=== PATIENT | male | born 1945 | race Caucasian/White ===

== ENCOUNTER 2023-07-04 08:14 | Outpatient (RCR) | payer OTHER, SELFPAY ==
[2023-07-04 08:50] LABS: % Basophils 0.1 % (0-2); % Eosinophils 3.7 % (0-6); % Immature Granulocytes 0.7 % (0-0.5); % Monocytes 10.6 % (1.7-9.3); % Neutrophils 62.9 % (42.2-75.2); Absolute Eosinophils 0.3 10^3/uL (0-0.7); Absolute Immature Granulocytes 0.1 10^3/uL (0-0.05); Absolute Lymphocytes 1.5 10^3/uL (1.2-3.4); Absolute Monocytes 0.7 10^3/uL (0.1-0.6); Absolute Neutrophils 4.2 10^3/uL (1.4-6.5); Hematocrit 45.6 % (39.0-52.0); Hemoglobin 14.5 g/dL (13.0-18.0); Mean Corp Hgb Conc. 31.8 g/dL (33.0-37.0); Mean Corpuscular Hgb 24.7 pg (27.0-31.0); Mean Corpuscular Volume 77.6 fL (80.0-94.0); Mean Platelet Volume 10.8 fL (7.4-10.4); Platelet Count 205 10^3/uL (130-400); Red Blood Cell Count 5.88 10^6/uL (4.70-6.10); Red Cell Dist. Width 15.3 % (11.5-14.5); White Blood Cell Count 6.7 10^3/uL (4.8-10.8)
[2023-07-04 09:20] VITALS: BP 179/91
[2023-07-04 09:40] VITALS: BP 160/92
[2023-07-04 10:20] VITALS: BP 182/84
== END 2023-08-02 23:59 | disposition home or self-care (01) ==
LOC: OID 08:14
PROVIDERS: ATTENDING PHYSICIAN Internal Medicine Hematology & Oncology; FAMILY PHYSICIAN Family Medicine
DX: D45 Polycythemia vera (principal); E10.65 Type 1 diabetes mellitus with hyperglycemia; E55.9 Vitamin D deficiency, unspecified
CPT/HCPCS: 36415; 85025; 99195

== ENCOUNTER → 2023-09-11 10:48 | Outpatient (REF) | payer MEDICARE, OTHER, SELFPAY ==
[2023-09-11 11:31] LABS: Hematocrit 49.2 % (39.0-52.0); Hemoglobin 15.6 g/dL (13.0-18.0)
[2023-09-11 11:54] LABS: ALT (SGPT) 23 U/L (0-50); AST (SGOT) 25 U/L (17-59); Albumin 4.5 g/dl (3.5-5.0); Alkaline Phosphatase 78 U/L (38-126); Blood Urea Nitrogen 21 mg/dl (9-20); Calcium 9.6 mg/dl (8.4-10.2); Carbon Dioxide 27 mmol/L (22-30); Chloride 105 mmol/L (98-107); Glucose 86 mg/dl (70-99); Potassium 4.1 mmol/L (3.5-5.1); Sodium 139 mmol/L (135-145); Total Bilirubin 0.6 mg/dl (0.2-1.3); Total Protein 7.6 g/dl (6.3-8.2); eGFR > 60.00
[2023-09-11 12:26] LABS: Microalbumin, Random Urine 3.1 mg/dl (0.6-1.7)
== END ==
LOC: REG 10:48
PROVIDERS: ATTENDING PHYSICIAN Internal Medicine Endocrinology, Diabetes & Metabolism; FAMILY PHYSICIAN Family Medicine
DX: E11.65 Type 2 diabetes mellitus with hyperglycemia (principal); Z74.9 Problem related to care provider dependency, unspecified
CPT/HCPCS: 36415; 80053; 82043; 83036; 85014; 85018

== ENCOUNTER 2023-10-03 08:27 | Outpatient (RCR) | payer MEDICARE, OTHER, SELFPAY ==
[2023-10-03 09:01] LABS: % Basophils 0.2 % (0-2); % Eosinophils 3.8 % (0-6); % Immature Granulocytes 0.7 % (0-0.5); % Lymphocytes 21.6 % (20.5-51.1); % Monocytes 8.7 % (1.7-9.3); Absolute Eosinophils 0.2 10^3/uL (0-0.7); Absolute Lymphocytes 1.3 10^3/uL (1.2-3.4); Absolute Monocytes 0.5 10^3/uL (0.1-0.6); Hematocrit 47.6 % (39.0-52.0); Mean Corp Hgb Conc. 31.5 g/dL (33.0-37.0); Mean Corpuscular Hgb 23.7 pg (27.0-31.0); Mean Corpuscular Volume 75.1 fL (80.0-94.0); Mean Platelet Volume 10.7 fL (7.4-10.4); Platelet Count 195 10^3/uL (130-400); Red Blood Cell Count 6.34 10^6/uL (4.70-6.10); Red Cell Dist. Width 18.5 % (11.5-14.5); White Blood Cell Count 6.1 10^3/uL (4.8-10.8)
[2023-10-03 09:31] VITALS: BP 166/66
[2023-10-03 10:15] VITALS: BP 177/72
[2023-10-03 10:22] VITALS: BP 162/73
== END 2023-10-31 23:59 | disposition home or self-care (01) ==
LOC: OID 08:27
PROVIDERS: ATTENDING PHYSICIAN Internal Medicine Hematology & Oncology; FAMILY PHYSICIAN Family Medicine
DX: D45 Polycythemia vera (principal); E10.65 Type 1 diabetes mellitus with hyperglycemia; E55.9 Vitamin D deficiency, unspecified
CPT/HCPCS: 36415; 85025; 99195

== ENCOUNTER 2023-11-03 06:44 | Day surgery (SDC) | payer MEDICARE, OTHER, SELFPAY ==
[2023-10-24 12:28] VITALS: BMI 38.1
[2023-11-03] VITALS (11 sets, daily range): BP systolic 100–188; BP diastolic 42–118; BMI 38.1
[2023-11-03 08:51] LABS: Glucose - Point of Care 261 mg/dl (70-99)
[2023-11-03] MEDS: NORMOSOL-R 1000 IV (08:57)
[2023-11-03] MEDS: NOVOLOG vial 4 UNITS SC (09:13)
[2023-11-03 10:02] LABS: Glucose - Point of Care 231 mg/dl (70-99)
[2023-11-03] MEDS: TYLENOL 650 MG PO (12:00)
== END 2023-11-03 12:30 | disposition home or self-care (01) ==
LOC: SDS 06:44
PROVIDERS: ATTENDING PHYSICIAN Specialist
DX: N40.2 Nodular prostate without lower urinary tract symptoms (principal); R31.9 Hematuria, unspecified; N35.919 Unspecified urethral stricture, male, unspecified site
CPT/HCPCS: 55700; 52281; 88305; 76998; 82962; J1580

== ENCOUNTER → 2023-12-20 06:44 | Outpatient (REF) | payer MEDICARE, OTHER, SELFPAY ==
[2023-12-20 08:33] LABS: ALT (SGPT) 21 U/L (0-50); AST (SGOT) 26 U/L (17-59); Albumin 4.6 g/dl (3.5-5.0); Alkaline Phosphatase 82 U/L (38-126); Blood Urea Nitrogen 23 mg/dl (9-20); Calcium 9.6 mg/dl (8.4-10.2); Carbon Dioxide 27 mmol/L (22-30); Chloride 104 mmol/L (98-107); Glucose 161 mg/dl (70-99); Potassium 4.4 mmol/L (3.5-5.1); Sodium 142 mmol/L (135-145); Total Bilirubin 0.8 mg/dl (0.2-1.3); Total Protein 7.6 g/dl (6.3-8.2); eGFR > 60.00
[2023-12-20 14:24] LABS: Glycohemoglobin (HgbA1c) 9.3 % (4.0-5.6)
== END ==
LOC: REG 06:44
PROVIDERS: ATTENDING PHYSICIAN Internal Medicine Endocrinology, Diabetes & Metabolism; FAMILY PHYSICIAN Family Medicine
DX: E11.65 Type 2 diabetes mellitus with hyperglycemia (principal)
CPT/HCPCS: 36415; 80053; 83036

== ENCOUNTER 2024-01-02 08:23 | Outpatient (RCR) | payer MEDICARE, OTHER, SELFPAY ==
[2024-01-02 08:41] LABS: % Basophils 0.3 % (0-2); % Eosinophils 3.4 % (0-6); % Immature Granulocytes 0.8 % (0-0.5); % Lymphocytes 20.2 % (20.5-51.1); % Monocytes 8.9 % (1.7-9.3); % Neutrophils 66.4 % (42.2-75.2); Absolute Eosinophils 0.2 10^3/uL (0-0.7); Absolute Immature Granulocytes 0.1 10^3/uL (0-0.05); Absolute Lymphocytes 1.3 10^3/uL (1.2-3.4); Absolute Monocytes 0.6 10^3/uL (0.1-0.6); Absolute Neutrophils 4.3 10^3/uL (1.4-6.5); Hematocrit 47.3 % (39.0-52.0); Hemoglobin 15.4 g/dL (13.0-18.0); Mean Corp Hgb Conc. 32.6 g/dL (33.0-37.0); Mean Corpuscular Hgb 24.4 pg (27.0-31.0); Mean Corpuscular Volume 74.8 fL (80.0-94.0); Mean Platelet Volume 10.8 fL (7.4-10.4); Platelet Count 209 10^3/uL (130-400); Red Blood Cell Count 6.32 10^6/uL (4.70-6.10); Red Cell Dist. Width 18.8 % (11.5-14.5); White Blood Cell Count 6.5 10^3/uL (4.8-10.8)
[2024-01-02 08:56] VITALS: BP 117/86
[2024-01-02 09:36] VITALS: BP 158/78
[2024-01-02 09:50] VITALS: BP 155/70
== END 2024-01-03 13:04 | disposition home or self-care (01) ==
LOC: OID 08:23
PROVIDERS: ATTENDING PHYSICIAN Internal Medicine Hematology & Oncology; FAMILY PHYSICIAN Family Medicine
DX: D45 Polycythemia vera (principal); E10.65 Type 1 diabetes mellitus with hyperglycemia; E55.9 Vitamin D deficiency, unspecified
CPT/HCPCS: 36415; 85025; 99195

== ENCOUNTER → 2024-04-09 13:27 | Outpatient (REF) | payer MEDICARE, OTHER, SELFPAY ==
[2024-04-09 14:15] LABS: Hematocrit 50.6 % (39.0-52.0); Hemoglobin 16.3 g/dL (13.0-18.0)
[2024-04-09 14:29] LABS: ALT (SGPT) 23 U/L (0-50); AST (SGOT) 25 U/L (17-59); Albumin 4.6 g/dl (3.5-5.0); Alkaline Phosphatase 71 U/L (38-126); Blood Urea Nitrogen 21 mg/dl (9-20); Calcium 9.5 mg/dl (8.4-10.2); Carbon Dioxide 24 mmol/L (22-30); Chloride 102 mmol/L (98-107); Glucose 209 mg/dl (70-99); Potassium 4.3 mmol/L (3.5-5.1); Sodium 141 mmol/L (135-145); Total Bilirubin 0.7 mg/dl (0.2-1.3); Total Protein 7.2 g/dl (6.3-8.2); eGFR > 60.00
== END ==
LOC: REG 13:27
PROVIDERS: ATTENDING PHYSICIAN Internal Medicine Endocrinology, Diabetes & Metabolism; FAMILY PHYSICIAN Family Medicine
DX: E11.65 Type 2 diabetes mellitus with hyperglycemia (principal); R53.83 Other fatigue; R71.8 Other abnormality of red blood cells
CPT/HCPCS: 36415; 80053; 83036; 85014; 85018

== ENCOUNTER 2024-04-16 08:24 | Outpatient (RCR) | payer MEDICARE, OTHER, SELFPAY ==
[2024-04-16 09:22] LABS: % Basophils 0.1 % (0-2); % Eosinophils 2.3 % (0-6); % Immature Granulocytes 0.7 % (0-0.5); % Lymphocytes 20.3 % (20.5-51.1); % Monocytes 7.7 % (1.7-9.3); % Neutrophils 68.9 % (42.2-75.2); Absolute Eosinophils 0.2 10^3/uL (0-0.7); Absolute Immature Granulocytes 0.1 10^3/uL (0-0.05); Absolute Lymphocytes 1.5 10^3/uL (1.2-3.4); Absolute Monocytes 0.6 10^3/uL (0.1-0.6); Absolute Neutrophils 5.1 10^3/uL (1.4-6.5); Hematocrit 50.8 % (39.0-52.0); Hemoglobin 16.6 g/dL (13.0-18.0); Mean Corp Hgb Conc. 32.7 g/dL (33.0-37.0); Mean Corpuscular Volume 79.5 fL (80.0-94.0); Mean Platelet Volume 11.3 fL (7.4-10.4); Platelet Count 164 10^3/uL (130-400); Red Blood Cell Count 6.39 10^6/uL (4.70-6.10); Red Cell Dist. Width 17.8 % (11.5-14.5); White Blood Cell Count 7.4 10^3/uL (4.8-10.8)
[2024-04-16 09:40] VITALS: BP 178/79
[2024-04-16 10:09] VITALS: BP 169/79
[2024-04-16 10:30] VITALS: BP 175/88
== END 2024-04-17 08:16 | disposition home or self-care (01) ==
LOC: OID 08:24
PROVIDERS: ATTENDING PHYSICIAN Internal Medicine Hematology & Oncology; FAMILY PHYSICIAN Family Medicine
DX: D45 Polycythemia vera (principal); E10.65 Type 1 diabetes mellitus with hyperglycemia; E55.9 Vitamin D deficiency, unspecified
CPT/HCPCS: 36415; 85025; 99195

== ENCOUNTER → 2024-04-23 06:23 | Outpatient (REF) | payer MEDICARE, OTHER, SELFPAY ==
[2024-04-23 08:19] LABS: HDL Cholesterol 48 mg/dl; LDL Cholesterol, Calculated 135 mg/dl; Total Cholesterol 218 mg/dl (50-199); Triglyceride 175 mg/dl (10-149); Very Low Density Lipoprotein 35 mg/dl (0-30)
[2024-04-23 08:37] LABS: TSH 0.73 uIU/ml (0.47-4.68)
== END ==
LOC: REG 06:23
PROVIDERS: ATTENDING PHYSICIAN Internal Medicine; FAMILY PHYSICIAN Family Medicine
DX: I25.810 Atherosclerosis of coronary artery bypass graft(s) without angina pectoris (principal); I48.0 Paroxysmal atrial fibrillation; E78.00 Pure hypercholesterolemia, unspecified
CPT/HCPCS: 36415; 80061; 84443

== ENCOUNTER → 2024-05-10 07:19 | Outpatient (REF) | payer MEDICARE, OTHER, SELFPAY | LOC: RAD 07:19 | PROVIDERS: ATTENDING PHYSICIAN Family Medicine | DX: E04.1 Nontoxic single thyroid nodule (principal) | CPT/HCPCS: 76536 ==

== ENCOUNTER 2024-07-16 08:34 | Outpatient (RCR) | payer MEDICARE, OTHER, SELFPAY ==
[2024-07-16 08:57] LABS: % Basophils 0.2 % (0-2); % Eosinophils 2.9 % (0-6); % Immature Granulocytes 0.8 % (0-0.5); % Lymphocytes 22.2 % (20.5-51.1); % Monocytes 8.1 % (1.7-9.3); % Neutrophils 65.8 % (42.2-75.2); Absolute Eosinophils 0.2 10^3/uL (0-0.7); Absolute Immature Granulocytes 0.1 10^3/uL (0-0.05); Absolute Lymphocytes 1.5 10^3/uL (1.2-3.4); Absolute Monocytes 0.5 10^3/uL (0.1-0.6); Absolute Neutrophils 4.4 10^3/uL (1.4-6.5); Hematocrit 50.8 % (39.0-52.0); Hemoglobin 16.4 g/dL (13.0-18.0); Mean Corp Hgb Conc. 32.3 g/dL (33.0-37.0); Mean Corpuscular Hgb 25.7 pg (27.0-31.0); Mean Corpuscular Volume 79.6 fL (80.0-94.0); Mean Platelet Volume 11.3 fL (7.4-10.4); Platelet Count 191 10^3/uL (130-400); Red Blood Cell Count 6.38 10^6/uL (4.70-6.10); Red Cell Dist. Width 15.6 % (11.5-14.5); White Blood Cell Count 6.6 10^3/uL (4.8-10.8)
[2024-07-16 09:04] VITALS: BP 113/69
[2024-07-16 09:37] VITALS: BP 143/63
[2024-07-16 09:52] VITALS: BP 179/90
== END 2024-08-02 23:59 | disposition home or self-care (01) ==
LOC: OID 08:34
PROVIDERS: ATTENDING PHYSICIAN Internal Medicine Hematology & Oncology; FAMILY PHYSICIAN Family Medicine
DX: D45 Polycythemia vera (principal); E10.65 Type 1 diabetes mellitus with hyperglycemia; E55.9 Vitamin D deficiency, unspecified
CPT/HCPCS: 36415; 85025; 99195

== ENCOUNTER 2024-09-17 08:06 | Outpatient (RCR) | payer MEDICARE, OTHER, SELFPAY ==
[2024-09-17 08:16] LABS: % Basophils 0.2 % (0-2); % Eosinophils 2.3 % (0-6); % Immature Granulocytes 0.7 % (0-0.5); % Lymphocytes 22.3 % (20.5-51.1); % Monocytes 8.8 % (1.7-9.3); % Neutrophils 65.7 % (42.2-75.2); Absolute Eosinophils 0.2 10^3/uL (0-0.7); Absolute Immature Granulocytes 0.1 10^3/uL (0-0.05); Absolute Lymphocytes 1.9 10^3/uL (1.2-3.4); Absolute Monocytes 0.8 10^3/uL (0.1-0.6); Absolute Neutrophils 5.6 10^3/uL (1.4-6.5); Hematocrit 52.5 % (39.0-52.0); Hemoglobin 16.8 g/dL (13.0-18.0); Mean Corpuscular Hgb 25.3 pg (27.0-31.0); Mean Corpuscular Volume 79.2 fL (80.0-94.0); Mean Platelet Volume 11.3 fL (7.4-10.4); Platelet Count 199 10^3/uL (130-400); Red Blood Cell Count 6.63 10^6/uL (4.70-6.10); Red Cell Dist. Width 16.8 % (11.5-14.5); White Blood Cell Count 8.5 10^3/uL (4.8-10.8)
[2024-09-17 09:05] VITALS: BP 138/66
[2024-09-17 09:32] VITALS: BP 130/64
== END 2024-09-30 23:59 | disposition home or self-care (01) ==
LOC: OID 08:06
PROVIDERS: ATTENDING PHYSICIAN Internal Medicine Hematology & Oncology; FAMILY PHYSICIAN Family Medicine
DX: D45 Polycythemia vera (principal); E10.65 Type 1 diabetes mellitus with hyperglycemia; E55.9 Vitamin D deficiency, unspecified
CPT/HCPCS: 36415; 85025; 99195

== ENCOUNTER 2024-11-15 08:10 | Outpatient (RCR) | payer MEDICARE, OTHER, SELFPAY ==
[2024-11-15 08:54] LABS: % Basophils 0.3 % (0-2); % Eosinophils 3.2 % (0-6); % Immature Granulocytes 0.6 % (0-0.5); % Lymphocytes 19.7 % (20.5-51.1); % Monocytes 8.8 % (1.7-9.3); % Neutrophils 67.4 % (42.2-75.2); Absolute Eosinophils 0.2 10^3/uL (0-0.7); Absolute Lymphocytes 1.3 10^3/uL (1.2-3.4); Absolute Monocytes 0.6 10^3/uL (0.1-0.6); Absolute Neutrophils 4.6 10^3/uL (1.4-6.5); Hematocrit 48.5 % (39.0-52.0); Mean Corpuscular Hgb 25.9 pg (27.0-31.0); Mean Corpuscular Volume 78.5 fL (80.0-94.0); Mean Platelet Volume 11.5 fL (7.4-10.4); Platelet Count 185 10^3/uL (130-400); Red Blood Cell Count 6.18 10^6/uL (4.70-6.10); Red Cell Dist. Width 15.8 % (11.5-14.5); White Blood Cell Count 6.8 10^3/uL (4.8-10.8)
[2024-11-15 09:11] VITALS: BP 187/70
[2024-11-15 09:40] VITALS: BP 153/85
[2024-11-15 09:52] VITALS: BP 176/81
== END 2024-11-18 09:43 | disposition home or self-care (01) ==
LOC: OID 08:10
PROVIDERS: ATTENDING PHYSICIAN Internal Medicine Hematology & Oncology; FAMILY PHYSICIAN Family Medicine
DX: D45 Polycythemia vera (principal)
CPT/HCPCS: 36415; 85025; 99195

== ENCOUNTER 2024-11-29 21:53 | Emergency (ER) | payer MEDICARE, OTHER, SELFPAY ==
[2024-11-29 21:54] VITALS: BP 204/109
[2024-11-29 21:59] VITALS: BP 204/81
[2024-11-30 00:31] VITALS: BP 180/62; BMI 36.5
--- NOTE | 2024-11-30 00:40 | EDRN ---
Pt was cutting tree limbs yesterday and had a brush pile he loaded into a truck. Pt was wearing long gloves while doing this. Around 1530 when pt removed gloves, he noted a bite on his L volar arm - 2 tiny red puncture dumont. Area began to swell
so pt went inside and applied ice. Pt says the area was very swollen until 1800 but the ice helped. Area looks like a bruise. Pt marked the area with a pen to track progression. No red streaks. NO numbness/tingling, fever/chills. Pt has a
headache. BP elevated. Pt says his carvedilol dose was cut in half about 3 weeks ago (6.25mg BID to 3.125mg BID)
--- NOTE | 2024-11-30 01:53 | ED.SKININJ ---
HPI-Injury
General
Chief Complaint: Bite
Source: patient
Exam Limitations: none
Time Seen by Provider: 11/30/24 01:44
Nursing documentation reviewed up to this point in time: agreed with
History of Present Illness-Injury
Initial Injury comments:
79-year-old gentleman with history of diabetes, hypertension, CAD, polycythemia, GERD states he was working in his garden earlier today while wearing gloves. He denies insightful injury but when he took his gloves off he noticed a dark, swollen
area to his left anterior lower forearm as well as noticed 2 tiny puncture wounds that he suspects are an insect bite. He denies feeling a sting or a bite but was concerned with this swollen dark area for which he has been applying ice with marked
improvement in swelling but darkened area of skin and mild local tenderness persist.
He was worried that the area was going to spread. He did encircle the area with pen this evening and does note that there has been no spread of this darkened skin, no spread of the swelling.
He has not had a fever nor chills. No weakness nor numbness.
Past History
Past History
ED Past Medical History: CAD, HTN, Hypercholesterolemia, IDDM, Other (Epistaxis, polycythemia), Other (Obstructive sleep apnea, kidney stones) and Other ([place] palsy)
ED Past Surgical History: Cardiac, Orthopedic and Other
Patient has exhibited threatening behavior?: No
Social History
Tobacco: Former smoker
Alcohol: Occasional
Drug: None
Personal:
Living: with family
Employment: Retired
Family History
Family History: Hypertension
Phy Exam
Physical Exam
Physical Exam:
GENERAL: 79-year-old gentleman appears his stated age, awake and alert, pleasant, appears in no acute distress.
EYE: pupils equal
ENT: oral mucosa is moist. No rhinorrhea.
LUNGS: no acute respiratory distress
NEUROLOGICAL: Alert and oriented x3, no focal neuro deficits. Gait is bell and steady.
SKIN: Warm and dry, normal color, good turgor.
MUSCULOSKELETAL: No C/C/E. peripheral pulses are full and equal b/l. Left anterior distal forearm has a well-circumscribed oval area of dark purple ecchymosis, 5 cm x 3 cm. Mild local tenderness to palpation. Along the lateral edge of this
ecchymotic patch there is 2-minute puncture wounds. There is no drainage, no erythema, no lymphangitis, no palpable heat. Full wrist and elbow range of motion without difficulty nor pain.
PSYCH: Normal and appropriate interaction.
Course
Orders/Labs/Results
Orders:
Orders
11/29/24 22:00
EKG [Electrocardiogram (*1)] Stat
Reason for Study: Hypertension, Benign
EKG- Treatment ONCE
Vital Signs
Initial and Last Documented VS:
Initial Vital Signs
Temp Pulse Resp BP Pulse Ox
97.7 F 75 20 204/109 98
11/29/24 21:54 11/29/24 21:54 11/29/24 21:54 11/29/24 21:54 11/29/24 21:54
Last Documented Vital Signs
Temp Pulse Resp BP Pulse Ox
97.8 F 62 14 155/68 94
11/30/24 00:31 11/30/24 02:08 11/30/24 02:08 11/30/24 02:08 11/30/24 02:08
MDM/Problems Addressed
Differential Diagnosis Includes:
Patient presents with concern for potential bug bite to left anterior wrist and exam is notable for an ecchymotic patch, well-circumscribed. There is no erythema, no lymphangitis.
Acute ecchymosis may have been triggered by an insect bite versus focal trauma while gardening.
Overall improved with local ice and recommend he continue with conservative measures, continue with local ice, rest. May take Tylenol as needed for pain.
No indication for antibiotic nor imaging.
Follow-up with PCP for recheck.
Return precautions discussed.
MDM/Problems Addressed:
Patient noted to be moderately hypertensive, improved upon recheck. He has known history of hypertension.
EKG performed at triage. Sinus bradycardia at 59, no acute ST-T wave abnormalities and similar to previous October 2023.
Chronic conditions affecting care: DM and HTN
*Pulse Oximetry
Patient hypoxic: no
*EKG
Interpreted by ED Provider?: Yes
Interpretation: normal
Comparison EKG: no changes
Rate: bradycardiac
Rhythm: sinus
[place]: normal axis
Interval: normal interval
QRS Pattern: normal QRS
Ischemia: no ischemia
*Critical Care Note
Total Time (30-74mins, 75-104mins- exclusive of procedures): Not Applicable
ED Attending Note
-
Portions of this chart may have been created with voice recognition software.� Occasional wrong word or��sound alike� substitutions may have occurred due to the inherent limitations of voice recognition software.
Discharge Plan
Departure
Patient Disposition: Home (Routine Discharge)
Date of Disposition: 11/30/24
Time of Disposition: 01:54
Patient with high blood pressure during this ER visit?: No
Condition: Good
Discharge Problem:
Traumatic ecchymosis of left forearm, Insect bite
Instructions: Taking care of bruises
Prescriptions:
No Action
lutein 20 MG capsule
20 mg PO BID
cyanocobalamin (vitamin B-12) 1,000 MCG tablet
1,000 mcg PO DAILY
finasteride 5 MG tablet
5 mg PO QPM
red yeast rice 600 MG tablet
1,200 mg PO BID
cholecalciferol (vitamin D3) 1,000 UNITS tablet
1,000 units PO DAILY
potassium chloride [Klor-Con M20] 20 MEQ tablet,ER particles/crystals
20 meq PO DAILY
insulin asp prt-insulin aspart [Novolog Mix 70-30FlexPen U-100] 100 unit/mL (70-30) Insulin Pen
25 unit SC DAILY
Patient Comments:
usual dose but adjusts based on glucose level
[place] 100/33 100 unit-33 mcg/mL Insulin Pen
30 - 32 unit SC DAILY
Patient Comments:
adjusts dose according to glucose level
folic acid 1 mg Tablet
1 mg PO QPM
Fish Oil 600 MG
1,800 mg PO BID
Humulin N Pen 100 unit/mL (3 mL) Insulin Pen
34 unit SC HS
furosemide [Lasix] 40 MG tablet
60 mg PO BID
valsartan 160 mg Tablet
160 mg PO DAILY
magnesium
400 mg PO DAILY
carvedilol 3.125 mg Tablet
3.125 mg PO BID
insulin asp prt-insulin aspart [Novolog Mix 70-30FlexPen U-100] 100 unit/mL (70-30) Insulin Pen
60 unit SC QPM
aspirin 81 mg Capsule
81 mg PO DAILY
Referrals:
Marquis Reed MD [Family Provider, Family Practice] - Call in 1-3 days for appt
Interventions
Interventions:
*Risk Screen - Suicide Last Done: 11/29/24 21:54
*General Assessment Last Done: 11/30/24 00:31
*Neglect/Abuse Screening Last Done: 11/29/24 21:54
*ED- Fall Risk Assessment Last Done: 11/30/24 00:31
*Nursing Disposition Last Done: 11/30/24 02:10
ED-Skin Assessment Last Done: 11/30/24 00:31
Discharge Date and Time
Discharge Date/Time: 11/30/24 02:10
Print Language: ALBANIAN
[2024-11-30 02:08] VITALS: BP 155/68
== END 2024-11-30 02:10 | disposition home or self-care (01) ==
LOC: EMR 21:53
PROVIDERS: EMERGENCY PHYSICIAN Emergency Medicine; FAMILY PHYSICIAN Family Medicine
DX: S50.12XA Contusion of left forearm, initial encounter (principal); S50.862A Insect bite (nonvenomous) of left forearm, initial encounter; W57.XXXA Bitten or stung by nonvenomous insect and other nonvenomous arthropods, initial encounter; I25.10 Atherosclerotic heart disease of native coronary artery without angina pectoris; E78.00 Pure hypercholesterolemia, unspecified; E11.9 Type 2 diabetes mellitus without complications; G47.33 Obstructive sleep apnea (adult) (pediatric); I10 Essential (primary) hypertension; Z79.4 Long term (current) use of insulin; Z87.891 Personal history of nicotine dependence
CPT/HCPCS: 99283; 93005

== ENCOUNTER → 2024-12-26 06:36 | Outpatient (REF) | payer MEDICARE, OTHER, SELFPAY ==
[2024-12-26 07:43] LABS: Blood Urea Nitrogen 23 mg/dl (9-20); Calcium 9.3 mg/dl (8.4-10.2); Carbon Dioxide 27 mmol/L (22-30); Chloride 107 mmol/L (98-107); Glucose 234 mg/dl (70-99); Potassium 4.5 mmol/L (3.5-5.1); Sodium 139 mmol/L (135-145); eGFR > 60.00
== END ==
LOC: REG 06:36
PROVIDERS: ATTENDING PHYSICIAN Physician Assistant; FAMILY PHYSICIAN Family Medicine
DX: R79.89 Other specified abnormal findings of blood chemistry (principal)
CPT/HCPCS: 36415; 80048

== ENCOUNTER 2025-01-14 08:16 | Outpatient (RCR) | payer MEDICARE, OTHER, SELFPAY ==
[2025-01-14 08:28] LABS: Hematocrit 49.7 % (39.0-52.0); Hemoglobin 16.1 g/dL (13.0-18.0); Mean Corp Hgb Conc. 32.4 g/dL (33.0-37.0); Mean Corpuscular Volume 78.9 fL (80.0-94.0); Platelet Count 194 10^3/uL (130-400); Red Cell Dist. Width 17.1 % (11.5-14.5)
[2025-01-14 09:15] VITALS: BP 147/65
[2025-01-14 09:42] VITALS: BP 141/73
[2025-01-14 09:55] VITALS: BP 165/78
== END 2025-01-15 11:14 | disposition home or self-care (01) ==
LOC: OID 08:16
PROVIDERS: ATTENDING PHYSICIAN Internal Medicine Hematology & Oncology; FAMILY PHYSICIAN Family Medicine
DX: D45 Polycythemia vera (principal); E10.65 Type 1 diabetes mellitus with hyperglycemia; E55.9 Vitamin D deficiency, unspecified
CPT/HCPCS: 36415; 85025; 99195

== ENCOUNTER 2025-02-02 17:32 | Inpatient (IN) | payer MEDICARE, OTHER, SELFPAY ==
[2025-02-02] VITALS (56 sets, daily range): BP systolic 126–211; BP diastolic 58–132; BMI 35.8; BMI 34.7
[2025-02-02 16:15] LABS: Glucose - Point of Care 81 mg/dl (70-99)
--- NOTE | 2025-02-02 16:16 | ED.CVA ---
History of Present Illness
General
Chief Complaint: CVA/TIA Symptoms
Source: patient and spouse
Time Seen by Provider: 02/02/25 16:08
Onset of Stroke Symptoms
Onset of symptoms known: Yes
Date of onset of symptoms: 02/02/25
Time of onset of symptoms: 13:00
History of Present Illness
History of Present Illness:
79-year-old male presents to the emergency room for evaluation of left-sided paresthesias, mild weakness. Patient notes from 1:00 that the left side of his face felt numb. He also noticed this in his hand and arm as well as his left leg. He felt
like his left leg was 'dragging' at times. Patient has a mild headache. He has been having headache intermittently for the past week or so. No fever, chills, nausea or vomiting. Patient does not take any oral anticoagulation. He was on Eliquis
at a time but now is only taking baby aspirin.
Past History
Past History
ED Past Medical History: CAD, HTN, Hypercholesterolemia, IDDM, Other (Epistaxis, polycythemia), Other (Obstructive sleep apnea, kidney stones) and Other ([place] palsy)
ED Past Surgical History: Cardiac, Orthopedic and Other
Patient has exhibited threatening behavior?: No
Social History
Tobacco: Former smoker
Alcohol: Occasional
Drug: None
Personal:
Living: with family
Employment: Retired
Family History
Family History: Hypertension
Phy Exam
Physical Exam
Physical Exam:
General: Awake, Alert, Oriented X3. No acute distress.
Vitals: unremarkable
Head: Atraumatic
Eyes: Pupils equal, EOMI
Throat: Airway intact, no exudates
Neck: Trachea midline
Lungs: Clear and equal b/l
Heart: Regular rate, no murmurs
Abd: Soft, Nontender, No pulsatile mass
Neuro: Perhaps very subtle left facial droop, decree sensation left face, arm and leg, mild left leg drift
Skin: Warm, dry, no rash
Extremities: pulses equal b/l, no edema
Scores
NIH Stroke Score
Level of Consciousness: 0 - Alert
LOC Questions: 0-Answers both correctly
LOC Commands: 0-Performs both correctly
Best Horizontal Gaze: 0-Normal
Visual [place]: 0=Normal, no visual loss
Facial Palsy: 1=Minor paralysis
Motor - Right Arm: 0=No drift 10 seconds
Motor - Left Arm: 0=No drift 10 seconds
Motor - Right Le-No drift 5 seconds
Motor - Left Le-Drift < 5 seconds
Limb Ataxia: 0-Absent
Sensation: 1-Mild loss
Best Language: 0-No aphasia
Dysarthria: 1-Mild slurring
Extinction and Inattention: 0-No abnormality
NIH Total Score:: 4
Thrombolytic Contraindication
IAT Contraindications: NIHSS < 6
Course
Orders/Labs/Results
Orders:
Orders
02/02/25 16:14
Complete Blood Count/With Diff Urgent
Comprehensive Metabolic Panel Urgent
PT/INR [Prothrombin Time] Urgent
PTT Urgent
02/02/25 16:15
CT BRAIN PERF STROKE ALERT Urgent
Comment:
Reason For Exam: left sided weakness/paresthesia
CT HEAD STROKE ALERT W/o Cont Urgent
Comment:
Reason For Exam: left sided weakness/paresthesia
CT HEAD/NECK ANG STROKE ALERT Urgent
Comment:
Reason For Exam: left sided weakness/paresthesia
02/02/25 16:56
Tenecteplase [Tnkase] 25 mg Syringe [Syringe Non-Pump] 0 ml IV NOW
Provider explained risk/benefits to patient &/or caregiver?: Yes
Blood pressure: 179/122
02/02/25 16:58
Nicardipine 40 mg/200 ml [Cardene] 40 mg in 200 ml IV NOW
Initial dose in mg/hr, then titrate:: 5
Titrate to keep:: BP < 180/105 mmHg
Titrate by mg/hr:: 2.5 mg/hr
Frequency of titrations (minutes):: 5-15 minutes
Maximum dose in mg/hr:: 15
Begin to taper infusion when:: Remained at goal for 2hrs
Taper by mg/hr:: 2.5 mg/hr
Frequency of taper (minutes) if patient maintains goal:: every 15-30 minutes
Taper to off?: Yes
If infusion off & no longer maintaining goal:: Contact Provider
02/02/25 17:24
Admit/Transfer Patient As Directed
Co-Sign Provider:
Level of Care: Inpatient admission
Assign to:: ICU
Physician / Group: Hospitalist
Diagnosis: Stroke
Reason for Hospitalization: Stroke
Expected length of stay greater than two midnights?: Yes
ELOS- Estimated Length of Stay in days: 3
I certify the patient meets the requirements for IP care: Yes
PRN Pain Medication Management As Directed
May give lesser potent ordered pain med per pt: Yes
preference::
Protocol:: Medication orders for pain may be administered in a
manner that supports deferring to patient preference
when the pt is:
- Requesting an ordered lesser potent pain medication.
Least to most potent pain medications are defined
as: acetaminophen < NSAID < tramadol < opioids
(morphine, oxycodone, hydromorphone).
- Requesting a lesser dose of the same medication IF
ORDERED.
- Requesting a less intrusive route of administration
if both routes are prescribed by the provider (PO <
IV).
02/02/25 17:25
Code Status As Directed
Resuscitation Status: Full Code
02/02/25 18:08
Acetaminophen [Tylenol] 650 mg PO Q4HPRN PRN
Labetalol HCl [Trandate] 5 mg IV Q6HPRN PRN
02/02/25 18:08
Electrocardiogram (*1) Routine
Reason for Study: TIA/Stroke
Case Management Consult Once
Case Management Consult: Discharge Planning
DIETARY IP CONSULT Routine
Reason for Consult: stroke/TIA
Knobber Consult Routine
Consulting Provider: Heidi Donahue
Was physician already notified: Yes
Reason for consult: stroke
NEUROLOGY CONSULT Urgent
Consulting Provider: Jeremiah Medina
Was physician already notified: Yes
Reason for consult: stroke
Senior Network Security Engineer Urgent
MR Brain Without Contrast Routine
Comment: complete 24 hrs post tenecteplase administration
Reason For Exam: possible stroke, status post tenecteplase
OK for patient to be off Cardiac Monitoring for MRI: Yes
Recent pill cam endoscopy?: No
Hemetest Stools As Directed
Comment: hemoccult all stools if patient received tenecteplase
NIH Stroke Scale As Directed
Directions: Other
Comment: NIH stroke Scale to be completed prior to thrombolytic administration, then every 1 hour for 2
hours, then every shift and with change in condition and/or mental status.
Neurological Checks As Directed
Frequency: Per unit guidelines
Additional Instructions:: after start of thrombolytic therapy:
q15min x 2 hrs, q30min x 6 hrs, q1h x 16 hrs, q4h x 24 hrs, then every shift and
with any changes.
Notify MD As Directed
Notify physician if: - Any deterioration, change in neurological status, development of severe headache,
nausea and vomiting, or with any signs of bleeding. (see guidelines for suspected
intracerebral hemorrhage).
- If intracranial hemorrhage is suspected or confirmed by imaging, anticipate need for
osmotic diuretic to maintain euvolemia.
Notify MD As Directed
Notify physician if: Glucose less than 70 or greater than 180.
Anticipate corrective insulin orders.
Notify MD As Directed
Notify physician if: SBP not at goal within 30 minutes of prn LABETALOL administration.
notify provider to initiate continuous infusion of nicardipine or clevidipine.
Notify MD As Directed
Notify physician if: unable to obtain MRI of head within 22-32 hours of tenecteplase administration
- contact Neurology for order for CT of head without contrast
Patient Education As Directed
Type: Stroke education packet
Comment: provide to patient and family
Pneumatic Compression Sleeves As Directed
Type: Knee high
Precautions As Directed
Type of Precautions: Bleeding
Comment: post Bleeding Precaution sign at bedside (if patient received tenecteplase)
Swallow Screening CVA/TIA ONLY As Directed
Comment: NPO until swallow screening completed
If patient FAILS swallow screening:: NPO and Speech consult and aspiration precautions
If patient PASSES swallow screening, diet:: 2200 valentin/ 18 CHO Diabetic
Thrombolytic Precautions As Directed
Thrombolytic Precautions:: [place] bleeding precautions. Minimize invasive procedures and venipunctures,
avoid IM injections and over-handling patient, and check all puncture sites for
bleeding. Assess the patient and notify provider for signs and symptoms of
internal or serious bleeding, such as changes in vital signs or evidence of blood
in the urine or stool.
Additional instructions: Hemocult all stools.
Apply direct pressure or pressure dressing to any compressible puncture sites.
No ABG sampling or Dan insertion after Tenecteplase administration for 24 hours,
unless directed by the Neurologist/Attending.
Vital Signs As Directed
Frequency: q15m
Call for:: BP greater than 180/105 mmHg or less than 100/60 mmHg
Additional Instructions:: after start of thrombolytic therapy:
q15min x 2 hrs, q30min x 6 hrs, q1h x 16 hrs, q4h x 24 hrs, then every shift and
with any changes.
CR Chest - 2 Views Urgent
Comment:
Reason For Exam: stroke/TIA
Ot Eval And Treat Routine
Physiatry Consult Routine
Consulting Provider: Ivan Santizo
Was physician already notified: Yes
Reason for consult: stroke/TIA
Pt Eval And Treat Routine
Treatment: eval gait
Activity Level: With Assistance
Speech Therapy Eval & Treat Routine
DX Deep Vein Thrombosis Video Routine
02/03/25 06:00
Basic Metabolic Panel IN AM
Cardiovascular Evaluation IN AM
Complete Blood Count/No Diff IN AM
PTT IN AM
Prothrombin Time IN AM
Abnormal Lab Results
02/02/25
16:14
RBC 6.23 H 10^6/uL
(4.70-6.10)
MCV 78.3 L fL
(80.0-94.0)
MCH 25.7 L pg
(27.0-31.0)
MCHC 32.8 L g/dL
(33.0-37.0)
RDW 17.4 H %
(11.5-14.5)
MPV 11.7 H fL
(7.4-10.4)
Abs Immat Gran (auto) 0.1 H 10^3/uL
(0-0.05)
Absolute Monos (auto) 0.8 H 10^3/uL
(0.1-0.6)
Immature Gran % 0.7 H %
(0-0.5)
02/02/25 16:14
02/02/25 16:14
Vital Signs
Initial and Last Documented VS:
Initial Vital Signs
Temp Pulse Resp BP Pulse Ox
98.5 F 60 20 189/82 92
02/02/25 16:01 02/02/25 16:01 02/02/25 16:01 02/02/25 16:01 02/02/25 16:01
Last Documented Vital Signs
Temp Pulse Resp BP Pulse Ox
98.5 F 89 20 159/63 92
02/02/25 16:01 02/02/25 17:53 02/02/25 17:53 02/02/25 17:53 02/02/25 16:45
MDM/Problems Addressed
Differential Diagnosis Includes:
Ischemic stroke, hemorrhagic stroke, mass lesion, seizure, electrolyte abnormality
MDM/Problems Addressed:
Patient presents with left-sided paresthesias and subtle left facial droop, slurred speech, left leg weakness. I calculated his NIH score to be 4. Discussed with Dr. Medina. Time of onset of symptoms is a little bit vague. Patient knows it happened
before the golf tournament started which was at 1:00. It may have been as early as 12. This puts him short on the borderline for typical time window to start TN K. However noted that the patient's perfusion scan shows a area of ischemia
without core infarct. In the circumstances he believes the literature supports using TNK up to 24 hours. Therefore he recommended we order TNK. Discussed with the patient the risk of bleeding at about 3 to 5%. Patient was accepting of TNK.
Moments after the patient received TNK nurse stated that he seemed to have a worsening headache. She thought his pupils were unequal. Repeat evaluation does show he has mild Kalyn Luca which I believe is physiologic. Repeat head CT was
performed and is unremarkable. Dr. Gray and communicated to Dr. Gallagher and myself the results of the CT perfusion scan and CT angiogram. Dr. Gallagher did not feel that the patient was a candidate for intra-arterial therapy.
*Pulse Oximetry
SaO2: 92
Oxygen Mode of Delivery: Room air
Patient hypoxic: yes
*EKG
Interpreted by ED Provider?: Yes
Interpretation: abnormal
Heart Rate: 59
Rate: bradycardiac
Rhythm: sinus
[place]: normal axis
Interval: normal interval
QRS Pattern: normal QRS
Ischemia: no ischemia
*Plug Machine Operator Interpretation
Rate: bradycardiac
Interpretation: abnormal
Rhythm: sinus
*Critical Care Note
Total Time (30-74mins, 75-104mins- exclusive of procedures): 50 min
comment:
Critical care statement: A total of 50 minutes of critical care time was provided for this patient. This includes management of unstable vital signs, evaluation of the patient at bedside, reviewing the patient's pertinent medical records, discussion
with consultants, review of old EKGs and review of pertinent medical records. This time with separate from time utilized to perform the aforementioned documented procedures
ED Attending Note
-
Portions of this chart may have been created with voice recognition software.� Occasional wrong word or��sound alike� substitutions may have occurred due to the inherent limitations of voice recognition software.
Discharge Plan
Departure
Patient Disposition: Admit
Date of Disposition: 02/02/25
Time of Disposition: 17:02
Admit to: ICU
Presentation/result/management discussed w/ accepting MD/DO: Hospitalist
Condition: Serious
Discharge Problem:
Acute CVA (cerebrovascular accident)
Interventions
Interventions:
*Risk Screen - Suicide Last Done: 02/02/25 16:45
*General Assessment Last Done: 02/02/25 16:45
*Neglect/Abuse Screening Last Done: 02/02/25 16:45
*ED- Fall Risk Assessment Last Done: 02/02/25 16:45
*ED COVID-19 Vaccine History Last Done: 02/02/25 16:19
ED- Pulmonary Assessment Last Done: 02/02/25 16:46
ED- Neurological Assessment Last Done: 02/02/25 17:18
ED- Cardiac Assessment Last Done: 02/02/25 16:46
[2025-02-02 16:32] LABS: Hematocrit 48.8 % (39.0-52.0); Hemoglobin 16.0 g/dL (13.0-18.0); Mean Corp Hgb Conc. 32.8 g/dL (33.0-37.0); Mean Corpuscular Volume 78.3 fL (80.0-94.0); Nucleated Red Blood Cells % 0 % (-); Platelet Count 215 10^3/uL (130-400); Red Cell Dist. Width 17.4 % (11.5-14.5)
[2025-02-02 16:46] LABS: INR 0.97; PT 13.2 Sec (11.4-14.6)
[2025-02-02 16:47] LABS: APTT 25.7 Sec (23.4-35.0)
[2025-02-02 16:52] LABS: ALT (SGPT) 20 U/L (0-50); AST (SGOT) 19 U/L (17-59); Albumin 4.7 g/dl (3.5-5.0); Alkaline Phosphatase 67 U/L (38-126); Blood Urea Nitrogen 16 mg/dl (9-20); Calcium 9.5 mg/dl (8.4-10.2); Carbon Dioxide 24 mmol/L (22-30); Chloride 107 mmol/L (98-107); Estimated Creatinine Clearance 94 ml/min; Glucose 70 mg/dl (70-99); Potassium 3.9 mmol/L (3.5-5.1); Sodium 141 mmol/L (135-145); Total Protein 7.6 g/dl (6.3-8.2); eGFR > 60.00
[2025-02-02] MEDS: CARDENE 200 IV (17:04)
--- NOTE | 2025-02-02 17:05 | CON.NEURO ---
Neuro Assessment/Plan
Assessment
CTA head/neck imgs rev'd, spoke with radiologist over TT right P1/P2 junction LVO
CT perfusion: right occipital stroke, core 0, penumbra 12 cc
79 year old man with right occipital stroke. NIHSS 4.
patient treated with TNK, off label as it is out of the 4.5 hr window though good evidence for use of TNK 4.5-24 hrs with favorable perfusion scan. delay for revised LKN time, bp 211/88 needing labetalol.
Admit to MICU for 24 hours of frequent neurochecks.�
neurochecks q1, Frequent vital signs Q15min x 2hrs, then Q30min x 6hrs, then Q1H x 16hrs until stable from the start of TNK.�
�tele, accuchecks/ISS. Repeat Head CT in 24 hours
Blood pressure goals: <180/105 and MAP 80-100� in the acute period.� If BP elevated for 2 readings, preferred agents include IV labetalol or nicardipine.� Vasopressors as necessary to maintain MAP and CPP.�
Glucose goals: Maintain euglycemia using sliding scale insulin. If glucose >180 for two consecutive readings, please use MICU insulin protocol.�
Temperature goals: maintain normothermia
Consultation
Order
Date of Consultation: 02/02/25
Requesting Provider: Santiago Terrell
Reason for Consult: stroke
Subjective/Objective
Subjective Data
Date of Service: February 02, 2025
from ED notes:
79-year-old male presents to the emergency room for evaluation of left-sided paresthesias, mild weakness. Patient notes from 1:00 that the left side of his face felt numb. He also noticed this in his hand and arm as well as his left leg. He felt
like his left leg was 'dragging' at times. Patient has a mild headache. He has been having headache intermittently for the past week or so. No fever, chills, nausea or vomiting. Patient does not take any oral anticoagulation. He was on Eliquis
at a time but now is only taking baby aspirin.
last week had some scintillations in left visual field, saw eye doctor
Objective Data
Vital Signs
Temp Pulse Resp BP Pulse Ox
36.9 C 70 20 179/122 92
02/02/25 16:01 02/02/25 16:30 02/02/25 16:19 02/02/25 16:16 02/02/25 16:20
Lab Results
02/02/25 16:14
02/02/25 16:14
PT 13.2 Sec (11.4-14.6) 02/02/25 16:14
INR 0.97 02/02/25 16:14
APTT 25.7 Sec (23.4-35.0) 02/02/25 16:14
Sodium 141 mmol/L (135-145) 02/02/25 16:14
Potassium 3.9 mmol/L (3.5-5.1) 02/02/25 16:14
BUN 16 mg/dl (9-20) 02/02/25 16:14
Glucose 70 mg/dl (70-99) 02/02/25 16:14
Calcium 9.5 mg/dl (8.4-10.2) 02/02/25 16:14
Patient Allergies
atorvastatin calcium (From Lipitor) Allergy (Verified 02/02/25 15:59)
severe muscle soreness
levofloxacin (From Levaquin) Allergy (Verified 02/02/25 15:59)
Hives
pollen extracts Allergy (Verified 02/02/25 15:59)
Nasal stuffiness - seasonal
Sulfa (Sulfonamide Antibiotics) Allergy (Verified 02/02/25 15:59)
couldn't breathe
CVA Assessment
Onset of Stroke Symptoms
Onset of symptoms known: Yes
Date of onset of symptoms: 02/02/25
Time of onset of symptoms: 12:00
NIH Stroke Score
Level of Consciousness: 0 - Alert
LOC Questions: 0-Answers both correctly
LOC Commands: 0-Performs both correctly
Best Horizontal Gaze: 0-Normal
Visual Garay: 1=Partial hemianopia
Facial Palsy: 1=Minor paralysis
Motor - Right Arm: 0=No drift 10 seconds
Motor - Left Arm: 1=Drift < 10 seconds
Motor - Right Le-No drift 5 seconds
Motor - Left Le-Drift < 5 seconds
Limb Ataxia: 0-Absent
Sensation: 0-Normal
Best Language: 0-No aphasia
Dysarthria: 0-Normal
Extinction and Inattention: 0-No abnormality
NIH Total Score:: 4
Physical Exam
-
left superior homonymous quadrantanopsia
left nasolabial flattening
left pronator drift, LUE/LE 5-/5, right side full strength
Medications
-
Home Medications
�Medication �Instructions �Recorded
lutein 20 mg capsule 20 mg PO BID Supplement 07/10/09
cyanocobalamin (vitamin B-12) 1,000 mcg PO DAILY Supplement 06/02/17
1,000 mcg tablet
finasteride 5 mg tablet 5 mg PO QPM Urinary issue 06/02/17
red yeast rice 600 mg tablet 1,200 mg PO BID Supplement 06/16/17
Held on 04/20/23.
Instructions: Resume on
04/25/23.
cholecalciferol (vitamin D3) 25 1,000 units PO DAILY Supplement 08/15/19
mcg (1,000 unit) tablet
potassium chloride 20 mEq 20 meq PO DAILY Supplement 03/05/21
tablet,extended
release(part/cryst) (Klor-Con M)
Fish Oil 1,800 mg PO BID 01/18/23
Held on 04/20/23.
Instructions: Resume on
10/24/23.
folic acid 1 mg tablet 1 mg PO QPM 01/18/23
insulin aspar prot-insulin aspart 10 unit SC DAILY 01/18/23
100 unit/mL (70-30) subcutaneous
pen (Novolog Mix 70-30FlexPen
U-100)
insulin glargine 100 30 - 32 unit SC DAILY 01/18/23
unit-lixisenatide 33 mcg/mL
subcutaneous pen (Soliqua 100/33)
insulin NPH isoph U-100 human 100 30 unit SC HS 10/31/23
unit/mL (3 mL) subcutaneous pen
furosemide 40 mg tablet (Lasix) 60 mg PO BID Fluid 01/02/24
retention/Swelling
magnesium 400 mg PO DAILY 11/15/24
valsartan 160 mg tablet 160 mg PO DAILY 11/15/24
aspirin 81 mg capsule 81 mg PO DAILY 11/30/24
carvedilol 3.125 mg tablet 3.125 mg PO BID 11/30/24
insulin aspar prot-insulin aspart 30 - 60 unit SC QPM 11/30/24
100 unit/mL (70-30) subcutaneous
pen (Novolog Mix 70-30FlexPen
U-100)
[2025-02-02] MEDS: TNKASE 5 MG IV (17:22)
--- NOTE | 2025-02-02 17:31 | HPS.HSE ---
Family Physician
-
Family Physician: Marquis Reed
Chief Complaint
-
left sided numbness
History of Present Illness
79-year-old man presents for evaluation of left-sided paresthesias, with mild weakness. From 1:00 pm onward the left side of his face felt numb, as well as his hand and arm as well as his left leg. He felt like his left leg was 'dragging' at
times. Patient has a mild headache, and has been having headache intermittently for the past week or so. No fever, chills, nausea or vomiting. Patient does not take use anticoagulation. He was on Eliquis at a time but now is only taking baby
aspirin. At the time of my interview he was still complaining of left sided numbness. His initial BP was 210/100, but it reduced to 170 systolic and he was given thrombolytics in the ED. Several risk factors for a stroke.
Medical History
Past Medical History
Past Medical History: Reports Other
Additional Past Medical History:
CAD,
HTN,
Hypercholesterolemia,
IDDM
Epistaxis,
polycythemia
Obstructive sleep apnea,
kidney stones
[place] palsy
Gastro-esophageal reflux disease without esophagitis
ED (erectile dysfunction)
Metabolic syndrome
Morbid (severe) obesity due to excess calories
Status post aorto-coronary artery bypass graft
Statin intolerance
Hypercoagulable state
S/P CABG x 4
Paroxysmal atrial fibrillation
Stented coronary artery
Polycythemia vera
Atherosclerotic renal artery stenosis
Past Surgical History: Reports Other
Additional Past Surgical History:
See above
Social History
Tobacco: Non-smoker
Alcohol: Occasional
Drug: None
Family History
Family History: Not pertinent
Allergies / Home Medications
Allergies reflects when Allergies were last updated in [employer].
Home Medications with original date entered in [employer]
Allergy/Medication List:
Allergies
Allergy/AdvReac Type Severity Reaction Status Date / Time
atorvastatin calcium (From Allergy severe Verified 02/02/25 15:59
Lipitor) muscle
soreness
levofloxacin (From Levaquin) Allergy Hives Verified 02/02/25 15:59
pollen extracts Allergy Nasal Verified 02/02/25 15:59
stuffiness
- seasonal
Sulfa (Sulfonamide Allergy couldn't Verified 02/02/25 15:59
Antibiotics) breathe
Home Medications
lutein 20 mg capsule 20 mg PO BID Supplement 07/10/09
cyanocobalamin (vitamin B-12) 1,000 mcg tablet 1,000 mcg PO DAILY Supplement 06/02/17
finasteride 5 mg tablet 5 mg PO QPM Urinary issue 06/02/17
red yeast rice 600 mg tablet 1,200 mg PO BID Supplement 06/16/17
Held on 04/20/23. Instructions: Resume on 04/25/23.
cholecalciferol (vitamin D3) 25 mcg (1,000 unit) tablet 1,000 units PO DAILY Supplement 08/15/19
potassium chloride 20 mEq tablet,extended release(part/cryst) (Klor-Con M) 20 meq PO DAILY Supplement 03/05/21
Fish Oil 1,800 mg PO BID 01/18/23
Held on 04/20/23. Instructions: Resume on 04/25/23.
folic acid 1 mg tablet 1 mg PO QPM 01/18/23
insulin aspar prot-insulin aspart 100 unit/mL (70-30) subcutaneous pen (Novolog Mix 70-30FlexPen U-100) 10 unit SC DAILY 01/18/23
insulin glargine 100 unit-lixisenatide 33 mcg/mL subcutaneous pen (Soliqua 100/33) 30 - 32 unit SC DAILY 01/18/23
insulin NPH isoph U-100 human 100 unit/mL (3 mL) subcutaneous pen 30 unit SC HS 10/31/23
furosemide 40 mg tablet (Lasix) 60 mg PO BID Fluid retention/Swelling 01/02/24
magnesium 400 mg PO DAILY 11/15/24
valsartan 160 mg tablet 160 mg PO DAILY 11/15/24
aspirin 81 mg capsule 81 mg PO DAILY 11/30/24
carvedilol 3.125 mg tablet 3.125 mg PO BID 11/30/24
insulin aspar prot-insulin aspart 100 unit/mL (70-30) subcutaneous pen (Novolog Mix 70-30FlexPen U-100) 30 - 60 unit SC QPM 11/30/24
Review of Systems
-
History Source: Patient
Neurological: Reports See HPI, Headache, Weakness and Numbness
Physical Exam
Vital Signs
Vital Signs
Temp Pulse Resp BP Pulse Ox
98.5 F 76 16 211/88 92
02/02/25 16:01 02/02/25 17:00 02/02/25 17:00 02/02/25 16:45 02/02/25 16:45
Physical Exam
General: Well Developed, Well Nourished, No Apparent Distress, Comfortable and Obese
HEENT: Nose Appears Normal and Ears Appear Normal
Respiratory: Clear
Cardiac: S1/S2 and Regular Rhythm
GI: Soft, Non Tender and Non Distended
Musculoskeletal: No Clubbing, No Cyanosis, Edema, Left Lower Extremity and Edema, Right Lower Extremity
Skin: Warm and Dry
Neuro: Awake, Alert, Oriented and Other (numbness on left side of body. Coordination intact. Right pupil larger than left pupil.); No No Sensory Deficits
Psych: Calm
Laboratory Results
-
02/02/25 16:14
02/02/25 16:14
Laboratory Results
PT 13.2 Sec (11.4-14.6) 02/02/25 16:14
INR 0.97 02/02/25 16:14
APTT 25.7 Sec (23.4-35.0) 02/02/25 16:14
Total Bilirubin 0.6 mg/dl (0.2-1.3) 02/02/25 16:14
AST 19 U/L (17-59) 02/02/25 16:14
ALT 20 U/L (0-50) 02/02/25 16:14
Alkaline Phosphatase 67 U/L (38-126) 02/02/25 16:14
Data Reviewed
-
Lab Data: Labs Reviewed by me
Impression/Plan
-
IMPRESSION:
79 man with left sided numbness, headache, high BP, stroke alert called. Thrombolytics given.
PLAN:
1. Stroke alert, s/p thrombolytics
ICU admit per stroke protocol
Follow stroke protocol for diagnostics
Consults to neuro, supervisor plating and point assembly, and others per protocol
BP control to appropriate range
2. SBP of 220 - reduced to 170 in ED
Keep BP 160-180 if possible.
Coordinate with neurology for best range for patient, if different from above
3. IDDM - oral meds temporarily on hold
Use insulin sliding scale as needed
Await clearance of speech and swallow
4. CAD on ASA - took 650 of ASA today
Can wait until tomorrow to resume oral ASA
Full code
VCD for DVTp
[2025-02-02 18:25] LABS: Glucose - Point of Care 63 mg/dl (70-99)
[2025-02-02 18:54] LABS: Glucose - Point of Care 123 mg/dl (70-99)
--- NOTE | 2025-02-02 19:00 | PTCARENOTE ---
Pt arrived to floor from ED via stretcher and transferred over to unit bed by staff. NIHSS 5 for mild facial paralysis, decreased sensation on left side, left sided heminopia, and drift observed on left arm and left leg. Pt stating decreased vision
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 Right pupil 5mm and left pupil 3mm. Brisk reaction to light in both. Follow up Head CT
completed after symptoms observed in ED. Denies any history of left sided weakness or decreased sensation. Blood sugar 63 upon arrival. Dextrose 25 grams IV administered with follow up blood sugar resulting 123. Sinus rhythm on property assessment monitor.
Received on Cardene gtt 10 mg/hr. Peripheral pulses palpable. Feet with cap refill > 3 seconds. Abdomen round, obese. Passed swallow screen.
Hematuria observed when patient urinated. No clots observed. DIANNA Wong, notified.
[2025-02-02] MEDS: TRANDATE 10 MG IV (20:55)
[2025-02-02] MEDS: TYLENOL 650 MG PO (21:13)
[2025-02-02 21:19] LABS: Glucose - Point of Care 149 mg/dl (70-99)
--- NOTE | 2025-02-02 22:07 | W.PN.UPDATE ---
Update Note
Progress Note Update
02/02/25
2129- Patient having headache right hemicranial, severe pain stabbing/throbbing headache rates 02/09. No changes in neurological examination continues with, left pronator drift, LUE/LE 5-/5, ataxia and dysmetria on the left arm, left visual field
cut partial hemianopia. Tylenol given without much relief headaches constant and continues to be /10, SBP 140s. Discussed case with Dr. Medina, neurologist, advised to order Ctscan of the head w/o contrast STAT. Ctscan of the head negative.
--- NOTE | 2025-02-02 23:05 | PTCARENOTE ---
Pt received at 19:00, handoff NIH completed. NIH = 6. Decreased sensation to LLE and intermittent change in sensation to LUE, mild L facial droop, drift in LUE and LLE, L visual loss. L pupil 5, R pupil 3. SR, Labetolol PRN IVP to maintain SBP <
160. Cardene IVP ordered to maintain BP <180/105. Pulses palpable. Cardene gtt off, IVP labetolol given for SBP sustained above 160. 2L NC w/ pulse ox 93% and above. Breath sounds clear, diminished in the bases. +bowel sounds, no BM noted at this
time. Initial void red, no clots. No urine clear yellow. Skin intact. Safe environment maintained, call lima within reach.
Approx 21:00, pt c/o IRVIN intitially 07/12, then quickly stating 10. I-UX RESEARCH ASSOCIATE made aware, symptoms unchanged. Tylenol given, IRVIN remains 5/10. Denies dizziness/nausea. STAT CT ordered and completed--per CT report 'No acute intracranial abnormality
noted.'
[2025-02-02 23:25] LABS: Glucose - Point of Care 149 mg/dl (70-99)
[2025-02-03] VITALS (38 sets, daily range): BP systolic 104–194; BP diastolic 53–106; BMI 34.4
[2025-02-03 03:48] LABS: Hematocrit 44.7 % (39.0-52.0); Hemoglobin 14.6 g/dL (13.0-18.0); Mean Corp Hgb Conc. 32.7 g/dL (33.0-37.0); Mean Corpuscular Volume 78.3 fL (80.0-94.0); Platelet Count 183 10^3/uL (130-400); Red Cell Dist. Width 16.1 % (11.5-14.5)
[2025-02-03 04:01] LABS: APTT 26.2 Sec (23.4-35.0); INR 1.05; PT 14.1 Sec (11.4-14.6)
[2025-02-03 04:09] LABS: Blood Urea Nitrogen 13 mg/dl (9-20); Calcium 8.8 mg/dl (8.4-10.2); Carbon Dioxide 24 mmol/L (22-30); Chloride 109 mmol/L (98-107); Estimated Creatinine Clearance 106 ml/min; Glucose 173 mg/dl (70-99); HDL Cholesterol 44 mg/dl; LDL Cholesterol, Calculated 119 mg/dl; Magnesium 2.0 mg/dl (1.6-2.3); Potassium 3.8 mmol/L (3.5-5.1); Sodium 139 mmol/L (135-145); Very Low Density Lipoprotein 26 mg/dl (0-30); eGFR > 60.00
--- NOTE | 2025-02-03 05:57 | PTCARENOTE ---
Pt states that sensation to L side is improving and 'almost there', demonstrates better control of L arm. L eye with improved vision, remains blurry, can now see movement. Otherwise assessment unchanged.
[2025-02-03] MEDS: TYLENOL 650 MG PO ×4 (06:31→23:10)
[2025-02-03 07:31] LABS: Glucose - Point of Care 204 mg/dl (70-99)
--- NOTE | 2025-02-03 07:33 | W.PN.HOSP.TC ---
Today's Communication/Plan
-
Incentive Spirometer
Wean O2 supplementation as tolerated
ST/PT/OT
Brain MRI
resume home Lasix w/ holding parameters
Glycemic control
Possible downgrade later today, if clear as per ICU neuro
Assessment / Plan
Assessment / Plan
Physical Exam
General: No acute distress, appears comfortable, Obese
HEENT: Normocephalic Atraumatic moist mucous membranes
Respiratory: Clear to auscultation b/l
Cardiac: S1/S2 and Regular Rhythm
GI: Soft, Non Tender and Non Distended
Musculoskeletal: No Clubbing, No Cyanosis, No edema
Skin: Warm and Dry
Neuro: AOx3 conversant coherent no facial droop strength 5/5 all ext's
Psych: Calm
79M HTN HLD IDDM ALINA Morbid Obesity CAD stent CABG pAfib statin intolerance with left sided numbness, headache, high BP, stroke alert called. Thrombolytics given.
PLAN:
# Stroke alert, s/p thrombolytics
ICU admit per stroke protocol
Follow stroke protocol for diagnostics
neuro consult appreciated
Gas Maker Helper consult appreciated
BP control to appropriate range
CT Head, CTA Head/neck reviewed
Brain MRI pending
#HLD
Lipid panel reviewed, LDL above goal
hx statin intolerance
Ezetimibe as per Neuro
# HTN
goal BP <180/105 as per neuro
labetalol prn
briefly required nicardipine gtt overnight since weaned off
eventual restart home Coreg Valsartan
# IDDM - oral meds temporarily on hold
sliding scale
DM HOME SCHOOL LIAISON OFFICER consult appreciated
# CAD stent CABG
#pAfib
#Hx HFpEF
on baby aspirin 81 mg daily, not on Eliquis due to cost concerns
took 650 mg prior to admission
Cardio eval requested
Home Lasix resumed with holding parameters
Coreg Valsartan on hold as above
Full code
VCD for DVTp
Total Critical Care Time__50___ minutes. I was immediately available to the patient and staff. I personally examined, reviewed labs, diagnostic images/reports, interpretations, treatment plans, discussed patient care with other providers, patient
and his Mireya, entered orders as appropriate and documented the medical record.
Anticipated Discharge: 24 - 48 hours
Subjective/Interval History
-
Date of Service: February 03, 2025
Seen and examined at bedside in on no acute distress sitting up comfortably in bed. Patient reports overall feeling well, resolution of stroke symptoms left sided weakness and hemianopia
Objective Data
-
Labs:
Laboratory Results
02/03/25
03:33
WBC 9.1
Hgb 14.6
Hct 44.7
Plt Count 183
PT 14.1
INR 1.05
APTT 26.2
Sodium 139
Potassium 3.8
Chloride 109 H
Carbon Dioxide 24
BUN 13
Creatinine 0.7
Glucose 173 H
Calcium 8.8
Vital Signs:
Vital Signs
Temp Pulse Resp BP Pulse Ox
97.4 F 66 19 136/62 95
02/03/25 04:55 02/03/25 06:30 02/03/25 06:30 02/03/25 06:23 02/03/25 06:30
I&O
02/02/25 02/03/25 02/04/25
06:59 06:59 06:59
Intake Total 120 / 120
Output Total 1100 / 1100
Balance -980 / -980
--- NOTE | 2025-02-03 08:43 | W.PN.NEURO.1 ---
Addendum entered and electronically signed by Alexandru Fuller MD 02/03/25 13:28:
Studies reviewed.
I have personally examined the patient. I reviewed and agree with the JAIL GUARD's Note.
My addenda:
Awake, alert, interactive. No acute distress.
Speech intact.
Follows 2-step requests w/o difficulty. No tremor.
Extra-ocular movements grossly intact.
Facial movements full and symmetric. Hearing intact to normal conversational volume.
Normal UE movements bilaterally.
Neck: full ROM.
Chest: no dyspnea
Heart: no JVD
Ext: (-) Clubbing, (-) Cyanosis, (-) Edema
IMPRESSIONS/RECOMMENDATIONS:
Abrupt onset of left-sided weakness in a patient who had previously declined anticoagulation for atrial fibrillation
And suggestion of abnormality by CT perfusion leading to the patient receiving tenecteplase
Would initiate anticoagulation 24 hours after provision of tenecteplase
Start Ezetimibe at 10 mg at bedtime due to elevated LDL
Goal of normotension
Will follow MRI of brain results
D/W patient
Will continue to follow pending results.
Original Note:
Today's Communication / Plan
-
� goal normotension
� check MRI of the brain as planned
� start anticoagulation for history of afib 24 hours after TNK
� LDL 119 with goal <70, start Zetia 10 mg at bedtime, had side effects with atorvastatin
� goal blood glucose levels for patient would be less than 180 mg/dL
� medical educational materials will be provided
� neurochecks and NIHSS per unit guidelines
� will need cardiac monitoring for history of afib, consider cardiology consult
Neuro Assessment/Plan
Assessment
CTA head/neck imgs rev'd, spoke with radiologist over TT right P1/P2 junction LVO
CT perfusion: right occipital stroke, core 0, penumbra 12 cc
Labs: LDL 119
79 year old man with right occipital stroke. NIHSS 4.
patient treated with TNK, off label as it is out of the 4.5 hr window though good evidence for use of TNK 4.5-24 hrs with favorable perfusion scan. delay for revised LKN time, bp 211/88 needing labetalol.
Plan
Abrupt onset of acute ischemic stroke
Most likely due to history of afib not on anticoagulation, other risk factors include HLD, HTN, DM
Recommendations:
� goal normotension
� check MRI of the brain as planned
� start anticoagulation for history of afib 24 hours after TNK
� LDL 119 with goal <70, start Zetia 10 mg at bedtime, had side effects with atorvastatin
� goal blood glucose levels for patient would be less than 180 mg/dL
� medical educational materials will be provided
� neurochecks and NIHSS per unit guidelines
� will need cardiac monitoring for history of afib, consider cardiology consult
All questions encouraged and answered, plan of care discussed with Dr. Fuller and patient
Subjective/Objective
Subjective Data
Date of Service: February 03, 2025
No acute overnight events. Feels function in his LUE has improved. Feels better.
Objective Data
Vital Signs
Temp Pulse Resp BP Pulse Ox
98 F 65 20 139/85 92
02/03/25 07:48 02/03/25 08:23 02/03/25 08:23 02/03/25 08:23 02/03/25 08:31
Lab Results
02/03/25 03:33
02/03/25 03:33
PT 14.1 Sec (11.4-14.6) 02/03/25 03:33
INR 1.05 02/03/25 03:33
APTT 26.2 Sec (23.4-35.0) 02/03/25 03:33
Sodium 139 mmol/L (135-145) 02/03/25 03:33
Potassium 3.8 mmol/L (3.5-5.1) 02/03/25 03:33
BUN 13 mg/dl (9-20) 02/03/25 03:33
Glucose 173 mg/dl (70-99) H 02/03/25 03:33
Calcium 8.8 mg/dl (8.4-10.2) 02/03/25 03:33
Phosphorus 3.5 mg/dl (2.5-4.5) 02/03/25 03:33
LDL Cholesterol, Calc 119 mg/dl 02/03/25 03:33
Patient Allergies
atorvastatin calcium (From Lipitor) Allergy (Verified 02/02/25 15:59)
severe muscle soreness
levofloxacin (From Levaquin) Allergy (Verified 02/02/25 15:59)
Hives
pollen extracts Allergy (Verified 02/02/25 15:59)
Nasal stuffiness - seasonal
Sulfa (Sulfonamide Antibiotics) Allergy (Verified 02/02/25 15:59)
couldn't breathe
Physical Exam
-
General: No Apparent Distress and Comfortable
HEENT: Normocephalic, Atraumatic and Anicteric
Neck: Full Range of Motion
Respiratory: No Dyspnea
Cardiac: No JVD
GI: Non-distended
Skin: Unremarkable
Extremities: No Clubbing, No Cyanosis and No Edema
Psych: Unremarkable
Extended Neurological Exam
Mood & Affect: Mood Unremarkable
Attention Span & Concentration: Awake, Alert, Interactive and No Difficulty with 2 Step Request
Memory: Unremarkable
Tremor: Hand Tremor Absent and Head Tremor Absent
Speech: Quality Unremarkable, Quantity Unremarkable and Rate of Production Unremarkable
Cranial Nerve II: Left Eye: Visual Garay Intact
Cranial Nerve II: Right Eye: Visual Garay Intact
Cranial Nerves III, IV, : Extraocular Movement: Extraocular Movement Full in all Directions
Cranial Nerve VII: Facial Symmetry: Normal Facial Symmetry
Cranial Nerve VIII: Hearing: Unremarkable Hearing to Normal Conversational Volume
Cranial Nerves IX, X: Palate Movement: Palate Elevation Symmetric
Cranial Nerve XI: Shoulder Shrug: Unremarkable
Muscle Strength, Overall: Full Throughout
Pronator Drift: No Drift in Upper Extremities and No Drift in Lower Extremities
Coordination: Reaches for Objects without Difficulty and Other (LUE ataxia)
Data Reviewed
-
CT-Perfusion: Report Reviewed and Image Reviewed
CT Head: Report Reviewed and Image Reviewed
MRI Head: Ordered and Pending
Labs: Report Reviewed
Lipid Profile: Report Reviewed
Reviewed with: Physician and Patient
Old Records: Summarized
--- NOTE | 2025-02-03 09:36 | PN.DE.MGMTRT ---
Insulin Management
- -
02/03/2025 Diabetes Management Consult
Patient admitted 02/02 with L sided weakness, stroke alert. PMH CAD, HTN, HCL, diabetes. ALINA. Prior to admission was taking Soliqua 32 units daily, NPH 30 units @ HS, 70/30 25 to 30 units in AM and 30 to 60 units in PM. A1C is pending, cr .7, eGFR
> 60.
Patient is awake alert and oriented able to discuss diabetes care. States he saw Dr. Balderas for 12 years but because the sensor did not work for him they discharged him from the practice. Since then he has followed with his primary doctor Brianna.
He has a meter and test 3 to 4 times per day.
Will start 70/30 insulin 30 units BID, first dose now with moderate corrective. Will evaluate glucose and consider restarting Soliqua in AM. Will check 3AM glucose.
Discussed with ICU team
Will follow.
Diabetes History
- -
Type of Diabetes: 2 requiring insulin
Pre-Admission Diabetes Regimen
02/02/25 02/03/25
16:14 03:33
Creatinine 0.8 0.7
Insulin Pump Settings
IP Diabetes Regimen
02/02/25 02/02/25 02/02/25
16:13 16:14 18:14
Glucose 70
POC Glucose 81 63 L
02/02/25 02/02/25 02/02/25
18:42 21:08 23:14
Glucose
POC Glucose 123 H 149 H 149 H
02/03/25 02/03/25
03:33 07:20
Glucose 173 H
POC Glucose 204 H
Meal type: Breakfast
Amount consumed: 100%
Patient Education
[2025-02-03 10:06] LABS: Glycohemoglobin (HgbA1c) 9.4 % (4.0-5.6)
--- NOTE | 2025-02-03 10:07 | PTOTSP ---
Speech Therapy Evaluation:
Pt with acute on chronic risk factors of dysphagia (Cardiac hx, GERD, acute CVA). Despite this, he presents with grossly functional oropharyngeal swallow at bedside. Pt endorsed decreased sensation in L lip, resulting in lip biting during
mastication. Discussed strategic bolus placement to R. No overt s/sx of aspiration across session. CXR without pneumonia, pt afebrile, and WBC WNL. Pt passed 3oz swallow screen.
Recommend:
1. Continue regular solids and thin liquids
2. Medications as tolerated
3. General aspiration precautions
4. WOOD AND WOOD PRODUCTS LABOURER to follow to monitor tolerance of diet and determine if further language/cognitive assessment warranted pending MRI
--- NOTE | 2025-02-03 10:15 | CON.CAR ---
Addendum entered and electronically signed by Mynor Aburto MD 02/03/25 17:07:
I saw and examined the patient independently.
The EHS MANAGER's note was reviewed and I agree with the note with changes/additions noted below.
Comment:
79 yo male with PMH of paroxysmal A fib, CAD/CABG is admitted with acute CVA. s/p TNK, MRI pending. He had stopped taking eliquis. Exam with RRR, no murmurs, no edema. Tele: SR 60-70s.
#Acute CVA
-eliquis non-compliance: discussed with patient, he now understands importance
-resume eliquis when safe post CVA
-check echo
# Paroxysmal A fib
-currently in sinus: continue coreg
Original Note:
Consultation
Consultation Request
Date/Time Consultation Requested: 02/03/25 0932
Date/Time Consultation Performed: 02/03/25 1000
Requesting Provider: Dr. Garcia
Performing Provider: Deena BUSTAMANTE for Dr. Aburto
Reason for Consultation: Stroke, PAF (not on Eliquis due to cost)
Medical History
-
Chief Complaint: left-sided numbness and weakness
History of Present Illness:
79 y/o male with CAD with hx stenting and CABG x 4 (2019), PAF (not on Eliquis due to cost per OP chart), hypertension, HFpEF, dyslipidemia (statin intolerant, was not previously approved for PCSK9 per chart) TIA 2021, moderate renal artery
stenosis, diabetes, polycythemia vera, ALINA, obesity, and GERD presented after he noted left-sided numbness and weakness yesterday starting around [address] negative. He received TNK. Symptoms have improved. Headache overnight, but repeat head
CT negative. BP's elevated and was briefly on cardene drip, but is now off. Also received 1 dose of IV labetalol. He is in no distress at the time of my assessment. We are consulted since he has history of AFIB not on OAC.
Past Medical History
Past Medical History: Arrhythmias, CAD, CHF, HTN, Hypercholesterolemia and Other (as above)
Social History
Tobacco: Non-Smoker
Personal:
Living: With Family
Family History
Family History: Reviewed & Not Pertinent
Allergies / Home Medications
Allergy/AdvReac Type Severity Reaction Status Date / Time
atorvastatin calcium (From Allergy severe Verified 02/02/25 15:59
Lipitor) muscle
soreness
levofloxacin (From Levaquin) Allergy Hives Verified 02/02/25 15:59
pollen extracts Allergy Nasal Verified 02/02/25 15:59
stuffiness
- seasonal
Sulfa (Sulfonamide Allergy couldn't Verified 02/02/25 15:59
Antibiotics) breathe
�Medication �Instructions �Recorded �Confirmed �Type
lutein 20 mg capsule 20 mg PO BID Supplement 07/10/09 02/02/25 History
cyanocobalamin (vitamin B-12) 1,000 mcg PO DAILY Supplement 06/02/17 02/02/25 History
1,000 mcg tablet
finasteride 5 mg tablet 5 mg PO QPM Urinary issue 06/02/17 02/02/25 History
red yeast rice 600 mg tablet 1,200 mg PO BID Supplement 06/16/17 02/02/25 History
Held on 04/20/23.
Instructions: Resume on
04/25/23.
cholecalciferol (vitamin D3) 25 1,000 units PO DAILY Supplement 08/15/19 02/02/25 History
mcg (1,000 unit) tablet
potassium chloride 20 mEq 20 meq PO DAILY Supplement 03/05/21 02/02/25 History
tablet,extended
release(part/cryst) (Klor-Con M)
Fish Oil 1,800 mg PO BID 01/18/23 02/02/25 History
Held on 04/20/23.
Instructions: Resume on
04/25/23.
folic acid 1 mg tablet 1 mg PO QPM 01/18/23 02/02/25 History
insulin aspar prot-insulin aspart 10 unit SC DAILY 01/18/23 02/02/25 History
100 unit/mL (70-30) subcutaneous
pen (Novolog Mix 70-30FlexPen
U-100)
insulin glargine 100 30 - 32 unit SC DAILY 01/18/23 02/02/25 History
unit-lixisenatide 33 mcg/mL
subcutaneous pen (Soliqua 100/33)
insulin NPH isoph U-100 human 100 30 unit SC HS 10/31/23 02/02/25 History
unit/mL (3 mL) subcutaneous pen
furosemide 40 mg tablet (Lasix) 60 mg PO BID Fluid 01/02/24 02/02/25 History
retention/Swelling
magnesium 400 mg PO DAILY 11/15/24 02/02/25 History
valsartan 160 mg tablet 160 mg PO DAILY 11/15/24 02/02/25 History
aspirin 81 mg capsule 81 mg PO DAILY 11/30/24 02/02/25 History
carvedilol 3.125 mg tablet 3.125 mg PO BID 11/30/24 02/02/25 History
insulin aspar prot-insulin aspart 30 - 60 unit SC QPM 11/30/24 02/02/25 History
100 unit/mL (70-30) subcutaneous
pen (Novolog Mix 70-30FlexPen
U-100)
Review of Systems
-
History Source: Patient
All other systems: Negative unless noted
Neurological: Weakness (left-sided) and Numbness (left-sided)
Physical Exam
Vital Signs
Temp Pulse Resp BP Pulse Ox
98 F 65 20 139/85 92
02/03/25 07:48 02/03/25 08:23 02/03/25 08:23 02/03/25 08:23 02/03/25 08:31
Lab Results
02/03/25 03:33
02/03/25 03:33
Impression / Plan
-
Stroke:
-this diagnosis is threat to bodily function
-he is s/p TNK, symptoms improved
-MRI is pending
-statin intolerant per OP chart, Zetia started (see below)
PAF:
-stable in SR, on low dose coreg due to hx bradycardia- resume when able and follow telemetry
-[id number] score is 8 for age, HTN, CVA, CHF, CAD, DM. He was previously on Eliquis, but did not like the cost, so has only been on aspirin. I discussed this with him, and he tells me that he can afford Eliquis, he just wasn't happy with the
pricing. He declined warfarin as OP and agrees with that today. We did discuss other options such as dabigatran (using good RX coupon- $67/month) or looking into Xarelto cost. However, he is okay with paying for and resuming Eliquis. Therefore, once
okay with neuro, please resume Eliquis 5 mg PO BID.
HTN:
-elevated on arrival, and was briefly on Cardene and required labetalol, then improved
-monitor closely
-on ARB, BB, diuretic as OP
Dyslipidemia:
-LDL 119
-statin intolerant per OP chart. Zetia started. PCSK9 inhibitor not approved per OP chart- perhaps this can be revisited as OP.
HFpEF: chronic
-appears euvolemic
-continue his typical Lasix dosing
DM:
-diabetic EHS MANAGER on the case
CAD with hx stenting/CABG:
-resume Eliquis as above
-lipid issues as noted
-on BB
Data Reviewed
-
EKG: Tracing Personally Visualized and interpreted (NSR, IVCD [address] Scan: Report Reviewed by me (head CT: No acute intracranial abnormality noted.)
Medical Tests (Nuc Med, Echo etc): Report Reviewed by me (echo 02/10/22: Normal left ventricular size and systolic function. LV ejection fraction is 65%. Moderate concentric left ventricular hypertrophy. Mild mitral regurgitation. Mildly
dilated aortic root (SOV 4.0 cm).)
Labs: Labs Reviewed by me
[2025-02-03] MEDS: NOVOLOG MIX 70/30 FLEXPEN 30 UNITS SC (10:17)
[2025-02-03] MEDS: LASIX 60 MG PO (10:18)
[2025-02-03] MEDS: NOVOLOG FLEXPEN-MODERATE RESISTANCE 5 UNITS SC ×2 (10:20→17:47)
--- NOTE | 2025-02-03 10:22 | CON.INTV ---
Consultation
Consultation Request
Date/Time Consultation Requested: 02/03/2025
Date/Time Consultation Performed: 02/03/2025
Requesting Provider: Dr. Garcia
Performing Provider: Dr. Rishabh Sheridan
Reason for Consultation: Acute CVA s/p tenecteplase
Medical History
-
History of Present Illness:
79-year-old man with past medical history significant for hypertension, coronary artery disease, type 2 diabetes, polycythemia, obstructive sleep apnea, GERD presented with left-sided paresthesias and mild weakness. Patient also fell left lower
extremity weakness as well. Reported prior to presenting to the emergency room on and off headaches for about a week. Denies blurry vision. Denies nausea or vomiting. History of hypercoagulable state previously on anticoagulation. Currently
only on low-dose aspirin.
On admission patient was hypertensive with systolic blood pressure greater than 200.
Patient evaluated by neurology and he was deemed candidate for thrombolytics. Received tenecteplase in the emergency room and transferred to the critical care unit for further care.
Overnight required few hours off Cardene drip for blood pressure control.
This morning blood pressure is improved.
This morning strength has recovered.
Denies any speech difficulties or swallowing difficulties.
Past Medical History
Past Medical History: Other (See assessment)
Social History
Tobacco: Non-smoker
Alcohol: Occasional
Drug: None
Family History
Family History: Reviewed & Not Pertinent
Allergies / Home Medications
Allergies
Allergy/AdvReac Type Severity Reaction Status Date / Time
atorvastatin calcium (From Allergy severe Verified 02/02/25 15:59
Lipitor) muscle
soreness
levofloxacin (From Levaquin) Allergy Hives Verified 02/02/25 15:59
pollen extracts Allergy Nasal Verified 02/02/25 15:59
stuffiness
- seasonal
Sulfa (Sulfonamide Allergy couldn't Verified 02/02/25 15:59
Antibiotics) breathe
Home Medications
�Medication �Instructions �Recorded �Confirmed �Last Taken �Type
lutein 20 mg capsule 20 mg PO BID Supplement 07/10/09 02/02/25 01/14/25 History
cyanocobalamin (vitamin B-12) 1,000 mcg PO DAILY Supplement 06/02/17 02/02/25 01/14/25 History
1,000 mcg tablet
finasteride 5 mg tablet 5 mg PO QPM Urinary issue 06/02/17 02/02/25 01/13/25 History
red yeast rice 600 mg tablet 1,200 mg PO BID Supplement 06/16/17 02/02/25 01/14/25 History
Held on 04/20/23.
Instructions: Resume on
04/25/23.
cholecalciferol (vitamin D3) 25 1,000 units PO DAILY Supplement 08/15/19 02/02/25 01/14/25 History
mcg (1,000 unit) tablet
potassium chloride 20 mEq 20 meq PO DAILY Supplement 03/05/21 02/02/25 01/14/25 History
tablet,extended
release(part/cryst) (Klor-Con M)
Fish Oil 1,800 mg PO BID 01/18/23 02/02/25 01/14/25 History
Held on 04/20/23.
Instructions: Resume on
04/25/23.
folic acid 1 mg tablet 1 mg PO QPM 01/18/23 02/02/25 01/13/25 History
insulin aspar prot-insulin aspart 10 unit SC DAILY 01/18/23 02/02/25 01/14/25 History
100 unit/mL (70-30) subcutaneous
pen (Novolog Mix 70-30FlexPen
U-100)
insulin glargine 100 30 - 32 unit SC DAILY 01/18/23 02/02/25 01/14/25 History
unit-lixisenatide 33 mcg/mL 30 units
subcutaneous pen (Soliqua 100/33)
insulin NPH isoph U-100 human 100 30 unit SC HS 10/31/23 02/02/25 01/13/25 History
unit/mL (3 mL) subcutaneous pen
furosemide 40 mg tablet (Lasix) 60 mg PO BID Fluid 01/02/24 02/02/25 01/14/25 History
retention/Swelling
magnesium 400 mg PO DAILY 11/15/24 02/02/25 01/14/25 History
valsartan 160 mg tablet 160 mg PO DAILY 11/15/24 02/02/25 01/14/25 History
aspirin 81 mg capsule 81 mg PO DAILY 11/30/24 02/02/25 01/14/25 History
carvedilol 3.125 mg tablet 3.125 mg PO BID 11/30/24 02/02/25 01/14/25 History
insulin aspar prot-insulin aspart 30 - 60 unit SC QPM 11/30/24 02/02/25 01/13/25 History
100 unit/mL (70-30) subcutaneous 60 units
pen (Novolog Mix 70-30FlexPen
U-100)
Review of Systems
-
History Source: Patient
All other systems: Negative unless noted
Vitals / Labs / Diagnostic Testing
Vital Signs
Temp Pulse Resp BP Pulse Ox
98 F 65 20 139/85 92
02/03/25 07:48 02/03/25 08:23 02/03/25 08:23 02/03/25 08:23 02/03/25 08:31
Lab Data
02/03/25 03:33
02/03/25 03:33
Laboratory Results
02/02/25 02/03/25
16:14 03:33
PT 13.2 14.1
INR 0.97 1.05
APTT 25.7 26.2
Diagnostic Testing:
Physical Exam
-
HEENT: Normocephalic
Cardiovascular: S1/S2
Respiratory: Non-Labored Respirations
GI: Soft and Distended (Obese)
Neurology: Awake and No Motor Deficits
Skin: Warm
General: Comfortable
Assessment
-
79-year-old man with past medical history noted. Admitted with left-sided weakness/paresthesias. Evaluated in the emergency room and he was deemed candidate for thrombolytics. Received tenecteplase and transferred to the critical care unit for
further care.
Left-sided weakness-suspected CVA-status post tenecteplase 02/02/2025
Hypertension
Type 2 diabetes-poorly controlled
Conditions present prior admission
Hypertension
Polycythemia
Type 2 diabetes
Hypercholesterolemia
Coronary artery disease
Status postcoronary artery bypass
Statin intolerance
Hypercoagulable state-not on anticoagulation
Paroxysmal atrial fibrillation
Atherosclerotic renal artery stenosis
Erectile dysfunction
Assessment and plan:
-
This morning patient is neurologically intact.
Denies any complaints.
-Telemetry monitoring.
-Monitor for bleeding
-Treat persistently elevated MAP>180 with IV Labetalol.
Nicardipine has been discontinued
Restart-patient's outpatient diuretic
- Cleared by speech-advance diet.
-Maintain elevation of HOB 30-45 degrees.
- Utilize a pneumatic compression device for DVT prophylaxis.
-
-No antiplatelet agents nor anticoagulants, including heparin, low molecular weight heparin, heparinoids, warfarin, ASA and other antiplatelet agents, and NSAIDs first 24 hours post tenecteplase;
-Resume antiplatelets after MRI.
-Started on Zetia-patient intolerant to statins.
-Monitoring of vital signs and neurologic status should be performed every hour-per protocol.
-If there is worsening neurological condition stat CT will be ordered.
-
Glycemic control: Insulin sliding scale
Diabetes nurse practitioner has been consulted as the patient is on subcu heparin with an intense regimen.
Low carbohydrate diet.
-
Physical therapy/Occupational Therapy per protocol
-
History of atrial fibrillation/coronary artery disease status post CABG/heart failure with preserved ejection fraction: Patient not on anticoagulation.
Cardiology has been consulted
Eventually restart antihypertensive.
Diuretics started as well
-
Maintain ICU level of care until MRI is performed later today.
[2025-02-03 10:27] LABS: Glucose - Point of Care 287 mg/dl (70-99)
--- NOTE | 2025-02-03 10:39 | CM ---
Initial assessment completed with patient who lives with his in a 2 story home plus attic and basement, B/B on 2nd with 1/2 bath on 1st, 6 steps to enter. 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 Does have a SPC and RW. Uses
the SPC on occasion. No in-home services. No HC-POA. No service. PC is Dr. Marquis Reed and Pharmacy is [facility] in [place]. Discharge POC: TBD. Home with no needs vs Home with HH VN.
[2025-02-03 11:59] LABS: Glucose - Point of Care 223 mg/dl (70-99)
--- NOTE | 2025-02-03 12:00 | PTCARENOTE ---
NIH 0 this morning. Neuro checks unchanged. Good appetite for breakfast. Blood sugar elevated. Discussed with MD, Pharmacy and Diabetes management TACTICAL RESPONSE GROUP OFFICER. See MAR for insulin orders. All other assessments unchanged. at bedside. Stroke
packet given
[2025-02-03] MEDS: TRANDATE 10 MG IV (12:37)
[2025-02-03] MEDS: NOVOLOG FLEXPEN-MODERATE RESISTANCE 3 UNITS SC (12:37)
[2025-02-03] MEDS: TYLENOL PO (17:19)
[2025-02-03 17:31] LABS: Glucose - Point of Care 280 mg/dl (70-99)
--- NOTE | 2025-02-03 17:43 | PTCARENOTE ---
MRI complete. Neuro checks WNL. All assessments unchanged.
[2025-02-03] MEDS: NOVOLOG MIX 70/30 FLEXPEN 60 UNITS SC (18:10)
[2025-02-03] MEDS: COREG PO (20:35)
[2025-02-03] MEDS: LASIX PO (20:37)
[2025-02-03 22:10] LABS: Glucose - Point of Care 80 mg/dl (70-99)
--- NOTE | 2025-02-03 22:53 | PTCARENOTE ---
Pt received at 19:00, Ox3, NIH = 0. SR-Sinus julio, 50s-70s. Bradys to mid 30s while asleep, easily arousable--asymptomatic. Coreg held for bradycardia. RA, breath sounds clear, diminished at the bases. Pulse ox low 90s, desats to mid 80s while
asleep, declines suggestion for bipap and pulls off O2 while asleep. + bowel sounds, no BM noted. Voids in urinal. Safe environment maintained, call lima within reach, pt repositioning self.
[2025-02-03] MEDS: ZETIA 10 MG PO (23:10)
[2025-02-04] VITALS (18 sets, daily range): BP systolic 119–206; BP diastolic 59–122; PULSE 44
--- NOTE | 2025-02-04 01:28 | PTCARENOTE ---
Pt out of bed with all all monitoring equipment off. It has been reinforced that patient needs to have staff in room to get out of bed. Pt assisted to bathroom, adamant that he does not need oxygen or monitoring. Pt stated that he needed to get
dressed to get ready to go home today. Orientation questions answered appropriately. Ox3. Aware that he came in for a stroke, however states that he is 'fine now' and is being discharged this morning. I explained that there are no discharge orders
at this time and that 1am is not the time to get dressed and ready for discharge. Pt stated 'I will get ready when I want to get ready.' Pt offerred chair or bed rather than pacing around in room, ultimately agreed to go back to bed and allowed
staff to place his leads, BP cuff, and pulse ox back on. Pt also allowed 2L NC to be placed for sleep, while stating that 'this is all ridiculous'.
[2025-02-04 05:22] LABS: Hematocrit 46.6 % (39.0-52.0); Hemoglobin 15.3 g/dL (13.0-18.0); Mean Corp Hgb Conc. 32.8 g/dL (33.0-37.0); Mean Corpuscular Volume 78.7 fL (80.0-94.0); Platelet Count 213 10^3/uL (130-400); Red Cell Dist. Width 17.2 % (11.5-14.5)
[2025-02-04] MEDS: APRESOLINE 10 MG IV (05:33)
[2025-02-04] MEDS: TYLENOL PO (05:33)
[2025-02-04 05:43] LABS: Blood Urea Nitrogen 19 mg/dl (9-20); Calcium 9.7 mg/dl (8.4-10.2); Carbon Dioxide 26 mmol/L (22-30); Chloride 108 mmol/L (98-107); Estimated Creatinine Clearance 92 ml/min; Glucose 136 mg/dl (70-99); Magnesium 2.1 mg/dl (1.6-2.3); Potassium 4.5 mmol/L (3.5-5.1); Sodium 140 mmol/L (135-145); eGFR > 60.00
[2025-02-04] MEDS: COREG 3.125 MG PO (06:15)
--- NOTE | 2025-02-04 06:23 | PTCARENOTE ---
Pt given x1 hydralazine IVP, at the time SBP = 199. Repeat SBP 185. Pt took BP cuff off and won't allow staff to put it back on. He is aware that he is at [facility] in the ICU and that he came here for a stroke. Refuses to answer any other
questions. Asking 'well where are my relatives, why has nobody come to see me?' I assured him that his was here the last 2 days and that his son has been in as well. Pt adamant that I am lying to him or I have 'wiped away his memories.' Pt
refused coreg for me, however allowed another nurse to administer it. Pt continues to refuse BP or pulse ox, refused 3am blood sugar--am labs, glucose = 136.
[2025-02-04] MEDS: NOVOLOG FLEXPEN-MODERATE RESISTANCE SC (07:14)
[2025-02-04] MEDS: LASIX 60 MG PO ×2 (07:22→15:57)
[2025-02-04] MEDS: TYLENOL 650 MG PO ×4 (07:22→19:25)
[2025-02-04] MEDS: DIOVAN 160 MG PO (07:22)
[2025-02-04] MEDS: KCL 20 MEQ PO (07:22)
[2025-02-04] MEDS: NOVOLOG MIX 70/30 FLEXPEN 30 UNITS SC (07:27)
--- NOTE | 2025-02-04 07:45 | PTCARENOTE ---
pt aaox3. nihss0. pt states 1/10 pain in head tylenol given as ordered. pt remorseful for giving nurse last night a hard time. is forgetful about events. pt on room air 94% breath sounds diminished.
--- NOTE | 2025-02-04 07:52 | W.PN.NEURO.1 ---
Today's Communication / Plan
-
start anticoagulation for history of afib 48 hours after TNK to ensure no hemorrhagic conversion
LDL 119 with goal <70, start Zetia 10 mg at bedtime, had side effects with atorvastatin
Neuro Assessment/Plan
Assessment
CTA head/neck imgs rev'd, spoke with radiologist over TT right P1/P2 junction LVO
CT perfusion: right occipital stroke, core 0, penumbra 12 cc
Labs: LDL 119
79 year old man with right occipital stroke. NIHSS 4.
patient treated with TNK
Abrupt onset of acute ischemic stroke
Most likely due to history of afib not on anticoagulation, other risk factors include HLD, HTN, DM
Plan
start anticoagulation for history of afib 48 hours after TNK to ensure no hemorrhagic conversion
LDL 119 with goal <70, start Zetia 10 mg at bedtime, had side effects with atorvastatin
Will follow as needed.
Subjective/Objective
Subjective Data
Date of Service: February 04, 2025
Objective Data
Vital Signs
Temp Pulse Resp BP Pulse Ox
36.7 C 97 21 155/69 94
02/03/25 22:50 02/04/25 06:00 02/04/25 06:00 02/04/25 07:22 02/04/25 07:45
Lab Results
02/04/25 05:07
02/04/25 05:07
PT 14.1 Sec (11.4-14.6) 02/03/25 03:33
INR 1.05 02/03/25 03:33
APTT 26.2 Sec (23.4-35.0) 02/03/25 03:33
Sodium 140 mmol/L (135-145) 02/04/25 05:07
Potassium 4.5 mmol/L (3.5-5.1) 02/04/25 05:07
BUN 19 mg/dl (9-20) 02/04/25 05:07
Glucose 136 mg/dl (70-99) H 02/04/25 05:07
Calcium 9.7 mg/dl (8.4-10.2) 02/04/25 05:07
Phosphorus 4.4 mg/dl (2.5-4.5) 02/04/25 05:07
LDL Cholesterol, Calc 119 mg/dl 02/03/25 03:33
Patient Allergies
atorvastatin calcium (From Lipitor) Allergy (Verified 02/02/25 15:59)
severe muscle soreness
levofloxacin (From Levaquin) Allergy (Verified 02/02/25 15:59)
Hives
pollen extracts Allergy (Verified 02/02/25 15:59)
Nasal stuffiness - seasonal
Sulfa (Sulfonamide Antibiotics) Allergy (Verified 02/02/25 15:59)
couldn't breathe
[2025-02-04 07:58] LABS: Glucose - Point of Care 188 mg/dl (70-99)
--- NOTE | 2025-02-04 08:00 | W.PN.HOSP.TC ---
Today's Communication/Plan
-
stable for downgrade to Tele
PT/OT
Blood pressure control
Glycemic Control
Eliquis to resume tonight 48H following TNK as per Neuro
Assessment / Plan
Assessment / Plan
Physical Exam
General: No acute distress, appears comfortable, Obese
HEENT: Normocephalic Atraumatic moist mucous membranes
Respiratory: Clear to auscultation b/l
Cardiac: S1/S2 and Regular Rhythm
GI: Soft, Non Tender and Non Distended
Musculoskeletal: No Clubbing, No Cyanosis, No edema
Skin: Warm and Dry
Neuro: AOx3 conversant coherent no facial droop strength 5/5 all ext's
Psych: Calm
79M HTN HLD IDDM ALINA Morbid Obesity CAD stent CABG pAfib statin intolerance with left sided numbness, headache, high BP, stroke alert called. Thrombolytics given.
PLAN:
# Stroke alert, s/p thrombolytics
ICU admit stable for downgrade Tele 02/04
Follow stroke protocol for diagnostics
neuro consult appreciated
Supervisor Tank Cleaning consult appreciated
BP control to appropriate range
CT Head, CTA Head/neck reviewed
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
PT/OT PMR evals appreciated
speech eval appreciated appropriate for regular diet
#Atelectasis
Incentive Spirometer
#HLD
Lipid panel reviewed, LDL above goal >70
hx statin intolerance
Ezetimibe as per Neuro
# HTN
# Hypertensive Urgency/Emergency
goal BP <180/105 as per neuro
labetalol prn
briefly required nicardipine gtt overnight systolic 200s since weaned off
Coreg Valsartan Lasix resumed w/ holding parameters
# IDDM - oral meds temporarily on hold
sliding scale
DM VARIOUS EXCEPTIONALITIES TEACHER consult appreciated 70/30 40U AM 60U with Dinner
# CAD stent CABG
#pAfib
#Hx HFpEF
was on baby aspirin 81 mg daily MANAGER OF SOFTWARE, not on Eliquis due to cost concerns, patient however since reported that he can afford Eliquis and is willing to take.
ASA since switched to Eliquis, anticoagulation started 48h after TNK as per Neuro
Cardio eval appreciated
Home Lasix Coreg Valsartan with holding parameters
Full code
VCD for DVTp
Discussed with patient and patient's Mireya
I spent a total of 50 minutes with the patient or on the floor. More than 50% of this time involved counseling and coordination of care.
Anticipated Discharge: 24 - 48 hours
Subjective/Interval History
-
Date of Service: February 04, 2025
Objective Data
-
Labs:
Laboratory Results
02/04/25
05:07
WBC 11.2 H
Hgb 15.3
Hct 46.6
Plt Count 213
Sodium 140
Potassium 4.5
Chloride 108 H
Carbon Dioxide 26
BUN 19
Creatinine 0.8
Glucose 136 H
Calcium 9.7
Vital Signs:
Vital Signs
Temp Pulse Resp BP Pulse Ox
98.1 F 97 21 155/69 94
02/03/25 22:50 02/04/25 06:00 02/04/25 06:00 02/04/25 07:22 02/04/25 07:45
I&O
02/03/25 02/04/25 02/05/25
06:59 06:59 06:59
Intake Total 120 / 120 510 / 510
Output Total 1100 / 1100 1000 / 1000
Balance -980 / -980 -490 / -490
--- NOTE | 2025-02-04 08:02 | PN.DE.MGMTRT ---
Insulin Management
- -
02/04/2025 Diabetes Management Consult Follow up
Patient admitted 02/02 with L sided weakness, stroke alert. PMH CAD, HTN, HCL, diabetes. ALINA. Prior to admission was taking Soliqua 32 units daily, NPH 30 units @ HS, 70/30 25 to 30 units in AM and 30 to 60 units in PM. A1C 9.4, cr .7, eGFR > 60.
Patient is awake alert and oriented able to discuss diabetes care. States he saw Dr. Balderas for 12 years but because the sensor did not work for him they discharged him from the practice. Since then he has followed with his primary doctor Brianna.
He has a meter and test 3 to 4 times per day.
Overnight patient was confused, argumentative. He states he recalls that he gave the nurse a hard time. Today he is pleasant and cooperative.
70/30 insulin 30 units in AM given yesterday, with moderate corrective. Glucose pre lunch 223 + 3 units corrective and pre dinner 180 + 5 units corrective. Nurse called to let me know patient states he would take 60 units 70/30, order changed.
Patient received 60 units 70/30 with dinner. HS glucose 80. Patient refused 3AM glucose. Fasting glucose today 136. Will increase AM 70/30 to 40 units, continue 70/30 60 units with dinner. In an effort to simplify regimen, due to patient age
and mentation at times, will not restart Soliqua or NPH at this time. Will continue with 70/30 BID.
Discussed with nurse
Will follow.
Diabetes History
- -
Type of Diabetes: 2 requiring insulin
Pre-Admission Diabetes Regimen
02/04/25
05:07
Creatinine 0.8
Lab Results
Hemoglobin A1c 9.4 % (4.0-5.6) H 02/03/25 03:33
Insulin Pump Settings
IP Diabetes Regimen
02/03/25 02/03/25 02/03/25
10:16 11:48 17:20
Glucose
POC Glucose 287 H 223 H 280 H
02/03/25 02/04/25 02/04/25
21:59 05:07 07:47
Glucose 136 H
POC Glucose 80 188 H
Patient Education
[2025-02-04] MEDS: NOVOLOG MIX 70/30 FLEXPEN 10 UNITS SC (08:21)
--- NOTE | 2025-02-04 08:46 | W.PN.INTV ---
Today's Communication / Plan
Recommendations
Restart anticoagulation when able
Physical therapy/Occupational Therapy
Continue insulin regimen
Telemetry monitoring
Transfer out of the ICU
Critical care team will sign off
Assessment
-
79-year-old man with past medical history noted. Admitted with left-sided weakness/paresthesias. Evaluated in the emergency room and he was deemed candidate for thrombolytics. Received tenecteplase and transferred to the critical care unit for
further care.
Left-sided weakness-suspected CVA-status post tenecteplase 02/02/2025
Hypertension
Type 2 diabetes-poorly controlled
Conditions present prior admission
Hypertension
Polycythemia
Type 2 diabetes
Hypercholesterolemia
Coronary artery disease
Status postcoronary artery bypass
Statin intolerance
Hypercoagulable state-not on anticoagulation
Paroxysmal atrial fibrillation
Atherosclerotic renal artery stenosis
Erectile dysfunction
Assessment and plan:
-
No acute overnight events.
Neurologically intact
Complaining of headache without blurry vision. Was not able to sleep well overnight.
-
MRI of the brain noted:Acute infarcts of the right occipital lobe and right temporal lobe. Smaller acute infarct in the right thalamus. Minimal petechial hemorrhage associated with one of the infarcts in the right occipital lobe.
Likely embolic.
Patient not taking anticoagulation with underlying atrial fibrillation.
Cardiology correspondence reviewed
Now patient willing to take anticoagulation start when able.
-
-Continue Zetia-patient intolerant to statins.
-Monitoring of vital signs and neurologic status should be performed every hour-per protocol.
-If there is worsening neurological condition stat CT will be ordered.
-
Glycemic control: Insulin sliding scale
Subcu insulin restarted
Diabetic diet
-
Physical therapy/Occupational Therapy per protocol
-
History of atrial fibrillation/coronary artery disease status post CABG/heart failure with preserved ejection fraction: Patient not on anticoagulation.
To restart anticoagulation-patient now agreeable.
Cardiology has been consulted
Eventually restart antihypertensive.
Diuretics started as well
-
Transfer to telemetry.
Critical care team will sign off
Subjective Dataa
Subjective Data
Date of Service:
Date of Service: February 04, 2025
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
Subjective:
Patient denies any new complaints
This morning has a headache but denies blurry vision
Denies weakness
Speech normal
Review of Systems
Cardiopulmonary: Dyspnea (none at rest), Cough (n) and Sputum Production (n)
GI: Abdominal Pain (n)
Neuro: Headache, Dizziness (n), Numbness (n) and Weakness (n)
Objective Data
Data Reviewed
Vital Signs / I&O / Oxygen:
Vital Signs
Temp Pulse Resp BP Pulse Ox
97.4 F 97 21 155/69 94
02/04/25 08:16 02/04/25 06:00 02/04/25 06:00 02/04/25 07:22 02/04/25 07:45
Intake and Output
02/03/25 02/04/25 02/05/25
06:59 06:59 06:59
Intake Total 120 / 120 510 / 510
Output Total 1100 / 1100 1000 / 1000
Balance -980 / -980 -490 / -490
SaO2 94
Nasal Cannula flow liters per 2
minute
Physical Exam
General: Comfortable
HEENT: Normocephalic
Cardiovascular: S1-S2
Respiratory: Clear and Non-Labored Respirations
GI: Soft and Non Distended
Neurology: Awake, Alert, AO x 3 and No Motor Deficits
Skin: Warm
Labs/Micro/Reports
Lab Data
02/04/25 05:07
02/04/25 05:07
--- NOTE | 2025-02-04 10:38 | PN.CDI ---
CDI
- -
CDI:
Physician Documentation Request
Admit Date: 02/02/25 17:32
Dear Doctor Jose,
Please review the following and provide your response in the progress notes.
Clinical Indicators:
- Patient admit for acute CVA
- 8/4 PN 'HTN...goal BP <180/105 as per neuro'
- 'briefly required nicardipine gtt overnight'
- IV nicardipine, hydralazine, labetalol
Selected Entries
02/02/25
16:01 02/02/25
16:43 02/02/25
16:45
Blood pressure 189/82 208/96 211/88
02/02/25
17:05 02/02/25
17:10 02/02/25
17:15
Blood pressure 203/74 173/102 181/69
Clarify which, if any of the following, is a more accurate diagnosis reflecting the type and acuity of the documented hypertension:
Essential primary hypertension only
Hypertensive Emergency - B/P is severely elevated (systolic > or = to 180 or diastolic > or = to 110) but can occur at lower levels especially in patients who did not previously have high B/P. There is usually associated organ damage. Symptoms may
include: memory loss, LOC, CVA, UT, angina, renal failure, pulmonary edema. Generally requires more aggressive treatment and a hospitalization.
Other (please specify)
Use of terms such as suspected, likely, concern for, or probable (associated with a specific diagnosis that is being evaluated, monitored, or treated as if it exists) are acceptable and can be coded in the inpatient setting, when documented at the
time of discharge.
Thank you,
Ashok Gray RN
CDI Specialist
Please use your independent medical judgment in providing your response.
--- NOTE | 2025-02-04 10:44 | PN.CDI ---
CDI
- -
CDI:
Physician Documentation Request
Admit Date: 02/02/25 17:32
Dear Doctor Jose,
Please review the following and provide your response in the progress notes.
Clinical Indicators:
The diagnosis of atelectasis was included in the signed 02/02 CXR
- 02/02 CXR 'Subtle linear densities within the lower lungs, likely atelectasis'
- 02/03 PN 'Incentive Spirometer'
Please indicate in your progress notes if you are in agreement that the above diagnosis is valid for this patient:
____ - Atelectasis is a valid diagnosis (Please include it in your progress notes)
____ - Atelectasis is not a valid diagnosis for this patient
____ - Other (please specify)
Use of terms such as suspected, likely, concern for, or probable are acceptable for a diagnosis that is being evaluated, monitored or treated as if it exists and can be coded in the inpatient setting, when documented at the time of discharge.
Thank you,
Ashok Gray RN
CDI Specialist
Please use your independent medical judgment in providing your response.
--- NOTE | 2025-02-04 11:11 | W.PN.CD ---
Today's Communication / Plan
-
Cardiology will sign off.
I reviewed the importance of adherence to prescribed meds and working with PCP to optimize all vascular risk factors.
Impression / Plan
-
Stroke:
-this diagnosis is threat to bodily function
-he is s/p TNK, symptoms improved
-MRI + several acute lesions c/w strokes
-statin intolerant per OP chart, Zetia started (see below)
PAF:
-stable in SR, on low dose coreg due to hx bradycardia- resume when able and follow telemetry
-[id number] score is 8 for age, HTN, CVA, CHF, CAD, DM. He was previously on Eliquis, but did not like the cost, so has only been on aspirin. I discussed this with him, and he tells me that he can afford Eliquis, he just wasn't happy with the
pricing. He declined warfarin as OP and agrees with that today. We did discuss other options such as dabigatran (using good RX coupon- $67/month) or looking into Xarelto cost. However, he is okay with paying for and resuming Eliquis. Therefore, once
okay with neuro, please resume Eliquis 5 mg PO BID.
HTN:
-elevated on arrival, and was briefly on Cardene and required labetalol, then improved
-monitor closely
-on ARB, BB, diuretic as OP
Dyslipidemia:
-LDL 119
-statin intolerant per OP chart. Zetia started. PCSK9 inhibitor not approved per OP chart- perhaps this can be revisited as OP.
HFpEF: chronic
-appears euvolemic
-continue his typical Lasix dosing
DM:
-diabetic [employer] on the case
CAD with hx stenting/CABG:
-resume Eliquis as above
-lipid issues as noted
-on BB
Physical Exam
Vital Signs/Labs
Vital Signs
Temp Pulse Resp BP Pulse Ox
97.4 F 86 21 119/62 94
02/04/25 08:16 02/04/25 09:00 02/04/25 09:00 02/04/25 09:00 02/04/25 07:45
02/03/25 02/04/25 02/05/25
06:59 06:59 06:59
Actual Weight 111.674 kg
02/04/25 05:07
02/04/25 05:07
PT 14.1 Sec (11.4-14.6) 02/03/25 03:33
INR 1.05 02/03/25 03:33
APTT 26.2 Sec (23.4-35.0) 02/03/25 03:33
Magnesium 2.1 mg/dl (1.6-2.3) 02/04/25 05:07
Triglycerides 131 mg/dl (10-149) 02/03/25 03:33
LDL Cholesterol, Calc 119 mg/dl 02/03/25 03:33
VLDL Cholesterol, Calc 26 mg/dl (0-30) 02/03/25 03:33
HDL Cholesterol 44 mg/dl 02/03/25 03:33
Free T4 1.08 ng/dl (0.78-2.19) 02/04/25 05:07
Physical Exam
Constitutional: No acute distress
EENT: Anicteric
Cardiovascular: Rhythm & rate is regular and Pedal edema is absent
Respiratory: Respiratory effort normal and Lungs clear to auscul.
GI: Soft and Distention absent
Neuro/Psych: AO x 3
Data Reviewed
-
Date of Service: February 04, 2025
--- NOTE | 2025-02-04 12:06 | CON.MD ---
Documented by User: Meri Evans MD, Resident 02/04/25 18:03
Consultation - Medical
-
Referring Provider:��Debra Garcia
Chief Complaint:�Acute CVA
�
History of Present Illness:��79-year-old man presents with left-sided paresthesias, with mild weakness. At 1:00 pm, the left side of his face felt numb, as well as his hand and arm as well as his left leg. He felt like his left leg was 'dragging'
at times. Patient has a mild headache, and has been having headache intermittently for the past week or so. No fever, chills, nausea or vomiting. Patient does not take use anticoagulation. He was on Eliquis at a time but now is only taking baby
aspirin. His initial BP was 210/100, but it reduced to 170 systolic and he was given thrombolytics in the ED. Several risk factors for a stroke.
He endorsed black spots in left eye's vision for a few minutes a few days before he went to the ED for left weakness and numbness. He went to his eye doctor, who he said did not recommend further workup and cleared him.
�
Past Medical History:�Paroxysmal A-fib, polycythemia, CAD, hypertension, renal artery stenosis, hypercholesterolemia, insulin dependent diabetes, ALNIA, kidney stones, Doyle's palsy, GERD, erectile dysfunction, epistaxis, statin intolerance (but not
approved for PCSK9), TIA 2021
Procedure History:�CABG x 4, 2 coronary artery stent
Family History:�Diabetes in father
�
Social History:�
Functional Level Premorbidly: Independent with all activities�
Functional Level Currently:
Pending PT and OT evaluation 24 hours after tenecteplase
Speech Therapy Evaluation:
Pt with acute on chronic risk factors of dysphagia (Cardiac hx, GERD, acute CVA). Despite this, he presents with grossly functional oropharyngeal swallow at bedside. Pt endorsed decreased sensation in L lip, resulting in lip biting during
mastication. Discussed strategic bolus placement to R. No overt s/sx of aspiration across session. CXR without pneumonia, pt afebrile, and WBC WNL. Pt passed 3oz swallow screen.
Recommend:
1. Continue regular solids and thin liquids
2. Medications as tolerated
3. General aspiration precautions
4. SOFT WATER MECHANIC to follow to monitor tolerance of diet and determine if further language/cognitive assessment warranted pending MRI
Tobacco: Quit in 1988May 13
Alcohol: Occasional
Drug use: Denies�
�
Lives with: �
24-hour assistance available:�Yes
Number of floors:�4
# steps to enter:�4
# steps to second floor:�12
Potential First floor set up:�Yes
Driving:�Yes
Occupation:�Retired
��
�
Allergies:��
�
Allergy/AdvReac Type Severity Reaction Status Date / Time
atorvastatin calcium (From Allergy severe Verified 02/02/25 15:59
Lipitor) muscle
soreness
levofloxacin (From Levaquin) Allergy Hives Verified 02/02/25 15:59
pollen extracts Allergy Nasal Verified 02/02/25 15:59
stuffiness
- seasonal
Sulfa (Sulfonamide Allergy couldn't Verified 02/02/25 15:59
Antibiotics) breathe
Review of Systems:�
Constitutional: (x) Normal _�
Eye: (x) Normal _�
Ear/Nose/Throat: (x) Normal _�
Respiratory: (x) Normal _�
Cardiovascular: (x) Normal _�
Gastrointestinal: (x) Normal _�
Genitourinary: (x) Normal _�
Musculoskeletal: Lower extremity radiculopathy status post lumbar surgery
Integumentary: (x) Normal _�
Neurologic: (x) Normal _�
Psychiatric: (x) Normal _�
Endocrine: (x) Normal _�
Hematologic/Lymphatic: (x) Normal _�
Allergic/Immunologic: (x) Normal _�
�
Medications:�
�
Generic Name Dose Route Start Last Admin
Trade Name Freq PRN Reason Stop Dose Admin
Acetaminophen 650 mg 02/03/25 12:00 02/04/25 07:22
Acetaminophen 325 Mg Tablet PO 03/03/25 11:59 650 mg
Q4HWA MAYELA Administration
Apixaban 5 mg 02/04/25 20:00
Apixaban (Eliquis) 5 Mg Tablet PO 03/04/25 19:59
BID MAYELA
Carvedilol 3.125 mg 02/03/25 20:00 02/04/25 06:15
Carvedilol 3.125 Mg Tablet PO 03/03/25 19:59 3.125 mg
BID MAYELA Administration
Dextrose 12.5 grams 02/03/25 09:10
Dextrose 50% (0.5 Grams/Ml) 50 Ml Syringe IV 03/03/25 09:09
[id number] PRN
hypoglycemia
Protocol
Ezetimibe 10 mg 02/03/25 22:00 02/03/25 23:10
Ezetimibe (Zetia) 10 Mg Tablet PO 03/03/25 21:59 10 mg
HS MAYELA Administration
Finasteride 5 mg 02/04/25 18:00
Finasteride 5 Mg Tablet PO 03/04/25 17:59
QPM MAYELA
Furosemide 60 mg 02/04/25 16:00
Furosemide 40 Mg Tablet PO 03/04/25 15:59
BID@0800,1600 MAYELA
Insulin Aspart 0 units 02/03/25 10:00 02/04/25 07:14
Insulin Aspart Moderate Resistance 300 Units/3 Ml Pen.Injctr SC 03/03/25 09:59 Not Given
AC MAYELA
Protocol
Insulin Aspart Prota 70%/Aspart 30% 60 units 02/03/25 17:00 02/03/25 18:10
Novolog Mix 70/30 (100 Units/Ml) 3 Ml Flexpen SC 03/03/25 16:59 60 units
DAILY@1700 MAYELA Administration
Insulin Aspart Prota 70%/Aspart 30% 40 units 02/05/25 08:00
Novolog Mix 70/30 (100 Units/Ml) 3 Ml Flexpen SC 03/05/25 07:59
DAILY MAYELA
Potassium Chloride 20 meq 02/04/25 08:00 02/04/25 07:22
Potassium Chloride 20 Meq Extended Release Tablet PO 03/04/25 07:59 20 meq
DAILY MAYELA Administration
Sodium Chloride 0 flush 02/02/25 20:00
Sodium Chloride 0.9% (Flush) Syringe IV 03/02/25 19:59
PER PROTOCOL MAYELA
Valsartan 160 mg 02/04/25 08:00 02/04/25 07:22
Valsartan 160 Mg Tablet PO 03/04/25 07:59 160 mg
DAILY MAYELA Administration
Vitals:�
�
Temp Pulse Resp BP Pulse Ox
97.4 F 86 21 119/62 94
02/04/25 08:16 02/04/25 09:00 02/04/25 09:00 02/04/25 09:00 02/04/25 07:45
Height 5 ft 11 in
Actual Weight 111.674 kg
Body Mass Index (BMI) 34.4
Physical Exam:�
General Appearance/Observation: Well-developed, well-nourished individual in no apparent distress.�
Pain/Comfort Assessment: Denies��
Mood/Affect: Appropriate�
�
Integumentary/Operative Site:�
�� Pressure Ulcer Evaluation: absent over heels.�
�� Other Type of Wound: absent�
�
Eyes: Conjunctiva/Lids: normal Pupils: pupils equal round and reactive to light and Accommodation�
Ears/Nose/Throat: oral mucosa moist,� throat clear. Lips/Teeth/Gums: normal�
Neck: No muscle spasm or tenderness�
Cardiovascular: Heart: regular, no murmur�
Pulses: Radial 2+ bilaterally�
Respiratory: Respiratory Effort/Chest Expansion: normal. Auscultation: Clear to auscultation bilaterally�
Gastrointestinal: abdomen not tender, no distension, normal abdominal bowel sounds�
Genitourinary: No Dan�
Rectal Exam: Deferred�
Extremities: Edema: None Cyanosis: None Trophic changes: None�
�
�
Neurology Exam:�
Orientation: Alert, Oriented to self, Time, Place�
Memory: Intact immediately but not at 3 minutes�
Higher cortical function�
Repetition: Intact�
Comprehension: Intact�
Naming: Intact�
�
Cranial Nerves:�
�� CNII: Pupillary light reflex: Intact. Right pupil mydriasis.��� Visual Field: Intact�
�� CN III, IV, : Extraocular muscles: Intact��
�� CN V: Facial Sensation at Forehead: Intact, Maxilla: Intact, minimal residual numbness at left cheekbone region mandible: Intact �
�� CN VII: Facial movement: Symmetric�
�� CN VIII: Hearing: Normal�
�� CN IX/X: Speech & swallow: Normal, Position of Uvula: Midline�
�� CN XI: Shoulder shrug: Symmetric�
�� CN XII: Tongue protrusion: Midline�
�
Sensory:�
�� Light touch: Intact in bilateral upper and lower extremities�
�
Reflexes:�
�� Biceps: 2+ bilaterally�
�� Brachioradialis: 2+ bilaterally�
�� Triceps: 2+ bilaterally�
�� Patellar: 2+ bilaterally�
�� Achilles: 2+ bilaterally�
�� Babinski: Down going bilaterally�
�� Clonus: None�
�� Willy: Negative bilaterally�
Cerebellar: Dysmetria/Ataxia: None�
�
Musculoskeletal:�Able to abduct left arm to full range of motion, which is significant improvement from presentation
�
Motor: (Manual muscle scale 0-5)�
Muscle� SA� EF� WE� EE� FF� FA� HF� KE� DF� EHL� PF�
Right��� 5� 5� 5� 5� 5� 5� 5� 5� 5� 5� 5�
Left� 4� 5� 5� 5� 5� 5� 4� 5� 5� 5� 5�
�
Tone: Normal in all extremities.
Range of Motion: Passively within normal limits in all extremities�
�
Lab Results�
��
02/04/25 05:07
02/04/25 05:07
WBC 11.2 10^3/uL (4.8-10.8) H 02/04/25 05:07
Hgb 15.3 g/dL (13.0-18.0) 02/04/25 05:07
Hct 46.6 % (39.0-52.0) 02/04/25 05:07
MCV 78.7 fL (80.0-94.0) L 02/04/25 05:07
Plt Count 213 10^3/uL (130-400) 02/04/25 05:07
PT 14.1 Sec (11.4-14.6) 02/03/25 03:33
INR 1.05 02/03/25 03:33
Sodium 140 mmol/L (135-145) 02/04/25 05:07
Potassium 4.5 mmol/L (3.5-5.1) 02/04/25 05:07
Chloride 108 mmol/L (98-107) H 02/04/25 05:07
Carbon Dioxide 26 mmol/L (22-30) 02/04/25 05:07
BUN 19 mg/dl (9-20) 02/04/25 05:07
Creatinine 0.8 mg/dL (0.7-1.3) 02/04/25 05:07
eGFR > 60.00 02/04/25 05:07
Glucose 136 mg/dl (70-99) H 02/04/25 05:07
Hemoglobin A1c 9.4 % (4.0-5.6) H 02/03/25 03:33
Calcium 9.7 mg/dl (8.4-10.2) 02/04/25 05:07
Phosphorus 4.4 mg/dl (2.5-4.5) 02/04/25 05:07
Magnesium 2.1 mg/dl (1.6-2.3) 02/04/25 05:07
Total Bilirubin 0.6 mg/dl (0.2-1.3) 02/02/25 16:14
AST 19 U/L (17-59) 02/02/25 16:14
ALT 20 U/L (0-50) 02/02/25 16:14
Alkaline Phosphatase 67 U/L (38-126) 02/02/25 16:14
Total Protein 7.6 g/dl (6.3-8.2) 02/02/25 16:14
Albumin 4.7 g/dl (3.5-5.0) 02/02/25 16:14
Diagnostic Results: as per HPI�
Brain MRI 02/03/25
Acute infarcts of the right occipital lobe and right temporal lobe. Smaller acute infarct in the right thalamus. Minimal petechial hemorrhage associated with one of the infarcts in the right occipital lobe
Head CT 02/02/25
No acute intracranial abnormality noted.
CXR 02/02/25
Lungs appear slightly hypoinflated.
Subtle linear densities within the lower lungs, likely atelectasis.
Head/neck CTA 02/02/25
Calcific atherosclerotic disease involving the right carotid bulb and proximal right ICA, measured diameter reduction of 42%. As warranted, consider further evaluation with cerebrovascular ultrasound.
Less than 25% diameter reduction of the left carotid bulb and proximal left ICA.
There is focal narrowing involving the distal M1 portion of the left middle cerebral artery as well as the adjacent proximal M2 branches. On direct comparison to MR angiography of December 13, 2021, this appears fairly similar. With left-sided symptoms,
findings suggest that this may be chronic.
Atherosclerotic disease and narrowing involving the superior left vertebral artery and the proximal basilar artery. There appears to be an abrupt cut off at the junction of the P1 and P2 portions of the right posterior cerebral artery, which is new
compared to MR angiography December 13, 2021.
See above narrative for additional findings.
Percent stenosis is calculated using NASCET criteria.
Assessment�
79-year-old male presenting with left paresthesia and hemiplegia, as well as intermittent headache. Received tenecteplase.
Today, his weakness and numbness are significantly decreased.
PMH is notable for paroxysmal A-fib, polycythemia, CAD, hypertension, renal artery stenosis, hypercholesterolemia, insulin dependent diabetes, ALINA, and Doyle's palsy.
Plan��
PM&R PT/OT to increase independence with ADLs, improve balance, coordination, endurance, strength, mobility, community reintegration, decreased burden of care on others and family education.�
�
CVA: Secondary prophylaxis with aspirin, statin, and blood pressure control (SBP less than 180 and diastolic less than 100 to participate with therapy for ischemic stroke). Continue to monitor neurologic status.��
Left/right nondominant hemiparesis: High risk for falls and sliding out of chair/bed. Safety reinforced.�
- Avoid using affected arm to help lift or pull patient as this will cause trauma to the shoulder.�
�
HTN: continue furosemide 60 mg p.o. twice daily and valsartan 160 mg p.o. daily, monitor closely�
HLD: Statin�
Coronary artery disease: Aspirin, statin, carvedilol 3.125 mg p.o. twice daily
Atrial fibrillation:�Apixaban 5 mg p.o. twice daily������������������������������������������
�
DM II: Accu-Cheks, insulin sliding scale, metformin, aspart, lantus.��
������������
Bilateral lower extremity edema: Consider TEDS as able. Increased fluid will cause more force requirement to move lower extremities which requires more strength and increases fatigue.�
���
Skin: monitor for pressure sores/rashes/lesions.�
Pain: acetaminophen or oxycodone as needed.�
Bowel: Colace and Senna, PRN bisacodyl.�
Bladder: Time void, PVRs, PRN straight cath.�
GI Prophylaxis: Pantoprazole�
DVT Prophylaxis: Apixaban 5 mg p.o. twice daily
Pulmonary: Incentive spirometry�
Safety: Continue to reinforce assistance with all transfers.�
Code Status:� Full code
Dispo (date/plan/equipment needs): Home with family care.� Social history reviewed.�
�
Functional and Medical Goals: Modified Independent with ADL�s, ambulation, transfers�
�
SUMMARY�
�
Summary of recommendations:�
- Discharge Destination: Acute rehab. Recommended due to left hemiplegia and to maximize chances of recovery. Will follow up for full functional status on PT/OT eval.
Blood pressure must be less than 180 systolic and 100 diastolic for 24 hours before being stable for transfer to SNF/acute rehab.�
Please continue apixaban 5 mg p.o. twice daily
�
Will continue to follow patient.�
�
Thank you for allowing me to care for your patient. Please contact me with any questions or concerns.�
�
This note was dictated using a voice recognition system. Please excuse any typographical errors from urgent care. If you believe there are any discrepancies, please notify our office.�
�
Consultation
-
Date/Time Consultation Requested: 03/01/2025
Date/Time Consultation Performed: 02/04/2025
Requesting Provider: Debra Garcia
Performing Provider: Meri Sosa
Reason for Consultation: Stroke

Documented by User: Ivan Santizo MD 02/05/25 00:01
Consultation - Medical
-
Referring Provider:��Debra Garcia
Chief Complaint:�Acute CVA
�
History of Present Illness:��79-year-old right-handed man presents with left-sided paresthesias, with mild weakness. At 1:00 pm, the left side of his face felt numb, as well as his hand and arm as well as his left leg. He felt like his left leg
was 'dragging' at times. Patient has a mild headache, and has been having headache intermittently for the past week or so. No fever, chills, nausea or vomiting. Patient does not take use anticoagulation. He was on Eliquis at a time but now is
only taking baby aspirin. His initial BP was 210/100, but it reduced to 170 systolic and he was given thrombolytics in the ED. Several risk factors for a stroke.
He endorsed black spots in left eye's vision for a few minutes a few days before he went to the ED for left weakness and numbness. He went to his eye doctor, who he said did not recommend further workup and cleared him. CT/CTA head and neck noted
right carotid bulb and proximal right ICA 42% reduction, focal narrowing of the distal M1 portion of the left MCA as well as adjacent proximal M2 branches. Compared to MR angiography December 13, 2021 this appears fairly similar. Atherosclerotic
disease and narrowing involving the superior left vertebral artery and proximal basilar artery. This appears to be an abrupt cut off at the junction of the P1 and P2 portions of the right posterior cerebral artery which is new compared to MR
angiography December 13, 2021. Patient was seen by neurology and given TNK. At night he had significant headache with repeat CT of the head with no acute intracranial abnormality. On 02/03/2025 he had an MRI of the brain noting: Acute infarcts of the
right occipital lobe and right temporal lobe. Smaller acute infarct in the right thalamus. Minimal petechial hemorrhage associated with one of the infarcts in the right occipital lobe. Suggested for anticoagulation for history of A-fib 48 hours
after TNK to ensure no hemorrhagic conversion. Starting Zetia at bedtime since he had side effects of atorvastatin.
�
Past Medical History:�Paroxysmal A-fib, polycythemia, CAD, hypertension, renal artery stenosis, hypercholesterolemia, insulin dependent diabetes, ALINA, kidney stones, Doyle's palsy, GERD, erectile dysfunction, epistaxis, statin intolerance (but not
approved for PCSK9), TIA 2021
Procedure History:�CABG x 4, 2 coronary artery stent
Family History:�Diabetes in father
�
Social History:�
Functional Level Premorbidly: Independent with all activities�
Functional Level Currently: Modified independent with ADLs. Supervision with transfers and ambulating 70 feet x 2 with supervision without device and therapist managing monitor. Therapy suggesting home with outpatient therapy
Speech Therapy Evaluation:
Pt with acute on chronic risk factors of dysphagia (Cardiac hx, GERD, acute CVA). Despite this, he presents with grossly functional oropharyngeal swallow at bedside. Pt endorsed decreased sensation in L lip, resulting in lip biting during
mastication. Discussed strategic bolus placement to R. No overt s/sx of aspiration across session. CXR without pneumonia, pt afebrile, and WBC WNL. Pt passed 3oz swallow screen.
Recommend:
1. Continue regular solids and thin liquids
2. Medications as tolerated
3. General aspiration precautions
4. SOFT WATER MECHANIC to follow to monitor tolerance of diet and determine if further language/cognitive assessment warranted pending MRI
Tobacco: Quit in 1988May 13
Alcohol: Occasional
Drug use: Denies�
�
Lives with: �
24-hour assistance available:�Yes
Number of floors:�4
# steps to enter:�1+1+1
# steps to second floor:�12
Potential First floor set up:�Yes
Driving:�Yes
Occupation:�Retired
��
�
Allergies:��
�
Allergy/AdvReac Type Severity Reaction Status Date / Time
atorvastatin calcium (From Allergy severe Verified 02/02/25 15:59
Lipitor) muscle
soreness
levofloxacin (From Levaquin) Allergy Hives Verified 02/02/25 15:59
pollen extracts Allergy Nasal Verified 02/02/25 15:59
stuffiness
- seasonal
Sulfa (Sulfonamide Allergy couldn't Verified 02/02/25 15:59
Antibiotics) breathe
Review of Systems:�
Constitutional: (x) Normal _�
Eye: (x) Normal _�
Ear/Nose/Throat: (x) Normal _�
Respiratory: (x) Normal _�
Cardiovascular: (x) Normal _�
Gastrointestinal: (x) Normal _�
Genitourinary: (x) Normal _�
Musculoskeletal: Lower extremity radiculopathy status post lumbar surgery
Integumentary: (x) Normal _�
Neurologic: (x) Normal _�
Psychiatric: (x) Normal _�
Endocrine: (x) Normal _�
Hematologic/Lymphatic: (x) Normal _�
Allergic/Immunologic: (x) Normal _�
�
Medications:�
�
Generic Name Dose Route Start Last Admin
Trade Name Freq PRN Reason Stop Dose Admin
Acetaminophen 650 mg 02/03/25 12:00 02/04/25 07:22
Acetaminophen 325 Mg Tablet PO 03/03/25 11:59 650 mg
Q4HWA MAYELA Administration
Apixaban 5 mg 02/04/25 20:00
Apixaban (Eliquis) 5 Mg Tablet PO 03/04/25 19:59
BID MAYELA
Carvedilol 3.125 mg 02/03/25 20:00 02/04/25 06:15
Carvedilol 3.125 Mg Tablet PO 03/03/25 19:59 3.125 mg
BID MAYELA Administration
Dextrose 12.5 grams 02/03/25 09:10
Dextrose 50% (0.5 Grams/Ml) 50 Ml Syringe IV 03/03/25 09:09
[id number] PRN
hypoglycemia
Protocol
Ezetimibe 10 mg 02/03/25 22:00 02/03/25 23:10
Ezetimibe (Zetia) 10 Mg Tablet PO 03/03/25 21:59 10 mg
HS MAYELA Administration
Finasteride 5 mg 02/04/25 18:00
Finasteride 5 Mg Tablet PO 03/04/25 17:59
QPM MAYELA
Furosemide 60 mg 02/04/25 16:00
Furosemide 40 Mg Tablet PO 03/04/25 15:59
BID@0800,1600 MAYELA
Insulin Aspart 0 units 02/03/25 10:00 02/04/25 07:14
Insulin Aspart Moderate Resistance 300 Units/3 Ml Pen.Injctr SC 03/03/25 09:59 Not Given
AC MAYELA
Protocol
Insulin Aspart Prota 70%/Aspart 30% 60 units 02/03/25 17:00 02/03/25 18:10
Novolog Mix 70/30 (100 Units/Ml) 3 Ml Flexpen SC 03/03/25 16:59 60 units
DAILY@1700 MAYELA Administration
Insulin Aspart Prota 70%/Aspart 30% 40 units 02/05/25 08:00
Novolog Mix 70/30 (100 Units/Ml) 3 Ml Flexpen SC 03/05/25 07:59
DAILY MAYELA
Potassium Chloride 20 meq 02/04/25 08:00 02/04/25 07:22
Potassium Chloride 20 Meq Extended Release Tablet PO 03/04/25 07:59 20 meq
DAILY MAYELA Administration
Sodium Chloride 0 flush 02/02/25 20:00
Sodium Chloride 0.9% (Flush) Syringe IV 03/02/25 19:59
PER PROTOCOL MAYELA
Valsartan 160 mg 02/04/25 08:00 02/04/25 07:22
Valsartan 160 Mg Tablet PO 03/04/25 07:59 160 mg
DAILY MAYELA Administration
Vitals:�
�
Temp Pulse Resp BP Pulse Ox
97.4 F 86 21 119/62 94
02/04/25 08:16 02/04/25 09:00 02/04/25 09:00 02/04/25 09:00 02/04/25 07:45
Height 5 ft 11 in
Actual Weight 111.674 kg
Body Mass Index (BMI) 34.4
Physical Exam:�
General Appearance/Observation: Well-developed, well-nourished male in no apparent distress.�
Pain/Comfort Assessment: Denies��
Mood/Affect: Appropriate�
�
Integumentary/Operative Site:�No acute lesions noted during course of exam
�
Eyes: Conjunctiva/Lids: normal Pupils: pupils equal round and reactive to light and Accommodation�
Ears/Nose/Throat: oral mucosa moist,� throat clear. Lips/Teeth/Gums: normal�
Neck: No muscle spasm or tenderness�
Cardiovascular: Heart: regular, no murmur�
Pulses: Radial 2+ bilaterally�
Respiratory: Respiratory Effort/Chest Expansion: normal. Auscultation: Clear to auscultation bilaterally�
Gastrointestinal: abdomen not tender, no distension, normal abdominal bowel sounds�
Genitourinary: No Dan�
Rectal Exam: Deferred�
Extremities: Edema: None Cyanosis: None Trophic changes: None�
�
�
Neurology Exam:�
Orientation: Alert, Oriented to self, Time, Place�
Memory: Intact immediately but not at 3 minutes�
Repetition: Intact�
Comprehension: Intact�
Naming: Intact�
�
Cranial Nerves:�
�� CNII: Pupillary light reflex: Intact. Right pupil mydriasis.��� Visual Field: Intact, does note words being submerged together with reading
�� CN III, IV, : Extraocular muscles: Intact��
�� CN V: Facial Sensation at Forehead: Minimal decrease in the left, Maxilla: Minimal decrease on the left mandible: Minimal decreased on the left
�� CN VII: Facial movement: Symmetric�
�� CN VIII: Hearing: Normal�
�� CN IX/X: Speech & swallow: Normal, Position of Uvula: Midline�
�� CN XI: Shoulder shrug: Symmetric�
�� CN XII: Tongue protrusion: Midline�
�
Sensory:�
�� Light touch: Intact in right upper and lower extremities, mildly impaired left upper and lower extremities
�
Reflexes:�
�� Biceps: 2+ bilaterally�
�� Brachioradialis: 2+ bilaterally�
�� Triceps: 2+ bilaterally�
�� Patellar: 2+ bilaterally�
�� Achilles: 2+ bilaterally�
�� Babinski: Down going bilaterally�
�� Clonus: None�
�� Willy: Negative bilaterally�
Cerebellar: Dysmetria/Ataxia: None, takes increased time for [id number]
�
Musculoskeletal:�Motor: (Manual muscle scale 0-5)�
Muscle� SA� EF� WE� EE� FF� FA� HF� KE� DF� EHL� PF�
Right��� 5� 5� 5� 5� 5� 5� 5� 5� 5� 5� 5�
Left� 4� 5� 5� 5� 5� 5� 4� 5� 5� 5� 5�
�
Tone: Normal in all extremities.
Range of Motion: Passively within normal limits in all extremities�
�
Lab Results�
��
02/04/25 05:07
02/04/25 05:07
WBC 11.2 10^3/uL (4.8-10.8) H 02/04/25 05:07
Hgb 15.3 g/dL (13.0-18.0) 02/04/25 05:07
Hct 46.6 % (39.0-52.0) 02/04/25 05:07
MCV 78.7 fL (80.0-94.0) L 02/04/25 05:07
Plt Count 213 10^3/uL (130-400) 02/04/25 05:07
PT 14.1 Sec (11.4-14.6) 02/03/25 03:33
INR 1.05 02/03/25 03:33
Sodium 140 mmol/L (135-145) 02/04/25 05:07
Potassium 4.5 mmol/L (3.5-5.1) 02/04/25 05:07
Chloride 108 mmol/L (98-107) H 02/04/25 05:07
Carbon Dioxide 26 mmol/L (22-30) 02/04/25 05:07
BUN 19 mg/dl (9-20) 02/04/25 05:07
Creatinine 0.8 mg/dL (0.7-1.3) 02/04/25 05:07
eGFR > 60.00 02/04/25 05:07
Glucose 136 mg/dl (70-99) H 02/04/25 05:07
Hemoglobin A1c 9.4 % (4.0-5.6) H 02/03/25 03:33
Calcium 9.7 mg/dl (8.4-10.2) 02/04/25 05:07
Phosphorus 4.4 mg/dl (2.5-4.5) 02/04/25 05:07
Magnesium 2.1 mg/dl (1.6-2.3) 02/04/25 05:07
Total Bilirubin 0.6 mg/dl (0.2-1.3) 02/02/25 16:14
AST 19 U/L (17-59) 02/02/25 16:14
ALT 20 U/L (0-50) 02/02/25 16:14
Alkaline Phosphatase 67 U/L (38-126) 02/02/25 16:14
Total Protein 7.6 g/dl (6.3-8.2) 02/02/25 16:14
Albumin 4.7 g/dl (3.5-5.0) 02/02/25 16:14
Diagnostic Results: as per HPI�
Brain MRI 02/03/25
Acute infarcts of the right occipital lobe and right temporal lobe. Smaller acute infarct in the right thalamus. Minimal petechial hemorrhage associated with one of the infarcts in the right occipital lobe
Head CT 02/02/25
No acute intracranial abnormality noted.
CXR 02/02/25
Lungs appear slightly hypoinflated.
Subtle linear densities within the lower lungs, likely atelectasis.
Head/neck CTA 02/02/25
Calcific atherosclerotic disease involving the right carotid bulb and proximal right ICA, measured diameter reduction of 42%. As warranted, consider further evaluation with cerebrovascular ultrasound.
Less than 25% diameter reduction of the left carotid bulb and proximal left ICA.
There is focal narrowing involving the distal M1 portion of the left middle cerebral artery as well as the adjacent proximal M2 branches. On direct comparison to MR angiography of December 13, 2021, this appears fairly similar. With left-sided symptoms,
findings suggest that this may be chronic.
Atherosclerotic disease and narrowing involving the superior left vertebral artery and the proximal basilar artery. There appears to be an abrupt cut off at the junction of the P1 and P2 portions of the right posterior cerebral artery, which is new
compared to MR angiography December 13, 2021.
See above narrative for additional findings.
Percent stenosis is calculated using NASCET criteria.
Assessment�
79-year-old right-handed M PMH(paroxysmal A-fib, polycythemia, CAD, hypertension, renal artery stenosis, hypercholesterolemia, insulin dependent diabetes, ALINA, and Doyle's palsy) with left paresthesia and hemiplegia and headache s/p tenecteplase for
right occipital lobe and right temporal lobe. Smaller acute infarct in the right thalamus with mild right occipital petechial hemorrhage with improvement in left-sided weakness but still resulting in ADL and ambulatory dysfunction.
Plan��
PM&R PT/OT to increase independence with ADLs, improve balance, coordination, endurance, strength, mobility, community reintegration, decreased burden of care on others and family education.�
�
CVA: Secondary prophylaxis with Eliquis, intolerant of statin so on Zetia, and blood pressure control (SBP less than 180 and diastolic less than 100 to participate with therapy for ischemic stroke). Continue to monitor neurologic status.��
Left nondominant hemiparesis: PT/OT. Doing dramatically better from yesterday and not requiring physical assistance in therapy this evening
�
HTN: furosemide 60 mg p.o. twice daily and valsartan 160 mg p.o. daily, monitor closely�
HLD: Zetia
Coronary artery disease: Aspirin, statin, carvedilol 3.125 mg p.o. twice daily
Atrial fibrillation:�Apixaban 5 mg p.o. twice daily������������������������������������������
Chronic heart failure with preserved ejection fraction: Appears euvolemic, continue with his home Lasix dosing
DM II: Accu-Cheks, insulin sliding scale, insulin 70/30��
Pain: acetaminophen as needed.�
Bowel: Colace and Senna, PRN bisacodyl.�
Bladder: Time void, PVRs, PRN straight cath.�
DVT Prophylaxis: Apixaban 5 mg p.o. twice daily, mechanical
Pulmonary: Incentive spirometry�
Safety: Continue to reinforce assistance with all transfers.�
Code Status:� Full code
Dispo (date/plan/equipment needs): Home with family care.� Social history reviewed.�
Functional and Medical Goals: Modified Independent with ADL�s, ambulation, transfers�
Discharge Destination: Patient with significant improvement in left-sided symptoms although still has some sensory and motor concerns requires supervision for ADLs, transfers, and ambulation which could be manage at home with outpatient physical and
Occupational Therapy.
�
Attending Statement:
I saw and examined the patient today. Reviewed care plan with patient, and resident physician. I agree with the above subjective and review of systems as addended. Above physical exam, and plan represents my exam and plan.
Thank you for allowing me to care for your patient. Please contact me with any questions or concerns.��
[2025-02-04 12:08] LABS: Glucose - Point of Care 197 mg/dl (70-99)
[2025-02-04] MEDS: NOVOLOG FLEXPEN-MODERATE RESISTANCE 1 UNITS SC (12:29)
--- NOTE | 2025-02-04 12:49 | PTOTSP ---
Speech Therapy Evaluation:
Given MRI revealing acute infarcts in R occipital lobe, L temporal lobe, and smaller acute infarct in R thalamus, cognition was assessed via the [place] Cognitive Assessment (MoCA) Version 7.1. An average score on this assessment is 26 or higher.
Pt earned an overall score of 25/30, scoring just below normal range. Pt demonstrated reductions in STM, with all 5 points lost on delayed recall. When discussing results of assessment, pt denied any changes in cognition, rather he was feeling a
little more tired today. When discussing option for cognitive intervention, pt pleasantly declined, stating he does not want to work on cognitive skills at the age of 79.
Given above mentioned information with borderline score on assessment, MECHANICAL TEST ENGINEER to s/o at this time. If further concerns arise, discussed option for outpatient MECHANICAL TEST ENGINEER evaluation.
[2025-02-04] MEDS: REFRESH EYE DROPS (PF) 1 DROPS OPHTH (12:57)
--- NOTE | 2025-02-04 13:38 | CM ---
MRI brain on 02/03/25 showed several infarcts. Speech evaluation completed, no speech therapy indicated. Discharge POC: Awaiting therapy evaluation and recommendations.
[2025-02-04 18:24] LABS: Glucose - Point of Care 289 mg/dl (70-99)
[2025-02-04] MEDS: NOVOLOG FLEXPEN-MODERATE RESISTANCE 5 UNITS SC (18:29)
[2025-02-04] MEDS: NOVOLOG MIX 70/30 FLEXPEN 60 UNITS SC (18:31)
[2025-02-04] MEDS: PROSCAR 5 MG PO (18:42)
[2025-02-04] MEDS: ELIQUIS 5 MG PO (19:25)
[2025-02-04] MEDS: ZETIA 10 MG PO (19:25)
[2025-02-04] MEDS: COREG PO (19:26)
[2025-02-04 21:21] LABS: Glucose - Point of Care 246 mg/dl (70-99)
[2025-02-05] VITALS (9 sets, daily range): BP systolic 118–189; BP diastolic 56–84; PULSE 51–86; O2SAT 95–96; BMI 34.2
[2025-02-05] MEDS: TYLENOL PO ×2 (01:10→06:11)
--- NOTE | 2025-02-05 05:44 | W.PN.UPDATE ---
Update Note
Progress Note Update
Called to see patient for new onset blood in urine and patient states he feels very lightheaded, new onset. Patient also c/o headache, had headache all day, receiving Tylenol. According to RN, patient was OOB in chair, doing crossword puzzles in the
beginning of shift, very upbeat. Now is very anxious, c/o lightheadedness, feels like heart is racing, HR 78. Patient on court recording monitor, shows SR, HR 74. Patient is 48 hours s/p TNK. Eliquis started last evening. Ordered stat Head CT w/o IV
contrast, awaiting result. TT to on-call Neurologist, Dr. Fuller. Ordered orthostatic vital signs, patient to void in urinal to quantify hematuria.
--- NOTE | 2025-02-05 06:38 | PTCARENOTE ---
~05:15 pt states his urine was bloody, but had flushed it before RN or PCT could see it. Also complained of lightheadedness, headache and racing heart rate. HR was 50s-60s on monitor. Other VSS. CASE FINISHER made aware, up to see patient. STAT Head CT
ordered and obtained. Plan of care ongoing
--- NOTE | 2025-02-05 07:22 | PN.DE.MGMTRT ---
Insulin Management
- -
02/05/2025 Diabetes Management Consult Follow up
Patient admitted 02/02 with L sided weakness, stroke alert. PMH CAD, HTN, HCL, diabetes. ALINA. Prior to admission was taking Soliqua 32 units daily, NPH 30 units @ HS, 70/30 25 to 30 units in AM and 30 to 60 units in PM. A1C 9.4, cr .7, eGFR > 60.
Patient is awake alert and oriented able to discuss diabetes care. States he saw Dr. Balderas for 12 years but because the sensor did not work for him they discharged him from the practice. Since then he has followed with his primary doctor Brianna.
He has a meter and test 3 to 4 times per day.
Overnight patient c/o headache and lightheaded, c/o new blood in urine.
70/30 insulin 40 units in AM given yesterday, with moderate corrective. Glucose pre lunch 197 + 1 units corrective and pre dinner 289 + 5 units corrective. Fasting glucose today 93. Will increase AM 70/30 to 50 units, continue 70/30 60 units
with dinner. In an effort to simplify regimen, due to patient age and mentation at times, will not restart Soliqua or NPH at this time. Will continue with 70/30 BID and adjust doses to target glucose < 180.
Discussed with nurse
Will follow.
Diabetes History
- -
Type of Diabetes: 2 requiring insulin
Pre-Admission Diabetes Regimen
Lab Results
Hemoglobin A1c 9.4 % (4.0-5.6) H 02/03/25 03:33
Insulin Pump Settings
IP Diabetes Regimen
02/04/25 02/04/25 02/04/25
07:47 11:58 18:22
POC Glucose 188 H 197 H 289 H
02/04/25
21:19
POC Glucose 246 H
Meal type: Dinner
Amount consumed: 100%
Patient Education
--- NOTE | 2025-02-05 07:35 | W.PN.HOSP.TC ---
Today's Communication/Plan
-
see a/p
Assessment / Plan
Assessment / Plan
Physical Exam
General: No acute distress, appears comfortable, Obese
HEENT: Normocephalic Atraumatic moist mucous membranes
Respiratory: Clear to auscultation b/l
Cardiac: S1/S2 and Regular Rhythm
GI: Soft, Non Tender and Non Distended
Musculoskeletal: No Clubbing, No Cyanosis, No edema
Skin: Warm and Dry
Neuro: AOx3 conversant coherent no facial droop strength 5/5 all ext's
Psych: Calm
79M HTN HLD IDDM ALNIA Morbid Obesity CAD stent CABG pAfib statin intolerance with left sided numbness, headache, high BP, stroke alert called. Thrombolytics given.
PLAN:
# Stroke alert, s/p thrombolytics
ICU admit downgraded Tele 02/04
neuro consult appreciated
Professor Of Family Medicine consult appreciated
BP control to appropriate range
CT Head, CTA Head/neck reviewed
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
PT/OT PMR evals appreciated
speech eval appreciated appropriate for regular diet
repeat CT head 02/05/25 noted Evolving acute/subacute infarcts in the right occipital and temporal lobes. No overt CT evidence for hemorrhagic transformation.
# CAD stent CABG
#pAfib
#Hx HFpEF
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
ASA since switched to Eliquis, anticoagulation started 48h after TNK as per Neuro
Cardio eval appreciated
Home Lasix Coreg Valsartan with holding parameters
#New Onset Hematuria
#Hx BPH reduction approx 10 yrs ago, follows Urology Dr Denton yuan
Urology Consult Appreciated
Bladder Renal US appreciated nonobstructing Rt renal calculus, no hydronephrosis, stable Lt renal cyst
No significant anemia
Hematuria since resolved, Eliquis resumed
cont home finasteride
#Atelectasis
Incentive Spirometer
#HLD
Lipid panel reviewed, LDL above goal >70
hx statin intolerance
Ezetimibe as per Neuro
# HTN
# Hypertensive Urgency/Emergency
briefly required nicardipine gtt overnight following admission, systolic 200s, since weaned off
Coreg Valsartan Lasix resumed w/ holding parameters
goal normotensive at this time
# IDDM - oral meds temporarily on hold
sliding scale
DM SIGN DESIGNER consult appreciated 70/30 50U AM 60U with Dinner
PT/OT appreciated outpt therapy
Full code
VCD for DVTp
I spent a total of 50 minutes with the patient or on the floor. More than 50% of this time involved counseling and coordination of care.
Anticipated Discharge: 24 - 48 hours
Subjective/Interval History
-
Date of Service: February 05, 2025
New onset hematuria early in morning. Headache lightheadedness persist but improved per patient. Ambulatory without need for assist device.
Objective Data
-
Labs:
Laboratory Results
02/05/25
07:10
WBC Pending
Hgb Pending
Hct Pending
Plt Count Pending
Sodium Pending
Potassium Pending
Chloride Pending
Carbon Dioxide Pending
BUN Pending
Creatinine Pending
Glucose Pending
Calcium Pending
Vital Signs:
Vital Signs
Temp Pulse Resp BP Pulse Ox
97.6 F 78 22 131/84 92
02/05/25 03:33 02/05/25 05:33 02/05/25 05:33 02/05/25 05:33 02/05/25 05:33
I&O
02/04/25 02/05/25 02/06/25
06:59 06:59 06:59
Intake Total 510 / 510 400 / 400
Output Total 1000 / 1000 400 / 400
Balance -490 / -490 0 / 0
[2025-02-05 07:55] LABS: Hematocrit 45.3 % (39.0-52.0); Hemoglobin 14.8 g/dL (13.0-18.0); Mean Corp Hgb Conc. 32.7 g/dL (33.0-37.0); Mean Corpuscular Volume 78.4 fL (80.0-94.0); Platelet Count 194 10^3/uL (130-400); Red Cell Dist. Width 17.2 % (11.5-14.5)
[2025-02-05 08:13] LABS: Glucose - Point of Care 93 mg/dl (70-99)
[2025-02-05 08:20] LABS: Blood Urea Nitrogen 20 mg/dl (9-20); Calcium 9.2 mg/dl (8.4-10.2); Carbon Dioxide 24 mmol/L (22-30); Chloride 107 mmol/L (98-107); Estimated Creatinine Clearance 82 ml/min; Glucose 97 mg/dl (70-99); Magnesium 2.0 mg/dl (1.6-2.3); Potassium 3.7 mmol/L (3.5-5.1); Sodium 138 mmol/L (135-145); eGFR > 60.00
[2025-02-05] MEDS: NOVOLOG FLEXPEN-MODERATE RESISTANCE SC (08:31)
[2025-02-05] MEDS: COREG 3.125 MG PO (08:35)
[2025-02-05] MEDS: DIOVAN 160 MG PO (08:36)
[2025-02-05] MEDS: KCL 20 MEQ PO (08:37)
[2025-02-05] MEDS: TYLENOL 650 MG PO ×4 (08:37→19:24)
[2025-02-05] MEDS: LASIX 60 MG PO ×2 (08:38→15:10)
[2025-02-05] MEDS: NOVOLOG MIX 70/30 FLEXPEN 50 UNITS SC (08:41)
[2025-02-05 10:56] LABS: Urine Character Clear (Clear)
[2025-02-05 11:47] LABS: Urine Urothelial Cell 0-2 /LPF (FEW)
[2025-02-05 11:48] LABS: Urine Red Blood Cell 50-60 /HPF (0-2)
--- NOTE | 2025-02-05 12:24 | W.PN.URO.CBU ---
Today's Communication / Plan
-
await renal and ladder u/s
Assessment / Plan
-
hematuria on dapt will do renal and bladder u/s if neg may restart eliqs butif rebleeds then dilemma of how to proced needs discussion
Diagnosis
-
Date of Service: February 05, 2025
-
Patient Diagnosis:painless hematiria on eliqiuis h/o bph asx since turp.
Post Op Day:
Subjective
-
hematuria subsided was voiidn no clots
Objective
-
Vital Signs
Temp Pulse Resp BP Pulse Ox
98.0 F 59 16 135/62 93
02/05/25 11:15 02/05/25 11:15 02/05/25 11:15 02/05/25 11:15 02/05/25 11:15
Intake and Output
02/04/25 02/05/25 02/06/25
06:59 06:59 06:59
Intake Total 510 / 510 400 / 400
Output Total 1000 / 1000 400 / 400
Balance -490 / -490 0 / 0
Intake:
Oral fluids 510 / 510 400 / 400
Output:
Urine, Voided 1000 / 1000 400 / 400
Other:
Number of approximated MODERATE 1 1
amounts of urine
Laboratory Results
02/05/25 07:10
02/05/25 07:10
Review of Systems
-
: Bleeding
Physical Exam
-
General - well developed, well nourished, no acute distress
Chest - clear bilaterally
Abdomen - soft, non-tender, positive bowel sounds, no CVAT, no incisional pain or distention
Genitalia - normal
Rectal - normal
Skin - warm & dry with no rash
Neuro - AOx3, no motor deficits
Extremities - no clubbing, no cyanosis, no edema
Incision - clean, dry
Dressing - clean, dry, intact
Counseling
-
tige text dr guerra upon [facility]
Care Review
Data Reviewed
Discussed with: Hospitalist and Nursing
Ultrasound: Image Pers Reviewed
[2025-02-05 13:30] LABS: Glucose - Point of Care 216 mg/dl (70-99)
[2025-02-05] MEDS: NOVOLOG FLEXPEN-MODERATE RESISTANCE 3 UNITS SC (13:30)
--- NOTE | 2025-02-05 16:02 | W.PN.SURGUPD ---
Surgical Update
Surgical Update
renal and bladder u/s bph no cancer restart dapt but if rebleeds will need to hold and start finasteride outpatient eval of hematuria
[2025-02-05 16:18] LABS: Glucose - Point of Care 277 mg/dl (70-99)
[2025-02-05] MEDS: NOVOLOG FLEXPEN-MODERATE RESISTANCE 5 UNITS SC (16:48)
[2025-02-05] MEDS: NOVOLOG MIX 70/30 FLEXPEN 60 UNITS SC (16:56)
[2025-02-05] MEDS: PROSCAR 5 MG PO (16:56)
[2025-02-05] MEDS: ELIQUIS 5 MG PO (19:24)
[2025-02-05] MEDS: ZETIA 10 MG PO (19:24)
[2025-02-05] MEDS: COREG PO (20:31)
[2025-02-05 21:05] LABS: Glucose - Point of Care 202 mg/dl (70-99)
[2025-02-06] VITALS (7 sets, daily range): BP systolic 115–158; BP diastolic 60–85; PULSE 61–83; O2SAT 93; BMI 33.9
[2025-02-06] MEDS: TYLENOL PO ×3 (02:17→11:44)
[2025-02-06] MEDS: TYLENOL 650 MG PO (06:03)
--- NOTE | 2025-02-06 07:29 | W.PN.HOSP.TC ---
Today's Communication/Plan
-
discharge
Assessment / Plan
Assessment / Plan
Physical Exam
General: No acute distress, appears comfortable, Obese
HEENT: Normocephalic Atraumatic moist mucous membranes
Respiratory: Clear to auscultation b/l
Cardiac: S1/S2 and Regular Rhythm
GI: Soft, Non Tender and Non Distended
Musculoskeletal: No Clubbing, No Cyanosis, No edema
Skin: Warm and Dry
Neuro: AOx3 conversant coherent no facial droop strength 5/5 all ext's
Psych: Calm
79M HTN HLD IDDM ALINA Morbid Obesity CAD stent CABG pAfib statin intolerance with left sided numbness, headache, high BP, stroke alert called. Thrombolytics given.
PLAN:
# Stroke alert, s/p thrombolytics
ICU admit downgraded Tele 02/04
neuro consult appreciated
Search Engine Optimization Strategist consult appreciated
BP control to appropriate range
CT Head, CTA Head/neck reviewed
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
PT/OT PMR evals appreciated
speech eval appreciated appropriate for regular diet
repeat CT head 02/05/25 noted Evolving acute/subacute infarcts in the right occipital and temporal lobes. No overt CT evidence for hemorrhagic transformation.
# CAD stent CABG
#pAfib
#Hx HFpEF
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
ASA since switched to Eliquis, anticoagulation started 48h after TNK as per Neuro
Cardio eval appreciated
Home Lasix Coreg Valsartan with holding parameters
#New Onset Hematuria
#Hx BPH reduction approx 10 yrs ago, follows Urology Dr Denton yuan
Urology Consult Appreciated
Bladder Renal US appreciated nonobstructing Rt renal calculus, no hydronephrosis, stable Lt renal cyst
No significant anemia
Hematuria since resolved, Eliquis resumed
cont home finasteride
#Atelectasis
Incentive Spirometer
#HLD
Lipid panel reviewed, LDL above goal >70
hx statin intolerance
Ezetimibe as per Neuro
# HTN
# Hypertensive Urgency/Emergency
briefly required nicardipine gtt overnight following admission, systolic 200s, since weaned off
Coreg Valsartan Lasix resumed w/ holding parameters
goal normotensive at this time
# IDDM - oral meds temporarily on hold
sliding scale
DM REPLENISHMENT SPECIALIST consult appreciated 70/30 60U BID
PT appreciated patient improved, no skilled needs
OT appreciated outpt therapy
Full code
VCD for DVTp
Medically stable for discharge Home with outpatient follow up recommendations.
Total Time Preparing Discharge ___40____ minutes including examination of the patient, summary of the hospital stay, instructions for continuing care to all relevant caregivers; and preparation of discharge records, prescriptions, and referral
forms if necessary.
Anticipated Discharge: Today
Subjective/Interval History
-
Date of Service: February 06, 2025
No acute distress. Overall Reports feeling well. Headache near resolved. lightheadedness persists but improving. Ambulating without need for assist device.
Objective Data
-
Labs:
Laboratory Results
02/06/25
07:11
WBC Pending
Hgb Pending
Hct Pending
Plt Count Pending
Sodium Pending
Potassium Pending
Chloride Pending
Carbon Dioxide Pending
BUN Pending
Creatinine Pending
Glucose Pending
Calcium Pending
Vital Signs:
Vital Signs
Temp Pulse Resp BP Pulse Ox
97.6 F 72 18 146/85 94
02/06/25 03:18 02/06/25 03:18 02/06/25 03:18 02/06/25 03:18 02/06/25 03:18
I&O
02/05/25 02/06/25 02/07/25
06:59 06:59 06:59
Intake Total 400 / 400 1560 / 1560
Output Total 400 / 400 2725 / 2725
Balance 0 / 0 -1165 / -1165
--- NOTE | 2025-02-06 08:02 | PN.DE.MGMTRT ---
Insulin Management
- -
02/06/2025 Diabetes Management Consult Follow up
Patient admitted 02/02 with L sided weakness, stroke alert. PMH CAD, HTN, HCL, diabetes. ALINA. Prior to admission was taking Soliqua 32 units daily, NPH 30 units @ HS, 70/30 25 to 30 units in AM and 30 to 60 units in PM. A1C 9.4, cr .7, eGFR > 60.
Patient is awake alert and oriented able to discuss diabetes care. States he saw Dr. Balderas for 12 years but because the sensor did not work for him they discharged him from the practice. Since then he has followed with his primary doctor Brianna.
He has a meter and test 3 to 4 times per day.
No further blood in urine.
70/30 insulin 50 units in AM given yesterday, with moderate corrective. Glucose pre lunch 216 + 3 units corrective and pre dinner 277 + 5 units corrective. Fasting glucose today 185. Will increase AM 70/30 to 60 units, continue 70/30 60 units
with dinner. In an effort to simplify regimen, due to patient age and mentation at times, will not restart Soliqua or NPH at this time. Will continue with 70/30 BID and adjust doses to target glucose < 180.
Discussed with nurse
Will follow.
Diabetes History
- -
Type of Diabetes: 2 requiring insulin
Pre-Admission Diabetes Regimen
02/05/25
07:10
Creatinine 0.9
Lab Results
Hemoglobin A1c 9.4 % (4.0-5.6) H 02/03/25 03:33
Insulin Pump Settings
IP Diabetes Regimen
02/05/25 02/05/25 02/05/25
07:10 08:12 13:28
Glucose 97
POC Glucose 93 216 H
02/05/25 02/05/25
16:17 21:04
Glucose
POC Glucose 277 H 202 H
Meal type: Dinner
Meal type: Lunch
Meal type: Breakfast
Amount consumed: 100%
Amount consumed: 100%
Amount consumed: 100%
Patient Education
[2025-02-06 08:04] LABS: Hematocrit 46.9 % (39.0-52.0); Hemoglobin 15.1 g/dL (13.0-18.0); Mean Corp Hgb Conc. 32.2 g/dL (33.0-37.0); Mean Corpuscular Volume 79.2 fL (80.0-94.0); Platelet Count 197 10^3/uL (130-400); Red Cell Dist. Width 16.5 % (11.5-14.5)
[2025-02-06 08:08] LABS: Glucose - Point of Care 185 mg/dl (70-99)
[2025-02-06 08:36] LABS: Blood Urea Nitrogen 19 mg/dl (9-20); Calcium 9.0 mg/dl (8.4-10.2); Carbon Dioxide 24 mmol/L (22-30); Chloride 104 mmol/L (98-107); Estimated Creatinine Clearance 73 ml/min; Glucose 164 mg/dl (70-99); Magnesium 2.0 mg/dl (1.6-2.3); Potassium 4.0 mmol/L (3.5-5.1); Sodium 137 mmol/L (135-145); eGFR > 60.00
[2025-02-06] MEDS: ELIQUIS 5 MG PO (08:49)
[2025-02-06] MEDS: DIOVAN 160 MG PO (08:49)
[2025-02-06] MEDS: NOVOLOG FLEXPEN-MODERATE RESISTANCE 1 UNITS SC ×2 (08:49→11:47)
[2025-02-06] MEDS: LASIX 60 MG PO (08:49)
[2025-02-06] MEDS: KCL 20 MEQ PO (08:49)
[2025-02-06] MEDS: COREG 3.125 MG PO (08:49)
[2025-02-06] MEDS: NOVOLOG MIX 70/30 FLEXPEN 60 UNITS SC (08:50)
[2025-02-06] MEDS: NOVOLOG MIX 70/30 FLEXPEN SC (08:54)
[2025-02-06 11:39] LABS: Glucose - Point of Care 194 mg/dl (70-99)
--- NOTE | 2025-02-06 12:17 | W.PN.URO.CBU ---
Today's Communication / Plan
-
no giu intevention call if bleeding reoccurs
Assessment / Plan
-
hematuria on dapt stopped asx renal / bladder u/s wnl may discharge on finasteride when medically stable folow up dr orta for heamturia
Diagnosis
-
Date of Service: February 06, 2025
-
Patient Diagnosis:
Post Op Day:
Patient Diagnosis:painless hematiria on eliqiuis h/o bph asx since turp.
Post Op Day:
Subjective
-
no hematuria asx
Objective
-
Vital Signs
Temp Pulse Resp BP Pulse Ox
97.8 F 67 20 143/74 92
02/06/25 11:12 02/06/25 11:12 02/06/25 11:12 02/06/25 11:12 02/06/25 11:12
Intake and Output
02/05/25 02/06/25 02/07/25
06:59 06:59 06:59
Intake Total 400 / 400 1560 / 1560
Output Total 400 / 400 2725 / 2725
Balance 0 / 0 -1165 / -1165
Intake:
Oral fluids 400 / 400 1560 / 1560
Output:
Urine, Voided 400 / 400 2725 / 2725
Other:
Number of approximated MODERATE 1 1
amounts of urine
Laboratory Results
02/06/25 07:11
02/06/25 07:11
Review of Systems
-
: No Symptoms
Physical Exam
-
General - well developed, well nourished, no acute distress
Chest - clear bilaterally
Abdomen - soft, non-tender, positive bowel sounds, no CVAT, no incisional pain or distention
Genitalia - normal
Rectal - normal
Skin - warm & dry with no rash
Neuro - AOx3, no motor deficits
Extremities - no clubbing, no cyanosis, no edema
Incision - clean, dry
Dressing - clean, dry, intact
Counseling
-
no gu intervention
Care Review
Data Reviewed
Discussed with: Nursing and Family
Ultrasound: Image Pers Reviewed
--- NOTE | 2025-02-06 13:05 | PTOTSP ---
Pt is independent with ambulation without need for any assistive device and is able to climb steps with a railing without difficulty. No further acute PT needs at this time. Will sign off.
--- NOTE | 2025-02-06 15:32 | CM ---
Spoke with RN. Patient ready for d/c. Patient expressed no concerns about d/c. IMM in chart, signed indicating no concerns. Patient's is his transport.
Plan: Case management will continue to follow and assist with discharge planning. Home with spouse.
== END 2025-02-06 15:30 | disposition home or self-care (01) | DRG 62 ==
LOC: 4 EAST ACU 17:32
PROVIDERS: ADMITTING PHYSICIAN Internal Medicine; ATTENDING PHYSICIAN Internal Medicine; CONSULT PHYSICIAN Internal Medicine; CONSULT PHYSICIAN Physical Medicine & Rehabilitation; CONSULT PHYSICIAN Psychiatry & Neurology Clinical Neurophysiology; CONSULT PHYSICIAN Specialist; EMERGENCY PHYSICIAN Emergency Medicine; FAMILY PHYSICIAN Family Medicine; OTHER PHYSICIAN Internal Medicine Critical Care Medicine
PROC: 3E03317 Introduction of Other Thrombolytic into Peripheral Vein, Percutaneous Approach (ICD-10-PCS; 2025-02-02)
DX: I63.89 Other cerebral infarction (principal); D68.59 Other primary thrombophilia; I50.32 Chronic diastolic (congestive) heart failure; G81.94 Hemiplegia, unspecified affecting left nondominant side; J98.11 Atelectasis; I16.1 Hypertensive emergency; I25.10 Atherosclerotic heart disease of native coronary artery without angina pectoris; I11.0 Hypertensive heart disease with heart failure; E78.00 Pure hypercholesterolemia, unspecified; E11.9 Type 2 diabetes mellitus without complications; G47.33 Obstructive sleep apnea (adult) (pediatric); K21.9 Gastro-esophageal reflux disease without esophagitis; E88.810 Metabolic syndrome; E66.01 Morbid (severe) obesity due to excess calories; I48.0 Paroxysmal atrial fibrillation; D45 Polycythemia vera; I70.1 Atherosclerosis of renal artery; R31.0 Gross hematuria; N40.0 Benign prostatic hyperplasia without lower urinary tract symptoms; R29.704 NIHSS score 4; Z91.141 Patient's other noncompliance with medication regimen due to financial hardship; Z95.1 Presence of aortocoronary bypass graft; Z95.5 Presence of coronary angioplasty implant and graft; Z91.81 History of falling; Z87.891 Personal history of nicotine dependence; Z79.82 Long term (current) use of aspirin; Z79.4 Long term (current) use of insulin
CPT/HCPCS: 0042T; 70450; 70496; 70498; 70551; 71045; 76770; 80048; 80053; 80061; 81003; 81015; 82962; 83036; 83735; 84100; 84439; 84443; 85025; 85027; 85610; 85730; 92523; 92526; 92610; 93005; 93306; 96374; 96375; 97163; 97167; 97530; 97535; 99291; J3101; Q9967

== ENCOUNTER 2025-02-18 09:19 | Outpatient (RCR) | payer MEDICARE, OTHER, SELFPAY | END 2025-02-18 23:59 | disposition home or self-care (01) | LOC: ROT 09:19 | PROVIDERS: ATTENDING PHYSICIAN Internal Medicine; FAMILY PHYSICIAN Family Medicine | DX: I69.354 Hemiplegia and hemiparesis following cerebral infarction affecting left non-dominant side (principal); I69.312 Visuospatial deficit and spatial neglect following cerebral infarction; Z73.6 Limitation of activities due to disability | CPT/HCPCS: 97112; 97167; 97530 ==

== ENCOUNTER 2025-02-23 07:43 | Inpatient (IN) | payer MEDICARE, OTHER, SELFPAY ==
[2025-02-19] VITALS (9 sets, daily range): BP systolic 101–192; BP diastolic 64–87; BMI 32.6
[2025-02-19 10:53] LABS: Hematocrit 47.0 % (39.0-52.0); Hemoglobin 15.4 g/dL (13.0-18.0); Mean Corp Hgb Conc. 32.8 g/dL (33.0-37.0); Mean Corpuscular Volume 78.6 fL (80.0-94.0); Nucleated Red Blood Cells % 0 % (-); Platelet Count 177 10^3/uL (130-400); Red Cell Dist. Width 17.9 % (11.5-14.5)
[2025-02-19 11:04] LABS: INR 1.09; PT 14.6 Sec (11.4-14.6)
[2025-02-19 11:05] LABS: APTT 29.6 Sec (23.4-35.0)
[2025-02-19 11:12] LABS: ALT (SGPT) 25 U/L (0-50); AST (SGOT) 21 U/L (17-59); Albumin 4.2 g/dl (3.5-5.0); Alkaline Phosphatase 73 U/L (38-126); Blood Urea Nitrogen 18 mg/dl (9-20); Calcium 9.4 mg/dl (8.4-10.2); Carbon Dioxide 26 mmol/L (22-30); Chloride 105 mmol/L (98-107); Glucose 268 mg/dl (70-99); Potassium 4.3 mmol/L (3.5-5.1); Sodium 137 mmol/L (135-145); Total Protein 6.9 g/dl (6.3-8.2); eGFR > 60.00
--- NOTE | 2025-02-19 11:14 | ED.CVA ---
History of Present Illness
General
Chief Complaint: CVA/TIA Symptoms
Time Seen by Provider: 02/19/25 10:22
Onset of Stroke Symptoms
Onset of symptoms known: Yes
Date of onset of symptoms: 02/18/25
History of Present Illness
History of Present Illness:
79-year-old male with history of hypertension, hyperlipidemia, diabetes, obesity, CAD status post CABG, paroxysmal atrial fibrillation on Eliquis presenting to the emergency department for left-sided numbness. Patient's status post recent hospital
admission from 02/02 to 02/07 at which time he presented with left-sided weakness and numbness, did receive TNK. During workup, patient had an MRI that showed multiple acute infarcts, including the right occipital, right temporal, right thalamus with
minimal petechial hemorrhage to the right occipital infarct. He notes that when he left the hospital on the eighth, was still having residual numbness to the left side of his face, however symptoms worsened earlier this morning. He reports that he
went to bed around 11:00 PM, did have a headache after physical therapy earlier in the morning. He woke up around 3:30 AM, feeling increased numbness and tingling to the left side of his face and body with some weakness which has been persistent.
Denies any changes in his vision. Notes that he has had changes in his vision since the stroke. He is currently on Eliquis, not aspirin because did have some hematuria while in the hospital. Notes that this is overall improved. Denies fever.
Denies additional acute medical
Past History
Past History
ED Past Medical History: CAD, HTN, Hypercholesterolemia, IDDM, Other (Epistaxis, polycythemia), Other (Obstructive sleep apnea, kidney stones) and Other (Gardena palsy)
ED Past Surgical History: Cardiac, Orthopedic and Other
Patient has exhibited threatening behavior?: No
Social History
Tobacco: Former smoker
Alcohol: Occasional
Drug: None
Personal:
Living: with family
Employment: Retired
Family History
Family History: Hypertension
Phy Exam
Physical Exam
Physical Exam:
General: Well-appearing, no clinical signs of dehydration, nontoxic and in no acute distress
HEENT: protecting airway
Neck: appears supple
CV: Bradycardic, regular rhythm
Resp: No accessory muscle use, no increased work of breathing, lungs clear to auscultation bilaterally
Abd: Soft and non-distended, no tenderness to palpation
Extremities: No deformities, no swelling
Neuro: alert, difficulty with peripheral calero bilaterally, slight decrease sensation to his left face and left upper extremity
: deferred
Rectal: deferred
Psych: Normal affect
Skin: Intact
Scores
NIH Stroke Score
Level of Consciousness: 0 - Alert
LOC Questions: 0-Answers both correctly
LOC Commands: 0-Performs both correctly
Best Horizontal Gaze: 0-Normal
Visual Calero: 1=Partial hemianopia
Facial Palsy: 0=Normal, symmetrical
Motor - Right Arm: 0=No drift 10 seconds
Motor - Left Arm: 0=No drift 10 seconds
Motor - Right Le-No drift 5 seconds
Motor - Left Le-No drift 5 seconds
Limb Ataxia: 0-Absent
Sensation: 1-Mild loss
Best Language: 0-No aphasia
Dysarthria: 0-Normal
Extinction and Inattention: 0-No abnormality
NIH Total Score:: 2
Course
Orders/Labs/Results
Orders:
Orders
02/19/25 10:44
Electrocardiogram (*1) Stat
Reason for Study: Other
Other Reason for Exam: neuro symptoms
CT Head W/o Iv Contrast Urgent
Comment:
Reason For Exam: L-sided numbness, recent stroke
EKG- Treatment ONCE
02/19/25 10:45
Complete Blood Count/With Diff Urgent
Comprehensive Metabolic Panel Urgent
PTT Urgent
Prothrombin Time Urgent
02/19/25 12:38
Acetaminophen [Tylenol] 1,000 mg .ROUTE .STK-MED ONE
02/19/25 12:39
Acetaminophen [Tylenol] 1,000 mg PO NOW STA
02/19/25 12:49
Consult Neurology [NEUROLOGY CONSULT] Urgent
Consulting Provider: Alexandru Fuller
Was physician already notified: Yes
02/19/25 12:50
MR Brain Without Contrast Routine
Comment:
Reason For Exam: new stroke
Recent pill cam endoscopy?: No
02/19/25 12:57
Lorazepam [Ativan] 1 mg PO ONCE PRN PRN
02/19/25 13:02
Diabetes Education Consult Routine
Reason for Consult: Monitor Instruction
Newly Diagnosed?: No
02/19/25 14:20
Admit/Transfer Patient As Directed
Co-Sign Provider:
Level of Care: Observation services
Assign to:: Telemetry
Physician / Group: shanna andujar
Diagnosis: left sided numbness concern cva tia
Reason for Telemetry: CVA/TIA
Date to Stop Telemetry: 02/22/25
Time to Stop Telemetry: 11:00
Reason for Hospitalization: left sided numbness concern cva tia
Code Status As Directed
Resuscitation Status: Full Code
02/19/25 14:22
PRN Pain Medication Management As Directed
May give lesser potent ordered pain med per pt: Yes
preference::
Protocol:: Medication orders for pain may be administered in a
manner that supports deferring to patient preference
when the pt is:
- Requesting an ordered lesser potent pain medication.
Least to most potent pain medications are defined
as: acetaminophen < NSAID < tramadol < opioids
(morphine, oxycodone, hydromorphone).
- Requesting a lesser dose of the same medication IF
ORDERED.
- Requesting a less intrusive route of administration
if both routes are prescribed by the provider (PO <
IV).
02/19/25 Dinner
1800 calorie (15 carb) Diabetic
At Your Request: Limited Participation
02/19/25 19:00
Bipap [RESP] Routine
Patient to use own unit?: No
Inspiratory Pressure (cm H2O): 20
Expiratory Pressure (cm H2O): 16
Oxygen Liter Flow: 0
Inspiratory Pressure: 12
Expiratory Pressure: 8
Instructions: Please provide overnight pulse ox and record in chart for day one only; provide BiPAP routinely
[id number]
02/22/25 11:00
DC Protocol for Telemetry ONCE
Abnormal Lab Results
02/19/25
10:45
MCV 78.6 L fL
(80.0-94.0)
MCH 25.8 L pg
(27.0-31.0)
MCHC 32.8 L g/dL
(33.0-37.0)
RDW 17.9 H %
(11.5-14.5)
MPV 11.4 H fL
(7.4-10.4)
Immature Gran % 0.6 H %
(0-0.5)
Lymphocytes % 16.1 L %
(20.5-51.1)
Glucose 268 H mg/dl
(70-99)
02/19/25 10:45
02/19/25 10:45
Vital Signs
Initial and Last Documented VS:
Initial Vital Signs
Temp Pulse Resp BP Pulse Ox
98.3 F 78 16 192/87 94
02/19/25 10:04 02/19/25 10:04 02/19/25 10:04 02/19/25 10:04 02/19/25 10:04
Last Documented Vital Signs
Temp Pulse Resp BP Pulse Ox
98.3 F 54 16 145/65 94
02/19/25 10:04 02/19/25 15:30 02/19/25 15:30 02/19/25 15:00 02/19/25 14:20
MDM/Problems Addressed
MDM/Problems Addressed:
79-year-old male with history of recent CVA presenting for continued left-sided numbness. Vital signs on arrival are significant for high blood pressure.
On exam, patient is resting comfortably, no acute distress. On review of EMR, patient did have multiple acute infarcts on recent admission from 02/02 to 02/07. Patient reports presenting symptoms were all left-sided, which improved, however were still
present upon discharge. He presents today because he feels that his symptoms are again worse, mainly numbness to the left face and left upper extremity. On examination, NIH stroke scale is a 2 for some partial hemianopsia and diminished sensation
to the left side. Patient is not a TNK candidate given that he just received TNK a week ago, and symptom started yesterday, presumably with last time normal last evening. Will obtain laboratory analysis and repeat CT brain imaging to ensure no
hemorrhagic conversion versus worsening infarct and consult with neurology
12:40 - CT scan is negative. In discussion with neurology, although presently maximized on therapy, do recommend admission for repeat MRI.
*Pulse Oximetry
SaO2: 94
Oxygen Mode of Delivery: Room air
Patient hypoxic: no
*EKG
Interpreted by ED Provider?: Yes
EKG Intrepretation Date: 02/19/25
EKG Intrepretation Time: 11:23
Interpretation: abnormal
Comparison EKG: no changes (02/02/25)
Heart Rate: 55
Rate: bradycardiac
Rhythm: sinus
[place]: normal axis
Interval: normal interval
QRS Pattern: normal QRS
Ischemia: no ischemia
*Critical Care Note
Total Time (30-74mins, 75-104mins- exclusive of procedures): Not Applicable
ED Attending Note
-
Portions of this chart may have been created with voice recognition software.� Occasional wrong word or��sound alike� substitutions may have occurred due to the inherent limitations of voice recognition software.
Discharge Plan
Departure
Patient Disposition: Admit
Date of Disposition: 02/19/25
Time of Disposition: 13:55
Presentation/result/management discussed w/ accepting MD/DO: Hospitalist
Patient with high blood pressure during this ER visit?: Yes
Condition: Fair
Discharge Problem:
Stroke-like symptoms
Interventions
Interventions:
*Risk Screen - Suicide Last Done: 02/19/25 10:22
*General Assessment Last Done: 02/19/25 10:21
*Neglect/Abuse Screening Last Done: 02/19/25 10:22
*ED- Fall Risk Assessment Last Done: 02/19/25 10:21
*ED COVID-19 Vaccine History Last Done: 02/19/25 10:21
ED- Pulmonary Assessment Last Done: 02/19/25 10:22
ED- Neurological Assessment Last Done: 02/19/25 10:30
ED- Cardiac Assessment Last Done: 02/19/25 10:22
ED Swallowing Screen Last Done: 02/19/25 10:30
[2025-02-19] MEDS: TYLENOL 1000 MG PO (12:39)
--- NOTE | 2025-02-19 12:49 | CON.NEURO4 ---
Addendum entered and electronically signed by Alexandru Fuller MD 02/19/25 15:16:
Studies reviewed.
I have personally examined the patient. I reviewed and agree with the TRACTOR MECHANIC APPRENTICE's Note.
My addenda:
Awake, alert, interactive. No acute distress.
Speech intact.
Follows 2-step requests w/o difficulty. No tremor.
Extra-ocular movements grossly intact.
Facial movements full and symmetric. Hearing intact to normal conversational volume.
Normal UE movements bilaterally.
Neck: full ROM.
Chest: no dyspnea
Heart: no JVD
Ext: (-) Clubbing, (-) Cyanosis, (-) Edema
IMPRESSIONS/RECOMMENDATIONS:
Abrupt onset of recurrence of left sided numbness despite use of anticoagulation for atrial fibrillation.
Unclear if this represents an acute stroke despite anticoagulation or an alternative etiology.
Check MRI of brain without contrast
Continue patient's apixaban until additional information is available
Goal of mild hypertension until clarity regarding acute onset of stroke
Goal of near normoglycemia
Check blood work for potential metabolic causes although unlikely
Provide BiPAP in hopes of reducing patient's stroke risk
D/W patient / family
Will continue to follow patient.
Original Note:
Documented by User: Isabella Hu NP 02/19/25 13:58
Consultation - Neurology 4
-
CONSULTING PHYSICIAN: Alexandru Fuller MD
REFERRING PHYSICIAN: ER/Dr. Bey
DICTATED BY: DIANNA Eric
DATE/TIME OF REQUEST: 02/19/25
DATE/TIME OF CONSULTATION: 02/19/25
Reason for Consultation: Increased numbness
History of Present Illness:
This is an 79-year-old right-handed male who has presented to the hospital with report of worsened left-sided numbness. Patient initially presented to [facility] on 02/02/25 with report of left face, arm, and leg numbness and mild weakness. He has a
history of Afib but had previously refused anticoagulation due to cost. CTA head/neck was negative for any acute abnormalities. He received IV TNK. MRI brain demonstrated scattered acute right occipital and temporal ischemic infarcts in addition to
a small right thalamic infarct. He was started on apixaban for stroke prevention 48 hours later. He reports that upon hospital discharge on 02/06/25 he still had left face, arm, and leg paresthesias that were moderate, in addition to a mildly unsteady
gait due to his LLE numbness. He notes that he has been having a daily left frontal/facial low throbbing headache mostly in the morning and evenings. Yesterday (02/18/25), he reports he was at therapy doing vision exercises involving looking left and
right and at bright flashing lights. He reports that this induced a headache. He went to bed at 2300 at his post-stroke baseline. Around 0330 he got up to use the bathroom and noticed that his left hand was severely numb. He went back to bed and
when he woke up this morning he notes that he just didn't feel well. He went to turn the TV on and noticed that he couldn't see the numbers on the remote as he usually does. He put drops in his eyes and felt that this helped him see better. At that
point he decided to come to the ER for evaluation. CT head was obtained on arrival and is negative for any acute abnormalities. Currently he reports feeling at his post-stroke baseline again. He has not missed any doses of his apixaban. He is not a
candidate for TNK due to apixaban usage this morning, TNK two weeks ago, and low NIHSS.
Past Medical History: Afib (apixaban since 01/2025), HTN, HLD, CAD, NIDDM requiring insulin, polycythemia, epistaxis, ALINA (no longer using cpap), renal calculi, bells palsy
Surgical History: surgical removal of concrete from head, CABG x4, b/l ocular lens implant
Family History: Reviewed and noncontributory.
Social History: Former smoker. Occasional alcohol. Denies illicit drug use.
Allergies: Sulfa, atorvastatin, levofloxacin, pollen.
Home Medications: See below.
Review of Symptoms:
Patient denies any fever, chest pain, shortness of breath, GI or symptoms.
�Per the HPI.�All systems are reviewed negative except above.
Physical Exam:
The patient is afebrile, abdomen is nondistended, breathing is unlabored, skin is warm and dry, no edema.
NIH Stroke Scale:
I performed the NIH stroke scale on the patient on 02/19/25 at 1300. The patient scored 1 points on the NIH stroke scale assessment, which were assigned as follows: See below.
Neurologic Examination:
The patient is awake, alert and oriented x 3. He is able to follow commands and answer questions appropriately. There is no aphasia or dysarthria. On cranial nerve assessment, pupils are 3 mm bilateral, round and reactive to light and
accommodation. Visual garay are full. Extraocular movements are intact. There is no facial asymmetry. Hearing is intact bilaterally to normal conversation volume. Tongue palate and uvula are midline. Sternocleidomastoid strengths are full
bilaterally. Motor strengths are 5/5 bilateral upper and lower extremities on medical research Ione scale. There is no drift or involuntary movement noted. Deep tendon reflexes are 2+ bilateral upper and lower extremities and Babinski is absent
bilaterally. Sensation of touch is mildly diminished in the left face, arm, and leg. There was no extinction noted on double simultaneous stimulation. Coordination is intact by finger to nose bilaterally.
Lab Results: See below.
Neuro Imaging:
1. CT Head 02/19/25: No evidence of acute intracranial abnormality.
Differentials for the patient's presentation include:
1. Transient worsening of post-stroke symptoms of left-sided paresthesias and visual disturbance; uncertain etiology, possibilities include recrudesence of stroke symptoms in the setting of poorly controlled diabetes and hypertensive urgency,
versus new acute stroke.
2. Afib on Eliquis.
Patient has the following risk factors for their symptoms: HTN, HLD, IDDM, age
IV Tenecteplase/IAT candidacy: He is not a candidate for TNK due to apixaban usage this morning, TNK two weeks ago, and low NIHSS.
Recommendations:
-Continue apixaban. No indication for adding aspirin.
-MRI Brain noncontrast pending.
-Goal normotension.
-LDL goal <70. LDL is 119. Continue ezetimibe 10mg daily, statin intolerant. Consideration for PCSK9 inhibitor as an outpatient.
-Goal normoglycemia, hbA1c is 9.4.
-NIHSS and neurological checks per unit guidelines.
-Provide patient with a stroke education packet.
-PT/OT/ST if MRI demonstrates a new stroke.
-Will follow pending results.
Discussed patient care with: Dr. Fuller, the patient, patient's
Vital Signs and Labs
-
Vital Signs and Labs:
Vital Signs
Temp Pulse Resp BP Pulse Ox
98.3 F 72 16 142/77 93
02/19/25 10:04 02/19/25 12:11 02/19/25 12:11 02/19/25 12:05 02/19/25 12:11
Lab Results
02/19/25 10:45
02/19/25 10:45
PT 14.6 Sec (11.4-14.6) 02/19/25 10:45
INR 1.09 02/19/25 10:45
APTT 29.6 Sec (23.4-35.0) 02/19/25 10:45
Sodium 137 mmol/L (135-145) 02/19/25 10:45
Potassium 4.3 mmol/L (3.5-5.1) 02/19/25 10:45
BUN 18 mg/dl (9-20) 02/19/25 10:45
Glucose 268 mg/dl (70-99) H 02/19/25 10:45
Calcium 9.4 mg/dl (8.4-10.2) 02/19/25 10:45
Medications
-
Active Medications
Generic Name Dose Route Start Last Admin
Trade Name Freq PRN Reason Stop Dose Admin
Lorazepam 1 mg 02/19/25 12:57
Lorazepam 1 Mg Tablet PO 02/19/25 12:58
ONCE ONE
Home Medications
�Medication �Instructions �Recorded
lutein 20 mg capsule 20 mg PO BID Supplement 07/10/09
cyanocobalamin (vitamin B-12) 1,000 mcg PO DAILY Supplement 06/02/17
1,000 mcg tablet
finasteride 5 mg tablet 5 mg PO QPM Urinary issue 06/02/17
red yeast rice 600 mg tablet 1,200 mg PO BID Supplement 06/16/17
cholecalciferol (vitamin D3) 25 1,000 units PO DAILY Supplement 08/15/19
mcg (1,000 unit) tablet
potassium chloride 20 mEq 20 meq PO DAILY Electrolyte 03/05/21
tablet,extended Repletion
release(part/cryst) (Klor-Con M)
Fish Oil 1,800 mg PO BID Supplement 01/18/23
folic acid 1 mg tablet 1 mg PO QPM Supplement 01/18/23
furosemide 40 mg tablet (Lasix) 60 mg PO BID Fluid 01/02/24
retention/Swelling
magnesium 400 mg PO QPM Electrolyte Repletion 11/15/24
valsartan 160 mg tablet 160 mg PO DAILY Blood Pressure 11/15/24
carvedilol 3.125 mg tablet 3.125 mg PO BID Blood Pressure 11/30/24
apixaban 5 mg tablet (Eliquis) 5 mg PO BID #60 tabs 02/06/25
ezetimibe 10 mg tablet 10 mg PO HS #30 tabs 02/06/25
insulin aspar prot-insulin aspart 60 unit (0.6 mL) SC BID Diabetes 02/06/25
100 unit/mL (70-30) subcutaneous #15 mL
pen (Novolog Mix 70-30FlexPen
U-100)
NIH Stroke Score
Subsequent NIH Scale
Date of Subsequent NIH Scale: 02/19/25
Time of Subsequent NIH Scale: 13:00
NIH Stroke Score
Level of Consciousness: 0 - Alert
LOC Questions: 0-Answers both correctly
LOC Commands: 0-Performs both correctly
Best Horizontal Gaze: 0-Normal
Visual Garay: 0=Normal, no visual loss
Facial Palsy: 0=Normal, symmetrical
Motor - Right Arm: 0=No drift 10 seconds
Motor - Left Arm: 0=No drift 10 seconds
Motor - Right Le-No drift 5 seconds
Motor - Left Le-No drift 5 seconds
Limb Ataxia: 0-Absent
Sensation: 1-Mild loss
Best Language: 0-No aphasia
Dysarthria: 0-Normal
Extinction and Inattention: 0-No abnormality
NIH Total Score:: 1
Modified [place] (mRS) Score
Modified [place] Scale (mRS): No significant disability. Able to carry out usual activities.
Score: 1
Alteplase Contraindication
Inclusion and Exclusion criteria reviewed: Yes
Reasons for NON-Tx with Thrombolytics ABSOLUTE Exclusions: Patient taking oral anticoagulant and last dose within 48 hours

Documented by User: Alexandru Fuller MD 02/19/25 15:03
NIH Stroke Score
NIH Stroke Score
NIH Total Score:: 1
Modified [place] (mRS) Score
Score: 1
--- NOTE | 2025-02-19 13:57 | HPS.HSE ---
Family Physician
-
Family Physician: Marquis Reed
Chief Complaint
-
Headache, left-sided face left-sided numbness
History of Present Illness
79-year-old male who reports residual left-sided face numbness however symptoms worsened early this morning. He states yesterday morning at 9 AM after physical therapy he developed headache. He reports going to bed 11 PM with a headache and blood
pressure 170 he reports he took 2 Tylenol. He woke up around 330 this a.m. feeling increased numbness to left side of his face and body with some tingling that has been persistent. He complains of headache this a.m. with blood pressure 170
systolic for which he took 2 Tylenol in the ER.
The patient had a recent admission secondary to multiple acute infarcts he was unable to tolerate aspirin due to hematuria, but is on oral Eliquis. He denies fever, chills, dizziness, chest pain, palpitations, cough, shortness of breath,
abdominal pain, nausea, vomiting, diarrhea, urinary symptoms.
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
palsy, GERD, Erectile dysfunction, Metabolic syndrome, Atherosclerotic renal artery stenosis
Medical History
Past Medical History
Past Medical History: Reports Other
Additional Past Medical History:
CAD,
HTN,
Hypercholesterolemia,
IDDM
Epistaxis,
polycythemia
Obstructive sleep apnea,
kidney stones
[place] palsy
Gastro-esophageal reflux disease without esophagitis
ED (erectile dysfunction)
Metabolic syndrome
Morbid (severe) obesity due to excess calories
Status post aorto-coronary artery bypass graft
Statin intolerance
Hypercoagulable state
S/P CABG x 4
Paroxysmal atrial fibrillation
Stented coronary artery
Polycythemia vera
Atherosclerotic renal artery stenosis
Past Surgical History: Reports Other
Additional Past Surgical History:
See above
Social History
Tobacco: Non-smoker
Alcohol: Occasional
Drug: None
Personal:
Living: With Family
Family History
Family History: Not pertinent
Allergies / Home Medications
Allergies reflects when Allergies were last updated in [facility].
Home Medications with original date entered in [facility]
Allergy/Medication List:
Allergies
Allergy/AdvReac Type Severity Reaction Status Date / Time
atorvastatin calcium (From Allergy severe Verified 02/19/25 10:07
Lipitor) muscle
soreness
levofloxacin (From Levaquin) Allergy Hives Verified 02/19/25 10:07
pollen extracts Allergy Nasal Verified 02/19/25 10:07
stuffiness
- seasonal
Sulfa (Sulfonamide Allergy couldn't Verified 02/19/25 10:07
Antibiotics) breathe
Home Medications
lutein 20 mg capsule 20 mg PO BID Supplement 07/10/09
cyanocobalamin (vitamin B-12) 1,000 mcg tablet 1,000 mcg PO DAILY Supplement 06/02/17
finasteride 5 mg tablet 5 mg PO QPM Urinary issue 06/02/17
red yeast rice 600 mg tablet 1,200 mg PO BID Supplement 06/16/17
cholecalciferol (vitamin D3) 25 mcg (1,000 unit) tablet 1,000 units PO DAILY Supplement 08/15/19
potassium chloride 20 mEq tablet,extended release(part/cryst) (Klor-Con M) 20 meq PO DAILY Electrolyte Repletion 03/05/21
folic acid 1 mg tablet 1 mg PO QPM Supplement 01/18/23
omega 1-gcg-pdk-fish oil 1,000 mg (120 mg-180 mg) capsule (Fish Oil) 1 cap PO BID Supplement ##0 01/18/23
furosemide 40 mg tablet (Lasix) 60 mg PO BID Fluid retention/Swelling 01/02/24
magnesium oxide 400 mg PO BID Electrolyte Repletion ##0 11/15/24
valsartan 160 mg tablet 160 mg PO DAILY Blood Pressure 11/15/24
carvedilol 3.125 mg tablet 3.125 mg PO BID Blood Pressure 11/30/24
apixaban 5 mg tablet (Eliquis) 5 mg PO BID #60 tabs 02/06/25
ezetimibe 10 mg tablet 10 mg PO HS #30 tabs 02/06/25
insulin aspar prot-insulin aspart 100 unit/mL (70-30) subcutaneous pen (Novolog Mix 70-30FlexPen U-100) 60 unit (0.6 mL) SC BID Diabetes #15 mL 02/06/25
acetaminophen 325 mg capsule 650 mg PO Q6HPRN PRN mild pain 02/19/25
Review of Systems
-
History Source: Patient and Family ( at bedside)
A 12 point ROS was completed and negative except as noted: Yes
Constitutional: Denies Fever, Fatigue or Chills
EENT: Reports Other (Tip of tongue deviates to left); Denies Sore Throat or Runny Nose
Respiratory: Denies Cough or Trouble Breathing
Cardiac: Denies Chest Pain, Diaphoresis, Palpitations or Syncope
Abdomen/GI: Denies Abdominal Pain, Nausea, Vomiting, Diarrhea, Constipated or Bloody Stools
: Denies Dysuria, Frequency, Flank Pain, Incontinence, Difficulty Voiding, Urgency or Bleeding
Musculoskeletal: Denies Joint Pain or Edema
Skin: Denies Itching or Rash
Neurological: Reports Headache and Numbness (Left face, left arm left leg); Denies Dizzy or Weakness
Endocrine: Reports No Symptoms
Hematologic/Lymphatic: Reports No Symptoms
Psych: Reports Calm
Physical Exam
Vital Signs
Vital Signs
Temp Pulse Resp BP Pulse Ox
98.3 F 72 16 142/77 93
02/19/25 10:04 02/19/25 12:11 02/19/25 12:11 02/19/25 12:05 02/19/25 12:11
Physical Exam
General: Comfortable and Conversant; No Pain, Fever or Chills
HEENT: NormoCephalic, Anicteric, Moist mucous membranes, PERRLA, [place] Conjunctivae, No Ptosis and Other (Tip of tongue deviates to left)
Respiratory: Clear; No Wheezes, Rales or Rhonchi
Cardiac: S1/S2 and Regular Rhythm; No Murmur, Rub, Gallop or Peripheral Edema
GI: Soft, Non Tender, Non Distended, Normal Bowel Sounds and No Hepatosplenomegaly
Rectal: Deferred by Provider
Genito-urinary: Deferred by me
Musculoskeletal: No Clubbing, No Cyanosis and No Edema
Skin: Warm and Dry; No Rash or Jaundice
Neuro: AO x 3, No Motor Deficits, Nonfocal/grossly intact, No Sensory Deficits and Other (Tip of tongue deviates to left); No Slurred Speech, Facial Droop or Tremors
Psych: Calm
Laboratory Results
-
02/19/25 10:45
02/19/25 10:45
Laboratory Results
PT 14.6 Sec (11.4-14.6) 02/19/25 10:45
INR 1.09 02/19/25 10:45
APTT 29.6 Sec (23.4-35.0) 02/19/25 10:45
Total Bilirubin 1.1 mg/dl (0.2-1.3) 02/19/25 10:45
AST 21 U/L (17-59) 02/19/25 10:45
ALT 25 U/L (0-50) 02/19/25 10:45
Alkaline Phosphatase 73 U/L (38-126) 02/19/25 10:45
Data Reviewed
-
CT Scan: Report Reviewed by me
Lab Data: Labs Reviewed by me
Impression/Plan
-
Impression/plan:
Observation telemetry
#Left-sided numbness with visual disturbance concerning for CVA/TIA
02/03/2009/19/2024 recent acute infarcts Right Occipital Lobe Temporal Lobe Thalamus, likely embolic stroke from afib was treated with TNK
History of not tolerating aspirin due to hematuria
Patient has been on Eliquis for 48 hours after TNK in early December
Had recent lipid profile beginning a month continue ezetimibe
- Consult neurology
- MRI brain
-PT consult
CT head:
1. Patchy decreased density within the posterior right occipital lobe, corresponding to region of subacute infarction seen on recent MRI of the brain.
2 At the right medial occipital temporal junction, on previous CT, there was a focal region of decreased density, which is less conspicuous on today's examination,
perhaps representing some improvement in edema associated with acute to subacute infarction in this region.
3. There is some volume loss and decreased density involving the anterolateral head of the right caudate nucleus and the adjacent anterior aspect of the right lentiform nucleus, compatible with old infarction, stable.
4. Moderate diffuse atrophy in this 79-year-old. Moderate stable leukomalacia.
5. No CT evidence for a new area of acute infarction.
# HTN/hypertensive urgency/emergency December 2024 that required nicardipine drip
BP 170/85
-Coreg Valsartan Lasix resumed w/ holding parameters
goal normotensive at this time
# CAD/ CABG x 4 vessel/cardiac stent
Aspirin was stopped earlier this month due to gross hematuria during stroke
-Continue Coreg, valsartan with hold parameter
# Paroxysmal A-fib
-Patient on Eliquis, carvedilol
#Hx HFpEF
I/O, daily weights
-Continue Lasix 60 mg bid
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
# Hematuria this was new in December 2024
#Hx BPH reduction approx 10 yrs ago, follows Urology Dr Denton outpt
Urology evaluated aspirin was held okay for Eliquis to be resumed given multiple strokes recent admit
December 2024 bladder Renal US appreciated nonobstructing Rt renal calculus, no hydronephrosis, stable Lt renal cyst
-cont home finasteride
#HLD
Lipid panel reviewed in December, LDL above goal >70
#hx statin intolerance
-Continue ezetimibe
# DM 2- oral meds temporarily on hold
Recent HgbA1c 9.4 pn 02/02/2025
-Accu-Cheks with SSI
-Continue 70/30 60U BID
#ALINA
- Continue BiPAP
#Class II obesity
Other PMH:
Polycythemia
Renal calculi
Doyle's palsy
GERD
Erectile dysfunction
Metabolic syndrome
Atherosclerotic renal artery stenosis
DVT prophylaxis
SCDs
cont Eliquis
Full code
--- NOTE | 2025-02-19 14:01 | W.PN.UPDATE ---
Update Note
Progress Note Update
This is an addendum to H&P written by CLINICAL INFORMATION SYSTEMS DIRECTOR Antonieta Delgado
I saw and examined the patient.
The CLINICAL INFORMATION SYSTEMS DIRECTOR's note was reviewed and I agree with the note.
Comment:
Mr. Cullen White is a 79 yo man with hx atrial fibrillation on Eliquis, essential HTN, HLD, CAD, IDDM, admission earlier this month for acute CVA (left-sided numbness) started on Eliquis presents to the ER today with left-sided numbness overnight
followed by blurry vision this morning. Patient reports a headache yesterday after vision therapy exercises. His SBP was elevated to 170's. When he woke up at 3AM he noticed left-sided facial, left arm and left leg numbness more profound than
prior. He reports he has had slight numbness persistent since last admission.
Triage VS: T 98.3, P 78, RR 16, BP 192/87 --> 142/77 , SpO2 94%
LABS: WBC 7.2, Hg 15.4, PLT 177, Na 137, K+ 4.3, Cl 105, BUN 18, Cr 0.9, Glucose 268, liver enzymes WNL
CT Head
FINDINGS:
Patchy decreased density within the posterior right occipital lobe, corresponding to region of subacute infarction seen on recent MRI of the brain.
At the right medial occipital temporal junction, on previous CT, there was a focal region of decreased density, which is less conspicuous on today's examination, perhaps representing some improvement in edema associated with acute to subacute
infarction in this region.
There is some volume loss and decreased density involving the anterolateral head of the right caudate nucleus and the adjacent anterior aspect of the right lentiform nucleus, compatible with old infarction, stable.
Moderate diffuse atrophy in this 79-year-old. Moderate stable leukomalacia.
No CT evidence for a new area of acute infarction.
TIA versus recrudescence prior stroke symptoms in setting of hypertensive urgency
-not TNK candidate given he is on Eliquis, low NIHSS
-seen by Neurology in the ER
-admit to telemetry
-MRI ordered
-neuro checks
-continue RECREATION THERAPY DIRECTOR Eliquis and BP meds
IDDM
Essential HTN
*awaiting med rec
HFpEF - RECREATION THERAPY DIRECTOR Lasix
BPH - RECREATION THERAPY DIRECTOR Finasteride
Remainder of plan per CLINICAL INFORMATION SYSTEMS DIRECTOR note
DVT PPx Eliuis
FULL CODE
--- NOTE | 2025-02-19 15:18 | PTCARENOTE ---
02/19/2025 DIABETES EDUCATION CONSULT
I met with Mr. Rizvi and his today. Patient is in the ER with symptoms of stroke, MRI pending. He states he does check his BS 4 times a day; fasting AM and before every meal. Since previous discharge earlier January, he saw his PCP "Allan"Brianna and he increased his Novolog 70/30 to 60 units BID (previously prescribed 60 units AM and sliding scale PM. Patient states he was not happy with this, and prefers using a sliding scale and dosing depending upon glucose numbers. He has
adhered to the increased dose of 60 HS, and states his AM BS has increased to 200 in the AM.
He is not willing to use an insulin with 4x/day injections. Previously used a CGM prescribed by Dr. Balderas, complained of constant beeping and states 'it wasn't working'. I explained that the CGM sounds an alarm if glucose is too high or too low.
He is unwilling to try this again, prefers 4/day fingersticks.
I provided information on our outpatient diabetes education program, list of endocrinologists if he would like an alternative provider, and written material on diabetes self management, insulin administration instructions, medic alert bracelet, CGM
and glucometer use. Encouraged to outreach the diabetes and nutrition services department with any questions or concerns.
[2025-02-19 17:47] LABS: C-Reactive Protein < 5.00 mg/L (0.0-10.00)
[2025-02-19 18:10] LABS: Glucose - Point of Care 201 mg/dl (70-99)
[2025-02-19 18:22] LABS: Ferritin 16.1 ng/ml (17.9-464.0)
[2025-02-19] MEDS: NOVOLOG FLEXPEN-LOW RESISTANCE 2 UNITS SC (18:27)
[2025-02-19 18:53] LABS: Folate > 20.0 ng/ml (2.76-20); Vitamin B12 815 pg/ml (239-931)
[2025-02-19 19:50] LABS: Glucose - Point of Care 242 mg/dl (70-99)
[2025-02-19] MEDS: HUMULIN N KWIKPEN SC (19:58)
[2025-02-19] MEDS: LASIX 60 MG PO (20:03)
[2025-02-19] MEDS: COREG 3.125 MG PO (20:05)
[2025-02-19] MEDS: ELIQUIS 5 MG PO (20:05)
[2025-02-19] MEDS: FOLVITE 1 MG PO (20:05)
[2025-02-19] MEDS: TYLENOL 650 MG PO (20:06)
[2025-02-19 21:40] LABS: Glucose - Point of Care 216 mg/dl (70-99)
[2025-02-19] MEDS: ZETIA 10 MG PO (22:17)
[2025-02-19] MEDS: MAGNESIUM OXIDE 400 MG PO (22:18)
[2025-02-19] MEDS: NovoLIN R Flexpen 5 UNITS SC (22:20)
--- NOTE | 2025-02-19 23:07 | RESPNOTE ---
Called to bedside by RN, pt in agreement to attempt bipap. Arrived to find the pt on 2 LPM NC despite room air nocturnal study per MD Fuller. Pt placed on bipap for less then one minute and pt asked for bipap to be removed. Pt left on room air.
Explained to RN that the pt was on a nocturnal oxygen study. MANAGER CLINICAL INFORMATICS had ordered the pt on O2 due to low heart rate.
--- NOTE | 2025-02-19 23:26 | W.PN.UPDATE ---
Update Note
Progress Note Update
-Patient is bradycardia with hr 38-40s while he is sleeping not sustainable, bp 138/64, RR 16, SPO2 93% asymptomatic.
-Per the chart reviews patient`s hr is dropping at night, Patient also received carvedilol.
-Patient with PMH of sleep apnea, has order for BIPAP at hs but he refuse it. Multiple tries by the staff to educate the patient, but he still refusing it.
-2L of O2 ordered.
-Will continue tele.
[2025-02-20] VITALS (11 sets, daily range): BP systolic 129–188; BP diastolic 64–91; PULSE 64–84
--- NOTE | 2025-02-20 01:54 | PTCARENOTE ---
Pt on tele, HR dropping to the 30s/40s, not sustained. COMPUTER SECURITY COORDINATOR Yassine Vilchis notified. Bipap ordered but pt refused bipap. Placed pt on 2L NC. Continue plan of care.
--- NOTE | 2025-02-20 05:23 | RESPNOTE ---
Arrived at pt bedside to remove nocturnal study to find the pt back on 2 LPM O2. RN informed that the pt had been on O2 since about 0300 per BILLET HEATER
[2025-02-20] MEDS: TYLENOL 650 MG PO (06:27)
[2025-02-20] MEDS: ELIQUIS 5 MG PO (07:30)
[2025-02-20] MEDS: PROSCAR 5 MG PO (07:30)
[2025-02-20] MEDS: KCL 20 MEQ PO (07:30)
[2025-02-20] MEDS: COREG 3.125 MG PO (07:30)
[2025-02-20] MEDS: LASIX 60 MG PO ×2 (07:30→15:37)
[2025-02-20] MEDS: VITAMIN B-12 1000 MCG PO (07:30)
[2025-02-20] MEDS: DIOVAN 160 MG PO ×2 (07:33→15:47)
[2025-02-20] MEDS: VITAMIN D3 (cholecalciferol) 25 MCG PO (07:33)
[2025-02-20 07:43] LABS: Hematocrit 48.2 % (39.0-52.0); Hemoglobin 15.7 g/dL (13.0-18.0); Mean Corp Hgb Conc. 32.6 g/dL (33.0-37.0); Mean Corpuscular Volume 78.6 fL (80.0-94.0); Nucleated Red Blood Cells % 0 % (-); Platelet Count 188 10^3/uL (130-400); Red Cell Dist. Width 17.6 % (11.5-14.5)
[2025-02-20 07:47] LABS: Glucose - Point of Care 248 mg/dl (70-99)
[2025-02-20] MEDS: NovoLIN R Flexpen 5 UNITS SC (08:01)
[2025-02-20] MEDS: HUMULIN N KWIKPEN 30 UNITS SC (08:02)
[2025-02-20] MEDS: NOVOLOG FLEXPEN-LOW RESISTANCE 2 UNITS SC (08:02)
--- NOTE | 2025-02-20 08:10 | PN.DE.MGMTRT ---
Insulin Management
- -
02/20/2025 Diabetes Management Consult
Patient admitted 02/19 with L sided weakness/numbness similar to recent admission 02/02 to 02/07. PMH CAD s/p CABG, HTN, HCL, afib, diabetes, ALINA. Prior to admission was taking 70/30 insulin 60 units BID. A1C9.4 from 02/02 admission, cr .7, eGFR > 60.
Patient is awake alert and oriented able to discuss diabetes care. States he follows with his primary doctor Brianna for diabetes care.
He has a meter and test 3 to 4 times per day.
Patient has received 30 units NPH this AM with 5 units Regular insulin and 2 units novolog. Will resume 70/30 insulin 60 units BID, first dose with dinner with low corrective insulin which is dose from previous admission and home dose.
Discussed with nurse.
Will follow.
Diabetes History
- -
Type of Diabetes: 2 requiring insulin
Pre-Admission Diabetes Regimen
02/19/25
10:45
Creatinine 0.9
Insulin Pump Settings
IP Diabetes Regimen
02/19/25 02/19/25 02/19/25
10:45 18:08 19:49
Glucose 268 H
POC Glucose 201 H 242 H
02/19/25 02/20/25
21:38 07:46
Glucose
POC Glucose 216 H 248 H
Patient Education
[2025-02-20 08:21] LABS: ALT (SGPT) 24 U/L (0-50); AST (SGOT) 21 U/L (17-59); Albumin 4.4 g/dl (3.5-5.0); Alkaline Phosphatase 76 U/L (38-126); Blood Urea Nitrogen 18 mg/dl (9-20); Calcium 9.6 mg/dl (8.4-10.2); Carbon Dioxide 22 mmol/L (22-30); Chloride 104 mmol/L (98-107); Estimated Creatinine Clearance 92 ml/min; Glucose 281 mg/dl (70-99); Potassium 4.7 mmol/L (3.5-5.1); Sodium 136 mmol/L (135-145); Total Protein 7.2 g/dl (6.3-8.2); eGFR > 60.00
--- NOTE | 2025-02-20 09:14 | W.PN.HOSP.TC ---
Today's Communication/Plan
-
Blood Pressure and Glycemic Control
Start Amlodipine low dose, IV hydralazine prn
Cardio eval
Cont therapeutic Anticoagualation
Would benefit from tighter control risk factors (DM HTN) to reduce further recurrence of Stroke
Assessment / Plan
Assessment / Plan
Physical Exam
General: No acute distress, appears comfortable, Obese
HEENT: Normocephalic Atraumatic moist mucous membranes
Respiratory: Clear to auscultation b/l
Cardiac: S1/S2 and Regular Rhythm
GI: Soft, Non Tender and Non Distended
Musculoskeletal: No Clubbing, No Cyanosis, No edema
Skin: Warm and Dry
Neuro: AOx3 conversant coherent no facial droop strength 5/5 all ext's
Psych: Calm
79M afib eliquis HTN HLD DM CABG HFpEF ALINA morbid obesity recently here for CVA earlier this month (noncompliant with Eliquis) s/p TNK symptoms completely resolved, returns d/t recurrence of symptoms while compliant with Eliquis not a TNK candidate.
Symptoms since resolved. MRI notes new infarcts. Patient also reports blood pressure and sugars have been poorly controlled since discharge.
#Left-sided numbness with visual disturbance d/t new CVA
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
- CT head appreciated infarcts corresponding to prior stroke treated with TNK earlier this month, no new acute infarction noted.
- Brain MRI appreciated new infarcts, symptoms have since resolved
- Consult neurology appreciated cont Eliquis
- PT consult appreciated no skilled PT needs, recommended to resume outpt OT to address vision and left hand issues.
#HTN/hypertensive urgency
-would benefit from tighter control to reduce further recurrence of Stroke
-Coreg Valsartan Lasix resumed w/ holding parameters
-Amlodipine 2.5 mg daily added
-IV Hydralazine prn
-Cardio eval requested
# CAD/ CABG x 4 vessel/cardiac stent
-Cont Eliquis
-Continue Coreg, valsartan with hold parameter
# Paroxysmal A-fib
#Sinus bradycardia
cont Eliquis, carvedilol
#Hx HFpEF
I/O, daily weights
-Continue Lasix 60 mg bid
#HLD
Lipid panel reviewed in December, LDL above goal >70
hx statin intolerance
-Continue ezetimibe
# DM 2- oral meds temporarily on hold
Recent HgbA1c 9.4 pn 02/02/2025
-would benefit from tighter control to reduce further recurrence of Stroke
-Accu-Cheks with SSI
-Continue 70/30 60U BID
-DM BILLING ANALYST eval appreciated
#ALINA
- Continue BiPAP
#Class II obesity
weight loss counseled
Other PMH:
Polycythemia
Renal calculi
Doyle's palsy
GERD
Erectile dysfunction
Metabolic syndrome
Atherosclerotic renal artery stenosis
DVT prophylaxis
SCDs
cont Eliquis
Full code
Discussed with patient and patient's Mireya
'
I spent a total of 50 minutes with the patient or on the floor. More than 50% of this time involved counseling and coordination of care.
Anticipated Discharge: 24 - 48 hours
Subjective/Interval History
-
Date of Service: February 20, 2025
No acute distress, sitting up comfortably in chair. Overall reports feeling well. Symptoms resolved. Mireya present during evaluation.
Objective Data
-
Labs:
Laboratory Results
02/20/25
07:12
WBC 6.9
Hgb 15.7
Hct 48.2
Plt Count 188
Sodium 136
Potassium 4.7
Chloride 104
Carbon Dioxide 22
BUN 18
Creatinine 0.8
Glucose 281 H
Calcium 9.6
Total Bilirubin 1.3
AST 21
ALT 24
Alkaline Phosphatase 76
Vital Signs:
Vital Signs
Temp Pulse Resp BP Pulse Ox
97.5 F 60 18 163/81 97
02/20/25 07:00 02/20/25 07:00 02/20/25 07:00 02/20/25 07:00 02/20/25 07:00
I&O
02/19/25 02/20/25 02/21/25
06:59 06:59 06:59
Intake Total 480 / 480
Balance 480 / 480
--- NOTE | 2025-02-20 09:46 | W.PN.NEURO.1 ---
Today's Communication / Plan
-
continue usual Apixaban
Patient is refusing use of positive airway pressure to treat obstructive sleep apnea. Patient will need outpatient AutoPAP in hopes of finding a pressure he will tolerate
Goal of normoglycemia
Maintain vitamin B12 replacement
Rehabilitation evaluations and treatment
Neuro Assessment/Plan
Assessment
Patient with recurrent left-sided numbness and visual change despite use of anticoagulation for atrial fibrillation due to acute ischemic stroke, recurrent from multiple weeks ago
Plan
continue usual Apixaban
Patient is refusing use of positive airway pressure to treat obstructive sleep apnea. Patient will need outpatient AutoPAP in hopes of finding a pressure he will tolerate
Goal of normoglycemia
Maintain vitamin B12 replacement
Rehabilitation evaluations and treatment
Will follow as needed
Subjective/Objective
Subjective Data
Date of Service: February 20, 2025
Patient reports improvement in symptomatology
Objective Data
Vital Signs
Temp Pulse Resp BP Pulse Ox
36.4 C 60 18 163/81 97
02/20/25 07:00 02/20/25 07:00 02/20/25 07:00 02/20/25 07:00 02/20/25 07:00
Lab Results
02/20/25 07:12
02/20/25 07:12
PT 14.6 Sec (11.4-14.6) 02/19/25 10:45
INR 1.09 02/19/25 10:45
APTT 29.6 Sec (23.4-35.0) 02/19/25 10:45
Sodium 136 mmol/L (135-145) 02/20/25 07:12
Potassium 4.7 mmol/L (3.5-5.1) 02/20/25 07:12
BUN 18 mg/dl (9-20) 02/20/25 07:12
Glucose 281 mg/dl (70-99) H 02/20/25 07:12
Calcium 9.6 mg/dl (8.4-10.2) 02/20/25 07:12
Vitamin B12 815 pg/ml (239-931) 02/19/25 17:16
Patient Allergies
atorvastatin calcium (From Lipitor) Allergy (Verified 02/19/25 10:07)
severe muscle soreness
levofloxacin (From Levaquin) Allergy (Verified 02/19/25 10:07)
Hives
pollen extracts Allergy (Verified 02/19/25 10:07)
Nasal stuffiness - seasonal
Sulfa (Sulfonamide Antibiotics) Allergy (Verified 02/19/25 10:07)
couldn't breathe
Review of Systems
-
History Source: Patient and Family
All other systems: Reviewed and negative
Neuro: Headache and Numbness; Negative Dizzy
Physical Exam
-
General: No Apparent Distress and Appears Stated Age
Eyes: Round OU, [place] Conjunctivae and No Ptosis
HEENT: Anicteric and Moist Mucous Membranes
Neck: Full Range of Motion
Respiratory: No Dyspnea
Cardiac: No JVD
GI: Non-distended
Skin: Unremarkable
Extremities: No Clubbing, No Cyanosis and No Edema
Psych: Negative Intact Judgement/Insight
Extended Neurological Exam
Mood & Affect: Mood Unremarkable and Affect Unremarkable
Attention Span & Concentration: Awake, Alert and Interactive
Memory: Unremarkable
Tremor: Hand Tremor Absent and Head Tremor Absent
Speech: Quality Unremarkable and Quantity Unremarkable
Cranial Nerve II: Left Eye: Pupillary Size Unremarkable and Visual Garay Grossly Intact
Cranial Nerve II: Right Eye: Pupillary Size Unremarkable and Visual Garay Grossly Intact
Cranial Nerves III, IV, : Extraocular Movement: Grossly Intact
Cranial Nerve VII: Facial Symmetry: Normal Facial Symmetry
Cranial Nerve VIII: Hearing: Unremarkable Hearing to Normal Conversational Volume
Cranial Nerve XI: Shoulder Shrug: Unremarkable
Muscle Strength, Overall: Spontaneously Moves
Muscle Bulk & Tone: Bulk Unremarkable and Tone Unremarkable
Touch Sensation: Unremarkable
Coordination: Reaches for Objects without Difficulty
Data Reviewed
-
CT Head: Report Reviewed
MRI Head: Report Reviewed
Labs: Report Reviewed
Reviewed with: Physician, Patient and Family
Old Records: Summarized
Past History
Past History
ED Past Medical History: CAD, HTN, Hypercholesterolemia, IDDM, Other (Epistaxis, polycythemia), Other (Obstructive sleep apnea, kidney stones) and Other ([place] palsy)
ED Past Surgical History: Cardiac, Orthopedic and Other
Patient has exhibited threatening behavior?: No
Social History
Tobacco: Former smoker
Alcohol: Occasional
Drug: None
Personal:
Living: with family
Employment: Retired
Family History
Family History: Hypertension
Medications
-
Medications:
Generic Name Dose Route Start Last Admin
Trade Name Freq PRN Reason Stop Dose Admin
Acetaminophen 650 mg 02/19/25 17:57 02/20/25 06:27
Acetaminophen 325 Mg Tablet PO 03/19/25 17:56 650 mg
Q4HPRN PRN Administration
mild pain/IRVIN/temp> 100.4F
Apixaban 5 mg 02/19/25 20:00 02/20/25 07:30
Apixaban (Eliquis) 5 Mg Tablet PO 03/19/25 19:59 5 mg
BID MAYELA Administration
Carvedilol 3.125 mg 02/19/25 20:00 02/20/25 07:30
Carvedilol 3.125 Mg Tablet PO 03/19/25 19:59 3.125 mg
BID MAYELA Administration
Cholecalciferol 25 mcg 02/20/25 08:00 02/20/25 07:33
Cholecalciferol (Vitamin D3) 25 Mcg Tablet (1,000 Units) PO 03/20/25 07:59 25 mcg
DAILY MAYELA Administration
Cyanocobalamin 1,000 mcg 02/20/25 08:00 02/20/25 07:30
Cyanocobalamin (Vitamin B-12) 500 Mcg Tablet PO 03/20/25 07:59 1,000 mcg
DAILY MAYELA Administration
Dextrose 12.5 grams 02/19/25 17:57
Dextrose 50% (0.5 Grams/Ml) 50 Ml Syringe IV 03/19/25 17:56
[id number] PRN
hypoglycemia
Protocol
Ezetimibe 10 mg 02/19/25 22:00 02/19/25 22:17
Ezetimibe (Zetia) 10 Mg Tablet PO 03/19/25 21:59 10 mg
HS MAYELA Administration
Finasteride 5 mg 02/20/25 08:00 02/20/25 07:30
Finasteride 5 Mg Tablet PO 03/20/25 07:59 5 mg
DAILY MAYELA Administration
Folic Acid 1 mg 02/19/25 18:00 02/19/25 20:05
Folic Acid 1 Mg Tablet PO 03/19/25 17:59 1 mg
QPM MAYELA Administration
Furosemide 60 mg 02/19/25 18:00 02/20/25 07:30
Furosemide 40 Mg Tablet PO 03/19/25 17:59 60 mg
BID AT 0800,1600 MAYELA Administration
Glucagon 1 mg 02/19/25 17:57
Glucagon 1 Mg Vial IM 03/19/25 17:56
PRN PRN
hypoglycemia
Protocol
Ferric Sodium Gluconate 110 mls @ 110 mls/hr 02/20/25 14:00
Complex 125 mg/ Sodium IV 02/20/25 14:59
Chloride ONCE@1400 ONE
Insulin Aspart 0 units 02/19/25 17:57 02/20/25 08:02
Insulin Aspart Low Resistance 300 Units/3 Ml Pen.Injctr SC 03/19/25 17:56 2 units
AC MAYELA Administration
Protocol
Insulin Aspart Prota 70%/Aspart 30% 60 units 02/20/25 17:00
Novolog Mix 70/30 (100 Units/Ml) 3 Ml Flexpen SC 03/20/25 16:59
BID@0800,1700 MAYELA
Lorazepam 1 mg 02/19/25 12:57
Lorazepam 1 Mg Tablet PO 02/20/25 19:00
ONCE PRN PRN
1 hour prior for MRI
Magnesium Oxide 400 mg 02/19/25 22:00 02/19/25 22:18
Magnesium Oxide 400 Mg Tablet PO 03/19/25 21:59 400 mg
HS MAYELA Administration
Potassium Chloride 20 meq 02/20/25 08:00 02/20/25 07:30
Potassium Chloride 20 Meq Extended Release Tablet PO 03/20/25 07:59 20 meq
DAILY MAYELA Administration
Sodium Chloride 0 flush 02/19/25 19:00
Sodium Chloride 0.9% (Flush) Syringe IV 03/19/25 18:59
PER PROTOCOL MAYELA
Valsartan 160 mg 02/20/25 08:00 02/20/25 07:33
Valsartan 160 Mg Tablet PO 03/20/25 07:59 160 mg
DAILY MAYELA Administration
--- NOTE | 2025-02-20 09:59 | PTOTSP ---
The patient is independent with ambulation and elevations, no strength or coordination deficits noted. No PT needs upon discharge - recommend resuming Outpatient OT to address vision and left hand issues. PT will sign off.
[2025-02-20 12:00] LABS: Glucose - Point of Care 283 mg/dl (70-99)
[2025-02-20] MEDS: NOVOLOG FLEXPEN-LOW RESISTANCE 3 UNITS SC (12:33)
[2025-02-20] MEDS: FERRLECIT 110 MG IV (13:10)
[2025-02-20] MEDS: APRESOLINE 5 MG IV (13:11)
--- NOTE | 2025-02-20 13:29 | CON.CAR ---
Addendum entered and electronically signed by Mynor Aburto MD 02/20/25 18:08:
I saw and examined the patient independently.
The METAL ALLOY SCIENTIST's note was reviewed and I agree with the note with changes/additions below.
Comment:
79 yo male with PMH of paroxysmal A fib, CAD/CABG is admitted with acute CVA, recurrent. He was recently restarted on eliquis, after a period of non-compliance. Exam with RRR, no murmurs, no edema. Tele: SR 40-80s.
#Acute CVA, recurrent
-recently started back on eliquis after period of non-compliance: will change to pradaxa in case of eliquis failure
-BP control
-statin intolerance: will need to eval for PCSK9i as outpatient
# HTN: uncontrolled
-continue coreg 3.125mg bid, limited by HR
-increase valsartan to 320mg daily
-amlodipine 2.5mg was started today as well
# Paroxysmal A fib
-currently in sinus: continue coreg
-will now use pradaxa for OAC
Original Note:
Consultation
Consultation Request
Date/Time Consultation Requested: 02/20/25 1314
Date/Time Consultation Performed: 02/20/25 1329
Requesting Provider: Dr. Garcia
Performing Provider: Deena BUSTAMANTE for Dr. Aburto
Reason for Consultation: stroke in patient with AFIB, also HTN
Medical History
-
Chief Complaint: left-sided numbness
History of Present Illness:
79 y/o male with CAD with hx stenting and CABG x 4 (2019), PAF on Eliquis, hypertension, HFpEF, dyslipidemia (statin intolerant, was not previously approved for PCSK9 per chart), TIA 2021, moderate renal artery stenosis, diabetes, polycythemia vera,
ALINA, obesity, and GERD. He recently (admission 02/02/25-02/06/25) came in with left-sided numbness and weakness and received TNK. Also required IV BP medications. He was seen to acute infarcts of the right occipital lobe and right temporal lobe and
smaller acute infarct in the right thalamus. We were consulted since he was not taking his Eliquis. Eliquis was re-started and he agreed to take it. He is back now with left-sided numbness again. New strokes seen on imaging. Since recent admission,
he has been compliant with Eliquis. His BP's at home have been SBP 170's. As high as 190's here.
Past Medical History
Past Medical History: Arrhythmias, CAD, CHF, HTN, Hypercholesterolemia and Other (as above)
Social History
Tobacco: Non-Smoker
Personal:
Living: With Family
Family History
Family History: Reviewed & Not Pertinent
Allergies / Home Medications
Allergy/AdvReac Type Severity Reaction Status Date / Time
atorvastatin calcium (From Allergy severe Verified 02/19/25 10:07
Lipitor) muscle
soreness
levofloxacin (From Levaquin) Allergy Hives Verified 02/19/25 10:07
pollen extracts Allergy Nasal Verified 02/19/25 10:07
stuffiness
- seasonal
Sulfa (Sulfonamide Allergy couldn't Verified 02/19/25 10:07
Antibiotics) breathe
�Medication �Instructions �Recorded �Confirmed �Type
lutein 20 mg capsule 20 mg PO BID Supplement 07/10/09 02/19/25 History
cyanocobalamin (vitamin B-12) 1,000 mcg PO DAILY Supplement 06/02/17 02/19/25 History
1,000 mcg tablet
finasteride 5 mg tablet 5 mg PO DAILY Urinary issue 06/02/17 02/19/25 History
red yeast rice 600 mg tablet 1,600 mg PO BID Supplement 06/16/17 02/19/25 History
cholecalciferol (vitamin D3) 25 1,000 units PO DAILY Supplement 08/15/19 02/19/25 History
mcg (1,000 unit) tablet
potassium chloride 20 mEq 20 meq PO DAILY Electrolyte 03/05/21 02/19/25 History
tablet,extended Repletion
release(part/cryst) (Klor-Con M)
folic acid 1 mg tablet 1 mg PO QPM Supplement 01/18/23 02/19/25 History
omega 0-gww-ckg-fish oil 1,000 mg 1 cap PO BID Supplement ##0 01/18/23 02/19/25 History
(120 mg-180 mg) capsule (Fish Oil)
furosemide 40 mg tablet (Lasix) 60 mg PO BID Fluid 01/02/24 02/19/25 History
retention/Swelling
magnesium oxide 400 mg PO HS Electrolyte Repletion 11/15/24 02/19/25 History
##0
valsartan 160 mg tablet 160 mg PO DAILY Blood Pressure 11/15/24 02/19/25 History
carvedilol 3.125 mg tablet 3.125 mg PO BID Blood Pressure 11/30/24 02/19/25 History
apixaban 5 mg tablet (Eliquis) 5 mg PO BID #60 tabs 02/06/25 02/19/25 Rx
ezetimibe 10 mg tablet 10 mg PO HS #30 tabs 02/06/25 02/19/25 Rx
acetaminophen 325 mg capsule 650 mg PO Q6HPRN PRN mild pain 02/19/25 02/19/25 History
insulin aspar prot-insulin aspart 60 unit SC BID Diabetes 02/19/25 02/19/25 History
100 unit/mL (70-30) subcutaneous
pen (Novolog Mix 70-30FlexPen
U-100)
Review of Systems
-
History Source: Patient
All other systems: Negative unless noted
Neurological: Numbness (left-sided)
Physical Exam
Vital Signs
Temp Pulse Resp BP Pulse Ox
98.2 F 70 18 176/87 96
02/20/25 11:00 02/20/25 11:00 02/20/25 11:00 02/20/25 11:00 02/20/25 11:00
Lab Results
02/20/25 07:12
02/20/25 07:12
Physical Exam
General: Well Developed, Well Nourished and No Apparent Distress
HEENT: Normocephalic and Anicteric
Respiratory: Clear and Non Labored Respirations
Cardiac: Regular Rhythm
Musculoskeletal: No Edema
Skin: Warm and Dry
Neuro: AO x 3
Psych: Calm
Impression / Plan
-
Stroke:
-this diagnosis is threat to bodily function
-he has recent evidence for strokes when he was not taking his Eliquis several weeks ago, now with new areas of infarct on imaging as noted in detail
-on Eliquis and he has been compliant. Will switch to Pradaxa 150 mg PO BID. Also needs better BP control overall- see below.
-cholesterol issues as below
PAF:
-stable in SR
-on low dose Coreg- bradycardia limits any higher dosing
-[id number] score is 8 for age, HTN, CVA, CHF, CAD, DM. He recently started taking Eliquis about 2.5 weeks ago (after stroke). He reports remaining compliant with this BID at home. See above- switching to pradaxa.
HTN:
-BP has not been well-controlled
-increase valsartan to 320 mg daily and monitor. Can add CCB next if needed.
Dyslipidemia:
-statin intolerant per OP chart. Zetia started. PCSK9 inhibitor not approved per OP chart- this should be revisited as OP now with strokes.
HFpEF: chronic
-appears euvolemic
-continue his typical Lasix dosing
DM:
-diabetic METAL ALLOY SCIENTIST on the case
CAD with hx stenting/CABG:
-Eliquis, BB
-lipid issues as noted
DM2:
-on insulin
-diabetic METAL ALLOY SCIENTIST is on the case
Data Reviewed
-
EKG: Tracing Personally Visualized and interpreted (SB at 55 BPM, with SA)
CT Scan: Report Reviewed by me (Head CT: No evidence of acute intracranial abnormality. )
MRI: Report Reviewed by me (some improvement in previous acute infarcts in the medial right temporal and occipital lobe, there is a new focus of acute infarct measuring 7 mm involving the right splenium of the corpus callosum there are new small
infarcts involving the right posterior medial temporal and occipital regions.)
Medical Tests (Nuc Med, Echo etc): Report Reviewed by me (echo 02/03/25: Normal biventricular size and systolic function without regional wall motion abnormality. LVEF 55-60%. Moderate concentric LV hypertrophy. Mild aortic stenosis.)
Labs: Labs Reviewed by me
[2025-02-20] MEDS: NORVASC 2.5 MG PO (14:01)
--- NOTE | 2025-02-20 16:04 | CM ---
Alert awake oriented patient who lives with his Mireya in a 2 story home with 3 step to enter and 13 steps to bed and bathroom. 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
prior to admission he was starting out pt therapy.He has cane walker that he does not use at home . He has a Cpap at home.
[facility] hx / No SNF history
[facility]
PCP DR Marquis Reed
PLAN Home no needs
[2025-02-20 16:43] LABS: Glucose - Point of Care 365 mg/dl (70-99)
[2025-02-20] MEDS: FOLVITE 1 MG PO (17:06)
[2025-02-20] MEDS: NOVOLOG MIX 70/30 FLEXPEN 60 UNITS SC (17:07)
[2025-02-20] MEDS: NOVOLOG FLEXPEN-LOW RESISTANCE 5 UNITS SC (17:08)
[2025-02-20 19:26] LABS: Glucose - Point of Care 339 mg/dl (70-99)
[2025-02-20] MEDS: NOVOLOG FLEXPEN 4 UNITS SC (19:50)
[2025-02-20] MEDS: PRADAXA 150 MG PO (19:53)
[2025-02-20] MEDS: MAGNESIUM OXIDE 400 MG PO (21:31)
[2025-02-20] MEDS: ZETIA 10 MG PO (21:35)
[2025-02-20 21:48] LABS: Glucose - Point of Care 227 mg/dl (70-99)
[2025-02-21] VITALS (9 sets, daily range): BP systolic 126–180; BP diastolic 64–90; BMI 32.0
[2025-02-21] MEDS: COREG 3.125 MG PO ×3 (00:02→21:05)
[2025-02-21] MEDS: APRESOLINE 5 MG IV ×2 (04:45→06:40)
[2025-02-21] MEDS: TYLENOL 650 MG PO (06:46)
[2025-02-21 07:01] LABS: Hematocrit 48.3 % (39.0-52.0); Hemoglobin 15.9 g/dL (13.0-18.0); Mean Corp Hgb Conc. 32.9 g/dL (33.0-37.0); Mean Corpuscular Volume 78.9 fL (80.0-94.0); Platelet Count 197 10^3/uL (130-400); Red Cell Dist. Width 17.3 % (11.5-14.5)
[2025-02-21 07:34] LABS: Blood Urea Nitrogen 21 mg/dl (9-20); Calcium 9.7 mg/dl (8.4-10.2); Carbon Dioxide 28 mmol/L (22-30); Chloride 100 mmol/L (98-107); Estimated Creatinine Clearance 81 ml/min; Glucose 270 mg/dl (70-99); Magnesium 2.2 mg/dl (1.6-2.3); Potassium 4.2 mmol/L (3.5-5.1); Sodium 136 mmol/L (135-145); eGFR > 60.00
[2025-02-21] MEDS: KCL 20 MEQ PO (07:58)
[2025-02-21] MEDS: PROSCAR 5 MG PO (07:59)
[2025-02-21] MEDS: VITAMIN D3 (cholecalciferol) 25 MCG PO (07:59)
[2025-02-21] MEDS: LASIX 60 MG PO ×2 (07:59→15:29)
[2025-02-21] MEDS: NORVASC 2.5 MG PO ×2 (08:00→09:29)
[2025-02-21] MEDS: DIOVAN 320 MG PO (08:01)
[2025-02-21] MEDS: PRADAXA 150 MG PO ×2 (08:01→21:13)
--- NOTE | 2025-02-21 08:01 | PN.DE.MGMTRT ---
Insulin Management
- -
02/21/2025: Diabetes Management Follow up
Patient admitted 02/19 with L sided weakness/numbness similar to recent admission 02/02 to 02/07.
PMH: CAD s/p CABG, HTN, HCL, A-Fib, diabetes, ALINA. Prior to admission was taking 70/30 insulin 60 units BID. A1C 9.4% from 02/02 admission, Cr 0.7, eGFR > 60.
Patient states he follows with his primary doctor Brianna for diabetes care. He has a meter and test 3 to 4 times per day. His OP record indicates he was taking Jardiance and Metformin in the past, both were discontinued-unknown reason.
Patient is off the floor for CT head and stroke workup. Unable to interview at this time.
Received 30 units NPH in AM yesterday with 5 units Regular insulin and 2 units NovoLog and 70/30 insulin 60 units BID was resumed at dinner with low corrective insulin which is dose from previous admission and home dose. HS glucose was 227, FBG 220
V, 252 POC.
Will make no changes to current regimen, given that he has only received 1 dose of the 60 units.
Will closely monitor glucose trend and adjust 70/30 dose if necessary.
Discussed with nurse. Will cont to follow.
Diabetes History
- -
Type of Diabetes: 2 requiring insulin
Pre-Admission Diabetes Regimen
02/20/25 02/21/25
07:12 06:23
Creatinine 0.8 0.9
Insulin Pump Settings
IP Diabetes Regimen
02/20/25 02/20/25 02/20/25
07:12 11:59 16:42
Glucose 281 H
POC Glucose 283 H 365 H
02/20/25 02/20/25 02/21/25
19:25 21:46 06:23
Glucose 270 H
POC Glucose 339 H 227 H
Patient Education
[2025-02-21] MEDS: VITAMIN B-12 1000 MCG PO (08:02)
[2025-02-21 08:15] LABS: Glucose - Point of Care 252 mg/dl (70-99)
[2025-02-21] MEDS: NOVOLOG MIX 70/30 FLEXPEN 60 UNITS SC (08:49)
[2025-02-21] MEDS: NOVOLOG FLEXPEN-LOW RESISTANCE 3 UNITS SC (08:50)
--- NOTE | 2025-02-21 09:11 | W.PN.CD ---
Today's Communication / Plan
-
Pradaxa 150 mg PO BID.
increased valsartan to 320 mg daily. Amlodipine 5mg added. Hydralazine 25m tid added. Already on lasix 60mg bid
Zetia started
discharge planning, BMP in one week
we will arrange for follow up with us
Impression / Plan
-
Stroke:
-he has recent evidence for strokes when he was not taking his Eliquis several weeks ago, now with new areas of infarct on imaging as noted in detail
-on Eliquis and he has been compliant. Will switch to Pradaxa 150 mg PO BID. Also needs better BP control overall- see below.
-cholesterol issues as below
Parox AFib:
-stable in SR
-on low dose Coreg 3.125mg bid- bradycardia limits any higher dosing
-[id number] score is 8 for age, HTN, CVA, CHF, CAD, DM. He recently started taking Eliquis about 2.5 weeks ago (after stroke). He reports remaining compliant with this BID at home. See above- switching to pradaxa.
HTN:
-BP has not been well-controlled
-increased valsartan to 320 mg daily. Amlodipine 5mg added. Hydralazine 25m tid added. Already in lasix 60mg bid.
Dyslipidemia:
-statin intolerant per OP chart. Zetia started. PCSK9 inhibitor not approved per OP chart- this should be revisited as OP now with strokes.
HFpEF: chronic
-appears euvolemic
-continue his typical PO Lasix dosing
CAD with hx stenting/CABG:
-OAC, BB
-lipid issues as noted
DM2:
-on insulin
-diabetic CREPE MACHINE OPERATOR is on the case
Physical Exam
Vital Signs/Labs
Vital Signs
Temp Pulse Resp BP Pulse Ox
97.5 F 81 18 180/77 95
02/21/25 07:53 02/21/25 07:53 02/21/25 07:53 02/21/25 07:53 02/21/25 07:53
02/20/25 02/21/25 02/22/25
06:59 06:59 06:59
Actual Weight 108.862 kg 106.866 kg
02/21/25 06:23
02/21/25 06:23
PT 14.6 Sec (11.4-14.6) 02/19/25 10:45
INR 1.09 02/19/25 10:45
APTT 29.6 Sec (23.4-35.0) 02/19/25 10:45
Magnesium 2.2 mg/dl (1.6-2.3) 02/21/25 06:23
Free T4 1.34 ng/dl (0.78-2.19) 02/19/25 17:16
Physical Exam
Constitutional: No acute distress and Comfortable
EENT: Moist mucous membranes
Cardiovascular: Rhythm & rate is regular, Pedal edema is absent, JVD pressure is normal and Systolic murmur present
Respiratory: Respiratory effort normal and Lungs clear to auscul.
Neuro/Psych: AO x 3
Data Reviewed
-
Date of Service: February 21, 2025
EKG: Other (Tele: SR 60s-80s, PVC's, triplet)
Labs: Labs Reviewed by me
[2025-02-21] MEDS: APRESOLINE 25 MG PO ×3 (09:29→21:15)
--- NOTE | 2025-02-21 10:38 | PTCARENOTE ---
pt is stating numbness in left side of face is worse right now than it was this morning with initial NIH. new NIH completed, Neuro notified
--- NOTE | 2025-02-21 10:38 | CM ---
Pt currently on oxygen 2 liter NC Pox 95%.
PT eval = no skilled needs.
Pt had started out pt PT prior to this admission.
He plans to resume out pt PT at discharge.
Pt noted inpatient in system . Clarified with UR RN /residence director checked.Patient is Observation.
[facility] letter given explained on chart.
PLAN Home no needs
--- NOTE | 2025-02-21 10:53 | W.PN.NEURO.1 ---
Today's Communication / Plan
-
Check new CT head
Neuro Assessment/Plan
Assessment
Patient with recurrent left-sided numbness and visual change despite use of anticoagulation for atrial fibrillation due to acute ischemic stroke, recurrent from multiple weeks ago
Patient with recurrent symptoms February 21, 2025 while also experiencing single episode of loose bowels and low abdominal pain
Plan
Check repeated CT of head
Recheck blood glucose
Follow blood pressure
Patient may require abdominal CT with sudden onset of significant abdominal discomfort following bowel movement
continue usual Apixaban
To treat obstructive sleep apnea will need outpatient AutoPAP in hopes of finding a pressure he will tolerate
Goal of normoglycemia
Maintain vitamin B12 replacement
Rehabilitation evaluations and treatment
Will follow pending results
Subjective/Objective
Subjective Data
Date of Service: February 21, 2025
Stomach pain in low stomach.
'I feel like I am having another stroke'
Objective Data
Vital Signs
Temp Pulse Resp BP Pulse Ox
36.4 C 88 18 126/64 95
02/21/25 07:53 02/21/25 10:43 02/21/25 10:43 02/21/25 10:43 02/21/25 07:53
Lab Results
02/21/25 06:23
02/21/25 06:23
PT 14.6 Sec (11.4-14.6) 02/19/25 10:45
INR 1.09 02/19/25 10:45
APTT 29.6 Sec (23.4-35.0) 02/19/25 10:45
Sodium 136 mmol/L (135-145) 02/21/25 06:23
Potassium 4.2 mmol/L (3.5-5.1) 02/21/25 06:23
BUN 21 mg/dl (9-20) H 02/21/25 06:23
Glucose 270 mg/dl (70-99) H 02/21/25 06:23
Calcium 9.7 mg/dl (8.4-10.2) 02/21/25 06:23
Phosphorus 3.5 mg/dl (2.5-4.5) 02/21/25 06:23
Vitamin B12 815 pg/ml (239-931) 02/19/25 17:16
Patient Allergies
atorvastatin calcium (From Lipitor) Allergy (Verified 02/19/25 10:07)
severe muscle soreness
levofloxacin (From Levaquin) Allergy (Verified 02/19/25 10:07)
Hives
pollen extracts Allergy (Verified 02/19/25 10:07)
Nasal stuffiness - seasonal
Sulfa (Sulfonamide Antibiotics) Allergy (Verified 02/19/25 10:07)
couldn't breathe
Review of Systems
-
History Source: Patient
All other systems: Reviewed and negative
EENT: Negative Swallowing Difficulty
Respiratory: Negative Trouble Breathing
Cardiac: Negative Chest Pain
Neuro: Negative Dizzy or Headache
Physical Exam
-
General: Appears Stated Age; Negative No Apparent Distress (Appears uncomfortable)
Eyes: Round OU, [place] Conjunctivae and No Ptosis
HEENT: Anicteric and Moist Mucous Membranes
Neck: Full Range of Motion
Respiratory: No Dyspnea
Cardiac: No JVD
GI: Non-distended
Skin: Unremarkable
Extremities: No Clubbing, No Cyanosis and No Edema
Psych: Intact Judgement/Insight
Extended Neurological Exam
Mood & Affect: Mood Unremarkable and Affect Unremarkable
Attention Span & Concentration: Awake, Alert and Interactive
Memory: Unremarkable
Tremor: Hand Tremor Absent and Head Tremor Absent
Speech: Quality Unremarkable and Quantity Unremarkable
Cranial Nerve II: Left Eye: Pupillary Size Unremarkable and Visual Garay Grossly Intact
Cranial Nerve II: Right Eye: Pupillary Size Unremarkable and Visual Garay Grossly Intact
Cranial Nerves III, IV, : Extraocular Movement: Grossly Intact
Cranial Nerve VII: Facial Symmetry: Normal Facial Symmetry
Cranial Nerve VIII: Hearing: Unremarkable Hearing to Normal Conversational Volume
Cranial Nerve XI: Shoulder Shrug: Unremarkable
Muscle Strength, Overall: Spontaneously Moves
Muscle Bulk & Tone: Bulk Unremarkable and Tone Unremarkable
Pronator Drift: Drift in Left Upper Extremity and No Drift in Lower Extremities; Negative Drift in Right Upper Extremity
Touch Sensation: Unremarkable
Coordination: Reaches for Objects without Difficulty
[2025-02-21 10:59] LABS: Glucose - Point of Care 182 mg/dl (70-99)
--- NOTE | 2025-02-21 10:59 | PTCARENOTE ---
pt c/o left facial numbness, and feeling weak. BP and accucheck. DR. Fuller at bedside. CT.
[2025-02-21] MEDS: NOVOLOG FLEXPEN-LOW RESISTANCE SC (13:05)
--- NOTE | 2025-02-21 14:20 | W.PN.HOSP.TC ---
Addendum entered and electronically signed by Jazzmine Matthews MD 02/21/25 14:22:
Patient on oxygen-unclear if this is acute hypoxic respiratory insufficiency-wean oxygen as tolerated for sats above 92
Check x-ray of the chest
Patient also had abdominal discomfort he states ' upset stomach'-check x-ray of the abdomen
Original Note:
Today's Communication/Plan
-
Watch symptoms
Watch blood pressure overnight
If stable consider discharge tomorrow
Assessment / Plan
Assessment / Plan
79-year-old second admission this month secondary to stroke.. Stroke noncompliant with Eliquis for A-fib received TNK with complete resolution of symptoms. This episode patient was compliant. Not a candidate for TNK but still new acute infarcts
on MRI symptoms resolved. Cardiology feels this is Eliquis treatment failure and switched to Pradaxa.
CVS: S1-S2 normal
Chest: CTA B/L
Abdomen: Soft, NT / Bowel sounds present
Extremities: No edema, normal pulses
MANAGER BEVERAGE: No facial droop, sensory deficit left hemibody
CTA of the head and neck 02/02/2025-atherosclerotic disease involving the right carotid bulb and proximal right ICA 42%.
Less than 25% diameter reduction left carotid bulb and proximal left ICA. Focal narrowing of the distal M1 portion of the left MCA and M2 branches atherosclerotic disease and narrowing involving superior left vertebral artery and proximal basilar
artery. 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
#Left-sided numbness with visual disturbance d/t new CVA
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
CT head appreciated infarcts corresponding to prior stroke treated with TNK earlier this month, no new acute infarction noted.
Brain MRI appreciated new infarcts, symptoms have since resolved
PT consult appreciated no skilled PT needs, recommended to resume outpt OT to address vision and left hand issues.
Eliquis changed to Pradaxa
Patient had more symptoms on 02/21/2025 with worsening of the numbness for half an hour and it is better now. Possibly secondary to drop in blood pressure and also
Possibly secondary to cerebral edema from the CVA versus fluctuation in blood pressure
Will check with neurology to see if patient needs a carotid ultrasound or to start an antiplatelet
#HTN/hypertensive urgency
-would benefit from tighter control to reduce further recurrence of Stroke
-Coreg Valsartan Lasix resumed
-Amlodipine 5 mg daily added
- Hydralazine 25 mg 3 times daily added
# CAD/ CABG x 4 vessel/cardiac stent
-Cont Pradaxa
-Continue Coreg, valsartan
# Paroxysmal E-oon-twotaben Pradaxa and Coreg
#Hx HFpEF
I/O, daily weights
-Continue Lasix 60 mg bid, Coreg, valsartan
#HLD
Lipid panel reviewed in December, LDL above goal >70
hx statin intolerance
Continue ezetimibe
May need to consider PCSK9 inhibitor as outpatient
# DM 2- oral meds temporarily on hold
Recent HgbA1c 9.4 pn 02/02/2025
-would benefit from tighter control to reduce further recurrence of Stroke
-Accu-Cheks with SSI
-Continue 70/30 60U BID
- Increased 62 units twice daily
# Abnormal TSH with normal T4. Repeat as outpatient
#ALINA- Continue BiPAP
#Class II obesity/metabolic syndrome-weight loss counseled
# Prostate disease-continue finasteride
# Polycythemia
# History of nephrolithiasis
# Doyle's palsy
# GERD
# Erectile dysfunction
#Atherosclerotic renal artery stenosis
#DVT prophylaxis-Pradaxa
D/W Cards
D/W Neuro
D/W at bed side
Time spent more than 50 minutes
Part of this note was created using voice recognition system. Occasional wrong word or��sound alike� substitutions may have inadvertently occurred due to the inherent limitations of voice recognition software. If noted kindly bring it to my
attention for correction.
Anticipated Discharge: Within 24 hours
Subjective/Interval History
-
Date of Service: February 21, 2025
Objective Data
-
Labs:
Laboratory Results
02/21/25
06:23
WBC 8.7
Hgb 15.9
Hct 48.3
Plt Count 197
Sodium 136
Potassium 4.2
Chloride 100
Carbon Dioxide 28
BUN 21 H
Creatinine 0.9
Glucose 270 H
Calcium 9.7
Vital Signs:
Vital Signs
Temp Pulse Resp BP Pulse Ox
97.7 F 84 17 132/71 92
02/21/25 11:18 02/21/25 11:18 02/21/25 11:18 02/21/25 11:18 02/21/25 11:18
I&O
02/20/25 02/21/25 02/22/25
06:59 06:59 06:59
Intake Total 480 / 480 480 / 480
Balance 480 / 480 480 / 480
--- NOTE | 2025-02-21 14:42 | PTCARENOTE ---
pt weaned to RA, offers no complaints, reports improvement in numbness of left face and arm. CB in reach
[2025-02-21 16:36] LABS: Glucose - Point of Care 157 mg/dl (70-99)
[2025-02-21] MEDS: FOLVITE 1 MG PO (17:25)
[2025-02-21] MEDS: NOVOLOG MIX 70/30 FLEXPEN 62 UNITS SC (17:29)
[2025-02-21] MEDS: NOVOLOG FLEXPEN-LOW RESISTANCE 1 UNITS SC (17:29)
[2025-02-21] MEDS: ZETIA 10 MG PO (21:14)
[2025-02-21] MEDS: MAGNESIUM OXIDE 400 MG PO (21:15)
[2025-02-21 21:29] LABS: Glucose - Point of Care 49 mg/dl (70-99)
[2025-02-21 21:49] LABS: Glucose - Point of Care 87 mg/dl (70-99)
[2025-02-22] VITALS (7 sets, daily range): BP systolic 115–166; BP diastolic 60–94; BMI 31.9
[2025-02-22 00:17] LABS: Glucose - Point of Care 76 mg/dl (70-99)
[2025-02-22 02:28] LABS: Glucose - Point of Care 61 mg/dl (70-99)
[2025-02-22 02:51] LABS: Glucose - Point of Care 88 mg/dl (70-99)
[2025-02-22 04:37] LABS: Glucose - Point of Care 85 mg/dl (70-99)
[2025-02-22 06:52] LABS: Hematocrit 47.7 % (39.0-52.0); Hemoglobin 15.9 g/dL (13.0-18.0); Mean Corp Hgb Conc. 33.3 g/dL (33.0-37.0); Mean Corpuscular Volume 78.6 fL (80.0-94.0); Platelet Count 221 10^3/uL (130-400); Red Cell Dist. Width 17.7 % (11.5-14.5)
[2025-02-22 07:14] LABS: Blood Urea Nitrogen 29 mg/dl (9-20); Calcium 9.5 mg/dl (8.4-10.2); Carbon Dioxide 24 mmol/L (22-30); Chloride 105 mmol/L (98-107); Estimated Creatinine Clearance 61 ml/min; Glucose 99 mg/dl (70-99); Potassium 4.0 mmol/L (3.5-5.1); Sodium 138 mmol/L (135-145); eGFR > 60.00
[2025-02-22] MEDS: PRADAXA 150 MG PO ×2 (08:16→21:06)
[2025-02-22] MEDS: LASIX 60 MG PO ×2 (08:16→17:17)
[2025-02-22] MEDS: PROSCAR 5 MG PO (08:17)
[2025-02-22] MEDS: DIOVAN 320 MG PO (08:17)
[2025-02-22] MEDS: KCL 20 MEQ PO (08:17)
[2025-02-22] MEDS: COREG 3.125 MG PO ×2 (08:17→21:04)
[2025-02-22] MEDS: NORVASC 5 MG PO (08:17)
[2025-02-22] MEDS: APRESOLINE 25 MG PO ×3 (08:19→21:08)
[2025-02-22] MEDS: VITAMIN D3 (cholecalciferol) 25 MCG PO (08:19)
[2025-02-22] MEDS: VITAMIN B-12 1000 MCG PO (08:19)
[2025-02-22] MEDS: NOVOLOG MIX 70/30 FLEXPEN 62 UNITS SC (08:20)
[2025-02-22] MEDS: NOVOLOG FLEXPEN-LOW RESISTANCE 1 UNITS SC ×2 (08:20→12:52)
[2025-02-22 09:11] LABS: Glucose - Point of Care 143 mg/dl (70-99)
[2025-02-22 09:11] LABS: Glucose - Point of Care 159 mg/dl (70-99)
[2025-02-22 09:11] LABS: Glucose - Point of Care 105 mg/dl (70-99)
[2025-02-22] MEDS: TYLENOL 650 MG PO ×3 (09:33→21:13)
--- NOTE | 2025-02-22 10:25 | W.PN.HOSP.TC ---
Today's Communication/Plan
-
Continue to monitor symptoms neurochecks and monitor on telemetry
Fall precautions
Assessment / Plan
Assessment / Plan
79-year-old second admission this month secondary to stroke.. Stroke noncompliant with Eliquis for A-fib received TNK with complete resolution of symptoms. This episode patient was compliant. Not a candidate for TNK but still new acute infarcts
on MRI symptoms resolved. Cardiology feels this is Eliquis treatment failure and switched to Pradaxa.
Patient was seen earlier today. Late documentation
Patient has been having waxing and waning symptoms on the left side. Mostly with the left arm, he feels that the arm does not belong to him. He has good strength but he has to look at the arm to see that it is there. Patient asked his 'who
is arm is this', has a very mild headache 3 out of 10.
CVS: S1-S2 normal
Chest: CTA B/L
Abdomen: Soft, NT / Bowel sounds present
Extremities: No edema, normal pulses
TEXTILE TECHNICAL OFFICER:, Motor strength is 5 x 5 ,sensory deficit left hemibody, proprioception and spatial recognition impaired on the left side mostly the left arm
CTA of the head and neck 02/02/2025-atherosclerotic disease involving the right carotid bulb and proximal right ICA 42%.
Less than 25% diameter reduction left carotid bulb and proximal left ICA. Focal narrowing of the distal M1 portion of the left MCA and M2 branches atherosclerotic disease and narrowing involving superior left vertebral artery and proximal basilar
artery. There appears to be an abrupt cut off at the junction of P1 and P2 portions of the right RECORDINGS LIBRARIAN which is new compared to 2021.
#Left-sided numbness with visual disturbance d/t new CVA
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
CT head appreciated infarcts corresponding to prior stroke treated with TNK earlier this month, no new acute infarction noted.
Brain MRI appreciated new infarcts, symptoms have since resolved
PT consult appreciated no skilled PT needs, recommended to resume outpt OT to address vision and left hand issues.
Eliquis changed to Pradaxa
Patient had more symptoms on 02/21/2025, during the daytime, overnight and also on 02/22/2025
Mostly related to spatial recognition, proprioception and sensation loss. No motor difficulties. He does have numbness in the left leg also which waxes and wanes.
Possibly secondary to cerebral edema from the CVA
Will check with neurology to see if patient needs a carotid ultrasound or to start an antiplatelet
Continue to watch the patient in the hospital
#HTN/hypertensive urgency
-would benefit from tighter control to reduce further recurrence of Stroke
-Coreg ,Valsartan Lasix resumed
-Amlodipine 5 mg daily added
-Hydralazine 25 mg 3 times daily added
# CAD/ CABG x 4 vessel/cardiac stent
-Cont Pradaxa
-Continue Coreg, valsartan
# Paroxysmal L-gsy-rychafux Pradaxa and Coreg
#Hx HFpEF
I/O, daily weights
-Continue Lasix 60 mg bid, Coreg, valsartan
#HLD
Lipid panel reviewed in December, LDL above goal >70
hx statin intolerance
Continue ezetimibe
May need to consider PCSK9 inhibitor as outpatient
# DM 2- oral meds temporarily on hold
Recent HgbA1c 9.4 pn 02/02/2025
-would benefit from tighter control to reduce further recurrence of Stroke
-Accu-Cheks with SSI
-Continue 70/30 60U BID
- Increased 62 units twice daily
# Abnormal TSH with normal T4. Repeat as outpatient
#ALINA- Continue BiPAP
#Class II obesity/metabolic syndrome-weight loss counseled
# Prostate disease-continue finasteride
# Polycythemia
# History of nephrolithiasis
# Doyle's palsy
# GERD
# Erectile dysfunction
#Atherosclerotic renal artery stenosis
#DVT prophylaxis-Pradaxa
D/W Neuro
D/W at bed side
Discussed with nursing
Part of this note was created using voice recognition system. Occasional wrong word or��sound alike� substitutions may have inadvertently occurred due to the inherent limitations of voice recognition software. If noted kindly bring it to my
attention for correction.
Anticipated Discharge: Within 24 hours
Subjective/Interval History
-
Date of Service: February 22, 2025
Objective Data
-
Labs:
Laboratory Results
02/22/25
06:11
WBC 10.1
Hgb 15.9
Hct 47.7
Plt Count 221
Sodium 138
Potassium 4.0
Chloride 105
Carbon Dioxide 24
BUN 29 H
Creatinine 1.2
Glucose 99
Calcium 9.5
Vital Signs:
Vital Signs
Temp Pulse Resp BP Pulse Ox
97.8 F 90 20 166/79 95
02/22/25 07:54 02/22/25 07:54 02/22/25 07:54 02/22/25 07:54 02/22/25 07:54
I&O
02/21/25 02/22/25 02/23/25
06:59 06:59 06:59
Intake Total 660 / 660
Output Total 300 / 300
Balance 360 / 360
[2025-02-22 11:37] LABS: Glucose - Point of Care 188 mg/dl (70-99)
[2025-02-22 16:44] LABS: Glucose - Point of Care 67 mg/dl (70-99)
[2025-02-22 17:15] LABS: Glucose - Point of Care 151 mg/dl (70-99)
[2025-02-22] MEDS: FOLVITE 1 MG PO (17:17)
[2025-02-22] MEDS: NOVOLOG MIX 70/30 FLEXPEN SC (17:45)
[2025-02-22] MEDS: NOVOLOG FLEXPEN-LOW RESISTANCE SC (17:46)
--- NOTE | 2025-02-22 17:48 | PTCARENOTE ---
Patient stated this morning that his left arm had increased numbness and tingling. NIH performed with score of 3 for slight droop with smile, left limb ataxia, and decreased left limb sensation. MD and neurology notified and came in to assess
patient. MD and neurology Dr Medina spoke with patient and at bedside. No new orders at this time.
Patient with Accucheck of 67 before dinner, 4oz of Adams juice consumed with +effects. Repeat blood sugar 151. Communicated with cross over hospitalist Dr Oneal with new verbal orders. Hold Insulin this evening. Tomorrow start Novolog Mix 70/30 40
units BID.
Patient denies pain/discomfort, at bedside, Continues on bed and chair alarm.Call lima within reach.
[2025-02-22 20:04] LABS: Glucose - Point of Care 146 mg/dl (70-99)
--- NOTE | 2025-02-22 20:30 | RR ---
This RN performed NIH on patient with a score of 5 for partial hemianopia in left visual field, slight facial droop, left arm drift, left limb ataxia, and decreased sensation on left. Patient experiencing spastic arm movements, describing the
feeling as having 'no control' over his arm and feels like it is not there at times. Patient states that his symptoms feel much worse than they did before. Patient with a previous score of 3. Rapid response and stroke alert called due to increase in
score. Head CT ordered. Plan of care ongoing.
[2025-02-22] MEDS: ZETIA 10 MG PO (21:08)
[2025-02-22] MEDS: MAGNESIUM OXIDE 400 MG PO (21:08)
--- NOTE | 2025-02-22 21:29 | W.PN.NEURO.1 ---
Today's Communication / Plan
-
evolving stroke with cerebral edema
continue Eliquis
Neuro Assessment/Plan
Assessment
Patient with recurrent left-sided numbness and visual change despite use of anticoagulation for atrial fibrillation due to acute ischemic stroke, recurrent from multiple weeks ago
Patient with recurrent symptoms February 21, 2025 while also experiencing single episode of loose bowels and low abdominal pain
head CT from 02/21 gs rev'd, evolving stroke
head CT 02/22 evening imaging reviewed, evolving stroke.
compared to MRI, I can't tell if more cerebral edema in the area of the stroke, or if he is stroking more of this territory. in either case, he is not a candidate for TNK or thrombectomy.
he is at high risk for stroking more, as well as for hemorrhagic conversion of this stroke, and i believe that risks and benefits favor continuing Eliquis
Plan
Recheck blood glucose
Follow blood pressure
Patient may require abdominal CT with sudden onset of significant abdominal discomfort following bowel movement
continue usual Apixaban
To treat obstructive sleep apnea will need outpatient AutoPAP in hopes of finding a pressure he will tolerate
Goal of normoglycemia
Maintain vitamin B12 replacement
Rehabilitation evaluations and treatment
Will follow pending results
Subjective/Objective
Subjective Data
Date of Service: February 22, 2025
seen this AM and spoke with hospitalist and RN, left arm more numb and tingling. strength about the same.
this evening I spoke with RN - NIHSS 3-->, head CT showing evolving stroke.
Objective Data
Vital Signs
Temp Pulse Resp BP Pulse Ox
36.6 C 85 18 126/63 99
02/22/25 19:30 02/22/25 21:08 02/22/25 19:30 02/22/25 21:08 02/22/25 19:30
Lab Results
02/22/25 06:11
02/22/25 06:11
PT 14.6 Sec (11.4-14.6) 02/19/25 10:45
INR 1.09 02/19/25 10:45
APTT 29.6 Sec (23.4-35.0) 02/19/25 10:45
Sodium 138 mmol/L (135-145) 02/22/25 06:11
Potassium 4.0 mmol/L (3.5-5.1) 02/22/25 06:11
BUN 29 mg/dl (9-20) H 02/22/25 06:11
Glucose 99 mg/dl (70-99) 02/22/25 06:11
Calcium 9.5 mg/dl (8.4-10.2) 02/22/25 06:11
Phosphorus 3.5 mg/dl (2.5-4.5) 02/21/25 06:23
Vitamin B12 815 pg/ml (239-931) 02/19/25 17:16
Patient Allergies
atorvastatin calcium (From Lipitor) Allergy (Verified 02/19/25 10:07)
severe muscle soreness
levofloxacin (From Levaquin) Allergy (Verified 02/19/25 10:07)
Hives
pollen extracts Allergy (Verified 02/19/25 10:07)
Nasal stuffiness - seasonal
Sulfa (Sulfonamide Antibiotics) Allergy (Verified 02/19/25 10:07)
couldn't breathe
Physical Exam
-
AAOx3, speech clear, language intact
Left homo superior quadrantanopsia
LUE drift. RUE and b/l LE full strength.
[2025-02-22 21:55] LABS: Glucose - Point of Care 112 mg/dl (70-99)
--- NOTE | 2025-02-22 23:05 | W.PN.UPDATE ---
Update Note
Progress Note Update
1999 ENVIRONMENTAL ENGINEER SCIENTIST called by RN due to NIH increasing from 3 earlier in day to 5. Pt with increased in numbness to both LUE and LLE. Able to raise LUE and LLE without issue. Increased in ataxia and hemianopia left.
PT admitted 02/19 for CVA symptoms found to have new strokes. Has CVA in Jan receiving TNK at that time.
Eliquis changed to Pradaxa recently.
CT head ordered to r/o bleed vs cerebral edema vs evolving stroke
CT head: IMPRESSION:
Further progression/evolution of nonhemorrhagic infarcts involving the right temporal lobe, right occipital lobe and splenium of corpus callosum in comparison to recent prior CT.
No acute intracranial hemorrhage
DR Medina notified of results. No further orders. Will see in am
Pt updated.
[2025-02-23] VITALS (9 sets, daily range): BP systolic 93–159; BP diastolic 53–77; BMI 30.8
[2025-02-23 03:26] LABS: Glucose - Point of Care 144 mg/dl (70-99)
[2025-02-23 08:00] LABS: Glucose - Point of Care 187 mg/dl (70-99)
[2025-02-23] MEDS: COREG 3.125 MG PO ×2 (08:51→20:01)
[2025-02-23] MEDS: VITAMIN D3 (cholecalciferol) 25 MCG PO (08:51)
[2025-02-23] MEDS: APRESOLINE 25 MG PO ×3 (08:51→22:41)
[2025-02-23] MEDS: PROSCAR 5 MG PO (08:51)
[2025-02-23] MEDS: DIOVAN 320 MG PO (08:51)
[2025-02-23] MEDS: LASIX 60 MG PO ×2 (08:52→17:22)
[2025-02-23] MEDS: PRADAXA 150 MG PO ×2 (08:52→20:00)
[2025-02-23 08:53] LABS: Hematocrit 49.6 % (39.0-52.0); Hemoglobin 16.3 g/dL (13.0-18.0); Mean Corp Hgb Conc. 32.9 g/dL (33.0-37.0); Mean Corpuscular Volume 78.2 fL (80.0-94.0); Platelet Count 215 10^3/uL (130-400); Red Cell Dist. Width 18.3 % (11.5-14.5)
[2025-02-23] MEDS: NORVASC 5 MG PO (08:53)
[2025-02-23] MEDS: KCL 20 MEQ PO (08:53)
[2025-02-23] MEDS: NOVOLOG FLEXPEN-LOW RESISTANCE 1 UNITS SC (08:54)
[2025-02-23] MEDS: NOVOLOG MIX 70/30 FLEXPEN 40 UNITS SC (08:54)
[2025-02-23 09:17] LABS: Blood Urea Nitrogen 29 mg/dl (9-20); Calcium 9.8 mg/dl (8.4-10.2); Carbon Dioxide 23 mmol/L (22-30); Chloride 104 mmol/L (98-107); Estimated Creatinine Clearance 72 ml/min; Glucose 203 mg/dl (70-99); Potassium 4.2 mmol/L (3.5-5.1); Sodium 138 mmol/L (135-145); eGFR > 60.00
[2025-02-23] MEDS: TYLENOL 650 MG PO (10:27)
[2025-02-23] MEDS: VITAMIN B-12 1000 MCG PO (10:27)
--- NOTE | 2025-02-23 10:46 | W.PN.HOSP.TC ---
Today's Communication/Plan
-
monitor
PT OT
Fall precautions
Assessment / Plan
Assessment / Plan
79-year-old second admission this month secondary to stroke.. Stroke noncompliant with Eliquis for A-fib received TNK with complete resolution of symptoms. This episode patient was compliant. Not a candidate for TNK but still new acute infarcts
on MRI symptoms resolved. Cardiology feels this is Eliquis treatment failure and switched to Pradaxa.
Patient was seen earlier today. Late documentation
Patient has been having waxing and waning symptoms on the left side. Mostly with the left arm, he feels that the arm does not belong to him. He has good strength but he has to look at the arm to see that it is there. Patient asked his 'who
is arm is this', has a very mild headache 3 out of 10.
CVS: S1-S2 normal
Chest: CTA B/L
Abdomen: Soft, NT ,
Extremities: No edema, normal pulses
STAND GRINDER:, Motor strength is 5 x 5 ,sensory deficit left hemibody, proprioception and spatial recognition impaired on the left side mostly the left arm
CTA of the head and neck 02/02/2025-atherosclerotic disease involving the right carotid bulb and proximal right ICA 42%.
Less than 25% diameter reduction left carotid bulb and proximal left ICA. Focal narrowing of the distal M1 portion of the left MCA and M2 branches atherosclerotic disease and narrowing involving superior left vertebral artery and proximal basilar
artery. 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
#Left-sided numbness with visual disturbance d/t new CVA
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
CT head appreciated infarcts corresponding to prior stroke treated with TNK earlier this month, no new acute infarction noted.
Brain MRI appreciated new infarcts
Eliquis changed to Pradaxa
Patient had more symptoms on 02/21/2025, during the daytime, overnight and also on 02/22/2025
Mostly related to spatial recognition, proprioception and sensation loss. No motor difficulties. He does have numbness in the left leg also which waxes and wanes.
Possibly secondary to cerebral edema from the CVA
Continue to watch the patient in the hospital
Neurology following
Repeat CT from 02/22/2025-further progression/evolution of nonhemorrhagic infarct involving the right temporal lobe, occipital and splenium of callosum
#HTN/hypertensive urgency
-Blood pressure has been mostly stable
-Coreg ,Valsartan Lasix resumed
-Amlodipine 5 mg daily added
-Hydralazine 25 mg 3 times daily added
# CAD/ CABG x 4 vessel/cardiac stent
-Cont Pradaxa
-Continue Coreg, valsartan
# Paroxysmal M-tpf-vasamjcx Pradaxa and Coreg
#Hx HFpEF
I/O, daily weights
-Continue Lasix 60 mg bid, Coreg, valsartan
#HLD
Lipid panel reviewed in December, LDL above goal >70
hx statin intolerance
Continue ezetimibe
May need to consider PCSK9 inhibitor as outpatient
# DM 2- oral meds temporarily on hold
Recent HgbA1c 9.4 pn 02/02/2025
-Accu-Cheks with SSI
-Continue 70/30 40U BID
# Abnormal TSH with normal T4. Repeat as outpatient
#ALINA- Continue BiPAP
#Class II obesity/metabolic syndrome-weight loss counseled
# Prostate disease-continue finasteride
# Polycythemia
# History of nephrolithiasis
# History of Doyle's palsy
# GERD
# Erectile dysfunction
#Atherosclerotic renal artery stenosis
#DVT prophylaxis-Pradaxa
D/W son at bed side
Discussed with nursing
Unfortunately patient has fluctuating neurosymptoms likely secondary to cerebral edema/completion of the stroke. He is already on Pradaxa and not a candidate for TNK. Explained to patient/family. Neurology also following will follow
recommendations.
Continue physical therapy. Fall precautions
Part of this note was created using voice recognition system. Occasional wrong word or��sound alike� substitutions may have inadvertently occurred due to the inherent limitations of voice recognition software. If noted kindly bring it to my
attention for correction.
Anticipated Discharge: 24 - 48 hours
Subjective/Interval History
-
Date of Service: February 23, 2025
Objective Data
-
Labs:
Laboratory Results
02/23/25
08:24
WBC 9.3
Hgb 16.3
Hct 49.6
Plt Count 215
Sodium 138
Potassium 4.2
Chloride 104
Carbon Dioxide 23
BUN 29 H
Creatinine 1.0
Glucose 203 H
Calcium 9.8
Vital Signs:
Vital Signs
Temp Pulse Resp BP Pulse Ox
98.2 F 87 18 159/74 93
02/23/25 07:00 02/23/25 07:00 02/23/25 07:00 02/23/25 07:00 02/23/25 07:00
I&O
02/22/25 02/23/25 02/24/25
06:59 06:59 06:59
Intake Total 660 / 660 510 / 510
Output Total 300 / 300 550 / 550
Balance 360 / 360 510 / 510 -550 / -550
[2025-02-23 11:53] LABS: Glucose - Point of Care 100 mg/dl (70-99)
[2025-02-23] MEDS: NOVOLOG FLEXPEN-LOW RESISTANCE SC ×2 (13:11→17:06)
--- NOTE | 2025-02-23 14:07 | W.PN.NEURO.1 ---
Today's Communication / Plan
-
No driving, visual field reported to [facility] 02/23
PM&R consulted
Neuro Assessment/Plan
Assessment
Patient with recurrent left-sided numbness and visual change despite use of anticoagulation for atrial fibrillation due to acute ischemic stroke, recurrent from multiple weeks ago
Patient with recurrent symptoms February 21, 2025 while also experiencing single episode of loose bowels and low abdominal pain
head CT from 02/21 imgs rev'd, evolving stroke.
head CT 02/22 evening imaging reviewed, evolving stroke compared to 02/21
compared to MRI, I can't tell if more cerebral edema in the area of the stroke, or if he is stroking more of this territory. but I suspect he may have completed the right REVENUE ANALYST territory stroke. in either case, he is not a candidate for TNK or
thrombectomy.
he is at high risk for stroking more, as well as for hemorrhagic conversion of this stroke, and i believe that risks and benefits favor continuing anticoagulation, agree Eliquis-->Pradaxa.
Plan
Eliquis--> Pradaxa
needs outpatient sleep apnea treatment
diabetes control
No driving, visual field reported to [facility] 02/23
PM&R consulted
Subjective/Objective
Subjective Data
Date of Service: February 23, 2025
Last night patient with worsening LUE weakness/ataxia, head CT showing evolving stroke.
Objective Data
Vital Signs
Temp Pulse Resp BP Pulse Ox
36.5 C 66 18 93/53 93
02/23/25 11:00 02/23/25 11:00 02/23/25 11:00 02/23/25 11:00 02/23/25 11:00
Lab Results
02/23/25 08:24
02/23/25 08:24
PT 14.6 Sec (11.4-14.6) 02/19/25 10:45
INR 1.09 02/19/25 10:45
APTT 29.6 Sec (23.4-35.0) 02/19/25 10:45
Sodium 138 mmol/L (135-145) 02/23/25 08:24
Potassium 4.2 mmol/L (3.5-5.1) 02/23/25 08:24
BUN 29 mg/dl (9-20) H 02/23/25 08:24
Glucose 203 mg/dl (70-99) H 02/23/25 08:24
Calcium 9.8 mg/dl (8.4-10.2) 02/23/25 08:24
Phosphorus 3.5 mg/dl (2.5-4.5) 02/21/25 06:23
Vitamin B12 815 pg/ml (239-931) 02/19/25 17:16
Patient Allergies
atorvastatin calcium (From Lipitor) Allergy (Verified 02/19/25 10:07)
severe muscle soreness
levofloxacin (From Levaquin) Allergy (Verified 02/19/25 10:07)
Hives
pollen extracts Allergy (Verified 02/19/25 10:07)
Nasal stuffiness - seasonal
Sulfa (Sulfonamide Antibiotics) Allergy (Verified 02/19/25 10:07)
couldn't breathe
Physical Exam
-
NIHSS 5 (visual field 2, face 1, LUE 1, LLE 1)
AAOx3, speech clear, language intact
left homonymous hemianopsia
left nasolabial flattening
LUE/LE 4/5
LUE Ataxia - propbably proportional to the weakness
[2025-02-23 16:39] LABS: Glucose - Point of Care 109 mg/dl (70-99)
[2025-02-23] MEDS: FOLVITE 1 MG PO (17:20)
[2025-02-23] MEDS: NOVOLOG MIX 70/30 FLEXPEN SC (17:26)
[2025-02-23] MEDS: MAGNESIUM OXIDE 400 MG PO (21:40)
[2025-02-23] MEDS: ZETIA 10 MG PO (21:40)
[2025-02-23 21:59] LABS: Glucose - Point of Care 174 mg/dl (70-99)
[2025-02-24] VITALS (8 sets, daily range): BP systolic 98–160; BP diastolic 48–87; PULSE 69; O2SAT 92; BMI 31.2
[2025-02-24 05:39] LABS: Hematocrit 49.5 % (39.0-52.0); Hemoglobin 16.2 g/dL (13.0-18.0); Mean Corp Hgb Conc. 32.7 g/dL (33.0-37.0); Mean Corpuscular Volume 79.1 fL (80.0-94.0); Platelet Count 215 10^3/uL (130-400); Red Cell Dist. Width 18.4 % (11.5-14.5)
[2025-02-24 06:04] LABS: Blood Urea Nitrogen 32 mg/dl (9-20); Calcium 9.4 mg/dl (8.4-10.2); Carbon Dioxide 23 mmol/L (22-30); Chloride 106 mmol/L (98-107); Estimated Creatinine Clearance 65 ml/min; Glucose 200 mg/dl (70-99); Potassium 4.5 mmol/L (3.5-5.1); Sodium 138 mmol/L (135-145); eGFR > 60.00
--- NOTE | 2025-02-24 07:26 | PN.DE.MGMTRT ---
Insulin Management
- -
02/24/2025: Diabetes Management Follow up
Patient admitted 02/19 with L sided weakness/numbness similar to recent admission 02/02 to 02/07.
PMH: CAD s/p CABG, HTN, HCL, A-Fib, diabetes, ALINA. Prior to admission was taking 70/30 insulin 60 units BID. A1C 9.4% from 02/02 admission, Cr 0.7, eGFR > 60.
Patient states he follows with his primary doctor Brianna for diabetes care. He has a meter and test 3 to 4 times per day. His OP record indicates he was taking Jardiance and Metformin in the past, both were discontinued-unknown reason.
02/22 70/30 doses reduced to 40 units BID. Patient received AM dose yesterday, glucose 109 pre dinner. Received no 70/30 with dinner. HS glucose 174, Fasting glucose 200. Will continue 70/30 insulin 40 units with low corrective insulin.
Will closely monitor glucose trend and adjust 70/30 dose if necessary.
Discussed with nurse. Will cont to follow.
Diabetes History
- -
Type of Diabetes: 2 requiring insulin
Pre-Admission Diabetes Regimen
02/23/25 02/24/25
08:24 05:07
Creatinine 1.0 1.1
Insulin Pump Settings
IP Diabetes Regimen
02/23/25 02/23/25 02/23/25
07:58 08:24 11:52
Glucose 203 H
POC Glucose 187 H 100 H
02/23/25 02/23/25 02/24/25
16:38 21:58 05:07
Glucose 200 H
POC Glucose 109 H 174 H
Patient Education
--- NOTE | 2025-02-24 07:35 | W.PN.HOSP.TC ---
Today's Communication/Plan
-
Today, 02/24/2025, patient felt that his left arm condition was improving, but his NIHSS increased from 5-7. Due to increasing NIHSS, patient received another head CT to rule out a bleed. Head CT demonstrated no new bleed.
Assessment / Plan
Assessment / Plan
79-year-old man with a PMH notable for metabolic syndrome, ALINA, paroxysmal A-fib, CAD s/p CABG x 4, who presented with worsening stroke symptoms that is thought to be due to continuation/completion of his stroke 1 week prior. This is his second
admission this month for stroke. His stroke symptoms increased, which is likely due to evolution/completion of the stroke. He has residual symptoms of bilateral left hemianopsia, left dysmetria and and left hemisensory deficits. His left upper
extremity is most affected by loss of proprioception.
Was noncompliant with Eliquis for A-fib. Received TNK with complete resolution of symptoms. Patient has been compliant with Eliquis since his stroke. Not a candidate for TNK this admission, since patient received TNK a week prior to presentation.
New acute infarcts on MRI. Cardiology felt this is Eliquis treatment failure and switched to Pradaxa.
Patient has been having waxing and waning symptoms on the left side. Mostly with the left arm. He feels that the arm does not belong to him. He has good strength but he has to look at the arm to see that it is there. Patient asked his 'who's
arm is this'. Had a very mild headache 3 out of 10.
Today, 02/24/2025, patient felt that his left arm condition was improving, but his NIHSS increased from 5-7. Patient received another head CT, which demonstrated no new bleed.
02/24:
NIHSS 7 (from 5 previously)
+3 for bilateral left hemianopia
+1 for gaze palsy that corrects with oculocephalic reflex
+1 for sensation loss mild to moderate
+1 for ataxia of left upper extremity on finger-nose. [id number] not ataxic bilaterally
+1 for extinction to bilateral simultaneous stimulation in lower extremities. No inattention in upper extremities
No drift of bilateral upper and lower extremities.
Patient was complaining of nausea. Gave pantoprazole and Zofran as needed.
Rehab consulted (by neurology).
CTA of the head and neck 02/02/2025-atherosclerotic disease involving the right carotid bulb and proximal right ICA 42%.
Less than 25% diameter reduction left carotid bulb and proximal left ICA. Focal narrowing of the distal M1 portion of the left MCA and M2 branches atherosclerotic disease and narrowing involving superior left vertebral artery and proximal basilar
artery. There appears to be an abrupt cut off at the junction of P1 and P2 portions of the right NURSE SUBSTANCE ABUSE which is new compared to 2021.
#Left-sided numbness with visual disturbance d/t new CVA
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
CT head appreciated infarcts corresponding to prior stroke treated with TNK earlier this month, no new acute infarction noted.
Brain MRI appreciated new infarcts
Eliquis changed to Pradaxa
Patient had more symptoms on 02/21/2025, during the daytime, overnight and also on 02/22/2025
Mostly related to spatial recognition, proprioception and sensation loss. No motor difficulties. He does have numbness in the left leg also which waxes and wanes.
Possibly secondary to cerebral edema from the CVA
Continue to watch the patient in the hospital
Neurology following
Repeat CT from 02/22/2025-further progression/evolution of nonhemorrhagic infarct involving the right temporal lobe, occipital and splenium of callosum
Repeat CT from 02/24/2025: Evolving infarctions in the right temporal and occipital lobes as well as splenium of the corpus callosum. There is minimal increase associated edema. There is a small mild cortical hyperdensity along the posterior medial
aspect of the left occipital lobe, which likely represents cortical laminar necrosis.
#HTN/hypertensive urgency
-Blood pressure has been mostly stable
-Coreg, Valsartan, Lasix resumed
-Amlodipine 5 mg daily added
-Hydralazine 25 mg 3 times daily added
# CAD/ CABG x 4 vessel/cardiac stent
-Cont Pradaxa
-Continue Coreg, valsartan
# Paroxysmal [id number] Pradaxa and Coreg
#Hx HFpEF
I/O, daily weights
-Continue Lasix 60 mg bid, Coreg, valsartan
#HLD
Lipid panel reviewed in December, LDL above goal >70
hx statin intolerance
Continue ezetimibe
May need to consider PCSK9 inhibitor as outpatient
# DM 2- oral meds temporarily on hold
Recent HgbA1c 9.4 pn 02/02/2025
-Accu-Cheks with SSI
-Continue 70/30 40U BID
# Abnormal TSH with normal T4. Repeat as outpatient
#ALINA- Continue BiPAP
- Needs outpatient apnea investigation per neurology
#Class II obesity/metabolic syndrome-weight loss counseled
# Prostate disease-continue finasteride
# Polycythemia
# History of nephrolithiasis
# History of Doyle's palsy
# GERD
# Erectile dysfunction
#Atherosclerotic renal artery stenosis
#DVT prophylaxis-Pradaxa
D/W son at bed side
Discussed with nursing
Unfortunately patient has fluctuating neurosymptoms likely secondary to cerebral edema/completion of the stroke. He is already on Pradaxa and not a candidate for TNK. Explained to patient/family. Neurology also following will follow
recommendations.
Continue physical therapy. Fall precautions
Part of this note was created using voice recognition system. Occasional wrong word or��sound alike� substitutions may have inadvertently occurred due to the inherent limitations of voice recognition software. If noted kindly bring it to my
attention for correction.
Anticipated Discharge: 24 - 48 hours
Subjective/Interval History
-
Date of Service: February 24, 2025
The patient reports his left arm coordination is improving. He still feels numbness in his left arm.
He still has difficulty seeing his left visual field.
Reports nausea. Will give Zofran 4 mg IV every 6 hours as needed and pantoprazole 40 mg IV once daily.
Objective Data
-
Labs:
Laboratory Results
02/24/25
05:07
WBC 9.5
Hgb 16.2
Hct 49.5
Plt Count 215
Sodium 138
Potassium 4.5
Chloride 106
Carbon Dioxide 23
BUN 32 H
Creatinine 1.1
Glucose 200 H
Calcium 9.4
Vital Signs:
Vital Signs
Temp Pulse Resp BP Pulse Ox
97.9 F 58 20 98/48 96
02/24/25 03:33 02/24/25 03:33 02/24/25 03:33 02/24/25 03:33 02/24/25 03:33
I&O
02/23/25 02/24/25 02/25/25
06:59 06:59 06:59
Intake Total 510 / 510 720 / 720
Output Total 1415 / 1415
Balance 510 / 510 -695 / -695
Review of Systems
-
History Source: Patient and Family
Constitutional: Reports No Symptoms
EENT: Reports Decreased Vision (Difficulty seeing left visual field)
Respiratory: Reports No Symptoms
Cardiac: Reports No Symptoms
Abdomen/GI: Reports No Symptoms
Genitourinary: Reports No Symptoms
Skin: Reports No Symptoms
Neuro: Reports Numbness (Left hemisensory deficit) and Ataxia (Left upper extremity dysmetria)
Physical Exam
-
General: Well Developed, Well Nourished, No Apparent Distress and Comfortable
HEENT: Normocephalic, Atraumatic and Moist Mucous Membranes
Respiratory: Clear to Auscultation
Cardiac: Regular Rhythm and S1/S2
GI: Soft, Nontender, Nondistended and Normal Bowel Sounds
Skin: Warm and Dry
Neuro: Awake, Alert, Oriented, AO x 3, No Sensory Deficits (Extinction to bilateral simultaneous stimulation in the left thigh and left upper extremity) and Other (Dysmetria on left finger-nose. Bilateral left hemianopsia)
Data Reviewed
-
Total Time Spent with Patient (in minutes): 25
Diagnostic Radiology: Report Reviewed by me
CT Scan: Report Reviewed by me
Labs: Labs Reviewed by me
[2025-02-24 08:17] LABS: Glucose - Point of Care 227 mg/dl (70-99)
[2025-02-24] MEDS: KCL 20 MEQ PO (08:59)
[2025-02-24] MEDS: COREG 3.125 MG PO ×2 (08:59→21:51)
[2025-02-24] MEDS: VITAMIN D3 (cholecalciferol) 25 MCG PO (08:59)
[2025-02-24] MEDS: NORVASC 5 MG PO (08:59)
[2025-02-24] MEDS: PRADAXA 150 MG PO ×2 (08:59→21:51)
[2025-02-24] MEDS: DIOVAN 320 MG PO (09:00)
[2025-02-24] MEDS: APRESOLINE 25 MG PO ×3 (09:00→21:55)
[2025-02-24] MEDS: LASIX 60 MG PO ×2 (09:02→16:17)
[2025-02-24] MEDS: VITAMIN B-12 1000 MCG PO (09:02)
[2025-02-24] MEDS: PROSCAR 5 MG PO (09:02)
[2025-02-24] MEDS: NOVOLOG FLEXPEN-LOW RESISTANCE 2 UNITS SC (09:04)
[2025-02-24] MEDS: NOVOLOG MIX 70/30 FLEXPEN 40 UNITS SC (09:05)
[2025-02-24] MEDS: FLUSH (NSS) 1 FLUSH IV (10:23)
[2025-02-24] MEDS: ZOFRAN 4 MG IV (10:23)
--- NOTE | 2025-02-24 10:25 | PTCARENOTE ---
Pt c/o nausea, made aware, new order provided, see MAR.
--- NOTE | 2025-02-24 11:47 | PTCARENOTE ---
Pt and OT informed this RN that patient is having increased difficulty getting OOB from previous assessment yesterday. They informed this RN that he is having increased weakness and ataxia on the L side. NIH increased to a 7 from nightshift
assessment. Neurologist made aware, new order provided.
[2025-02-24 11:59] LABS: Glucose - Point of Care 127 mg/dl (70-99)
[2025-02-24] MEDS: NOVOLOG FLEXPEN-LOW RESISTANCE SC (12:34)
--- NOTE | 2025-02-24 14:41 | CON.MR ---
Documented by User: Esau Torres MD, Resident 02/24/25 19:57
Consultation
Consultation Request
Date/Time Consultation Requested: 02/23/25
Date/Time Consultation Performed: 02/24/25
Requesting Provider: Alexander Medina
Performing Provider: Dr. Santizo
Reason for Consultation: stroke
Medical History
-
Chief Complaint: Ischemic stroke, headache left-sided numbness
History of Present Illness:
Mr. White is a 79-year-old male with a history of past medical history of recent admission for right occipital lobe, temporal lobe, thalamus infarcts due to embolic stroke from paroxysmal A-fib now on Eliquis, HTN, HLD, DM2, ALINA,
obesity, CAD status post CABG x 4 vessel, cardiac stent, Polycythemia, Renal calculi, Doyle's palsy, GERD, Erectile dysfunction, Metabolic syndrome, Atherosclerotic renal artery stenosis who reports headache and residual left-sided face numbness. He
states on 02/18 morning at 9 AM after physical therapy he developed headache. He reports going to bed 11 PM with a headache and blood pressure was 170 he reports he took 2 Tylenol. He woke up around 330 this a.m. feeling increased numbness to left
side of his face and body with some tingling that has been persistent. Work up with MRI notes new infarcts. In the hospital patient's antihypertensive medications were increased and new medications were started, Eliquis was changed to Pradaxa due to
Eliquis failure. During his stay patient continued to have evolving stroke with with increase in NIHSS 3 to 5, and progression of infarcts/cerebral edema on CT. No hemorrhagic conversion however now with more prominent left visual field deficits.
Past Medical History
Past Medical History: Arrhythmias (Paroxysmal A-fib on Eliquis), CAD, CHF (HFpEF), CVA (02/02 with TNK), GERD, HTN, Hypercholesterolemia (Statin intolerant), IDDM and Other (Renal artery stenosis, polycythemia, ALINA, obesity, Renal calculi)
Past Surgical History: Other (CABG)
Family History
Family History: Reviewed & Not Pertinent
Social History
Functional Level Premorbidity:
Independent for all activities.
Current Funct Level: Ambulation, Transfer, UE/LE Dressing:
Bed mobility supine to sit with supervision sit to supine with minimal assist
Transfers mod a, leans to the left weaker side
Ambulation not assessed due to safety reasons
Tobacco: Former Smoker (quit 1988)
Alcohol: Occasional
Drug: None
Personal:
Living: With Spouse
Is 24 hour care available: Yes
Number of Floors: Other (4)
# Steps to Enter: 3
# Steps to Second Floor: 12
Potential First Floor Set Up: Yes
Driving: Yes
Employment: Retired
Allergies / Home Medications
Allergy/AdvReac Type Severity Reaction Status Date / Time
atorvastatin calcium (From Allergy severe Verified 02/19/25 10:07
Lipitor) muscle
soreness
levofloxacin (From Levaquin) Allergy Hives Verified 02/19/25 10:07
pollen extracts Allergy Nasal Verified 02/19/25 10:07
stuffiness
- seasonal
Sulfa (Sulfonamide Allergy couldn't Verified 02/19/25 10:07
Antibiotics) breathe
�Medication �Instructions �Recorded �Confirmed �Last Taken �Type
lutein 20 mg capsule 20 mg PO BID Supplement 07/10/09 02/19/25 02/19/25 History
cyanocobalamin (vitamin B-12) 1,000 mcg PO DAILY Supplement 06/02/17 02/19/25 02/19/25 History
1,000 mcg tablet
finasteride 5 mg tablet 5 mg PO DAILY Urinary issue 06/02/17 02/19/25 02/19/25 History
red yeast rice 600 mg tablet 1,600 mg PO BID Supplement 06/16/17 02/19/25 02/19/25 History
cholecalciferol (vitamin D3) 25 1,000 units PO DAILY Supplement 08/15/19 02/19/25 02/19/25 History
mcg (1,000 unit) tablet
potassium chloride 20 mEq 20 meq PO DAILY Electrolyte 03/05/21 02/19/25 02/19/25 History
tablet,extended Repletion
release(part/cryst) (Klor-Con M)
folic acid 1 mg tablet 1 mg PO QPM Supplement 01/18/23 02/19/25 02/18/25 History
omega 9-icv-nas-fish oil 1,000 mg 1 cap PO BID Supplement ##0 01/18/23 02/19/25 02/19/25 History
(120 mg-180 mg) capsule (Fish Oil)
furosemide 40 mg tablet (Lasix) 60 mg PO BID Fluid 01/02/24 02/19/25 02/19/25 History
retention/Swelling
magnesium oxide 400 mg PO HS Electrolyte Repletion 11/15/24 02/19/25 02/18/25 History
##0
valsartan 160 mg tablet 160 mg PO DAILY Blood Pressure 11/15/24 02/19/25 02/19/25 History
carvedilol 3.125 mg tablet 3.125 mg PO BID Blood Pressure 11/30/24 02/19/25 02/19/25 History
apixaban 5 mg tablet (Eliquis) 5 mg PO BID #60 tabs 02/06/25 02/19/25 02/19/25 Rx
ezetimibe 10 mg tablet 10 mg PO HS #30 tabs 02/06/25 02/19/25 02/18/25 Rx
acetaminophen 325 mg capsule 650 mg PO Q6HPRN PRN mild pain 02/19/25 02/19/25 02/18/25 History
insulin aspar prot-insulin aspart 60 unit SC BID Diabetes 02/19/25 02/19/25 02/18/25 History
100 unit/mL (70-30) subcutaneous
pen (Novolog Mix 70-30FlexPen
U-100)
Review Of Systems
-
History Source: Patient and Family
Constitutional: Denies Fever or Night Sweats
Eye: Reports Visual Field Cut (left side); Denies Pain
EENT: Reports No Symptoms
Respiratory: Denies Cough or Trouble Breathing
Cardiac: Denies Chest Pain or Palpitations
Abdomen/GI: Denies Abdominal Pain, Nausea or Diarrhea
: Reports No Symptoms; Denies Dysuria
Musculoskeletal: Reports No Symptoms
Neurological: Reports Weakness and Numbness; Denies Dizzy
Physical Exam
Active Medications
Generic Name Dose Route Start Last Admin
Trade Name Freq PRN Reason Stop Dose Admin
Acetaminophen 650 mg 02/19/25 17:57 02/23/25 10:27
Acetaminophen 325 Mg Tablet PO 03/19/25 17:56 650 mg
Q4HPRN PRN Administration
mild pain/IRVIN/temp> 100.4F
Amlodipine Besylate 5 mg 02/22/25 08:00 02/24/25 08:59
Amlodipine 5 Mg Tablet PO 03/22/25 07:59 5 mg
DAILY MAYELA Administration
Carvedilol 3.125 mg 02/19/25 20:00 02/24/25 08:59
Carvedilol 3.125 Mg Tablet PO 03/19/25 19:59 3.125 mg
BID MAYELA Administration
Cholecalciferol 25 mcg 02/20/25 08:00 02/24/25 08:59
Cholecalciferol (Vitamin D3) 25 Mcg Tablet (1,000 Units) PO 03/20/25 07:59 25 mcg
DAILY MAYELA Administration
Cyanocobalamin 1,000 mcg 02/20/25 08:00 02/24/25 09:02
Cyanocobalamin (Vitamin B-12) 500 Mcg Tablet PO 03/20/25 07:59 1,000 mcg
DAILY MAYELA Administration
Dabigatran 150 mg 02/20/25 20:00 02/24/25 08:59
Dabigatran Etexilate (Pradaxa) 150 Mg Capsule PO 03/20/25 19:59 150 mg
BID MAYELA Administration
Dextrose 12.5 grams 02/19/25 17:57
Dextrose 50% (0.5 Grams/Ml) 50 Ml Syringe IV 03/19/25 17:56
[id number] PRN
hypoglycemia
Protocol
Ezetimibe 10 mg 02/19/25 22:00 02/23/25 21:40
Ezetimibe (Zetia) 10 Mg Tablet PO 03/19/25 21:59 10 mg
HS MAYELA Administration
Finasteride 5 mg 02/20/25 08:00 02/24/25 09:02
Finasteride 5 Mg Tablet PO 03/20/25 07:59 5 mg
DAILY MAYELA Administration
Folic Acid 1 mg 02/19/25 18:00 02/23/25 17:20
Folic Acid 1 Mg Tablet PO 03/19/25 17:59 1 mg
QPM MAYELA Administration
Furosemide 60 mg 02/19/25 18:00 02/24/25 09:02
Furosemide 40 Mg Tablet PO 03/19/25 17:59 60 mg
BID AT 0800,1600 MAYELA Administration
Glucagon 1 mg 02/19/25 17:57
Glucagon 1 Mg Vial IM 03/19/25 17:56
PRN PRN
hypoglycemia
Protocol
Hydralazine HCl 5 mg 02/20/25 13:02 02/21/25 04:45
Hydralazine 20 Mg/Ml Vial IV 03/20/25 13:01 5 mg
Q4HPRN PRN Administration
SBP>140 or DBP>100
Hydralazine HCl 25 mg 02/21/25 16:00 02/24/25 09:00
Hydralazine 25 Mg Tablet PO 03/21/25 15:59 25 mg
TID MAYELA Administration
Insulin Aspart 0 units 02/19/25 17:57 02/24/25 12:34
Insulin Aspart Low Resistance 300 Units/3 Ml Pen.Injctr SC 03/19/25 17:56 Not Given
AC MAYELA
Protocol
Insulin Aspart Prota 70%/Aspart 30% 45 units 02/24/25 10:13
Novolog Mix 70/30 (100 Units/Ml) 3 Ml Flexpen SC 03/20/25 16:59
BID@0800,1700 MAYELA
Magnesium Oxide 400 mg 02/19/25 22:00 02/23/25 21:40
Magnesium Oxide 400 Mg Tablet PO 03/19/25 21:59 400 mg
HS MAYELA Administration
Ondansetron HCl 4 mg 02/24/25 14:35
Ondansetron 4 Mg/2 Ml Vial IV 03/24/25 14:34
Q6HPRN PRN
nausea
Pantoprazole Sodium 40 mg 02/25/25 08:00
Pantoprazole Sodium 40 Mg/10 Ml Vial IV 03/25/25 07:59
DAILY MAYELA
Potassium Chloride 20 meq 02/20/25 08:00 02/24/25 08:59
Potassium Chloride 20 Meq Extended Release Tablet PO 03/20/25 07:59 20 meq
DAILY MAYELA Administration
Sodium Chloride 0 flush 02/19/25 19:00 02/24/25 10:23
Sodium Chloride 0.9% (Flush) Syringe IV 03/19/25 18:59 1 flush
PER PROTOCOL MAYELA Administration
Sodium Chloride 10 ml 02/25/25 08:00
Sodium Chloride 0.9% (Preservative Free) 10 Ml Vial IV 03/25/25 07:59
DAILY MAYELA
Valsartan 320 mg 02/21/25 08:00 02/24/25 09:00
Valsartan 160 Mg Tablet PO 03/21/25 07:59 320 mg
DAILY MAYELA Administration
Vital Signs
Temp Pulse Resp BP Pulse Ox
98.1 F 68 18 124/63 93
02/24/25 11:00 02/24/25 11:00 02/24/25 11:00 02/24/25 11:00 02/24/25 11:00
Height 6 ft
Actual Weight 104.19 kg
Body Mass Index (BMI) 31.2
Physical Exam
Physical Exam:
General Appearance/Observation: Well-developed, well-nourished individual in no apparent distress.
Pain/Comfort Assessment: Denies
Mood/Affect: Appropriate
Integumentary/Operative Site:
Pressure Ulcer: absent
Other Type of Wound: absent
Eyes: Conjunctiva/Lids: normal Pupils: Right pupil dilated compared to left, minimal reactivity to light bilaterally
Ears/Nose/Throat: oral mucosa moist, throat clear. Lips/Teeth/Gums: normal
Neck: No muscle spasm or tenderness
Cardiovascular: Heart: regular, no murmur
Pulses: dorsalis pedis 2+ bilaterally
Respiratory: Respiratory Effort/Chest Expansion: normal Auscultation: Clear to auscultation bilaterally
Gastrointestinal: abdomen not tender, no distension, normal abdominal bowel sounds
Genitourinary: No Dan
Rectal Exam: Deferred
Extremities: Edema: None Cyanosis: None Trophic changes: None
Neurology Exam:
Orientation: Alert, Oriented to self, Time, Place
Memory: Intact immediately and at 3 minutes
Higher cortical function
Speech: Intact
Repetition: Intact
Comprehension: Intact
Two step command: Intact
Naming: Intact
Cranial Nerves:
CNII: Pupillary light reflex: Intact Visual Field: Left homonymous hemianopia
CN III, IV, : Extraocular muscles: Intact
CN V: Facial Sensation at Forehead: mildly diminished on the left Maxilla: mildly diminished on the left Mandible: mildly diminished on the left
CN VII: Facial movement: Asymmetric grin, left flattening
CN VIII: Hearing: intact and equal bilat
CN IX/X: Speech & swallow: Normal, Position of Uvula: Midline
CN XI: Shoulder shrug: Symmetric
CN XII: Tongue protrusion: mild leftward deviation
Sensory:
Light touch: Severely diminished in left upper and lower extremities
Pinprick: Deferred
Proprioception: Diminished and left upper and lower extremities
Temperature: Deferred
Reflexes:
Biceps: 0 bilaterally
Brachioradialis: 0 bilaterally
Triceps: 0 bilaterally
Patellar: 0 right 0 left
Achilles: 0 bilaterally
Babinski: Downgoing bilaterally
Clonus: negative,
Willy: Negative bilaterally
Cerebellar: Dysmetria/Ataxia: Unable to complete [id number] on the left side, difficulty completing on right side when finger in left visual field
Rowan to heel normal bilaterally
Musculoskeletal:
Motor: (Manual muscle scale 0-5)
Muscle SA EF WE EE FF FA HF KE DF EHL PF
Right 5 5 5 5 5 5 5 5 5 5 5
Left 5 4 4 4 4 4 4 5 4 4 4
Tone: Normal in all extremities
Range of Motion: Passively within normal limits in all extremities
Lab Results
02/24/25 05:07
02/24/25 05:07
WBC 9.5 10^3/uL (4.8-10.8) 02/24/25 05:07
Hgb 16.2 g/dL (13.0-18.0) 02/24/25 05:07
Hct 49.5 % (39.0-52.0) 02/24/25 05:07
MCV 79.1 fL (80.0-94.0) L 02/24/25 05:07
Plt Count 215 10^3/uL (130-400) 02/24/25 05:07
ESR 1 mm/hour (0-20) 02/19/25 17:16
PT 14.6 Sec (11.4-14.6) 02/19/25 10:45
INR 1.09 02/19/25 10:45
Sodium 138 mmol/L (135-145) 02/24/25 05:07
Potassium 4.5 mmol/L (3.5-5.1) 02/24/25 05:07
Chloride 106 mmol/L (98-107) 02/24/25 05:07
Carbon Dioxide 23 mmol/L (22-30) 02/24/25 05:07
BUN 32 mg/dl (9-20) H 02/24/25 05:07
Creatinine 1.1 mg/dL (0.7-1.3) 02/24/25 05:07
eGFR > 60.00 02/24/25 05:07
Glucose 200 mg/dl (70-99) H 02/24/25 05:07
Calcium 9.4 mg/dl (8.4-10.2) 02/24/25 05:07
Phosphorus 3.5 mg/dl (2.5-4.5) 02/21/25 06:23
Magnesium 2.2 mg/dl (1.6-2.3) 02/21/25 06:23
Total Bilirubin 1.3 mg/dl (0.2-1.3) 02/20/25 07:12
AST 21 U/L (17-59) 02/20/25 07:12
ALT 24 U/L (0-50) 02/20/25 07:12
Alkaline Phosphatase 76 U/L (38-126) 02/20/25 07:12
C-Reactive Protein < 5.00 mg/L (0.0-10.00) 02/19/25 17:16
Total Protein 7.2 g/dl (6.3-8.2) 02/20/25 07:12
Albumin 4.4 g/dl (3.5-5.0) 02/20/25 07:12
Diagnostic Results
As per HPI.
Comorbidities / Impairment Group
Comorbidities:
Impairment Group:
Assessment / Plan
Assessment
Mr. White is a 79-year-old male with a history of past medical history of infarcts right occipital lobe, temporal lobe, thalamus due to embolic stroke from paroxysmal A-fib on Eliquis, HTN, HLD, DM2, ALINA, obesity, CAD status post CABG x 4
vessel, cardiac stent who reports headachea and residual left-sided face numbness from infarcts. He had a recent admission secondary to multiple acute infarcts. MRI notes new infarcts. Patient continued to have evolving stroke with with
increase in NIHSS, and progression of infarcts/cerebral edema on CT.
Plan
PM&R PT/OT to increase independence with ADLs, improve balance, coordination, endurance, strength, mobility, community reintegration, decreased burden of care on others and family education.
CVA: Secondary prophylaxis with Eliquis as patient unable to tolerate aspirin, Zetia, and blood pressure control (SBP less than 180 and diastolic less than 100 to participate with therapy for ischemic stroke). Continue to monitor neurologic status.
Left nondominant hemiparesis: High risk for falls and sliding out of chair/bed. Safety reinforced.
- Avoid using affected arm to help lift or pull patient as this will cause trauma to the shoulder.
Dysphagia: speech evaluation, oral care protocol, chlorhexidine rinse after meals and HS, aspiration precautions. Advance diet as tolerated.
Dysarthria: speech evaluation
HTN: continue medications, monitor closely
HLD: Continue medications
Coronary artery disease : Zetia, beta-henrry
CAD S/P CABG x 4: Sternal precautions. BP control. Monitor incision, pain control.
Atrial fibrillation: Continue anticoagulation and rate control medications.
CHF: EF 55-60 %, beta henrry, monitor fluid status
DM II: Accu-Cheks, insulin sliding scale, metformin, lispro, lantus per primary
ALINA: possible CPAP use if patient amenable
Skin: monitor for pressure sores/rashes/lesions, injuries from left neglect
Pain: acetaminophen or oxycodone as needed.
Bowel: As needed Colace and Senna bisacodyl
GI Prophylaxis: Pantoprazole
DVT Prophylaxis: Pradaxa
Obesity: Continue to school adjustment counselor patient about diet adjustments to control obesity. Body habitus and increased force to move body and extremities causes further difficulty with functional tasks.
Safety: Continue to reinforce assistance with all transfers.
Code Status: Full code
Dispo: Acute rehab
Functional and Medical Goals: Modified Independent with ADL�s, ambulation, transfers
Summary
-
Things that must be addressed in Hospital prior to discharge:
Patient must be stable on oral pain medications.
Only Pigtail chest tubes are possible.
Blood pressure must be less than 180 systolic and 100 diastolic for 24 hours before being stable for transfer to SNF/acute rehab.
Please give blood pressure parameters.
Please comment on ROM, bracing and weight bearing precautions.
Please comment on dvt chemoprophylaxis restrictions.
Discharge Destination: Acute rehab
Summary of recommendations:
- Discharge Destination: Acute rehab
Will continue to follow patient.
Thank you for allowing me to care for your patient. Please contact me with any questions or concerns.
Comments
-
This note was dictated using a voice recognition system. Please excuse any typographical errors from strategy manager. If you believe there are any discrepancies, please notify our office.

Documented by User: Ivan Santizo MD 02/25/25 00:08
Review Of Systems
-
Musculoskeletal: Reports No Symptoms
Integumentary: Reports No Symptoms
Psych: Reports No Symptoms
Physical Exam
Physical Exam
Physical Exam:
General Appearance/Observation: Well-developed, well-nourished male in no apparent distress.
Pain/Comfort Assessment: Denies
Mood/Affect: Appropriate
Integumentary/Operative Site:
Pressure Ulcer: absent
Eyes: Conjunctiva/Lids: normal Pupils: Right pupil dilated compared to left, minimal reactivity to light bilaterally
Ears/Nose/Throat: oral mucosa moist, throat clear. Lips/Teeth/Gums: normal
Neck: No muscle spasm or tenderness
Cardiovascular: Heart: regular, no murmur
Pulses: dorsalis pedis 2+ bilaterally
Respiratory: Respiratory Effort/Chest Expansion: normal Auscultation: Clear to auscultation bilaterally
Gastrointestinal: abdomen not tender, no distension, normal abdominal bowel sounds
Genitourinary: No Dan
Rectal Exam: Deferred
Extremities: Edema: None Cyanosis: None Trophic changes: None
Neurology Exam:
Orientation: Alert, Oriented to self, Time, Place
Memory: Intact for recent medical concerns
Repetition: Intact
Comprehension: Intact
Two step command: Intact
Naming: Intact
Cranial Nerves:
CNII: Pupillary light reflex: Intact Visual Field: Left homonymous hemianopia
CN III, IV, : Extraocular muscles: Intact
CN V: Facial Sensation at Forehead: mildly diminished on the left Maxilla: mildly diminished on the left Mandible: mildly diminished on the left
CN VII: Facial movement: Asymmetric grin, left flattening
CN VIII: Hearing: intact and equal bilaterally
CN IX/X: Speech & swallow: Normal, Position of Uvula: Midline
CN XI: Shoulder shrug: Symmetric
CN XII: Tongue protrusion: mild leftward deviation
Sensory:
Light touch: Severely diminished in left upper and lower extremities
Pinprick: Deferred
Proprioception: Diminished and left upper and lower extremities
Temperature: Deferred
Reflexes:
Biceps: 0 bilaterally
Brachioradialis: 0 bilaterally
Triceps: 0 bilaterally
Patellar: 0 bilaterally
Achilles: 0 bilaterally
Babinski: Downgoing bilaterally
Clonus: negative,
Willy: Negative bilaterally
Cerebellar: Dysmetria/Ataxia: Impaired [id number] on the left side, difficulty completing on right side when finger in left visual field
Rowan to heel normal bilaterally
Musculoskeletal: Motor: (Manual muscle scale 0-5)
Muscle SA EF WE EE FF FA HF KE DF EHL PF
Right 5 5 5 5 5 5 5 5 5 5 5
Left 5 4 4 4 4 4 4 5 4 4 4
Tone: Normal in all extremities
Range of Motion: Passively within normal limits in all extremities
Diagnostic Results
As per HPI.
CT head 02/24/2025
COMPARISON: CT head 02/22/2025, 02/21/2025.
FINDINGS:
There is an evolving right temporal occipital infarction which extends slightly into the splenium of the corpus callosum with minimally increased edema. There is a small hyperdensity along the posterior medial aspect of the infarction (series 203
image 33). This measures 8mm, unchanged..There is moderate subcortical, deep, and periventricular white matter low-attenuation, compatible with changes of chronic small vessel ischemic disease. Hypodensity adjacent to the right caudate head,
unchanged. The ventricles are stable in size, configuration, and position. . The basal cisterns are patent. Visualized paranasal sinuses are predominantly free of mucosal disease. No evidence of acute calvarial fracture. Prior bilateral lens
replacement.
IMPRESSION:
Evolving infarctions in the right temporal and occipital lobes as well as splenium of the corpus callosum. There is minimally increased associated edema. There is a small mild cortical hyperdensity along the posterior medial aspect of the left
occipital lobe which likely represents cortical laminar necrosis.
Electronically signed by Michael Davey MD, 02/24/2025 12:57 PM
Assessment / Plan
Assessment
Mr. White is a 79-year-old right-handed male with a history of past medical history of infarcts right occipital lobe, temporal lobe, thalamus due to embolic stroke from paroxysmal A-fib on Eliquis, HTN, HLD, DM2, ALINA, obesity, CAD status post
CABG x 4 vessel, cardiac stent who reports headache and residual left-sided face numbness from infarcts. He had a recent admission secondary to multiple acute infarcts. MRI notes new infarcts. Patient continued to have evolving stroke with
with increase in NIHSS, and progression of infarcts/cerebral edema on CT.
Plan
PM&R PT/OT to increase independence with ADLs, improve balance, coordination, endurance, strength, mobility, community reintegration, decreased burden of care on others and family education.
CVA: Secondary prophylaxis with Eliquis as patient unable to tolerate aspirin, Zetia, and blood pressure control (SBP less than 180 and diastolic less than 100 to participate with therapy for ischemic stroke). Continue to monitor neurologic status.
Left nondominant hemiparesis: High risk for falls and sliding out of chair/bed. Safety reinforced.
- Avoid using affected arm to help lift or pull patient as this will cause trauma to the shoulder.
Left-sided hemisensory loss: Makes patient at increased risk for falls
HTN: Amlodipine 5 mg daily, Coreg 3.125 mg p.o. twice daily, Lasix 60 mg twice a day, hydralazine 25 mg 3 times daily, valsartan 220 mg daily monitor closely
HLD: Zetia
Coronary artery disease: Zetia, Pradaxa beta-henrry
Atrial fibrillation: Pradaxa anticoagulation and rate control with Coreg.
CHF: EF 55-60 %, Coreg 3.125 mg p.o. twice daily, Lasix 60 mg twice a day, hydralazine 25 mg 3 times daily, valsartan 320 mg daily monitor fluid status
DM II: Accu-Cheks, insulin sliding scale, insulin 70/30 45 units in the morning and evening
ALINA: possible CPAP use if patient amenable
FEN: Carb controlled diet with B12 supplement. Folic acid supplement. Potassium supplement on Lasix
Skin: monitor for pressure sores/rashes/lesions, monitor skin with some concern for injuries from left inattention
Pain: acetaminophen as needed.
Bowel: As needed Colace and Senna bisacodyl
GI Prophylaxis: Pantoprazole
DVT Prophylaxis: Pradaxa, mechanical
Obesity: Continue to school adjustment counselor patient about diet adjustments to control obesity. Body habitus and increased force to move body and extremities causes further difficulty with functional tasks.
Safety: Continue to reinforce assistance with all transfers.
Code Status: Full code
Dispo: Acute rehab
Functional and Medical Goals: Modified Independent with ADL�s, ambulation, transfers
A total of 60 minutes were spent with the patient preparing for the evaluation, obtaining history, performing examination and evaluation, counseling, data review, case management, care coordination, field recorder, and EMR documentation. Attending
Statement: I performed a history and examined the patient 02/24/25.� I reviewed the care plan with therapy, nursing, and the resident.� I agree with the history and ROS above as modified.� The physical exam and plan documented reflects my examination
and plan.���������
� � � � �
--- NOTE | 2025-02-24 14:58 | W.PN.UPDATE ---
Update Note
Progress Note Update
Seen and examined the patient with residents. Agree with plan except for changes in my documentation.
79-year-old second admission this month secondary to stroke.. Stroke noncompliant with Eliquis for A-fib received TNK with complete resolution of symptoms. This episode patient was compliant. Not a candidate for TNK but still new acute infarcts
on MRI symptoms resolved. Cardiology feels this is Eliquis treatment failure and switched to Pradaxa.
Patient was seen earlier today. Late documentation
He said that felt a little better last night but has coordination problem of the left arm and also unsteadiness of the left leg today
CTA of the head and neck 02/02/2025-atherosclerotic disease involving the right carotid bulb and proximal right ICA 42%.
Less than 25% diameter reduction left carotid bulb and proximal left ICA. Focal narrowing of the distal M1 portion of the left MCA and M2 branches atherosclerotic disease and narrowing involving superior left vertebral artery and proximal basilar
artery. There appears to be an abrupt cut off at the junction of P1 and P2 portions of the right COMBATANT SWIMMER which is new compared to 2021.
Echo 02/03/2025-normal biventricular size, systolic function. EF 55 to 60%. Moderate concentric LVH. Mild .
MRI of the brain 02/19/2025-although there has been some improvement in the previous acute infarcts in the medial right temporal lobe and occipital lobe there is a new focus of acute infarct measuring 7 mm involving the right splenium of the corpus
callosum. There are new small infarcts involving the right posterior medial temporal and occipital regions.
CT head 02/21/2025-no acute intracranial hemorrhage. Slightly increased edema in the region of previous infarct in the posterior-medial right temporal-occipital lobe area and right splenium of the corpus callosum.No mass effect.
CT head 02/23/2024-further progression/evolution of nonhemorrhagic infarct involving right temporal lobe, right occipital lobe and splenium of corpus callosum. No acute intracranial much.
CT head 02/24/2025-evolving infarctions in the right temporal and occipital lobes as well as splenium of the corpus callosum. Minimally increased associated edema. Small mild cortical hyperdensity along the posterior medial aspect of the left
occipital lobe which may represent cortical laminar necrosis
CVS: S1-S2 normal
Chest: CTA B/L
Abdomen: Soft, NT ,
Extremities: No edema, normal pulses
POULTRY DRESSER:, Motor strength is 5 x 5 ,sensory deficit left hemibody, proprioception and spatial recognition impaired on the left side mostly the left arm
#Left-sided numbness with visual disturbance d/t new CVA
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
Brain MRI appreciated new infarcts
Eliquis changed to Pradaxa
Patient had more symptoms on 02/21/2025, during the daytime, overnight and also on 02/22/2025
Mostly related to spatial recognition, proprioception and sensation loss. No motor difficulties. He does have numbness in the left leg also which waxes and wanes.. Ataxia of the left leg, left arm
Possibly secondary to cerebral edema from the CVA and completion of the stroke
Continue to watch the patient in the hospital
Neurology following
Physiatry consulted
#HTN/hypertensive urgency
-Blood pressure has been mostly stable
-Coreg ,Valsartan Lasix resumed
-Amlodipine 5 mg daily added
-Hydralazine 25 mg 3 times daily added
# CAD/ CABG x 4 vessel/cardiac stent
-Cont Pradaxa
-Continue Coreg, valsartan
# Paroxysmal M-[id number] Pradaxa and Coreg
#Hx HFpEF
I/O, daily weights
Continue Lasix 60 mg bid, Coreg, valsartan
#HLD
Lipid panel reviewed in December, LDL above goal >70
hx statin intolerance
Continue ezetimibe
May need to consider PCSK9 inhibitor as outpatient
# DM 2- oral meds temporarily on hold
Recent HgbA1c 9.4 pn 02/02/2025
-Accu-Cheks with SSI
-Continue 70/30 40U BID
# Abnormal TSH with normal T4. Repeat as outpatient
#ALNIA- Continue BiPAP
#Class II obesity/metabolic syndrome-weight loss counseled
# Prostate disease-continue finasteride
# Polycythemia
# History of nephrolithiasis
# History of Doyle's palsy
# GERD
# Erectile dysfunction
#Atherosclerotic renal artery stenosis
#DVT prophylaxis-Pradaxa
Discussed with nursing
PT OT
Physiatry eval
Part of this note was created using voice recognition system. Occasional wrong word or��sound alike� substitutions may have inadvertently occurred due to the inherent limitations of voice recognition software. If noted kindly bring it to my
attention for correction.
--- NOTE | 2025-02-24 16:16 | PTCARENOTE ---
Pt increasingly ataxic, neurologist made aware.
--- NOTE | 2025-02-24 16:24 | PTCARENOTE ---
Pt c/o increased weakness on L side and decreased sensation within LUE & LLE. Pt OOB to chair, pt found slumped over on bedside table. Increased L facial droop, LUE ataxia and LLE ataxia observed. Pt increasingly unsteady. 2 RN's assisted pt to bed.
Stroke alert called, neurologist at bedside, stroke alert cancelled, rapid response called. Rapid response team at bedside.
[2025-02-24 16:33] LABS: Glucose - Point of Care 192 mg/dl (70-99)
[2025-02-24] MEDS: NOVOLOG MIX 70/30 FLEXPEN 45 UNITS SC (17:43)
[2025-02-24] MEDS: NOVOLOG FLEXPEN-LOW RESISTANCE 1 UNITS SC (17:44)
[2025-02-24] MEDS: FOLVITE 1 MG PO (17:47)
--- NOTE | 2025-02-24 20:05 | W.PN.NEURO.1 ---
Today's Communication / Plan
-
to my exam this afternoon NIHSS 10 (left homo hemianopsia 2, left facial 2, left arm 2, left leg 2, sensory 2)
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 unfortunately, he was not a TNK candidate, and not an endovascular candidate and has/will complete the stroke
I will review imaging with family tomorrow
Neuro Assessment/Plan
Assessment
Patient with recurrent left-sided numbness and visual change despite use of anticoagulation for atrial fibrillation due to acute ischemic stroke, recurrent from multiple weeks ago
Patient with recurrent symptoms February 21, 2025 while also experiencing single episode of loose bowels and low abdominal pain
CTA no LVO M1/M2
head CT from 02/21 [facility] rev'd, evolving stroke.
head CT 02/22 evening imaging reviewed, evolving stroke compared to 02/[address] 02/24 again evolving stroke.
however reviewing all the imaging together, and upon speaking with Dr Alonzo Davey of neuro radiology, we believe that he has a right P1/P2 junction MVO, which is difficult/risky or inaccessible to endovascular treatment, and that gradually over the
past few days he has completed the entire territory of stroke.
he is at high risk for stroking more, as well as for hemorrhagic conversion of this stroke, and i believe that risks and benefits favor continuing anticoagulation, agree Eliquis-->Pradaxa.
Plan
Eliquis--> Pradaxa
needs outpatient sleep apnea treatment
diabetes control
No driving, visual field reported to [facility] 02/23
PM&R consulted
Subjective/Objective
Subjective Data
Date of Service: February 24, 2025
This AM NIHSS worsened 5--> I got a head CT showing evolving stroke
This afternoon NIHSS worsened to 10. a stroke alert was called which I cancelled, he just got a head CT.
Objective Data
Vital Signs
Temp Pulse Resp BP Pulse Ox
36.4 C 79 18 120/67 95
02/24/25 15:00 02/24/25 16:17 02/24/25 15:00 02/24/25 16:17 02/24/25 15:00
Lab Results
02/24/25 05:07
02/24/25 05:07
PT 14.6 Sec (11.4-14.6) 02/19/25 10:45
INR 1.09 02/19/25 10:45
APTT 29.6 Sec (23.4-35.0) 02/19/25 10:45
Sodium 138 mmol/L (135-145) 02/24/25 05:07
Potassium 4.5 mmol/L (3.5-5.1) 02/24/25 05:07
BUN 32 mg/dl (9-20) H 02/24/25 05:07
Glucose 200 mg/dl (70-99) H 02/24/25 05:07
Calcium 9.4 mg/dl (8.4-10.2) 02/24/25 05:07
Phosphorus 3.5 mg/dl (2.5-4.5) 02/21/25 06:23
Vitamin B12 815 pg/ml (239-931) 02/19/25 17:16
Patient Allergies
atorvastatin calcium (From Lipitor) Allergy (Verified 02/19/25 10:07)
severe muscle soreness
levofloxacin (From Levaquin) Allergy (Verified 02/19/25 10:07)
Hives
pollen extracts Allergy (Verified 02/19/25 10:07)
Nasal stuffiness - seasonal
Sulfa (Sulfonamide Antibiotics) Allergy (Verified 02/19/25 10:07)
couldn't breathe
Physical Exam
-
to my exam this afternoon NIHSS 10 (left homo hemianopsia 2, left facial 2, left arm 2, left leg 2, sensory 2)
[2025-02-24 21:41] LABS: Glucose - Point of Care 112 mg/dl (70-99)
[2025-02-24] MEDS: ZETIA 10 MG PO (21:56)
[2025-02-24] MEDS: MAGNESIUM OXIDE 400 MG PO (21:56)
[2025-02-25] VITALS (7 sets, daily range): BP systolic 123–177; BP diastolic 61–80; PULSE 64–66; O2SAT 92–93
[2025-02-25] MEDS: TYLENOL 650 MG PO ×3 (02:45→23:16)
--- NOTE | 2025-02-25 03:01 | W.PN.UPDATE ---
Addendum entered and electronically signed by DIANNA Waller 02/25/25 06:37:
pt continued with RQ pain now to right shoulder
Dilaudid iv ordered.
Review of chart- pt with hx of polycythemia vera needing phlebotomy when hematocrit >46. This morning lab is 49. Could pain be from PV?
lasix put on hold as bun and cr are creeping up. he appears euvolemic currently. resume when able
Original Note:
Update Note
Progress Note Update
RN reports chest pain pressure around 0230
EKG unremarkable
Will get cbc bmp trop
On eval pt c/o more of pain upper abd to RQ. Tender to touch. Abd soft.
pain meds offered but declines. He is agreeable to tylenol
Will try dose of protonix now. and get US RUQ in am.
[2025-02-25] MEDS: PROTONIX IV 40 MG IV (03:10)
--- NOTE | 2025-02-25 04:30 | PTCARENOTE ---
At 0230, pt complaining of 6/10 pain in right upper abdomen and right chest wall, describing it as pressure. Patient also frequently belching. DIANNA Meier notified. Vitals as follows: T: 98.1, HR: 78, BP: 177/73, RR: 20, 94% on 2L of O2.
EKG obtained. SUPERINTENDENT TRANSMISSION at bedside to assess patient. Labs ordered. One time dose of IV protonix ordered. Refer to MAR. At 0430, pt complaining of pain radiating to right shoulder blade. DIANNA Meier notified. One time dose of dilaudid ordered.
Refer to MAR. Plan of care ongoing.
[2025-02-25] MEDS: DILAUDID 0.25 MG IV (04:36)
[2025-02-25 04:48] LABS: Hematocrit 49.1 % (39.0-52.0); Hemoglobin 15.9 g/dL (13.0-18.0); Mean Corp Hgb Conc. 32.4 g/dL (33.0-37.0); Mean Corpuscular Volume 80.0 fL (80.0-94.0); Nucleated Red Blood Cells % 0 % (-); Platelet Count 242 10^3/uL (130-400); Red Cell Dist. Width 18.5 % (11.5-14.5)
[2025-02-25 05:05] LABS: ALT (SGPT) 19 U/L (0-50); AST (SGOT) 24 U/L (17-59); Albumin 4.3 g/dl (3.5-5.0); Alkaline Phosphatase 74 U/L (38-126); Blood Urea Nitrogen 39 mg/dl (9-20); Calcium 9.4 mg/dl (8.4-10.2); Carbon Dioxide 24 mmol/L (22-30); Chloride 103 mmol/L (98-107); Estimated Creatinine Clearance 53 ml/min; Glucose 122 mg/dl (70-99); Lipase 64 U/L (23-300); Potassium 4.5 mmol/L (3.5-5.1); Sodium 137 mmol/L (135-145); Total Protein 7.0 g/dl (6.3-8.2); eGFR > 60.00
[2025-02-25 05:14] LABS: Troponin I 0.015 ng/ml
[2025-02-25 08:19] LABS: Glucose - Point of Care 169 mg/dl (70-99)
[2025-02-25] MEDS: NORVASC 5 MG PO (09:35)
[2025-02-25] MEDS: PRADAXA 150 MG PO ×2 (09:35→21:11)
[2025-02-25] MEDS: DIOVAN 320 MG PO (09:35)
[2025-02-25] MEDS: COREG 3.125 MG PO ×2 (09:36→21:12)
[2025-02-25] MEDS: KCL PO (09:38)
[2025-02-25] MEDS: PROSCAR 5 MG PO (09:38)
[2025-02-25] MEDS: PROTONIX 40 MG PO (09:39)
[2025-02-25] MEDS: NOVOLOG FLEXPEN-LOW RESISTANCE SC (09:52)
--- NOTE | 2025-02-25 10:12 | W.PN.HOSP.TC ---
Today's Communication/Plan
-
Continue to monitor evolution of stroke symptoms as patient completes P1/P2 junction stroke.
Assessment / Plan
Assessment / Plan
79-year-old man with a PMH notable for metabolic syndrome, ALINA, paroxysmal A-fib, CAD s/p CABG x 4, who presented with worsening stroke symptoms that is thought to be due to continuation/completion of his stroke 1 week prior. This is his second
admission this month for stroke. He has residual symptoms of bilateral left hemianopsia, left dysmetria and and left hemisensory deficits. His left upper extremity is most affected by loss of proprioception. Hemiballismus of LUE demonstrated on
02/25/2025. Waxing waning of residual stroke symptoms. CT head repeats continue to demonstrate evolution/completion of stroke.
Residual stroke deficits/NIHSS increasing since yesterday: 10 per neurology last night; 15 and 13 per nurses overnight. Repeat CT head ordered: No new hemorrhage or infarcts demonstrated.
Today, 02/24/2025, patient felt that his left arm condition was improving, but his NIHSS increased from 5-7. Patient received another head CT, which demonstrated no new bleed.
#Left-sided numbness with visual disturbance d/t new CVA
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
CT head appreciated infarcts corresponding to prior stroke treated with TNK earlier this month, no new acute infarction noted.
Brain MRI appreciated new infarcts
Patient had more symptoms on 02/21/2025, 02/22/2025, 02/24/2025, 02/25/2025
Mostly related to spatial recognition, proprioception and sensation loss. Strength 5 out of 5 bilaterally in all extremities. He does have numbness in the left leg also which waxes and wanes.
Possibly secondary to cerebral edema from the CVA
Continue to watch the patient in the hospital
Neurology following
Eliquis changed to Pradaxa
Repeat CT from 02/24/2025: Evolving infarctions in the right temporal and occipital lobes as well as splenium of the corpus callosum. There is minimal increase associated edema. There is a small mild cortical hyperdensity along the posterior medial
aspect of the left occipital lobe, which likely represents cortical laminar necrosis.
#HTN/hypertensive urgency
-Blood pressure has been mostly stable
-Coreg, Valsartan
-Amlodipine 5 mg daily added
-Hydralazine 25 mg 3 times daily added
#Paroxysmal A-fib
- continue Pradaxa and Coreg
#Hx HFpEF and CAD/CABG x 4 vessel/cardiac stent
I/O, daily weights
� Pradaxa
- Coreg, valsartan
- Furosemide 60 mg p.o. twice daily held as creatinine and BUN have been slightly increasing
#HLD
Lipid panel reviewed in December, LDL above goal >70
hx statin intolerance
Continue ezetimibe
May need to consider PCSK9 inhibitor as outpatient
# DM 2- oral meds temporarily on hold
Recent HgbA1c 9.4 pn 02/02/2025
-Accu-Cheks with SSI
-Continue 70/30 40U BID
# Polycythemia
�Hematology consulted for whether management of the patient's PV is indicated. Patient states that he requires phlebotomy when his hematocrit is above 46. His hematocrit is around 49
#Nausea
- pantoprazole 40 mg p.o. daily
- Ondansetron 4 mg IV every 6 hours as needed
# Abnormal TSH with normal T4. Repeat as outpatient
#ALINA- Continue BiPAP
- Needs outpatient apnea investigation per neurology
#Class II obesity/metabolic syndrome-weight loss counseled
# Prostate disease-continue finasteride
# History of nephrolithiasis
# History of Doyle's palsy
# GERD
# Erectile dysfunction
#Atherosclerotic renal artery stenosis
#DVT prophylaxis-Pradaxa
D/W son at bed side
Discussed with nursing
Unfortunately patient has fluctuating neurosymptoms likely secondary to cerebral edema/completion of the stroke. He is already on Pradaxa and not a candidate for TNK. Explained to patient/family. Neurology also following will follow
recommendations.
Continue physical therapy. Fall precautions
Dispo: Acute rehab
Part of this note was created using voice recognition system. Occasional wrong word or��sound alike� substitutions may have inadvertently occurred due to the inherent limitations of voice recognition software. If noted kindly bring it to my
attention for correction.
Anticipated Discharge: > 48 hours
Subjective/Interval History
-
Date of Service: February 25, 2025
Overnight at 2:30 AM, the patient developed chest pressure as well as right upper quadrant pain that radiated to the right shoulder. He was offered IV Dilaudid but declined it; he excepted Tylenol and Protonix. EKG was unremarkable troponin was
not elevated. CBC was normal. Lasix was held because BUN and creatinine continued to be slightly elevated. He appeared euvolemic
Objective Data
-
Labs:
Laboratory Results
02/25/25 02/25/25
03:08 06:00
WBC 10.5 Cancelled
Hgb 15.9 Cancelled
Hct 49.1 Cancelled
Plt Count 242 Cancelled
Sodium 137 Cancelled
Potassium 4.5 Cancelled
Chloride 103 Cancelled
Carbon Dioxide 24 Cancelled
BUN 39 H Cancelled
Creatinine 1.2 Cancelled
Glucose 122 H Cancelled
Calcium 9.4 Cancelled
Total Bilirubin 1.6 H
AST 24
ALT 19
Alkaline Phosphatase 74
Vital Signs:
Vital Signs
Temp Pulse Resp BP Pulse Ox
98.1 F 64 16 154/79 94
02/25/25 08:13 02/25/25 08:13 02/25/25 08:13 02/25/25 08:13 02/25/25 08:13
I&O
02/24/25 02/25/25 02/26/25
06:59 06:59 06:59
Intake Total 720 / 720 980 / 980
Output Total 1415 / 1415 750 / 750
Balance -695 / -695 230 / 230
Physical Exam
-
General: Well Developed, Well Nourished and No Apparent Distress
HEENT: Normocephalic, Atraumatic, Moist Mucous Membranes and PERRLA (Right pupil mydriatic/more dilated compared to left)
Respiratory: Clear to Auscultation
Cardiac: Regular Rhythm and S1/S2
GI: Soft, Tender (Right upper quadrant tenderness) and Distended
Musculoskeletal: Other (Lacking awareness and coordination in left upper extremity. Patient had difficulty discerning his left upper extremity from the examiner's upper extremity. Patient was wildly flinging his left upper extremity at 1 point,
demonstrating lack of motor control)
Skin: Warm and Dry
Neuro: Awake, Alert, Oriented and Facial Droop (Mild left facial droop)
Psych: Anxious
Data Reviewed
-
Total Time Spent with Patient (in minutes): 20
Diagnostic Radiology: Report Reviewed by me
CT Scan: Report Reviewed by me
Ultrasound: Report Reviewed by me
Labs: Labs Reviewed by me
[2025-02-25] MEDS: APRESOLINE 25 MG PO ×2 (11:01→21:12)
[2025-02-25] MEDS: NOVOLOG MIX 70/30 FLEXPEN 45 UNITS SC ×2 (11:02→17:18)
[2025-02-25] MEDS: VITAMIN B-12 1000 MCG PO (11:03)
[2025-02-25] MEDS: VITAMIN D3 (cholecalciferol) 25 MCG PO (11:03)
[2025-02-25 11:07] LABS: Glucose - Point of Care 213 mg/dl (70-99)
--- NOTE | 2025-02-25 11:16 | PN.DE.MGMTRT ---
Insulin Management
- -
02/25/2025: Diabetes Management Follow up
Patient admitted 02/19 with L sided weakness/numbness similar to recent admission 02/02 to 02/07.
PMH: CAD s/p CABG, HTN, HCL, A-Fib, diabetes, ALINA. Prior to admission was taking 70/30 insulin 60 units BID. A1C 9.4% from 02/02 admission, Cr 0.7, eGFR > 60.
Patient states he follows with his primary doctor Brianna for diabetes care. He has a meter and test 3 to 4 times per day. His OP record indicates he was taking Jardiance and Metformin in the past, both were discontinued-unknown reason.
02/24 70/30 doses reduced to 40 units BID, then increased to 45 units BID @ dinner. HS glucose 112, Fasting glucose 122. Will continue 70/30 insulin 45 units BID with low corrective insulin.
Will closely monitor glucose trend and adjust 70/30 dose if necessary.
Discussed with nurse. Will cont to follow.
Diabetes History
- -
Type of Diabetes: 2 requiring insulin
Pre-Admission Diabetes Regimen
02/25/25 02/25/25
03:08 06:00
Creatinine 1.2 Cancelled
Insulin Pump Settings
IP Diabetes Regimen
02/24/25 02/24/25 02/24/25
11:58 16:31 21:40
Glucose
POC Glucose 127 H 192 H 112 H
02/25/25 02/25/25 02/25/25
03:08 06:00 08:18
Glucose 122 H Cancelled
POC Glucose 169 H
02/25/25
11:06
Glucose
POC Glucose 213 H
Patient Education
[2025-02-25 12:50] LABS: Troponin I 0.020 ng/ml
[2025-02-25 12:50] LABS: Glucose - Point of Care 332 mg/dl (70-99)
[2025-02-25] MEDS: NOVOLOG FLEXPEN-LOW RESISTANCE 4 UNITS SC (12:51)
[2025-02-25] MEDS: TORADOL 15 MG IV (14:58)
--- NOTE | 2025-02-25 15:15 | W.PN.UPDATE ---
Update Note
Progress Note Update
CVS: S1-S2 normal
Chest: CTA B/L
Abdomen: Soft, NT ,
Extremities: No edema, normal pulses
BROACH SETTER: -Mild left facial droop, involuntary movements of his left arm, ataxia of the left leg and left arm, left hemianopsia
#Left-sided numbness with visual disturbance d/t new CVA
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
Brain MRI appreciated new infarcts
Eliquis changed to Pradaxa this admission
Mostly related to spatial recognition, proprioception and sensation loss. Also has hemiballism, he does have numbness in the left leg also which waxes and wanes.. Ataxia of the left leg, left arm
Possibly secondary to cerebral edema from the CVA and completion of the stroke
Continue to watch the patient in the hospital
Neurology following, discussed
Physiatry consulted, patient needs acute rehab
Valium/risperidone were offered for hemiballism-patient's family/patient declined
#HTN/hypertensive urgency
-Blood pressure has been mostly stable
-Coreg ,Valsartan ,Amlodipine 5 mg daily ,Hydralazine 25 mg 3 times daily
# CAD/ CABG x 4 vessel/cardiac stent
-Cont Pradaxa
-Continue Coreg, valsartan
# Paroxysmal [id number] Pradaxa and Coreg
#Hx HFpEF
I/O, daily weights
Continue Coreg, valsartan
Hold lasix
#HLD
Lipid panel reviewed in December, LDL above goal >70
hx statin intolerance
Continue ezetimibe
May need to consider PCSK9 inhibitor as outpatient
# DM 2- oral meds temporarily on hold ( wasn't on the list on admission) . Was stopped last admission
Recent HgbA1c 9.4 pn 02/02/2025
Accu-Cheks with SSI
Continue 70/30 45U BID
# Abnormal TSH with normal T4. Repeat as outpatient
#ALINA- Continue BiPAP
#Class II obesity/metabolic syndrome-weight loss counseled
# Prostate disease-continue finasteride
# Polycythemia- Heme eval with Hb 15 and also CVA
# History of nephrolithiasis
# History of Doyle's palsy
# GERD
# Erectile dysfunction
#Atherosclerotic renal artery stenosis
#DVT prophylaxis-Pradaxa
Left a message for Dr.Scott Reed
D/W Neuro
I did not talk to family today as Dr. Medina is discussing with the family in detail.
[2025-02-25] MEDS: REGLAN 10 MG IV (15:24)
--- NOTE | 2025-02-25 15:30 | W.PN.NEURO.1 ---
Today's Communication / Plan
-
all imaging reviewed with patient and family. Unfortunately he completed a right P1/P2 junction stroke.
hemiballismus of left arm, I offered him Risperdal or Valium but he doesn't want sedation or risk of tardive side effects.
Neuro Assessment/Plan
Assessment
Patient with recurrent left-sided numbness and visual change despite use of anticoagulation for atrial fibrillation due to acute ischemic stroke, recurrent from multiple weeks ago
At the time, he was treated with TNK in the 4.5-24 hr window based on CT perfusion scan, and the 12 cc penumbra was saved.
Patient with recurrent symptoms February 21, 2025 while also experiencing single episode of loose bowels and low abdominal pain
CTA no LVO M1/M2
head CT from 02/21 [facility] rev'd, evolving stroke.
head CT 02/22 evening imaging reviewed, evolving stroke compared to 02/[address] 02/24 again evolving stroke.
CTA showed right P1/P2 junction MVO, which is difficult/risky or inaccessible to endovascular treatment, and that gradually over the past few days he has completed the entire territory of stroke.
02/25 I reviewed all imaging including CTA, CTP from prior admission, MRI, and [address]. Unfortunately this time there is nothing we could have done and he was not a TNK candidate having been on Eliquis. He lost the entire penumbra that was
saved 3 weeks ago.
he is at high risk for stroking more, as well as for hemorrhagic conversion of this stroke, and i believe that risks and benefits favor continuing anticoagulation, agree Eliquis-->Pradaxa.
Plan
Eliquis--> Pradaxa
needs outpatient sleep apnea treatment
diabetes control
No driving, visual field reported to [facility] 02/23
PM&R consulted
hemiballismus of left arm, I offered him Risperdal or Valium but he doesn't want sedation or risk of tardive side effects.
Subjective/Objective
Subjective Data
Date of Service: February 25, 2025
today he developed a hemiballism movement in his left arm
c/o headache refractor to tylenol
Objective Data
Vital Signs
Temp Pulse Resp BP Pulse Ox
36.4 C 62 17 123/64 93
02/25/25 11:28 02/25/25 11:28 02/25/25 11:28 02/25/25 11:28 02/25/25 11:28
Lab Results
02/25/25 06:00
02/25/25 06:00
PT 14.6 Sec (11.4-14.6) 02/19/25 10:45
INR 1.09 02/19/25 10:45
APTT 29.6 Sec (23.4-35.0) 02/19/25 10:45
Sodium Cancelled 02/25/25 06:00
Potassium Cancelled 02/25/25 06:00
BUN Cancelled 02/25/25 06:00
Glucose Cancelled 02/25/25 06:00
Calcium Cancelled 02/25/25 06:00
Phosphorus 3.5 mg/dl (2.5-4.5) 02/21/25 06:23
Vitamin B12 815 pg/ml (239-931) 02/19/25 17:16
Patient Allergies
atorvastatin calcium (From Lipitor) Allergy (Verified 02/19/25 10:07)
severe muscle soreness
levofloxacin (From Levaquin) Allergy (Verified 02/19/25 10:07)
Hives
pollen extracts Allergy (Verified 02/19/25 10:07)
Nasal stuffiness - seasonal
Sulfa (Sulfonamide Antibiotics) Allergy (Verified 02/19/25 10:07)
couldn't breathe
Physical Exam
-
to my exam this afternoon NIHSS 10 (left homo hemianopsia 2, left facial 2, left arm 2, left leg 2, sensory 2)
hemiballism
[2025-02-25 16:32] LABS: Glucose - Point of Care 241 mg/dl (70-99)
[2025-02-25] MEDS: FOLVITE 1 MG PO (17:17)
[2025-02-25] MEDS: NOVOLOG FLEXPEN-LOW RESISTANCE 2 UNITS SC (17:19)
[2025-02-25] MEDS: APRESOLINE PO (17:21)
[2025-02-25] MEDS: MAGNESIUM OXIDE 400 MG PO (21:11)
[2025-02-25] MEDS: ZETIA 10 MG PO (21:11)
[2025-02-25 21:16] LABS: Glucose - Point of Care 155 mg/dl (70-99)
[2025-02-26] VITALS (9 sets, daily range): BP systolic 121–183; BP diastolic 53–91; PULSE 64; O2SAT 94
--- NOTE | 2025-02-26 00:40 | PTCARENOTE ---
Pt c/o having a 'electrical charge' feeling across his chest. Pt said that this was a new feeling unlike heartburn that he had been having in the past couple of days. BP 164/72, SB on tele HR 60, 2L O2 91%, 97.8 temp. BRANCH EXAMINER notified of pt condition.
STAT EKG obtained. BRANCH EXAMINER at bedside to assess pt. Pt said that the feeling came then went away. Will continue to monitor pt.
--- NOTE | 2025-02-26 04:22 | W.PN.UPDATE ---
Update Note
Progress Note Update
0400 code purple for extreme agitation
Per nurse pt woke up and ripped off tele pack and and demanding to leave. Did not believe he was in hospital. On eval he is sitting on side of bed trying to call on phone but getting frustrated because he cannot hold phone with both hands.
Being rude and condescending to staff. Once of phone- pt yelling at his to 'sign the divorce papers and pick me up' Angry that his PCP Dr Reed isn't able to see him in hospital. He did know he was in hospital but didnt believe the nurses were
real. After pt was done talking to on phone, i called . I stated he had had similar episode when he was in ICU after first stroke as well. Explained that with these large strokes pt can have mental status changes. I asked if she would be ok
with me giving him medication to calm him and she was agreeable. Zyprexa 5mg IM ordered x1. Ideally would get another CT head but in this current state he will not cooperate.
[2025-02-26] MEDS: ZYPREXA 5 MG IM (04:29)
--- NOTE | 2025-02-26 04:43 | PTCARENOTE ---
Ozzy shikha bertha was called on this pt at 0400 for extreme agitation. Pt increasingly agitated in room trying to get out of bed. Pt informed that his L side is very weak. Pt trying to get out of bed and go home, cursing out staff that saying that
everyone is making him believe he had a stroke when he didn't. Pt increasingly frustrated when he couldn't dial his 's phone number due to weakness. Assisted pt to call his and told her 'sign the divorce papers and pick me up' PIN WORKER called
explaining pt status. Pt ripped off tele box, oxygen, IV. Security, multiple staff members, PIN WORKER in room with pt. Zyprexa 5 mg IM ordered 1x and given.
--- NOTE | 2025-02-26 07:56 | CON.ONC ---
Consultation
-
Date Consultation Requested: 02/26/25
Date Consultation Performed: 02/26/25
Requesting Provider: Jazzmine Matthews MD
Performing Provider: Dr. Mckoy
Reason for Consultation: Polycythemia
Impression
Impression
This is an 79 y/o male with pmhx of obstructive sleep apnea with noncompliance with CPAP, secondary polycythemia, Paroxysmal atrial fibrillation, Type 2 diabetes, essential hypertension who presented to the ED on 02/19/2025 with left sided facial
numbness, elevated BP, and headache and was found to have an evolving stroke in the setting of recent hospitalization in 02/02-02/07/2025 for stroke.
Plan
Plan
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
-Reactive to obstructive sleep apnea with CPAP noncompliance and elevated carboxyhemoglobin.
-JAK2 negative polycythemia much less associated with hypercoagulability and subsequent CVA compared to polycythemia vera, and traditionally is treated by addressing the source of the hypoxemia, though patient does remain noncompliant with CPAP for
>2 years.
-Patient already optimized with Pradaxa therapy and phlebotomy with most recent outpatient phlebotomy on 01/14/2025
-Continue to encourage use of CPAP overnight
-It would be worthwhile to retest his JAK2 outpatient given his most recent test was in 2014
-Continue outpatient follow up with [place] and outpatient phlebotomy every 8-12 weeks
-Thank you very much for the consult. Hematology/Oncology will be signing off
Obstructive Sleep Apnea
-Contributing to chronic hypoxemia due to noncompliance with CPAP
-Continue to encourage use of CPAP
Patient History
History of Present Illness
This is an 79 y/o male with pmhx of obstructive sleep apnea, polycythemia, Paroxysmal atrial fibrillation, Type 2 diabetes, essential hypertension who presented to the ED on 02/19/2025 with left sided facial numbness, elevated BP, and headache. He
was recently hospitalized at from 02/02/2025-02/07/2025 due to multiple acute infarcts.
He is followed by Dr. Carey at [facility] for his Polycythemia and saw him last on 11/12/2024. A chart review of [facility] Labs from 11/09/2014 showed ANGELICA-2 not detected, normal EPO, BRC-ABL2 not detected. He was determined at
that time to have reactive polycythemia secondary to sleep apnea with noncompliance with CPAP and elevated carboxyhemoglobin. According to the [facility] EMR, he should be taking Aspirin 81mg, however his history and physical on
02/19/2025 states he has been unable to tolerate oral aspirin as it causes him hematuria and has instead been taking Eliquis, though he may have been noncompliant with this as well. He last had phlebotomy on at [facility] on 01/14/2025 with
prior phlebotomy on 11/15/2024, 09/17/2024 and 07/16/2024.
CT scan in the ED revealed no acute hemorrhage, patchy decreased density within the posterior right occipital lobe corresponding to region of subacute infarct seen on recent MRI of the brain.
MRI of the brain later that day revealed a new focus of acute infarct measuring 7mm involving the right selenium of the corpus callous and new small infarcts in the right posterior medial temporal and occipital lobe regions. It also demonstrated
tiny lacunar infarct of the right thalamus.
Neurology was consulted and he was admitted to the hospital for treatment. On 02/20 his Eliquis was changed to Pradaxa. On 02/21 he began to experience worsening numbness of the face very briefly before this resolved spontaneously within 30 minutes.
He continued to experience waxing and waning symptoms, primarily in the left arm. CT of the head from this time showed evolving stroke with increased edema, and a follow up head CT from 02/22 showed further progression of the nonhemorrhagic infarcts
in the right temporal lobe, right occipital lobe and selenium of the corpus callosium. On 02/24 his NIHSS increased from 5 to 10, so another CT of the head was performed which demonstrated minimally increased associated edema but no new bleed.
Overnight, his NIHSS score further increased to 15, and on 02/25/2025 he developed hemiballism movement in the left arm. He was offered Risperdal or Valium, but he declined. Early in the morning of 02/26 around 5AM, he became acutely agitated, ripping
off his tele-pack and demanding to leave, as well as expressing confusion about where he was and not believing that the nurses speaking to him were real. He was given Zyprexa 5mg IM.
Today, patient was in soft restraints when I arrived, and had just refused morning bloodwork prior to me entering the room. When I entered the room, he told me he did not feel like answering questions. He did not know why he was restrained, and
complained of both this as well as pain in his left arm which he attributes to insulin injections. He also reported a headache associated with his restraints. He could not clarify if he had any chest pain or shortness of breath. He stated he could
not say if he was dizzy or lightheaded as he was not allowed to sit upright. He believed that I had personally put him in restraints despite this being the first time we had met, and when he was informed I had not, he insisted that I was, �Just
following orders.� He did refuse to allow me to perform a physical exam.
Past-Medical/Surgical History
Obstructive sleep apnea with noncompliance with CPAP
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
Paroxysmal atrial fibrillation
Type 2 diabetes without insulin dependence
Coronary Artery Disease
Essential hypertension
History of CVA
Patient Medication
�Medication �Instructions �Recorded �Confirmed �Last Taken �Type
lutein 20 mg capsule 20 mg PO BID Supplement 07/10/09 02/19/25 02/19/25 History
cyanocobalamin (vitamin B-12) 1,000 mcg PO DAILY Supplement 06/02/17 02/19/25 02/19/25 History
1,000 mcg tablet
finasteride 5 mg tablet 5 mg PO DAILY Urinary issue 06/02/17 02/19/25 02/19/25 History
red yeast rice 600 mg tablet 1,600 mg PO BID Supplement 06/16/17 02/19/2502/19/25 History
cholecalciferol (vitamin D3) 25 1,000 units PO DAILY Supplement 08/15/19 02/19/25 02/19/25 History
mcg (1,000 unit) tablet
potassium chloride 20 mEq 20 meq PO DAILY Electrolyte 03/05/21 02/19/25 02/19/25 History
tablet,extended Repletion
release(part/cryst) (Klor-Con M)
folic acid 1 mg tablet 1 mg PO QPM Supplement 01/18/23 02/19/25 02/18/25 History
omega 8-fta-ucz-fish oil 1,000 mg 1 cap PO BID Supplement ##0 01/18/23 02/19/25 02/19/25 History
(120 mg-180 mg) capsule (Fish Oil)
furosemide 40 mg tablet (Lasix) 60 mg PO BID Fluid 01/02/24 02/19/25 02/19/25 History
retention/Swelling
magnesium oxide 400 mg PO HS Electrolyte Repletion 11/15/24 02/19/25 02/18/25 History
##0
valsartan 160 mg tablet 160 mg PO DAILY Blood Pressure 11/15/24 02/19/25 02/19/25 History
carvedilol 3.125 mg tablet 3.125 mg PO BID Blood Pressure 11/30/24 02/19/25 02/19/25 History
apixaban 5 mg tablet (Eliquis) 5 mg PO BID #60 tabs 02/06/25 02/19/25 02/19/25 Rx
ezetimibe 10 mg tablet 10 mg PO HS #30 tabs 02/06/25 02/19/25 02/18/25 Rx
acetaminophen 325 mg capsule 650 mg PO Q6HPRN PRN mild pain 02/19/25 02/19/25 02/18/25 History
insulin aspar prot-insulin aspart 60 unit SC BID Diabetes 02/19/25 02/19/25 02/18/25 History
100 unit/mL (70-30) subcutaneous
pen (Novolog Mix 70-30FlexPen
U-100)
Active Medications
Generic Name Dose Route Start Last Admin
Trade Name Freq PRN Reason Stop Dose Admin
Acetaminophen 650 mg 02/19/25 17:57 02/25/25 23:16
Acetaminophen 325 Mg Tablet PO 03/19/25 17:56 650 mg
Q4HPRN PRN Administration
mild pain/IRVIN/temp> 100.4F
Amlodipine Besylate 5 mg 02/22/25 08:00 02/25/25 09:35
Amlodipine 5 Mg Tablet PO 03/22/25 07:59 5 mg
DAILY MAYELA Administration
Carvedilol 3.125 mg 02/19/25 20:00 02/25/25 21:12
Carvedilol 3.125 Mg Tablet PO 03/19/25 19:59 3.125 mg
BID MAYELA Administration
Cholecalciferol 25 mcg 02/20/25 08:00 02/25/25 11:03
Cholecalciferol (Vitamin D3) 25 Mcg Tablet (1,000 Units) PO 03/20/25 07:59 25 mcg
DAILY MAYELA Administration
Cyanocobalamin 1,000 mcg 02/20/25 08:00 02/25/25 11:03
Cyanocobalamin (Vitamin B-12) 500 Mcg Tablet PO 03/20/25 07:59 1,000 mcg
DAILY MAYELA Administration
Dabigatran 150 mg 02/20/25 20:00 02/25/25 21:11
Dabigatran Etexilate (Pradaxa) 150 Mg Capsule PO 03/20/25 19:59 150 mg
BID MAYELA Administration
Dextrose 12.5 grams 02/19/25 17:57
Dextrose 50% (0.5 Grams/Ml) 50 Ml Syringe IV 03/19/25 17:56
[id number] PRN
hypoglycemia
Protocol
Ezetimibe 10 mg 02/19/25 22:00 02/25/25 21:11
Ezetimibe (Zetia) 10 Mg Tablet PO 03/19/25 21:59 10 mg
HS MAYELA Administration
Finasteride 5 mg 02/20/25 08:00 02/25/25 09:38
Finasteride 5 Mg Tablet PO 03/20/25 07:59 5 mg
DAILY MAYELA Administration
Folic Acid 1 mg 02/19/25 18:00 02/25/25 17:17
Folic Acid 1 Mg Tablet PO 03/19/25 17:59 1 mg
QPM MAYELA Administration
Furosemide 60 mg 02/19/25 18:00 02/24/25 16:17
Furosemide 40 Mg Tablet PO 03/19/25 17:59 60 mg
On Hold: 02/25/25 05:17 BID AT 0800,1600 MAYELA Administration
Comment: BUN creat increasing
Glucagon 1 mg 02/19/25 17:57
Glucagon 1 Mg Vial IM 03/19/25 17:56
PRN PRN
hypoglycemia
Protocol
Hydralazine HCl 5 mg 02/20/25 13:02 02/21/25 04:45
Hydralazine 20 Mg/Ml Vial IV 03/20/25 13:01 5 mg
Q4HPRN PRN Administration
SBP>140 or DBP>100
Hydralazine HCl 25 mg 02/21/25 16:00 02/25/25 21:12
Hydralazine 25 Mg Tablet PO 03/21/25 15:59 25 mg
TID MAYELA Administration
Hydromorphone HCl 0.25 mg 02/25/25 06:20
Hydromorphone 0.25 Mg/0.5 Ml Syringe IV 03/11/25 06:19
Q3HPRN PRN
severe pain
Insulin Aspart 0 units 02/19/25 17:57 02/25/25 17:19
Insulin Aspart Low Resistance 300 Units/3 Ml Pen.Injctr SC 03/19/25 17:56 2 units
AC MAYELA Administration
Protocol
Insulin Aspart Prota 70%/Aspart 30% 45 units 02/24/25 10:13 02/25/25 17:18
Novolog Mix 70/30 (100 Units/Ml) 3 Ml Flexpen SC 03/20/25 16:59 45 units
BID@0800,1700 MAYELA Administration
Ketorolac Tromethamine 15 mg 02/25/25 14:40 02/25/25 14:58
Ketorolac 15 Mg/Ml Injection IV 03/02/25 14:39 15 mg
Q6HPRN PRN Administration
headache
Magnesium Oxide 400 mg 02/19/25 22:00 02/25/25 21:11
Magnesium Oxide 400 Mg Tablet PO 03/19/25 21:59 400 mg
HS MAYELA Administration
Metoclopramide HCl 10 mg 02/25/25 14:39 02/25/25 15:24
Metoclopramide 10 Mg/2 Ml Vial IV 03/25/25 14:38 10 mg
Q6HPRN PRN Administration
headache w/nausea/vomiting
Ondansetron HCl 4 mg 02/24/25 14:35
Ondansetron 4 Mg/2 Ml Vial IV 03/24/25 14:34
Q6HPRN PRN
nausea
Pantoprazole Sodium 40 mg 02/26/25 08:00
Pantoprazole 40 Mg Delayed Release Tablet PO 03/26/25 07:59
DAILY MAYELA
Potassium Chloride 20 meq 02/20/25 08:00 02/25/25 09:38
Potassium Chloride 20 Meq Extended Release Tablet PO 03/20/25 07:59 Not Given
On Hold: 02/25/25 09:16 DAILY MAYELA
Sodium Chloride 0 flush 02/19/25 19:00 02/24/25 10:23
Sodium Chloride 0.9% (Flush) Syringe IV 03/19/25 18:59 1 flush
PER PROTOCOL MAYELA Administration
Valsartan 320 mg 02/21/25 08:00 02/25/25 09:35
Valsartan 160 Mg Tablet PO 03/21/25 07:59 320 mg
DAILY MAYELA Administration
Review of Systems
-
Unable to obtain full review of systems at this time due to: Other (Patient refusal)
History Source: Patient
All Other Systems: Not reviewed unless documented
Musculoskeletal: Reports Muscle Pain (Left arm injection site)
Neuro: Reports Headache
Physical Exam
-
General: Well Developed and Well Nourished
Psych: Agitated; Negative Intact Judgement/Insight
Labs
Lab Results
WBC Cancelled 02/25/25 06:00
RBC Cancelled 02/25/25 06:00
Hgb Cancelled 02/25/25 06:00
Hct Cancelled 02/25/25 06:00
MCV Cancelled 02/25/25 06:00
MCH Cancelled 02/25/25 06:00
MCHC Cancelled 02/25/25 06:00
RDW Cancelled 02/25/25 06:00
Plt Count Cancelled 02/25/25 06:00
MPV Cancelled 02/25/25 06:00
Abs Immat Gran (auto) 0.1 10^3/uL (0-0.05) H 02/25/25 03:08
Absolute Neuts (auto) 7.2 10^3/uL (1.4-6.5) H 02/25/25 03:08
Absolute Lymphs (auto) 2.0 10^3/uL (1.2-3.4) 02/25/25 03:08
Absolute Monos (auto) 1.0 10^3/uL (0.1-0.6) H 02/25/25 03:08
Absolute Eos (auto) 0.2 10^3/uL (0-0.7) 02/25/25 03:08
Absolute Basos (auto) 0.0 10^3/uL (0-0.2) 02/25/25 03:08
Immature Gran % 0.7 % (0-0.5) H 02/25/25 03:08
Neutrophils % 68.5 % (42.2-75.2) 02/25/25 03:08
Lymphocytes % 19.0 % (20.5-51.1) L 02/25/25 03:08
Monocytes % 9.7 % (1.7-9.3) H 02/25/25 03:08
Eosinophils % 1.8 % (0-6) 02/25/25 03:08
Basophils % 0.3 % (0-2) 02/25/25 03:08
Creatinine Cancelled 02/25/25 06:00
Vital Signs
Vital Signs
Temp Pulse Resp BP Pulse Ox
97.9 F 84 18 183/91 95
02/26/25 07:30 02/26/25 07:30 02/26/25 07:30 02/26/25 07:30 02/26/25 07:30
[2025-02-26 08:03] LABS: Glucose - Point of Care 157 mg/dl (70-99)
--- NOTE | 2025-02-26 08:53 | PTCARENOTE ---
pt AOx3 remcalling events of code purple, frustration with POC. C/O headache. states 'I always have a headache'. Attending at bedside. removed restraints. pt states he will be cooperative. son and DIL at bedside.
[2025-02-26] MEDS: TYLENOL 650 MG PO ×2 (08:57→23:08)
[2025-02-26] MEDS: PROTONIX 40 MG PO (08:58)
[2025-02-26] MEDS: DIOVAN 320 MG PO (08:58)
[2025-02-26] MEDS: COREG 3.125 MG PO ×2 (08:59→22:21)
[2025-02-26] MEDS: VITAMIN B-12 1000 MCG PO (08:59)
[2025-02-26] MEDS: VITAMIN D3 (cholecalciferol) 25 MCG PO (08:59)
[2025-02-26] MEDS: PROSCAR 5 MG PO (08:59)
[2025-02-26] MEDS: NORVASC 5 MG PO (08:59)
[2025-02-26] MEDS: APRESOLINE 25 MG PO ×3 (08:59→22:22)
--- NOTE | 2025-02-26 09:34 | W.PN.UPDATE ---
Update Note
Progress Note Update
Seen and examined the patient independently. Overnight events of agitation noted
CVS: S1-S2 normal
Chest: CTA B/L
Abdomen: Soft, NT , nontender
Extremities: No edema
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 Right sluggish. He has good strength
# Agitation overnight. Patient has good memory of the events was on restraints which were removed today as patient seems to be more calmer. I think the agitation came more from his frustration of dealing with symptoms on the left side and also he
was unable to reach his son last night. Seems to be much calmer and reasoning this morning. He feels down.
I have requested psychiatry evaluation given all the above. Patient and family agreeable
Would also start risperidone for the hemiballismus movements if patient and family agreeable
#Left-sided numbness with visual disturbance d/t new CVA
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
Brain MRI appreciated new infarcts
Eliquis changed to Pradaxa this admission
Mostly related to spatial recognition, proprioception and sensation loss. Also has hemiballismus, he does have numbness in the left leg also which waxes and wanes.. Ataxia of the left leg, left arm
Continue to watch the patient in the hospital
Neurology following, discussed
Physiatry consulted, patient needs acute rehab
Valium/risperidone were offered for hemiballismus yesterday, Pt declined.
# Abdominal discomfort yesterday-resolved. Ultrasound without any acute changes
Resolved with PPI
#HTN/hypertensive urgency
-Blood pressure slightly up this am
-Coreg ,Valsartan ,Amlodipine 5 mg daily ,Hydralazine 25 mg 3 times daily
# CAD/ CABG x 4 vessel/cardiac stent
-Cont Pradaxa
-Continue Coreg, valsartan
# Paroxysmal D-ona-zzvkersa Pradaxa and Coreg
#Hx HFpEF
I/O, daily weights
Continue Coreg, valsartan
Hold lasix
#HLD
Lipid panel reviewed in December, LDL above goal >70
hx statin intolerance
Continue ezetimibe
May need to consider PCSK9 inhibitor as outpatient
# DM 2- oral meds temporarily on hold ( wasn't on the list on admission) . Was stopped last admission
Recent HgbA1c 9.4 pn 02/02/2025
Accu-Cheks with SSI
Continue 70/30 45U BID
# Abnormal TSH with normal T4. Repeat as outpatient
# ALINA- Continue BiPAP
# Class II obesity/metabolic syndrome-weight loss counseled
# Prostate disease-continue finasteride
# Polycythemia- Heme eval with Hb 15 and also CVA
# History of nephrolithiasis
# Hepatomegaly/fatty infiltration
# History of Doyle's palsy
# GERD
# Erectile dysfunction
#Atherosclerotic renal artery stenosis
#DVT prophylaxis-Pradaxa
Left a message for Dr.Scott Reed, awaiting callback to update
D/W nursing at bedside
Discussed with patient's son and [id number] at bedside. [id number]-[id number] is a nurse
Reviewed about stroke, completion of the stroke which led to more symptoms.
[2025-02-26 10:16] LABS: Hematocrit 48.1 % (39.0-52.0); Hemoglobin 15.7 g/dL (13.0-18.0); Mean Corp Hgb Conc. 32.6 g/dL (33.0-37.0); Mean Corpuscular Volume 80.7 fL (80.0-94.0); Platelet Count 213 10^3/uL (130-400); Red Cell Dist. Width 17.9 % (11.5-14.5)
--- NOTE | 2025-02-26 10:29 | W.PN.HOSP.TC ---
Today's Communication/Plan
-
Continue monitoring evolution of stroke symptoms.
Assessment / Plan
Assessment / Plan
79-year-old man with a PMH notable for metabolic syndrome, ALINA, paroxysmal A-fib, CAD s/p CABG x 4, who presented with worsening stroke symptoms that is thought to be due to continuation/completion of his stroke 1 week prior. This is his second
admission this month for stroke. He has residual symptoms of bilateral left hemianopsia, left dysmetria and and left hemisensory deficits. His left upper extremity is most affected by loss of proprioception. Hemiballismus of LUE demonstrated on
02/25/2025. Waxing waning of residual stroke symptoms. CT head repeats continue to demonstrate evolution/completion of stroke.
NIHSS: 10 at 01/2725 7 am.
#Left-sided numbness with visual disturbance d/t new CVA
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
CT head appreciated infarcts corresponding to prior stroke treated with TNK earlier this month, no new acute infarction noted.
Brain MRI appreciated new infarcts
Patient had more symptoms on 02/21/2025, 02/22/2025, 02/24/2025, 02/25/2025. Mostly related to spatial recognition, proprioception and sensation loss. Strength 5 out of 5 bilaterally in all extremities. He does have numbness in the left leg also.
Possibly secondary to cerebral edema from the CVA
Neurology following
Eliquis changed to Pradaxa
Repeat CT from 02/24/2025: Evolving infarctions in the right temporal and occipital lobes as well as splenium of the corpus callosum. There is minimal increase associated edema. There is a small mild cortical hyperdensity along the posterior medial
aspect of the left occipital lobe, which likely represents cortical laminar necrosis.
#HTN/hypertensive urgency
-Blood pressure has been mostly stable
-Coreg, Valsartan
-Amlodipine 5 mg daily added
-Hydralazine 25 mg 3 times daily added
#Paroxysmal A-fib
- continue Pradaxa and Coreg
#Hx HFpEF and CAD/CABG x 4 vessel/cardiac stent
I/O, daily weights
� Pradaxa
- Coreg, valsartan
- Furosemide 60 mg p.o. twice daily held as creatinine and BUN have been slightly increasing
#HLD
Lipid panel reviewed in December, LDL above goal >70
hx statin intolerance
Continue ezetimibe
May need to consider PCSK9 inhibitor as outpatient
# DM 2- oral meds temporarily on hold
Recent HgbA1c 9.4 pn 02/02/2025
-Accu-Cheks with SSI
-Continue 70/30 40U BID
# Polycythemia
�Hematology consulted for whether management of the patient's PV is indicated. Patient states that he requires phlebotomy when his hematocrit is above 46. His hematocrit is around 49
#Nausea
- pantoprazole 40 mg p.o. daily
- Ondansetron 4 mg IV every 6 hours as needed
# Abnormal TSH with normal T4. Repeat as outpatient
#ALINA- Continue BiPAP
- Needs outpatient apnea investigation per neurology
#Class II obesity/metabolic syndrome-weight loss counseled
# Prostate disease-continue finasteride
# History of nephrolithiasis
# History of Doyle's palsy
# GERD
# Erectile dysfunction
#Atherosclerotic renal artery stenosis
#DVT prophylaxis-Pradaxa
D/W son at bed side
Discussed with nursing
Unfortunately patient has fluctuating neurosymptoms likely secondary to cerebral edema/completion of the stroke. He is already on Pradaxa and not a candidate for TNK. Explained to patient/family. Neurology also following will follow
recommendations.
Continue physical therapy. Fall precautions
Dispo: Acute rehab
Part of this note was created using voice recognition system. Occasional wrong word or��sound alike� substitutions may have inadvertently occurred due to the inherent limitations of voice recognition software. If noted kindly bring it to my
attention for correction.
Anticipated Discharge: > 48 hours
Subjective/Interval History
-
Date of Service: February 26, 2025
Grew agitated overnight at 4 AM. He demanded to leave. 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 He was not oriented to place, think he was not at the hospital and he did think the nurses were real. He grew frustrated at not be able to hold his phone
due to his left lower extremity stroke deficit. When he called his he said he wanted her to sign the divorce to present pick him up. He was rude to the staff. He was also angry that his PCP Dr. Reed cannot see him at the hospital.
states that this sounded similar to his agitated episode in the ICU right after his stroke. She consented to medication and he received Zyprexa 5 mg IM once. He was not cooperative, so he did not go to his head CT.
CT head later this morning demonstrated known evolving subacute infarct.
Objective Data
-
Labs:
Laboratory Results
02/26/25
10:00
WBC 11.8 H
Hgb 15.7
Hct 48.1
Plt Count 213
Sodium Pending
Potassium Pending
Chloride Pending
Carbon Dioxide Pending
BUN Pending
Creatinine Pending
Glucose Pending
Calcium Pending
Vital Signs:
Vital Signs
Temp Pulse Resp BP Pulse Ox
97.9 F 84 18 183/91 95
02/26/25 07:30 02/26/25 07:30 02/26/25 07:30 02/26/25 07:30 02/26/25 07:30
I&O
02/25/25 02/26/25 02/27/25
06:59 06:59 06:59
Intake Total 980 / 980
Output Total 750 / 750 200 / 200
Balance 230 / 230 -200 / -200
Review of Systems
-
History Source: Patient
All other systems: Reviewed and negative
Physical Exam
-
General: Well Developed, Well Nourished, No Apparent Distress and Comfortable
HEENT: Normocephalic, Atraumatic and Moist Mucous Membranes
Respiratory: Clear to Auscultation
Cardiac: Regular Rhythm and S1/S2
GI: Soft, Nontender, Normal Bowel Sounds and Distended
Skin: Warm and Dry
Neuro: Awake, Alert, Oriented and Other (left visual field defect, left arm dysmetria, left hemisensory loss)
Psych: Calm
[2025-02-26] MEDS: NOVOLOG MIX 70/30 FLEXPEN 45 UNITS SC ×2 (10:53→17:49)
[2025-02-26] MEDS: NOVOLOG FLEXPEN-LOW RESISTANCE 1 UNITS SC (10:54)
--- NOTE | 2025-02-26 11:07 | PN.DE.MGMTRT ---
Insulin Management
- -
02/26/2025: Diabetes Management Follow up
Patient admitted 02/19 with L sided weakness/numbness similar to recent admission 02/02 to 02/07.
PMH: CAD s/p CABG, HTN, HCL, A-Fib, diabetes, ALINA. Prior to admission was taking 70/30 insulin 60 units BID. A1C 9.4% from 02/02 admission, Cr 0.7, eGFR > 60.
Patient states he follows with his primary doctor Brianna for diabetes care. He has a meter and test 3 to 4 times per day. His OP record indicates he was taking Jardiance and Metformin in the past, both were discontinued-unknown reason.
02/25 70/30 doses increased to 45 units BID, Glucose range 169 to 155. Pre lunch was 332 but AM 70/30 was not given until 11:02.
02/26 Fasting glucose 157. Patient was off the unit for CT scan, breakfast and insulin delayed until 10:53 today. Will continue 70/30 insulin 45 units BID with low corrective insulin.
Will closely monitor glucose trend and adjust 70/30 dose if necessary.
Discussed with nurse. Will cont to follow.
Diabetes History
- -
Type of Diabetes: 2 requiring insulin
Pre-Admission Diabetes Regimen
Insulin Pump Settings
IP Diabetes Regimen
02/25/25 02/25/25 02/25/25
11:06 12:49 16:31
POC Glucose 213 H 332 H 241 H
02/25/25 02/26/25
21:15 08:02
POC Glucose 155 H 157 H
Patient Education
[2025-02-26 11:17] LABS: Blood Urea Nitrogen 42 mg/dl (9-20); Calcium 9.6 mg/dl (8.4-10.2); Carbon Dioxide 28 mmol/L (22-30); Chloride 103 mmol/L (98-107); Estimated Creatinine Clearance 58 ml/min; Glucose 186 mg/dl (70-99); Magnesium 2.6 mg/dl (1.6-2.3); Potassium 5.0 mmol/L (3.5-5.1); Sodium 136 mmol/L (135-145); eGFR > 60.00
[2025-02-26] MEDS: PRADAXA 150 MG PO ×2 (11:38→22:21)
[2025-02-26 12:40] LABS: Glucose - Point of Care 182 mg/dl (70-99)
--- NOTE | 2025-02-26 13:05 | CON.MD ---
Consultation - Medical
-
patient seen chart reviewed. this consult was done today february 26 2025. spoke with nursing. son and daugher in law at bedside. 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 he came to in early january w c.o left sided numbness and was
administered TMK. he went home somewhat better but still with some facial numbness. he returned to again with numbness of the left side which is being addressed mri is pending. the patient became very agitated in the night at 3am when they
were doing vital signs. a code purple was called and he ripped out his iv. today when seen by this automobile service writer he was most pleasant. he was aware of the night and apologetic. he explained his behavior by saying he had been 'tied up' but did not seem to
get the reason for the restraint was his agitation and fears he could harm self. he had been given zyprexa but d wishes to avoid antipsychotics and opines that benzos should be attempted first. the patient's memory according to the family is
intact. i did not do formal testing but he was able to engage reasonably today in conversation although when i explained to him that there were some concerns particularly about his sleep apnea and he did not seem to understand the concept of bipap
and why it was necessary. he denies that he is depressed or anxious. he has never been treated for psych illness nor is there psych illness in his family
past psych hx none
substance abuse 'a beer...if that every few months'
family hx denied
medical hx patient here for left sided weakness secondary to cva mri pending hx gerd lopez hld obesity cad paf iddm heart failure hypercoagulable state s/p cabg and stents ecg w nl qtc b12 folate tsh free t4 all nl
social lives w him. three kids. eight grands. gets to see them. 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
mse alert ox3 cooperative and pleasant. speech and thought process normal no psychosis mood is cheerful affect ok no si above aver intell insight judgment at this moment ok
dx ?delirium or tme during the night resolved currently
recommendations family is opposed to using atypicals. said would allow if all else fails. could try valium 5 mg if agitated. do not see that he needs at this moment a scheduled med for agitation will check in w him in the am. another option could
be trazodone for agitation or even depakote.
[2025-02-26] MEDS: NOVOLOG FLEXPEN-LOW RESISTANCE 3 UNITS SC ×2 (14:07→17:48)
[2025-02-26 14:08] LABS: Glucose - Point of Care 251 mg/dl (70-99)
[2025-02-26 16:57] LABS: Glucose - Point of Care 216 mg/dl (70-99)
[2025-02-26] MEDS: FOLVITE 1 MG PO (17:48)
--- NOTE | 2025-02-26 20:33 | W.PN.NEURO.1 ---
Today's Communication / Plan
-
hemiballism, now quiet during sleep as expected. consider changing Valium from PRN to BID dosing
Neuro Assessment/Plan
Assessment
Patient with recurrent left-sided numbness and visual change despite use of anticoagulation for atrial fibrillation due to acute ischemic stroke, recurrent from multiple weeks ago
At the time, he was treated with TNK in the 4.5-[address] hr window based on CT perfusion scan, and the 12 cc penumbra was saved.
Patient with recurrent symptoms February 21, 2025 while also experiencing single episode of loose bowels and low abdominal pain
CTA no LVO M1/M2
head CT from 02/21 [facility] rev'd, evolving stroke.
head CT 02/22 evening imaging reviewed, evolving stroke compared to 02/[address] 02/24 again evolving stroke.
CTA showed right P1/P2 junction MVO, which is difficult/risky or inaccessible to endovascular treatment, and that gradually over the past few days he has completed the entire territory of stroke.
02/25 I reviewed all imaging including CTA, CTP from prior admission, MRI, and 3 follow head [address]s. Unfortunately this time there is nothing we could have done and he was not a TNK candidate having been on Eliquis. He lost the entire penumbra that was
saved 3 weeks ago.
he is at high risk for stroking more, as well as for hemorrhagic conversion of this stroke, and i believe that risks and benefits favor continuing anticoagulation, agree Eliquis-->Pradaxa.
Plan
Eliquis--> Pradaxa
needs outpatient sleep apnea treatment
diabetes control
No driving, visual field reported to DMV 02/23
PM&R consulted
hemiballismus of left arm, quiet during sleep as expected. I offered him Risperdal or Valium but he doesn't want sedation or risk of tardive side effects. Agree Valium 5 mg however I would favor BID dosing to control his hemiballism and that may
also help prevent some of his frustration.
Subjective/Objective
Subjective Data
Date of Service: February 26, 2025
last night he had agitation, believed to be due to frustration with his symptoms as opposed to sundowning
seen by psychiatry and started on Valium 5 mg q6 hr PRN as family completely opposed to atypical antipsychotics.
currently sleeping. no hemiballism as would be expected.
Objective Data
Vital Signs
Temp Pulse Resp BP Pulse Ox
37.6 C 75 14 130/81 92
02/26/25 19:15 02/26/25 19:15 02/26/25 19:15 02/26/25 19:15 02/26/25 19:15
Lab Results
02/26/25 10:00
02/26/25 10:00
PT 14.6 Sec (11.4-14.6) 02/19/25 10:45
INR 1.09 02/19/25 10:45
APTT 29.6 Sec (23.4-35.0) 02/19/25 10:45
Sodium 136 mmol/L (135-145) 02/26/25 10:00
Potassium 5.0 mmol/L (3.5-5.1) 02/26/25 10:00
BUN 42 mg/dl (9-20) H 02/26/25 10:00
Glucose 186 mg/dl (70-99) H 02/26/25 10:00
Calcium 9.6 mg/dl (8.4-10.2) 02/26/25 10:00
Phosphorus 3.5 mg/dl (2.5-4.5) 02/21/25 06:23
Vitamin B12 815 pg/ml (239-931) 02/19/25 17:16
Patient Allergies
atorvastatin calcium (From Lipitor) Allergy (Verified 02/19/25 10:07)
severe muscle soreness
levofloxacin (From Levaquin) Allergy (Verified 02/19/25 10:07)
Hives
pollen extracts Allergy (Verified 02/19/25 10:07)
Nasal stuffiness - seasonal
Sulfa (Sulfonamide Antibiotics) Allergy (Verified 02/19/25 10:07)
couldn't breathe
[2025-02-26 21:27] LABS: Glucose - Point of Care 78 mg/dl (70-99)
[2025-02-26] MEDS: MAGNESIUM OXIDE 400 MG PO (22:23)
[2025-02-26] MEDS: ZETIA 10 MG PO (22:23)
[2025-02-27] VITALS (7 sets, daily range): BP systolic 126–177; BP diastolic 58–87; PULSE 70; O2SAT 93; BMI 30.5
[2025-02-27 08:23] LABS: Glucose - Point of Care 207 mg/dl (70-99)
[2025-02-27] MEDS: NOVOLOG MIX 70/30 FLEXPEN 45 UNITS SC ×2 (09:42→17:02)
[2025-02-27] MEDS: NOVOLOG FLEXPEN-LOW RESISTANCE 2 UNITS SC ×3 (09:42→17:02)
[2025-02-27] MEDS: NORVASC 5 MG PO (09:43)
[2025-02-27] MEDS: PRADAXA 150 MG PO ×2 (09:44→21:22)
[2025-02-27] MEDS: VITAMIN D3 (cholecalciferol) 25 MCG PO (09:44)
[2025-02-27] MEDS: PROSCAR 5 MG PO (09:44)
[2025-02-27] MEDS: DIOVAN 320 MG PO (09:44)
[2025-02-27] MEDS: COREG 3.125 MG PO ×2 (09:44→21:22)
[2025-02-27] MEDS: PROTONIX 40 MG PO (09:44)
[2025-02-27] MEDS: VITAMIN B-12 1000 MCG PO (09:45)
[2025-02-27] MEDS: APRESOLINE 50 MG PO ×2 (09:46→21:21)
--- NOTE | 2025-02-27 10:26 | W.PN.HOSP.TC ---
Addendum entered and electronically signed by Jazzmine Matthews MD 02/27/25 13:45:
Seen and examined the patient earlier today independently. Reviewed agree with plan put forth by resident
Nursing was at bedside
Patient frustrated with his hemiballismus movements but does not want to take anything medicine unless he talks to Dr. Reed and Dr. Reed also agrees
Neuroexam unchanged since yesterday
Patient not able to participate in physical therapy secondary to these movements of his left arm and left leg
Seated in a chair today
I discussed with the patient again to consider taking Valium or risperidone. Psychiatry also proposed Seroquel at nighttime
Case discussed with Dr. Reed, requested a call to the patient
Discussed with psychiatry
D/W RN
Original Note:
Today's Communication/Plan
-
Encourage treatment for left arm hemiballismus, to help with recovery and regaining function in physical and occupational therapy. Patient wanted to talk to his PCP Dr. Reed first before agreeing to taking Risperdal or Valium.
Changed to hydralazine to 50 mg twice daily from 25 mg 3 times daily due to blood pressures up to 170s.
Assessment / Plan
Assessment / Plan
79-year-old man with a PMH notable for metabolic syndrome, ALINA, paroxysmal A-fib, CAD s/p CABG x 4, who presented with worsening stroke symptoms that is thought to be due to continuation/completion of his stroke 1 week prior. This is his second
admission this month for stroke. He has residual symptoms of bilateral left hemianopsia, left dysmetria and and left hemisensory deficits. His left upper extremity is most affected by loss of proprioception. Hemiballismus of LUE demonstrated on
02/25/2025. Waxing waning of residual stroke symptoms. CT head repeats continue to demonstrate evolution/completion of stroke.
#Left-sided numbness with visual disturbance d/t new CVA
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
CT head appreciated infarcts corresponding to prior stroke treated with TNK earlier this month, no new acute infarction noted. Repeat CT heads have been demonstrating evolving infarctions in the right temporal and occipital lobes as well as splenium
of the corpus callosum. Minimal increased associated edema.
Brain MRI appreciated new infarcts
Patient had more symptoms on 02/21/2025, 02/22/2025, 02/24/2025, 02/25/2025. Mostly related to spatial recognition, proprioception and sensation loss. Strength 5 out of 5 bilaterally in all extremities. He does have numbness in the left leg also.
Possibly secondary to cerebral edema from the CVA
Neurology following
�Eliquis changed to Pradaxa
#Hemiballismus
Post-stroke sequela. Impeding progress in physical and occupational therapy.
Uncontrolled flinging of LUE into bed rails has led to pain and bruises
- Psych and neuro recommending Valium 5 mg or Risperdal
- Patient wanted to talk to his PCP Dr. Reed first before agreeing to taking Risperdal or Valium.
#HTN/hypertensive urgency
-Blood pressure has been mostly stable
-Coreg, Valsartan
-Amlodipine 5 mg daily added
-Hydralazine 50 mg twice daily. Increased on 02/19/2025 from 25 mg 3 times daily added
#Paroxysmal A-fib
- continue Pradaxa and Coreg
#Hx HFpEF and CAD/CABG x 4 vessel/cardiac stent
I/O, daily weights
� Pradaxa
- Coreg, valsartan
- Furosemide 60 mg p.o. twice daily held as creatinine and BUN have been slightly increasing
#HLD
Lipid panel reviewed in December, LDL above goal >70
hx statin intolerance
�Continue ezetimibe
May need to consider PCSK9 inhibitor as outpatient
# DM 2- oral meds temporarily on hold
Recent HgbA1c 9.4 pn 02/02/2025
-Accu-Cheks with SSI
-Continue 70/30 40U BID
# Polycythemia
�Hematology consulted for whether management of the patient's PV is indicated. Patient states that he requires phlebotomy when his hematocrit is above 46. His hematocrit is around 49
#Nausea
- pantoprazole 40 mg p.o. daily
- Ondansetron 4 mg IV every 6 hours as needed
# Abnormal TSH with normal T4. Repeat as outpatient
#ALINA- Continue BiPAP
- Needs outpatient apnea investigation per neurology
#Class II obesity/metabolic syndrome-weight loss counseled
# Prostate disease-continue finasteride
# History of nephrolithiasis
# History of Doyle's palsy
# GERD
# Erectile dysfunction
#Atherosclerotic renal artery stenosis
#DVT prophylaxis-Pradaxa
Unfortunately patient has fluctuating neurosymptoms likely secondary to cerebral edema/completion of the stroke. He is already on Pradaxa and not a candidate for TNK. Explained to patient/family. Neurology also following will follow
recommendations.
Continue physical therapy. Fall precautions
Dispo: Acute rehab
Part of this note was created using voice recognition system. Occasional wrong word or��sound alike� substitutions may have inadvertently occurred due to the inherent limitations of voice recognition software. If noted kindly bring it to my
attention for correction.
Anticipated Discharge: > 48 hours
Subjective/Interval History
-
Date of Service: February 27, 2025
No acute events overnight. This morning patient was frustrated that I and a tech woke him up for a visit and vitals check. He demonstrated left upper extremity hemiballismus and was holding his left hand with his right hand to control it.
He wanted to go to the bathroom and moved to the edge of his bed and started to stand up, at which point the bed alarm started going off. He did not stand up because his left leg felt particularly weak and was to lay back down to use the bed
urinal. He seemed agitated/confused, although probably not as much as overnight 02/25/2025.
Objective Data
-
Labs:
Laboratory Results
02/27/25
10:07
WBC Pending
Hgb Pending
Hct Pending
Plt Count Pending
Sodium Pending
Potassium Pending
Chloride Pending
Carbon Dioxide Pending
BUN Pending
Creatinine Pending
Glucose Pending
Calcium Pending
Vital Signs:
Vital Signs
Temp Pulse Resp BP Pulse Ox
98.4 F 60 18 177/87 94
02/27/25 07:48 02/27/25 07:48 02/27/25 07:48 02/27/25 07:48 02/27/25 07:48
I&O
02/26/25 02/27/25 02/28/25
06:59 06:59 06:59
Intake Total 720 / 720 480 / 480
Output Total 200 / 200 400 / 400 400 / 400
Balance -200 / -200 320 / 320 80 / 80
Review of Systems
-
Unable to obtain full review of systems at this time due to: Other (Agitated/confused)
History Source: Patient
All other systems: Not reviewed unless documented
Physical Exam
-
General: Well Developed, Well Nourished and Other (Agitated and confused)
HEENT: Normocephalic, Atraumatic and Other (Left homonymous hemianopsia)
Respiratory: Non Labored Respirations
Musculoskeletal: Other (Pain at left shoulder and along left humerus, possibly from stroke causing left rotator cuff muscle paresis and thus glenohumeral subluxation)
Skin: Warm, Dry and Other (Ecchymoses on right and left forearms, likely from left upper extremity hemiballismus)
Neuro: Awake, Alert and Other (Extinction to bilateral simultaneous stimulation in left upper and lower extremities.)
Psych: Confused, Agitated and Anxious
Data Reviewed
-
Total Time Spent with Patient (in minutes): 35
Diagnostic Radiology: Report Reviewed by me
CT Scan: Report Reviewed by me
Labs: Labs Reviewed by me
[2025-02-27 10:27] LABS: Hematocrit 48.0 % (39.0-52.0); Hemoglobin 15.9 g/dL (13.0-18.0); Mean Corp Hgb Conc. 33.1 g/dL (33.0-37.0); Mean Corpuscular Volume 80.3 fL (80.0-94.0); Platelet Count 207 10^3/uL (130-400); Red Cell Dist. Width 18.0 % (11.5-14.5)
[2025-02-27] MEDS: APRESOLINE PO (10:43)
[2025-02-27 10:44] LABS: Blood Urea Nitrogen 35 mg/dl (9-20); Calcium 9.2 mg/dl (8.4-10.2); Carbon Dioxide 23 mmol/L (22-30); Chloride 104 mmol/L (98-107); Estimated Creatinine Clearance 64 ml/min; Glucose 266 mg/dl (70-99); Potassium 4.8 mmol/L (3.5-5.1); Sodium 134 mmol/L (135-145); eGFR > 60.00
--- NOTE | 2025-02-27 11:23 | PN.DE.MGMTRT ---
Insulin Management
- -
02/27/2025: Diabetes Management Follow up
Patient admitted 02/19 with L sided weakness/numbness similar to recent admission 02/02 to 02/07.
PMH: CAD s/p CABG, HTN, HCL, A-Fib, diabetes, ALINA. Prior to admission was taking 70/30 insulin 60 units BID. A1C 9.4% from 02/02 admission, Cr 0.7, eGFR > 60.
Patient states he follows with his primary doctor Brianna for diabetes care. He has a meter and test 3 to 4 times per day. His OP record indicates he was taking Jardiance and Metformin in the past, both were discontinued-unknown reason.
Patient is awake alert and oriented, at bedside very supportive. Per CT scan stroke evolving. Patient hostile and agitated at times.
02/27 Glucose yesterday 157 to 251, 78 @ HS. Fasting glucose 157. Will continue 70/30 insulin 45 units in AM with 40 units with dinner, with low corrective insulin.
Will closely monitor glucose trend and adjust 70/30 dose if necessary.
Discussed with nurse. Will cont to follow.
Diabetes History
- -
Type of Diabetes: 2 requiring insulin
Pre-Admission Diabetes Regimen
02/27/25
10:07
Creatinine 1.0
Insulin Pump Settings
IP Diabetes Regimen
02/26/25 02/26/25 02/26/25
10:40 14:06 16:56
Glucose
POC Glucose 182 H 251 H 216 H
02/26/25 02/27/25 02/27/25
21:26 08:22 10:07
Glucose 266 H
POC Glucose 78 207 H
Patient Education
[2025-02-27 11:34] LABS: Glucose - Point of Care 231 mg/dl (70-99)
--- NOTE | 2025-02-27 11:41 | W.PN.ONC ---
Today's Communication / Plan
-
Phlebotomy as needed to keep hematocrit <48
Impression
Impression
This is an 79 y/o male with pmhx of obstructive sleep apnea with noncompliance with CPAP, secondary polycythemia, Paroxysmal atrial fibrillation, Type 2 diabetes, essential hypertension who presented to the ED on 02/19/2025 with left sided facial
numbness, elevated BP, and headache and was found to have an evolving stroke in the setting of recent hospitalization in 02/02-02/07/2025 for stroke.
Plan
Plan
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
-Reactive to obstructive sleep apnea with CPAP noncompliance and elevated carboxyhemoglobin.
-JAK2 negative polycythemia much less associated with hypercoagulability and subsequent CVA compared to polycythemia vera, and traditionally is treated by addressing the source of the hypoxemia, though patient does remain noncompliant with CPAP for
>2 years.
-Patient already optimized with Pradaxa therapy and phlebotomy with most recent outpatient phlebotomy on 01/14/2025.
-Phlebotomy as needed for hematocrit to keep it <48
-Continue to encourage use of CPAP overnight
-It would be worthwhile to retest his JAK2 outpatient given his most recent test was in 2014
-Continue outpatient follow up with [facility] and outpatient phlebotomy every 8-12 weeks
-Thank you very much for the consult. Hematology/Oncology will be signing off
Obstructive Sleep Apnea
-Contributing to chronic hypoxemia due to noncompliance with CPAP
-Continue to encourage use of CPAP
Subjective/Objective
Subjective/Objective
Patient was doing well when I arrived. He was awake and sitting in his chair. He reports he has left sided arm pain in the lateral upper arm, which is sore. He attributes this to the new, uncontrollable arm movements he's been having since the
stroke. He has a soft mitten on currently, as his involuntary movements sometimes cause him to strike himself in the face. He has no other concerns or complaints at this time.
I did speak to his nurse, who stated his was in the room earlier and had helped him eat some food. He also had been agitated earlier this morning, but had not required restraints at that time like he had yesterday.
Vital Signs:
Vital Signs
Temp Pulse Resp BP Pulse Ox
97.5 F 72 16 126/69 95
02/27/25 10:46 02/27/25 10:46 02/27/25 10:46 02/27/25 10:46 02/27/25 10:46
Lab Results:
Laboratory Data
WBC 8.8 10^3/uL (4.8-10.8) 02/27/25 10:07
Hgb 15.9 g/dL (13.0-18.0) 02/27/25 10:07
Plt Count 207 10^3/uL (130-400) 02/27/25 10:07
PT 14.6 Sec (11.4-14.6) 02/19/25 10:45
INR 1.09 02/19/25 10:45
APTT 29.6 Sec (23.4-35.0) 02/19/25 10:45
eGFR > 60.00 02/27/25 10:07
--- NOTE | 2025-02-27 12:39 | W.PN.UPDATE ---
Update Note
Progress Note Update
patient seen chart reviewed. spoke with nursing and with patient's daughter. spoke with dr mondragon. i initially met with patient alone. we talked about his stroke. he had viewed his mri scan and wanted to understand why they couldn't 'just go in
there and clear out the area' it seemed to be his perception that the area of his brain that was affected was flooded with blood that could just be sucked out. explained to him why that was not the case. we also talked about hemiballismus ..what
it is and what dr nj is proprosing to rx it. he asked about the side effects of valium. the principal one is sedation of course there can be memory issues falls etc but i reassured him that the dose would start low and be increased only slowly and
at no time does he need to continue it if he has adverse effects he cannot tolerate. dr mondragon has spoken to dr peralta patient's pcp who will get in contact w patient to discuss. the patient says he is 'almost there' in terms of accepting valium
trial. 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
when he grew up in [place] which was back then a [place] community where everyone looked after everyone else's kids and no one thought about school shootings. . will continue to follow
--- NOTE | 2025-02-27 13:00 | PTCARENOTE ---
Two full pill bottles found on patient's bedside table that were not there earlier. RN asked patient where the pill bottles came from and if he had taken any medication from them. Patient states, 'They are not mine. I did not take any medication.'
Daughter in law at bedside. Daughter in law stated, 'They are mine.' RN lifted up bottles and patient states, 'They are my grandson's pills.' The name on the bottles was Cullen. RN asked why his grandson's medication was on his bedside table. Daughter
in law answered, 'I take them for my back pain.' One bottle was labeled Naproxen, the other bottle was not able to be identified. patient and family were instructed that patient is only to take medication administered by RN. Patient and daughter in
laws verbalized understanding.
--- NOTE | 2025-02-27 14:53 | CM ---
Alert awake oriented patient who lives with his Mireya in a 2 story home with 3 step to enter and 13 steps to bed and bathroom. He has been independent in driving and in all activities of daily living [employer].
He has a CPAP, cane and walker that he does not use at home.
Acute Rehab is recommended at this time. Referral sent via [facility] to [facility] for consideration.
[facility] hx / No SNF history
Outpatient PT hx
Pharm[facility]
PCP DR Marquis Reed
Plan: Transfer to [facility] when medically stable.
[2025-02-27 16:23] LABS: Glucose - Point of Care 245 mg/dl (70-99)
[2025-02-27] MEDS: FOLVITE 1 MG PO (17:03)
[2025-02-27] MEDS: MAGNESIUM OXIDE 400 MG PO (21:23)
[2025-02-27] MEDS: ZETIA 10 MG PO (21:23)
[2025-02-27 22:06] LABS: Glucose - Point of Care 64 mg/dl (70-99)
[2025-02-27 22:24] LABS: Glucose - Point of Care 77 mg/dl (70-99)
[2025-02-27 22:52] LABS: Glucose - Point of Care 106 mg/dl (70-99)
[2025-02-28] VITALS (8 sets, daily range): BP systolic 95–168; BP diastolic 58–76; PULSE 61; BMI 30.5
[2025-02-28 00:57] LABS: Glucose - Point of Care 118 mg/dl (70-99)
[2025-02-28 02:40] LABS: Glucose - Point of Care 153 mg/dl (70-99)
[2025-02-28] MEDS: TYLENOL 650 MG PO (02:42)
--- NOTE | 2025-02-28 07:42 | PN.DE.MGMTRT ---
Insulin Management
- -
02/28/2025: Diabetes Management Follow up
Patient admitted 02/19 with L sided weakness/numbness similar to recent admission 02/02 to 02/07.
PMH: CAD s/p CABG, HTN, HCL, A-Fib, diabetes, ALINA. Prior to admission was taking 70/30 insulin 60 units BID. A1C 9.4% from 02/02 admission, Cr 0.7, eGFR > 60.
Patient states he follows with his primary doctor Brianna for diabetes care. He has a meter and test 3 to 4 times per day. His OP record indicates he was taking Jardiance and Metformin in the past, both were discontinued-unknown reason.
Patient is awake, alert, per pt's Nurse, pt has been hostile, wit periods of agitation, unable to discuss diabetes care plan. not at bedside.
Per CT scan stroke evolving. Glucose range yesterday 207 to 245, 64 @ HS, was treated. Fasting glucose 198 POC this AM.
Will continue 70/30 insulin 45 units in AM with 40 units with dinner, with low corrective insulin.
Will closely monitor glucose trend and adjust 70/30 dose if necessary.
Discussed with nurse. Will cont to follow.
Diabetes History
- -
Type of Diabetes: 2 requiring insulin
Pre-Admission Diabetes Regimen
02/27/25
10:07
Creatinine 1.0
Insulin Pump Settings
IP Diabetes Regimen
02/27/25 02/27/25 02/27/25
08:22 10:07 11:33
Glucose 266 H
POC Glucose 207 H 231 H
02/27/25 02/27/25 02/27/25
16:22 22:05 22:23
Glucose
POC Glucose 245 H 64 L 77
02/27/25 02/28/25 02/28/25
22:50 00:55 02:39
Glucose
POC Glucose 106 H 118 H 153 H
Meal type: Breakfast
Amount consumed: 100%
Patient Education
[2025-02-28 09:30] LABS: Glucose - Point of Care 198 mg/dl (70-99)
--- NOTE | 2025-02-28 10:37 | W.PN.UPDATE ---
Update Note
Progress Note Update
patient seen chart reviewed. discussed with nursing. patient did not start valium yesterday as he says dr peralta did not call. retexted dr peralta. discussed again why valium and he is willing to try 2 mg bid. explained that he may be a bit tired but
to keep us aware if any ill effects. nursing tells me he was in a rather negative mood early on this am. after talking with him and helping w nursing getting him set up to eat his fruit tray he appeared better. hopefully he can speak to his pcp
later on today to help with support for him. psych will check in tomorrow
[2025-02-28] MEDS: VALIUM 2 MG PO ×2 (11:16→20:02)
[2025-02-28] MEDS: DIOVAN 320 MG PO (11:25)
[2025-02-28] MEDS: PROTONIX 40 MG PO (11:25)
[2025-02-28] MEDS: PRADAXA 150 MG PO ×2 (11:26→20:02)
[2025-02-28] MEDS: APRESOLINE 50 MG PO ×2 (11:26→20:03)
[2025-02-28] MEDS: VITAMIN D3 (cholecalciferol) 25 MCG PO (11:26)
[2025-02-28] MEDS: VITAMIN B-12 1000 MCG PO (11:26)
[2025-02-28] MEDS: NORVASC 5 MG PO (11:26)
[2025-02-28] MEDS: COREG 3.125 MG PO ×2 (11:26→20:02)
[2025-02-28] MEDS: PROSCAR 5 MG PO (11:26)
[2025-02-28] MEDS: NOVOLOG FLEXPEN-LOW RESISTANCE 1 UNITS SC (11:27)
[2025-02-28] MEDS: NOVOLOG MIX 70/30 FLEXPEN 45 UNITS SC (11:29)
[2025-02-28] MEDS: NOVOLOG FLEXPEN-LOW RESISTANCE SC (12:00)
[2025-02-28 13:18] LABS: Hematocrit 47.3 % (39.0-52.0); Hemoglobin 15.9 g/dL (13.0-18.0); Mean Corp Hgb Conc. 33.6 g/dL (33.0-37.0); Mean Corpuscular Volume 78.2 fL (80.0-94.0); Platelet Count 199 10^3/uL (130-400); Red Cell Dist. Width 18.3 % (11.5-14.5)
[2025-02-28 13:47] LABS: Blood Urea Nitrogen 31 mg/dl (9-20); Calcium 9.4 mg/dl (8.4-10.2); Carbon Dioxide 23 mmol/L (22-30); Chloride 103 mmol/L (98-107); Estimated Creatinine Clearance 79 ml/min; Glucose 285 mg/dl (70-99); Potassium 5.3 mmol/L (3.5-5.1); Sodium 132 mmol/L (135-145); eGFR > 60.00
--- NOTE | 2025-02-28 15:05 | W.PN.UPDATE ---
Update Note
Progress Note Update
Seen and examined the patient independently. Overnight events of agitation noted
CVS: S1-S2 normal
Chest: CTA B/L
Abdomen: Soft, NT , nontender
Extremities: No edema
[employer]: -Mild left facial droop, involuntary movements of his left arm, ataxia of the left leg and left arm, left hemianopsia, Pupils unequal. Right sluggish. He has good strength, hemiballismus movements of the left arm and leg
#Left-sided numbness with visual disturbance d/t new CVA
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
Brain MRI appreciated new infarcts
Eliquis changed to Pradaxa this admission
Mostly related to spatial recognition, proprioception and sensation loss. Also has hemiballismus, he does have numbness in the left leg also which waxes and wanes.. Ataxia of the left leg, left arm
Valium/risperidone were offered for hemiballismus yesterday, Pt declined initially.
Wanted to talk Dr. Reed
Agreeable today and started on Valium 2.5 mg twice daily, can be titrated up to 5 twice daily if he is not sleepy, this improved his symptoms
# Abdominal discomfort resolved with PPI
#HTN/hypertensive urgency
-Blood pressure slightly up this am
-Coreg ,Valsartan ,Amlodipine 5 mg daily ,Hydralazine 50 mg twice daily
# CAD/ CABG x 4 vessel/cardiac stent
-Cont Pradaxa
-Continue Coreg, valsartan
# Paroxysmal [id number] Pradaxa and Coreg
#Hx HFpEF
I/O, daily weights
Continue Coreg, valsartan
Restart Lasix, hold potassium
#HLD
Lipid panel reviewed in December, LDL above goal >70
hx statin intolerance
Continue ezetimibe
May need to consider PCSK9 inhibitor as outpatient
# DM 2- oral meds temporarily on hold ( wasn't on the list on admission) . Was stopped last admission
Recent HgbA1c 9.4 pn 02/02/2025
Accu-Cheks with SSI
Continue 70/30 40 in the evening and 45 units in the morning
# Abnormal TSH with normal T4. Repeat as outpatient
# ALINA- Continue BiPAP
# Class II obesity/metabolic syndrome-weight loss counseled
# Prostate disease-continue finasteride
# Polycythemia- Heme eval appreciated. 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 JAK2 mutation negative. Repeat as outpatient
# History of nephrolithiasis
# Hepatomegaly/fatty infiltration
# History of Doyle's palsy
# GERD
# Erectile dysfunction
#Atherosclerotic renal artery stenosis
#DVT prophylaxis-Pradaxa
Discussed with nursing at bedside
Discussed with psychiatry
Discussed with neurology
No number available for son or [id number] on the chart
--- NOTE | 2025-02-28 15:11 | W.PN.HOSP.TC ---
Today's Communication/Plan
-
Patient agreed to try Valium to decrease his left arm hemiballism.
Assessment / Plan
Assessment / Plan
79-year-old man with a PMH notable for metabolic syndrome, ALINA, paroxysmal A-fib, CAD s/p CABG x 4, who presented with worsening stroke symptoms that is thought to be due to continuation/completion of his stroke 1 week prior. This is his second
admission this month for stroke. He has residual symptoms of bilateral left hemianopsia, left dysmetria and and left hemisensory deficits. His left upper extremity is most affected by loss of proprioception. Hemiballismus of LUE demonstrated on
02/25/2025. Waxing waning of residual stroke symptoms. CT head repeats continue to demonstrate evolution/completion of stroke.
#Left-sided numbness with visual disturbance d/t new CVA
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
CT head appreciated infarcts corresponding to prior stroke treated with TNK earlier this month, no new acute infarction noted. Repeat CT heads have been demonstrating evolving infarctions in the right temporal and occipital lobes as well as splenium
of the corpus callosum. Minimal increased associated edema.
Brain MRI appreciated new infarcts
Patient had more symptoms on 02/21/2025, 02/22/2025, 02/24/2025, 02/25/2025. Mostly related to spatial recognition, proprioception and sensation loss. Strength 5 out of 5 bilaterally in all extremities. He does have numbness in the left leg also.
Possibly secondary to cerebral edema from the CVA
Neurology following
�Eliquis changed to Pradaxa
#Hemiballismus
Post-stroke sequela. Impeding progress in physical and occupational therapy.
Uncontrolled flinging of LUE into bed rails has led to pain and bruises
On 02/27/2025, patient stated he wanted to talk to his PCP Dr. Reed first before agreeing to taking Risperdal or Valium.
- Valium 5 mg twice daily started 02/28/2025 after patient agreed
#HTN/hypertensive urgency
-Blood pressure has been mostly stable
-Coreg, Valsartan
-Amlodipine 5 mg daily added
-Hydralazine 50 mg twice daily. Increased on 02/19/2025 from 25 mg 3 times daily added
#Paroxysmal A-fib
- continue Pradaxa and Coreg
#Hx HFpEF and CAD/CABG x 4 vessel/cardiac stent
I/O, daily weights
� Pradaxa
- Coreg, valsartan
- Furosemide 60 mg p.o. twice daily held as creatinine and BUN have been slightly increasing
#HLD
Lipid panel reviewed in December, LDL above goal >70
hx statin intolerance
�Continue ezetimibe
May need to consider PCSK9 inhibitor as outpatient
# DM 2- oral meds temporarily on hold
Recent HgbA1c 9.4 pn 02/02/2025
-Accu-Cheks with SSI
-Continue 70/30 40U BID
# Polycythemia
�Hematology consulted for whether management of the patient's PV is indicated. Patient states that he requires phlebotomy when his hematocrit is above 46. His hematocrit is around 49
#Nausea
- pantoprazole 40 mg p.o. daily
- Ondansetron 4 mg IV every 6 hours as needed
# Abnormal TSH with normal T4. Repeat as outpatient
#ALINA- Continue BiPAP
- Needs outpatient apnea investigation per neurology
#Class II obesity/metabolic syndrome-weight loss counseled
# Prostate disease-continue finasteride
# History of nephrolithiasis
# History of Doyle's palsy
# GERD
# Erectile dysfunction
#Atherosclerotic renal artery stenosis
#DVT prophylaxis-Pradaxa
Will speak with family regarding potential discharge to acute rehab this weekend.
Unfortunately patient has fluctuating neurosymptoms likely secondary to cerebral edema/completion of the stroke. He is already on Pradaxa and not a candidate for TNK. Explained to patient/family. Neurology also following will follow
recommendations.
Continue physical therapy. Fall precautions
Dispo: Acute rehab
Part of this note was created using voice recognition system. Occasional wrong word or��sound alike� substitutions may have inadvertently occurred due to the inherent limitations of voice recognition software. If noted kindly bring it to my
attention for correction.
Anticipated Discharge: 24 - 48 hours
Subjective/Interval History
-
Date of Service: February 28, 2025
No acute events overnight. This morning, he was feeling frustrated, stating that he feels he is being given medications but he does not know what they are for. He was refused seeing the nurse giving him medications and drawing labs.
He states that he agreed to start Valium yesterday, but our understanding was that he stated he wanted to speak with his PCP Dr. Reed first before agreeing to Valium. He agreed to start Valium today.
He states that he feels he is better able to control his left arm.
Objective Data
-
Labs:
Laboratory Results
02/28/25
13:07
WBC 7.1
Hgb 15.9
Hct 47.3
Plt Count 199
Sodium 132 L
Potassium 5.3 H
Chloride 103
Carbon Dioxide 23
BUN 31 H
Creatinine 0.9
Glucose 285 H
Calcium 9.4
Vital Signs:
Vital Signs
Temp Pulse Resp BP Pulse Ox
98.4 F 76 16 152/76 92
02/28/25 11:43 02/28/25 11:43 02/28/25 11:43 02/28/25 11:43 02/28/25 11:43
I&O
02/27/25 02/28/25 03/01/25
06:59 06:59 06:59
Intake Total 720 / 720 1380 / 1380
Output Total 400 / 400 750 / 750 150 / 150
Balance 320 / 320 630 / 630 -150 / -150
Review of Systems
-
History Source: Patient
All other systems: Reviewed and negative
Neuro: Reports Ataxia (Left arm coordination improving)
Psych: Reports Other (Frustrated)
Physical Exam
-
General: Well Developed and Well Nourished
HEENT: Normocephalic, Atraumatic and Moist Mucous Membranes
Respiratory: Clear to Auscultation
Cardiac: Regular Rhythm and S1/S2
GI: Soft, Nontender and Normal Bowel Sounds
Musculoskeletal: No Clubbing, No Cyanosis and No Edema
Skin: Warm and Dry
Neuro: Awake, Alert, Oriented and Other (He demonstrated that his left arm was well-coordinated and using napkin to wipe food off his gown)
Data Reviewed
-
Total Time Spent with Patient (in minutes): 35
Labs: Labs Reviewed by me
[2025-02-28] MEDS: LASIX 60 MG PO (16:32)
[2025-02-28] MEDS: FOLVITE 1 MG PO (16:33)
[2025-02-28 16:49] LABS: Glucose - Point of Care 283 mg/dl (70-99)
--- NOTE | 2025-02-28 16:53 | PTCARENOTE ---
1615 RN was outside of patient's room and heard a thump and then chair alarm went off. Patient found sitting on floor. Patient states, 'I did not hit my head. I was trying to sit at the edge of the chair to use the urinal.' Patient assisted back to
bed. Physician notified.
--- NOTE | 2025-02-28 17:10 | W.PN.UPDATE ---
Update Note
Progress Note Update
Mr. Cullen Rizvi slipped onto the ground while using his bedside urinal this afternoon. He was sitting at the edge of his bed preparing to use his bedside urinal when he dropped his urinal onto the ground. When he reached down for his bedside
urinal, he slipped off his bed and onto the ground. His nurse found him sitting on his buttocks upright. He said he did not hit his head.
When I went to examine him, he denied pain anywhere. He had 5 out of 5 strength to elbow flexion and extension. He was able to flex his hips to gravity for 5+ seconds bilaterally. No new bruises or skin tears were present on his buttocks, back,
legs. Given his robust range of motion and strength, there is low suspicion for a hip fracture.
[2025-02-28] MEDS: NOVOLOG FLEXPEN-LOW RESISTANCE 3 UNITS SC (17:13)
[2025-02-28] MEDS: NOVOLOG MIX 70/30 FLEXPEN 40 UNITS SC (17:14)
[2025-02-28 21:44] LABS: Glucose - Point of Care 104 mg/dl (70-99)
[2025-02-28] MEDS: MAGNESIUM OXIDE 400 MG PO (21:49)
[2025-02-28] MEDS: ZETIA 10 MG PO (21:49)
[2025-03-01] MEDS: TUMS CHEWABLE TABLET 200 MG PO (01:16)
[2025-03-01 03:17] VITALS: BP 154/65
[2025-03-01] MEDS: VALIUM 2 MG PO ×4 (05:22→20:03)
[2025-03-01 06:00] VITALS: BMI 30.2
[2025-03-01 07:56] VITALS: BP 173/68
[2025-03-01 08:00] LABS: Glucose - Point of Care 172 mg/dl (70-99)
[2025-03-01 09:15] LABS: Hematocrit 47.2 % (39.0-52.0); Hemoglobin 15.2 g/dL (13.0-18.0); Mean Corp Hgb Conc. 32.2 g/dL (33.0-37.0); Mean Corpuscular Volume 81.4 fL (80.0-94.0); Platelet Count 182 10^3/uL (130-400); Red Cell Dist. Width 17.8 % (11.5-14.5)
[2025-03-01 09:45] LABS: Blood Urea Nitrogen 33 mg/dl (9-20); Calcium 9.3 mg/dl (8.4-10.2); Carbon Dioxide 24 mmol/L (22-30); Chloride 106 mmol/L (98-107); Estimated Creatinine Clearance 71 ml/min; Glucose 178 mg/dl (70-99); Potassium 5.1 mmol/L (3.5-5.1); Sodium 135 mmol/L (135-145); eGFR > 60.00
[2025-03-01] MEDS: PROTONIX 40 MG PO (09:49)
[2025-03-01] MEDS: PRADAXA 150 MG PO ×2 (09:51→20:03)
[2025-03-01] MEDS: DIOVAN 320 MG PO (09:51)
[2025-03-01] MEDS: COREG 3.125 MG PO ×2 (09:52→20:03)
[2025-03-01] MEDS: NORVASC 5 MG PO (09:52)
[2025-03-01] MEDS: APRESOLINE 50 MG PO ×2 (09:52→20:03)
[2025-03-01] MEDS: PROSCAR 5 MG PO (09:52)
[2025-03-01] MEDS: VITAMIN B-12 1000 MCG PO (09:53)
[2025-03-01] MEDS: VITAMIN D3 (cholecalciferol) 25 MCG PO (09:53)
[2025-03-01] MEDS: LASIX 60 MG PO ×2 (09:53→15:36)
[2025-03-01] MEDS: NOVOLOG FLEXPEN-LOW RESISTANCE SC ×2 (11:12→17:34)
[2025-03-01 11:35] VITALS: BP 102/55
[2025-03-01 12:30] LABS: Glucose - Point of Care 274 mg/dl (70-99)
--- NOTE | 2025-03-01 13:25 | W.PN.HOSP.TC ---
Addendum entered and electronically signed by Tae Irvin MD 03/01/25 13:57:
Attending�addendum:
I�saw�and�evaluated�the�patient.�I�reviewed�the�resident�s�note�and�agree�with�findings�and�plan�as�documented�in�the�resident�s�note.��
�patient seen and examined at bedside, denies any chest pain or shortness of breath, no abdominal pain, no nausea, no vomiting, no diarrhea or constipation.
Symptoms improved with Valium, pending discharge to acute rehab.
Physical�exam:
GENERAL : Patient is awake, alert, oriented x3
HEENT: Nonicteric sclerae, PERRLA, EOMI. Oropharynx clear. Moist mucous membranes. Conjunctivae appear well perfused.
CHEST: Chest wall is nontender.
HEART: Regular rate and rhythm without murmurs.
LUNGS: Clear to auscultation bilaterally.
ABDOMEN: Soft, positive bowel sounds, nontender, no organomegaly.
RECTAL: Deferred.
SKIN: No rash, no excessive bruising, petechiae, or purpura.
NEUROLOGIC: Cranial nerves II-XII intact without motor/sensory deficit.
�
Assessment/plan:
Acute CVA.
Eliquis switched to Pradaxa.
Pending discharge to rehab
Hemiballismus
Improved.
Continue with Valium
Paroxysmal A-fib.
Continue Pradaxa and Coreg
Chronic diastolic CHF.
Stable with no sign of acute exacerbation
Disposition.
Awaiting rehab placement.
�
Total�time�spent�on�today�s�encounter�was�65�minutes�which�included�time�spent�in�counseling�the�patient/family�regarding�diagnosis�and�treatment�plan�as�listed�above,�goals�of�care,�and�symptom�management.�Case�was�discussed�with�nursing�staff,�spec
ialists,�and�care�coordinators/case�management.�All�labs�and�imaging�personally�reviewed�by�me.�Remainder�the�time�spent�in�detailed�review�of�previous�records,�lab�data,�imaging,�and�other�medical�provider�documentation.
Original Note:
Today's Communication/Plan
-
Patient's left arm seems more controlled/coordinated after 3 doses of Valium. He was able to hold his left arm stably in abduction for 10 seconds.
Case management states that the acute rehab his family chose, [facility], may have a bed available on Monday.
Assessment / Plan
Assessment / Plan
79-year-old man with a PMH notable for metabolic syndrome, ALINA, paroxysmal A-fib, CAD s/p CABG x 4, who presented with worsening stroke symptoms that is thought to be due to continuation/completion of his stroke 1 week prior. This is his second
admission this month for stroke. He has residual symptoms of bilateral left hemianopsia, left dysmetria and and left hemisensory deficits. His left upper extremity is most affected by loss of proprioception. Hemiballismus of LUE demonstrated on
02/25/2025. Waxing waning of residual stroke symptoms. CT head repeats continue to demonstrate evolution/completion of stroke.
03/01/2025: Patient's left arm seems more coordinated/controlled after 3 doses of Valium. He was able to hold his left arm for an abduction stably 10 seconds.
#Left-sided numbness with visual disturbance d/t new CVA
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
CT head appreciated infarcts corresponding to prior stroke treated with TNK earlier this month, no new acute infarction noted. Repeat CT heads have been demonstrating evolving infarctions in the right temporal and occipital lobes as well as splenium
of the corpus callosum. Minimal increased associated edema.
Brain MRI appreciated new infarcts
Patient had more symptoms on 02/21/2025, 02/22/2025, 02/24/2025, 02/25/2025. Mostly related to spatial recognition, proprioception and sensation loss. Strength 5 out of 5 bilaterally in all extremities. He does have numbness in the left leg also.
Possibly secondary to cerebral edema from the CVA
Neurology following
�Eliquis changed to Pradaxa
#Hemiballismus
Post-stroke sequela. Impeding progress in physical and occupational therapy.
Uncontrolled flinging of LUE into bed rails has led to pain and bruises
On 02/27/2025, patient stated he wanted to talk to his PCP Dr. Reed first before agreeing to taking Risperdal or Valium.
- Valium 5 mg twice daily started 02/28/2025 after patient agreed
03/01/2025: Patient's left arm seems more coordinated/controlled after 3 doses of Valium. He was able to hold his left arm for an abduction stably 10 seconds.
#HTN/hypertensive urgency
-Blood pressure has been mostly stable
-Coreg, Valsartan
-Amlodipine 5 mg daily added
-Hydralazine 50 mg twice daily. Increased on 02/19/2025 from 25 mg 3 times daily added
#Paroxysmal A-fib
- continue Pradaxa and Coreg
#Hx HFpEF and CAD/CABG x 4 vessel/cardiac stent
I/O, daily weights
� Pradaxa
- Coreg, valsartan
- Furosemide 60 mg p.o. twice daily held as creatinine and BUN have been slightly increasing
#HLD
Lipid panel reviewed in December, LDL above goal >70
hx statin intolerance
�Continue ezetimibe
May need to consider PCSK9 inhibitor as outpatient
# DM 2- oral meds temporarily on hold
Recent HgbA1c 9.4 pn 02/02/2025
-Accu-Cheks with SSI
-Continue 70/30 40U BID
# Polycythemia
�Hematology consulted for whether management of the patient's PV is indicated. Patient states that he requires phlebotomy when his hematocrit is above 46. His hematocrit is around 49
#Nausea
- pantoprazole 40 mg p.o. daily
- Ondansetron 4 mg IV every 6 hours as needed
# Abnormal TSH with normal T4. Repeat as outpatient
#ALINA- Continue BiPAP
- Needs outpatient apnea investigation per neurology
#Class II obesity/metabolic syndrome-weight loss counseled
# Prostate disease-continue finasteride
# History of nephrolithiasis
# History of Doyle's palsy
# GERD
# Erectile dysfunction
#Atherosclerotic renal artery stenosis
#DVT prophylaxis-Pradaxa
Will speak with family regarding potential discharge to acute rehab this weekend.
Unfortunately patient has fluctuating neurosymptoms likely secondary to cerebral edema/completion of the stroke. He is already on Pradaxa and not a candidate for TNK. Explained to patient/family. Neurology also following will follow
recommendations.
Continue physical therapy. Fall precautions
Dispo: Acute rehab
�Family is choosing [facility]
�Case management states that [facility] is unlikely to have availability until Monday
Part of this note was created using voice recognition system. Occasional wrong word or��sound alike� substitutions may have inadvertently occurred due to the inherent limitations of voice recognition software. If noted kindly bring it to my
attention for correction.
Anticipated Discharge: > 48 hours
Subjective/Interval History
-
Date of Service: March 01, 2025
No acute events overnight. Patient denies pain after rolling onto the ground yesterday afternoon around 4 to 5 PM when he was reaching for his urinal that he tripped in the ground.
He states again that he feels he is not informed of the medications he is being given and for what reason he is taking them. He stated he felt mild right upper quadrant abdominal discomfort after taking his night medications. The sensation felt
the same as the previous episode a few nights ago; EKG, troponin, and right upper quadrant ultrasound were negative.
Objective Data
-
Labs:
Laboratory Results
03/01/25
08:14
WBC 8.2
Hgb 15.2
Hct 47.2
Plt Count 182
Sodium 135
Potassium 5.1
Chloride 106
Carbon Dioxide 24
BUN 33 H
Creatinine 0.9
Glucose 178 H
Calcium 9.3
Vital Signs:
Vital Signs
Temp Pulse Resp BP Pulse Ox
97.6 F 77 16 102/55 93
03/01/25 11:35 03/01/25 11:35 03/01/25 11:35 03/01/25 11:35 03/01/25 11:35
I&O
02/28/25 03/01/25 03/02/25
06:59 06:59 06:59
Intake Total 1380 / 1380 680 / 680 480 / 480
Output Total 750 / 750 150 / 150 250 / 250
Balance 630 / 630 530 / 530 230 / 230
Review of Systems
-
History Source: Patient
All other systems: Reviewed and negative
Physical Exam
-
General: Well Developed, Well Nourished, No Apparent Distress and Comfortable
HEENT: Normocephalic, Atraumatic and Other (Left homonymous hemianopsia)
Respiratory: Clear to Auscultation
Cardiac: Regular Rhythm and S1/S2
GI: Soft, Nontender, Nondistended and Normal Bowel Sounds
Genito-urinary: No Costovertebral Tender
Musculoskeletal: No Clubbing, No Cyanosis, No Edema and Other
Skin: Warm, Dry and Other (Ecchymoses in his upper extremities, likely from his left arm hemiballismus and his right arm try to control his left arm)
Neuro: Awake, Alert, Oriented, Facial Droop (Facial droop non-obvious) and Other (Able to abduct left arm to gravity for 10 seconds. Left arm was stable all abducted for 10 seconds. Continued ataxia on [id number] with LUE, but LUE seems more
coordinated than yesterday; continued hemisensory loss in LUE and LLE)
Psych: Other (Frustrated but less than yesterday morning)
[2025-03-01] MEDS: NOVOLOG MIX 70/30 FLEXPEN 45 UNITS SC (13:30)
--- NOTE | 2025-03-01 13:38 | W.PN.UPDATE ---
Update Note
Progress Note Update
Patient seen my be on 03/01/2025 from 12:35pm-12:46pm
Psychiatry follow up. Chart reviewed. Patient agreed to trying Valium for left arm hemiballism after he was able to discuss this with his PCP Dr. Reed. He states it helped relax his arm so he was not 'hitting myself overnight.' He stats he
tolerated the medication well and is doing ok this morning. He is comfortable with its continuation at current dose. Will continue to monitor and follow up with him tomorrow.
--- NOTE | 2025-03-01 14:13 | PTCARENOTE ---
Pt initially very standoff-brinda and paranoid this AM. He was asking who had ordered each one of his medications and if it was verified by his primary for each medication. After getting Valium and building some rapport with the pt he began to get more
pleasant. He even tells me today his primary had come in to see him and now he is in much better spirits. After about an hour in the chair pt was assisted back to the bed. He is a heavy two person assist and has much difficulty picking up his L
foot.
[2025-03-01] MEDS: TYLENOL 650 MG PO (15:37)
[2025-03-01 16:16] VITALS: BP 135/69
[2025-03-01 17:19] LABS: Glucose - Point of Care 202 mg/dl (70-99)
[2025-03-01] MEDS: ULTRAM 50 MG PO (17:55)
[2025-03-01] MEDS: NOVOLOG MIX 70/30 FLEXPEN 40 UNITS SC (17:57)
[2025-03-01] MEDS: FOLVITE 1 MG PO (17:57)
[2025-03-01] MEDS: NOVOLOG FLEXPEN-LOW RESISTANCE 2 UNITS SC (17:57)
[2025-03-01 19:23] VITALS: BP 104/68
[2025-03-01 22:02] LABS: Glucose - Point of Care 55 mg/dl (70-99)
[2025-03-01 22:16] LABS: Glucose - Point of Care 75 mg/dl (70-99)
[2025-03-01] MEDS: MAGNESIUM OXIDE 400 MG PO (23:10)
[2025-03-01] MEDS: ZETIA 10 MG PO (23:10)
[2025-03-01 23:30] VITALS: BP 153/71
[2025-03-02 00:18] LABS: Glucose - Point of Care 110 mg/dl (70-99)
[2025-03-02 02:21] LABS: Glucose - Point of Care 145 mg/dl (70-99)
[2025-03-02 03:07] VITALS: BP 141/65
[2025-03-02 04:59] VITALS: BMI 30.1
[2025-03-02 07:09] LABS: Hematocrit 46.8 % (39.0-52.0); Hemoglobin 15.1 g/dL (13.0-18.0); Mean Corp Hgb Conc. 32.3 g/dL (33.0-37.0); Mean Corpuscular Volume 80.3 fL (80.0-94.0); Platelet Count 188 10^3/uL (130-400); Red Cell Dist. Width 17.8 % (11.5-14.5)
[2025-03-02 07:29] LABS: Blood Urea Nitrogen 32 mg/dl (9-20); Calcium 8.9 mg/dl (8.4-10.2); Carbon Dioxide 26 mmol/L (22-30); Chloride 104 mmol/L (98-107); Estimated Creatinine Clearance 58 ml/min; Glucose 157 mg/dl (70-99); Potassium 4.4 mmol/L (3.5-5.1); Sodium 135 mmol/L (135-145); eGFR > 60.00
[2025-03-02 08:09] VITALS: BP 159/77
[2025-03-02 08:50] LABS: Glucose - Point of Care 188 mg/dl (70-99)
[2025-03-02] MEDS: DIOVAN 320 MG PO (10:12)
[2025-03-02] MEDS: LASIX 60 MG PO ×2 (10:12→17:28)
[2025-03-02] MEDS: VITAMIN B-12 1000 MCG PO (10:12)
[2025-03-02] MEDS: NORVASC 5 MG PO (10:12)
[2025-03-02] MEDS: COREG 3.125 MG PO ×2 (10:12→19:42)
[2025-03-02] MEDS: PRADAXA 150 MG PO ×2 (10:13→19:42)
[2025-03-02] MEDS: PROSCAR 5 MG PO (10:13)
[2025-03-02] MEDS: PROTONIX 40 MG PO (10:13)
[2025-03-02] MEDS: APRESOLINE 50 MG PO ×2 (10:13→19:42)
[2025-03-02] MEDS: VITAMIN D3 (cholecalciferol) 25 MCG PO (10:14)
[2025-03-02] MEDS: VALIUM 2 MG PO ×2 (10:14→13:29)
[2025-03-02] MEDS: NOVOLOG MIX 70/30 FLEXPEN 45 UNITS SC (10:15)
[2025-03-02] MEDS: NOVOLOG FLEXPEN-LOW RESISTANCE 1 UNITS SC ×2 (10:15→18:46)
--- NOTE | 2025-03-02 13:25 | W.PN.HOSP.TC ---
Today's Communication/Plan
-
Valium 2 mg twice daily appears to improve the patient's left upper extremity hemiballism. Discussing with patient if he is interested in increasing the dose.
Left lateral elbow skin tear had blood, but was not actively bleeding in large volumes.
For patient's left arm pain along the humerus, requested an arm sling. Patient may have slight shoulder subluxation from stroke causing rotator cuff muscle weakness.
Patient in a calm, pleasant mood this morning.
Assessment / Plan
Assessment / Plan
79-year-old man with a PMH notable for metabolic syndrome, ALINA, paroxysmal A-fib, CAD s/p CABG x 4, who presented with worsening stroke symptoms that is thought to be due to continuation/completion of his stroke 1 week prior. This is his second
admission this month for stroke. He has residual symptoms of bilateral left hemianopsia, left dysmetria and and left hemisensory deficits. His left upper extremity is most affected by loss of proprioception. Hemiballismus of LUE demonstrated on
02/25/2025. Waxing waning of residual stroke symptoms. CT head repeats continue to demonstrate evolution/completion of stroke.
03/01/2025: Patient's left arm seems more coordinated/controlled after 3 doses of Valium. He was able to hold his left arm for an abduction stably 10 seconds.
#Left-sided numbness with visual disturbance d/t new CVA
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
CT head appreciated infarcts corresponding to prior stroke treated with TNK earlier this month, no new acute infarction noted. Repeat CT heads have been demonstrating evolving infarctions in the right temporal and occipital lobes as well as splenium
of the corpus callosum. Minimal increased associated edema.
Brain MRI appreciated new infarcts
Patient had more symptoms on 02/21/2025, 02/22/2025, 02/24/2025, 02/25/2025. Mostly related to spatial recognition, proprioception and sensation loss. Strength 5 out of 5 bilaterally in all extremities. He does have numbness in the left leg also.
Possibly secondary to cerebral edema from the CVA
Neurology following
�Eliquis changed to Pradaxa
#Hemiballismus
Post-stroke sequela. Impeding progress in physical and occupational therapy.
Uncontrolled flinging of LUE into bed rails has led to pain and bruises
On 02/27/2025, patient stated he wanted to talk to his PCP Dr. Reed first before agreeing to taking Risperdal or Valium.
- Valium 2 mg twice daily started 02/28/2025 after patient agreed. May increase dose if patient agrees
03/01/2025: Patient's left arm seems more coordinated/controlled after 3 doses of Valium. He was able to hold his left arm for an abduction stably 10 seconds.
#HTN/hypertensive urgency
-Blood pressure has been mostly stable
-Coreg, Valsartan
-Amlodipine 5 mg daily added
-Hydralazine 50 mg twice daily. Increased on 02/19/2025 from 25 mg 3 times daily added
#Paroxysmal A-fib
- continue Pradaxa and Coreg
#Hx HFpEF and CAD/CABG x 4 vessel/cardiac stent
I/O, daily weights
� Pradaxa
- Coreg, valsartan
- Furosemide 60 mg p.o. twice daily held as creatinine and BUN have been slightly increasing
#HLD
Lipid panel reviewed in December, LDL above goal >70
hx statin intolerance
�Continue ezetimibe
May need to consider PCSK9 inhibitor as outpatient
# DM 2- oral meds temporarily on hold
Recent HgbA1c 9.4 pn 02/02/2025
-Accu-Cheks with SSI
-Continue 70/30 40U BID
# Polycythemia
�Hematology consulted for whether management of the patient's PV is indicated. Patient states that he requires phlebotomy when his hematocrit is above 46. His hematocrit is around 49
#Nausea
- pantoprazole 40 mg p.o. daily
- Ondansetron 4 mg IV every 6 hours as needed
# Abnormal TSH with normal T4. Repeat as outpatient
#ALINA- Continue BiPAP
- Needs outpatient apnea investigation per neurology
#Class II obesity/metabolic syndrome-weight loss counseled
# Prostate disease-continue finasteride
# History of nephrolithiasis
# History of Doyle's palsy
# GERD
# Erectile dysfunction
#Atherosclerotic renal artery stenosis
#DVT prophylaxis-Pradaxa
Will speak with family regarding potential discharge to acute rehab this weekend.
Unfortunately patient has fluctuating neurosymptoms likely secondary to cerebral edema/completion of the stroke. He is already on Pradaxa and not a candidate for TNK. Explained to patient/family. Neurology also following will follow
recommendations.
Continue physical therapy. Fall precautions
Dispo: Acute rehab
�Family is choosing [facility] [place]
�Case management states that [facility] is unlikely to have availability until Monday
Part of this note was created using voice recognition system. Occasional wrong word or��sound alike� substitutions may have inadvertently occurred due to the inherent limitations of voice recognition software. If noted kindly bring it to my
attention for correction.
Anticipated Discharge: 24 - 48 hours
Subjective/Interval History
-
Date of Service: March 02, 2025
No acute events overnight. The patient states continued left lateral upper arm pain.
Objective Data
-
Labs:
Laboratory Results
03/02/25
05:59
WBC 8.0
Hgb 15.1
Hct 46.8
Plt Count 188
Sodium 135
Potassium 4.4
Chloride 104
Carbon Dioxide 26
BUN 32 H
Creatinine 1.1
Glucose 157 H
Calcium 8.9
Vital Signs:
Vital Signs
Temp Pulse Resp BP Pulse Ox
98.2 F 69 16 159/77 96
03/02/25 08:09 03/02/25 08:09 03/02/25 08:09 03/02/25 08:09 03/02/25 11:51
I&O
03/01/25 03/02/25 03/03/25
06:59 06:59 06:59
Intake Total 680 / 680 1800 / 1800
Output Total 150 / 150 720 / 720
Balance 530 / 530 1080 / 1080
Review of Systems
-
History Source: Patient
All other systems: Reviewed and negative
Physical Exam
-
General: Well Developed, Well Nourished, No Apparent Distress and Comfortable
HEENT: Normocephalic, Atraumatic, Moist Mucous Membranes, Nose Appears Normal, Ears Appear Normal and Other (Left homonymous hemianopsia, does not appear to be improved from yesterday)
Respiratory: Clear to Auscultation
Cardiac: Regular Rhythm and S1/S2
GI: Soft, Nontender, Normal Bowel Sounds and Distended
Musculoskeletal: No Clubbing, No Cyanosis and No Edema
Skin: Warm, Dry and Other (Left lateral condyle of elbow has a skin tear and was bleeding, but the bleeding appeared mostly stopped. [place] had a few blood drops. I wiped the patient and put on bandage)
Neuro: Awake, Alert, Oriented and Other (Minimal hemiballism in left arm; mostly lacking coordination. Continued lack of sensation in left upper extremity and left lower extremity. Extinction to bilateral simultaneous stimulation in left upper and
lower extremities)
Psych: Calm
Data Reviewed
-
Labs: Labs Reviewed by me
[2025-03-02] MEDS: TYLENOL 650 MG PO ×2 (13:29→17:37)
[2025-03-02 13:38] LABS: Glucose - Point of Care 359 mg/dl (70-99)
[2025-03-02] MEDS: NOVOLOG FLEXPEN-LOW RESISTANCE 5 UNITS SC (14:00)
[2025-03-02 14:07] VITALS: BP 143/63; PULSE 60
[2025-03-02 14:17] VITALS: BP 143/63; PULSE 60
[2025-03-02 16:43] VITALS: BP 102/63
[2025-03-02 17:28] LABS: Glucose - Point of Care 189 mg/dl (70-99)
[2025-03-02] MEDS: FOLVITE 1 MG PO (17:28)
[2025-03-02] MEDS: NOVOLOG MIX 70/30 FLEXPEN 40 UNITS SC (17:35)
[2025-03-02] MEDS: VALIUM 3 MG PO (19:43)
[2025-03-02] MEDS: DILAUDID 0.25 MG IV (20:32)
[2025-03-02] MEDS: ZETIA 10 MG PO (21:23)
[2025-03-02] MEDS: MAGNESIUM OXIDE 400 MG PO (21:23)
[2025-03-02 21:51] LABS: Glucose - Point of Care 53 mg/dl (70-99)
[2025-03-02 22:20] LABS: Glucose - Point of Care 90 mg/dl (70-99)
[2025-03-02 23:28] VITALS: BP 152/67
[2025-03-03 00:28] LABS: Glucose - Point of Care 90 mg/dl (70-99)
[2025-03-03 02:20] LABS: Glucose - Point of Care 101 mg/dl (70-99)
[2025-03-03 05:27] VITALS: BMI 29.9
[2025-03-03 05:41] LABS: Hematocrit 45.3 % (39.0-52.0); Hemoglobin 15.0 g/dL (13.0-18.0); Mean Corp Hgb Conc. 33.1 g/dL (33.0-37.0); Mean Corpuscular Volume 79.9 fL (80.0-94.0); Platelet Count 187 10^3/uL (130-400); Red Cell Dist. Width 17.2 % (11.5-14.5)
[2025-03-03 06:06] LABS: Blood Urea Nitrogen 34 mg/dl (9-20); Calcium 8.9 mg/dl (8.4-10.2); Carbon Dioxide 25 mmol/L (22-30); Chloride 105 mmol/L (98-107); Estimated Creatinine Clearance 58 ml/min; Glucose 126 mg/dl (70-99); Potassium 4.2 mmol/L (3.5-5.1); Sodium 136 mmol/L (135-145); eGFR > 60.00
[2025-03-03 07:34] VITALS: BP 131/57
[2025-03-03 08:14] LABS: Glucose - Point of Care 149 mg/dl (70-99)
[2025-03-03] MEDS: NOVOLOG FLEXPEN-LOW RESISTANCE SC ×3 (08:32→17:21)
--- NOTE | 2025-03-03 09:17 | W.PN.UPDATE ---
Update Note
Progress Note Update
I saw and evaluated the patient. I reviewed the resident�s note and agree with findings and plan as documented in the resident�s note.
79-year-old man with a PMH notable for metabolic syndrome, ALINA, paroxysmal A-fib, CAD s/p CABG x 4, who presented with worsening stroke symptoms that is thought to be due to continuation/completion of his stroke 1 week prior. This is his second
admission this month for stroke. He has residual symptoms of bilateral left hemianopsia, left dysmetria and and left hemisensory deficits. His left upper extremity is most affected by loss of proprioception. Hemiballismus of LUE demonstrated on
02/25/2025. Waxing waning of residual stroke symptoms. CT head repeats continue to demonstrate evolution/completion of stroke.
Gen: NAD, AAOx3.
Eyes: EOMI, no scleral icterus, L homonomous hemianopsia.
Neck: supple.
CV: RRR, +S1/S2, no m/r/g.
Resp: CTAB, no rales, wheezes, or rhonchi.
Abd: +BS, soft, NT, ND
Skin: No rashes.
Neuro: aside from eye findings above, CN 2-12 intact, L hemiballismus, 5/5 strength x 4
Psych: Normal mood and affect.
02/03/25: Acute infarcts of the right occipital lobe and right temporal lobe. Smaller acute infarct in the right thalamus. Minimal petechial hemorrhage associated with one of the infarcts in the right occipital lobe.
MRI brain 02/19/25: Although there has been some improvement in previous acute infarcts in the medial right temporal and occipital lobe, there is a new focus of acute infarct measuring 7 mm involving the right splenium of the corpus callosum there
are new small infarcts involving the right posterior medial temporal and occipital regions.
CT brain 02/26/25: Evolving subacute infarct involving the right temporal and occipital lobes with slightly increased edema compared to the prior study. Small focus of mildly increased attenuation along the medial aspect of the occipital lobe,
stable. No new findings of hemorrhagic transformation.
L-sided numbness with L-homonomous hemianopsia due to subacute CVA:
-imaging above
-treated with TNK earlier this month
-pt had more symptoms on 02/21/2025, 02/22/2025, 02/24/2025, 02/25/2025. Mostly related to spatial recognition, proprioception and sensation loss.
-neuro following
-eliquis changed to Pradaxa
LUE Hemiballismus:
-Post-stroke sequela. Impeding progress in physical and occupational therapy.
-uncontrolled flinging of LUE into bed rails has led to pain and bruises
-valium started
Other problems:
Essential HTN with hypertensive urgency: cont Coreg/Valsartan/Norvasc/Hydralazine
PAF: cont BB/Pradaxa
Chronic HFpEF: cont Lasix/BB, daily wts, I/Os
CAD s/p CABG x 4 vessel and stent: cont BB
HLD: h/o statin intolerance, cont Zetia, consider PCSK9i outpt
DM2: cont 70/30 BID, SSI/accuchekcs
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
Subclinical hypothyroidism: Repeat TFTs outpt in 4 weeks
ALINA: cont BiPAP HS
Obesity due to excess calories
Prostate disease: cont finasteride
h/o nephrolithiasis
h/o Doyle's palsy
GERD: cont PPI
Atherosclerotic renal artery stenosis
FULL/Pradaxa
[2025-03-03] MEDS: COREG PO (10:45)
[2025-03-03] MEDS: NORVASC PO (10:45)
[2025-03-03] MEDS: APRESOLINE PO (10:45)
[2025-03-03] MEDS: LASIX PO ×3 (10:45→17:22)
[2025-03-03] MEDS: DIOVAN PO (10:45)
[2025-03-03] MEDS: PRADAXA PO (10:45)
[2025-03-03] MEDS: VITAMIN B-12 PO (10:46)
[2025-03-03] MEDS: PROSCAR PO (10:46)
[2025-03-03] MEDS: PROTONIX PO (10:46)
[2025-03-03] MEDS: VALIUM PO (10:46)
[2025-03-03] MEDS: VITAMIN D3 (cholecalciferol) PO (10:46)
[2025-03-03] MEDS: NOVOLOG MIX 70/30 FLEXPEN SC ×3 (11:02→17:22)
--- NOTE | 2025-03-03 11:15 | W.PN.HOSP.TC ---
Today's Communication/Plan
-
Decreased premixed insulin to 20 units twice daily. After patient go hypoglycemic in the evening. He has been skipping meals and eating less.
Assessment / Plan
Assessment / Plan
79-year-old man with a PMH notable for metabolic syndrome, ALINA, paroxysmal A-fib, CAD s/p CABG x 4, who presented with worsening stroke symptoms that is thought to be due to continuation/completion of his stroke. This is his second admission this
month for stroke. He has residual symptoms of bilateral left hemianopsia, left dysmetria and and left hemisensory deficits. His left upper extremity is most affected by loss of proprioception. Hemiballismus of LUE started on 02/25/2025 and improved
with Valium.
#Left-sided numbness with visual disturbance d/t new CVA
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
CT head appreciated infarcts corresponding to prior stroke treated with TNK earlier this month, no new acute infarction noted. Repeat CT heads have been demonstrating evolving infarctions in the right temporal and occipital lobes as well as splenium
of the corpus callosum. Minimal increased associated edema.
Brain MRI appreciated new infarcts
Patient had more symptoms on 02/21/2025, 02/22/2025, 02/24/2025, 02/25/2025. Mostly related to spatial recognition, proprioception and sensation loss. Strength 5 out of 5 bilaterally in all extremities. He does have numbness in the left leg also.
Possibly secondary to cerebral edema from the CVA
Neurology following
�Eliquis changed to Pradaxa
#Hemiballismus
Post-stroke sequela. Impeding progress in physical and occupational therapy.
Uncontrolled flinging of LUE into bed rails has led to pain and bruises
On 02/27/2025, patient stated he wanted to talk to his PCP Dr. Reed first before agreeing to taking Risperdal or Valium.
- Valium 2 mg twice daily started 02/28/2025 after patient agreed. May increase dose if patient agrees
03/01/2025: Patient's left arm seems more coordinated/controlled after 3 doses of Valium. He was able to hold his left arm for an abduction stably 10 seconds.
Psychiatry following. Informed of increased depressive symptoms on 03/03/2025
#HTN/hypertensive urgency
-Blood pressure has been mostly stable
-Coreg, Valsartan
-Amlodipine 5 mg daily added
-Hydralazine 50 mg twice daily. Increased on 02/19/2025 from 25 mg 3 times daily added
#Paroxysmal A-fib
- continue Pradaxa and Coreg
#Hx HFpEF and CAD/CABG x 4 vessel/cardiac stent
I/O, daily weights
� Pradaxa
- Coreg, valsartan
- Furosemide 60 mg p.o. twice daily held as creatinine and BUN have been slightly increasing
#HLD
Lipid panel reviewed in December, LDL above goal >70
hx statin intolerance
�Continue ezetimibe
May need to consider PCSK9 inhibitor as outpatient
# DM 2- oral meds temporarily on hold
Recent HgbA1c 9.4 pn 02/02/2025
-Accu-Cheks with SSI
-70/30 20U BID. Decreased insulin due to patient becoming hypoglycemic at night after skipping meals
# Polycythemia
�Hematology consulted for whether management of the patient's PV is indicated. Patient states that he requires phlebotomy when his hematocrit is above 46. His hematocrit is around 49
#Nausea
- pantoprazole 40 mg p.o. daily
- Ondansetron 4 mg IV every 6 hours as needed
# Abnormal TSH with normal T4. Repeat as outpatient
#ALINA- Continue BiPAP
- Needs outpatient apnea investigation per neurology
#Class II obesity/metabolic syndrome-weight loss counseled
# Prostate disease-continue finasteride
# History of nephrolithiasis
# History of Doyle's palsy
# GERD
# Erectile dysfunction
#Atherosclerotic renal artery stenosis
#DVT prophylaxis-Pradaxa
Continue physical therapy. Fall precautions
Dispo: Acute rehab
�Family is choosing [facility] [place]
�Case management states that [facility] is unlikely to have availability until Monday03/04/2025
Part of this note was created using voice recognition system. Occasional wrong word or��sound alike� substitutions may have inadvertently occurred due to the inherent limitations of voice recognition software. If noted kindly bring it to my
attention for correction.
Anticipated Discharge: 24 - 48 hours
Subjective/Interval History
-
Date of Service: March 03, 2025
No acute events overnight.
This morning, patient asked if I had a handgun. He then said he wanted to put a gun to his left ear due to it 'doing him no good for 5 years because it feels plugged'. He was expressing more depressed sentiments, which is a significant change from
yesterday morning, when he was in the best mood that I have seen him during this hospital stay. Yesterday morning, he was cheerful.
He stated he has been in this hospital 'forever, for 5 years quotes. When I informed him he has been here for 1 to 2 weeks, he then stated that people were lying to him and told him 5 years. His logical reasoning appears decreased.
He refused to participate in the physical exam. He has been eating less and skipping more meals in the last few days compared to earlier in this hospital course.
Objective Data
-
Labs:
Laboratory Results
03/03/25
05:07
WBC 7.9
Hgb 15.0
Hct 45.3
Plt Count 187
Sodium 136
Potassium 4.2
Chloride 105
Carbon Dioxide 25
BUN 34 H
Creatinine 1.1
Glucose 126 H
Calcium 8.9
Vital Signs:
Vital Signs
Temp Pulse Resp BP Pulse Ox
98.3 F 62 14 131/57 95
03/03/25 07:34 03/03/25 07:34 03/03/25 07:34 03/03/25 07:34 03/03/25 07:34
I&O
03/02/25 03/03/25 03/04/25
06:59 06:59 06:59
Intake Total 1800 / 1800 960 / 960
Output Total 720 / 720 525 / 525
Balance 1080 / 1080 435 / 435
Review of Systems
-
History Source: Patient
All other systems: Reviewed and negative
Physical Exam
-
Psych: Depressed (Patient refused to participate in physical exam/following commands)
[2025-03-03 12:20] LABS: Glucose - Point of Care 211 mg/dl (70-99)
[2025-03-03] MEDS: NOVOLOG FLEXPEN-LOW RESISTANCE 2 UNITS SC (13:03)
--- NOTE | 2025-03-03 13:37 | W.PN.UPDATE ---
Update Note
Progress Note Update
Patient seen by me on 03/03/2025 12:50pm-1:10pm
Psychiatry follow up. Contacted by primary team stating that patient said he wanted to 'put a gun to his left ear bc he thought his left ear felt plugged.' Chart reviewed. Patient admits he said that because he was feeling frustrated but does not
have any intention of doing it. He was just trying to express his discomfort. He states this medical admission has been a major stressor. He says valium for left arm hemiballism has been helping but he still hits himself at night when sleeping.
Explained that Valium dose was increased to 3mg BID by Dr. Matthews yesterday. He is agreeable with waiting to see how he responds to this.
MSE- good eye contact. cooperative. admits to feeling 'frustrated'. logical TP. Denies SI/HI/AVH. no delusions.
Plan- will continue to monitor mood as well as response to Valium.
[2025-03-03 15:12] VITALS: BP 129/54
[2025-03-03 16:48] LABS: Glucose - Point of Care 212 mg/dl (70-99)
[2025-03-03] MEDS: TYLENOL 650 MG PO (17:01)
[2025-03-03] MEDS: FOLVITE PO ×2 (17:03→17:22)
[2025-03-03] MEDS: VALIUM 2 MG PO (17:24)
[2025-03-03] MEDS: PRADAXA 150 MG PO (19:58)
[2025-03-03] MEDS: VALIUM 3 MG PO (19:58)
[2025-03-03] MEDS: COREG 3.125 MG PO (19:58)
[2025-03-03] MEDS: APRESOLINE 50 MG PO (19:59)
[2025-03-03 21:48] LABS: Glucose - Point of Care 222 mg/dl (70-99)
[2025-03-03] MEDS: MAGNESIUM OXIDE 400 MG PO (22:48)
[2025-03-03] MEDS: ZETIA 10 MG PO (22:48)
[2025-03-03 23:35] VITALS: BP 130/52
[2025-03-04 05:06] VITALS: BMI 29.8
--- NOTE | 2025-03-04 07:37 | PN.DE.MGMTRT ---
Insulin Management
- -
03/04/2025: Diabetes Management Follow up
Patient admitted 02/19 with L sided weakness/numbness similar to recent admission 02/02 to 02/07.
PMH: CAD s/p CABG, HTN, HCL, A-Fib, diabetes, ALINA. Prior to admission was taking 70/30 insulin 60 units BID. A1C 9.4% from 02/02 admission, Cr 0.7, eGFR > 60.
Patient states he follows with his primary doctor Brianna for diabetes care. He has a meter and test 3 to 4 times per day. His OP record indicates he was taking Jardiance and Metformin in the past, both were discontinued-unknown reason.
Patient is awake, alert, per pt's Nurse, pt has been hostile, wit periods of agitation, unable to discuss diabetes care plan. not at bedside.
Per CT scan stroke evolving. Glucose range yesterday 149 to 222, Fasting glucose this AM.
Patient refused 70/30 insulin yesterday. Appetite has been poor, Will encourage patient take decreased doses of 70/30.
Will continue 70/30 insulin 20 units BID, with low corrective insulin.
Will closely monitor glucose trend and adjust 70/30 dose if necessary.
Discussed with nurse. Will cont to follow.
Diabetes History
- -
Type of Diabetes: 2 requiring insulin
Pre-Admission Diabetes Regimen
Insulin Pump Settings
IP Diabetes Regimen
03/03/25 03/03/25 03/03/25
08:13 12:19 16:46
POC Glucose 149 H 211 H 212 H
03/03/25
21:46
POC Glucose 222 H
Patient Education
[2025-03-04] MEDS: COREG 3.125 MG PO (07:44)
[2025-03-04] MEDS: DIOVAN 320 MG PO (07:47)
[2025-03-04 07:48] VITALS: BP 173/79
[2025-03-04] MEDS: PRADAXA 150 MG PO ×2 (07:48→23:48)
[2025-03-04] MEDS: PROTONIX 40 MG PO (07:52)
[2025-03-04] MEDS: VITAMIN B-12 1000 MCG PO (07:53)
[2025-03-04] MEDS: PROSCAR 5 MG PO (07:53)
[2025-03-04] MEDS: VALIUM 3 MG PO ×2 (07:54→23:48)
[2025-03-04] MEDS: VITAMIN D3 (cholecalciferol) 25 MCG PO (07:54)
[2025-03-04] MEDS: NORVASC 5 MG PO (07:54)
[2025-03-04] MEDS: APRESOLINE 50 MG PO ×2 (07:54→23:51)
[2025-03-04] MEDS: LASIX 60 MG PO ×2 (07:55→15:13)
[2025-03-04 08:03] LABS: Glucose - Point of Care 209 mg/dl (70-99)
[2025-03-04] MEDS: NOVOLOG MIX 70/30 FLEXPEN 20 UNITS SC ×2 (08:03→17:40)
[2025-03-04 08:04] LABS: Hematocrit 47.8 % (39.0-52.0); Hemoglobin 15.3 g/dL (13.0-18.0); Mean Corp Hgb Conc. 32.0 g/dL (33.0-37.0); Mean Corpuscular Volume 82.0 fL (80.0-94.0); Platelet Count 186 10^3/uL (130-400); Red Cell Dist. Width 17.6 % (11.5-14.5)
--- NOTE | 2025-03-04 08:29 | W.PN.UPDATE ---
Addendum entered and electronically signed by Yuan Saavedra MD 03/04/25 15:28:
Case discussed with case management. No discharge today is no acute rehab bed availability.
Original Note:
Update Note
Progress Note Update
I saw and evaluated the patient. I reviewed the resident�s note and agree with findings and plan as documented in the resident�s note.
79-year-old man with a PMH notable for metabolic syndrome, ALINA, paroxysmal A-fib, CAD s/p CABG x 4, who presented with worsening stroke symptoms that is thought to be due to continuation/completion of his stroke 1 week prior. This is his second
admission this month for stroke. He has residual symptoms of bilateral left hemianopsia, left dysmetria and and left hemisensory deficits. His left upper extremity is most affected by loss of proprioception. Hemiballismus of LUE demonstrated on
02/25/2025. Waxing waning of residual stroke symptoms. CT head repeats continue to demonstrate evolution/completion of stroke.
No new complaints today.
Gen: NAD, AAOx3.
Eyes: EOMI, no scleral icterus, L homonomous hemianopsia.
Neck: supple.
CV: RRR, +S1/S2, no m/r/g.
Resp: remains CTAB, no rales, wheezes, or rhonchi.
Abd: +BS, soft, NT, ND
Skin: No rashes.
Neuro: aside from eye findings above, CN 2-12 intact, L hemiballismus
Psych: Normal mood and affect.
02/03/25: Acute infarcts of the right occipital lobe and right temporal lobe. Smaller acute infarct in the right thalamus. Minimal petechial hemorrhage associated with one of the infarcts in the right occipital lobe.
MRI brain 02/19/25: Although there has been some improvement in previous acute infarcts in the medial right temporal and occipital lobe, there is a new focus of acute infarct measuring 7 mm involving the right splenium of the corpus callosum there
are new small infarcts involving the right posterior medial temporal and occipital regions.
CT brain 02/26/25: Evolving subacute infarct involving the right temporal and occipital lobes with slightly increased edema compared to the prior study. Small focus of mildly increased attenuation along the medial aspect of the occipital lobe,
stable. No new findings of hemorrhagic transformation.
L-sided numbness with L-homonomous hemianopsia due to subacute CVA:
-imaging above
-treated with TNK earlier this month
-pt had more symptoms on 02/21/2025, 02/22/2025, 02/24/2025, 02/25/2025. Mostly related to spatial recognition, proprioception and sensation loss.
-neuro saw in c/s
-Eliquis changed to Pradaxa
LUE Hemiballismus:
-Post-stroke sequela. Impeding progress in physical and occupational therapy.
-uncontrolled flinging of LUE into bed rails has led to pain and bruises
-valium started
Other problems:
Essential HTN with hypertensive urgency: cont Coreg/Valsartan/Norvasc/Hydralazine
PAF: cont BB/Pradaxa
Chronic HFpEF: cont Lasix/BB, daily wts, I/Os
CAD s/p CABG x 4 vessel and stent: cont BB
HLD: h/o statin intolerance, cont Zetia, consider PCSK9i outpt
DM2: cont 70/30 BID, SSI/accuchekcs
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
Subclinical hypothyroidism: Repeat TFTs outpt in 4 weeks
ALINA: cont BiPAP HS
Obesity due to excess calories
Prostate disease: cont finasteride
h/o nephrolithiasis
h/o Doyle's palsy
GERD: cont PPI
Atherosclerotic renal artery stenosis
FULL/Pradaxa
Medically cleared for d/c. Case management aware.
[2025-03-04 09:02] LABS: Blood Urea Nitrogen 33 mg/dl (9-20); Calcium 9.1 mg/dl (8.4-10.2); Carbon Dioxide 25 mmol/L (22-30); Chloride 104 mmol/L (98-107); Estimated Creatinine Clearance 58 ml/min; Glucose 232 mg/dl (70-99); Potassium 5.3 mmol/L (3.5-5.1); Sodium 137 mmol/L (135-145); eGFR > 60.00
--- NOTE | 2025-03-04 11:42 | CM ---
Addendum entered by Ivett Ramirez RN 03/04/25 16:05:
Spoke with KOBY Devine . Clinical faxed to [phone] as requested . They do not use [facility] any more . They use [facility].
Awaiting bed availability and acceptance at [facility] .
Original Note:
Spoke with Gopal at [facility] . There are no beds available at [facility] today.
Referral sent to [facility] . LM with director KOBY Devine [phone] Awaiting response.
PT indicates need for acute rehab at discharge.
PLAN To acute rehab after locating
[2025-03-04 11:48] LABS: Glucose - Point of Care 293 mg/dl (70-99)
[2025-03-04] MEDS: NOVOLOG FLEXPEN-LOW RESISTANCE SC (11:49)
[2025-03-04 13:03] VITALS: BP 156/72; PULSE 62; O2SAT 94
[2025-03-04 13:07] VITALS: BP 156/72; PULSE 62; O2SAT 94
[2025-03-04] MEDS: KAYEXALATE SUSPENSION 15 GRAMS PO (13:12)
[2025-03-04] MEDS: NOVOLOG FLEXPEN-LOW RESISTANCE 3 UNITS SC (13:13)
[2025-03-04] MEDS: VALIUM 2 MG PO (14:22)
[2025-03-04 15:18] VITALS: BP 106/55
[2025-03-04 16:51] LABS: Glucose - Point of Care 337 mg/dl (70-99)
[2025-03-04] MEDS: NOVOLOG FLEXPEN-LOW RESISTANCE 4 UNITS SC (17:39)
[2025-03-04] MEDS: FOLVITE 1 MG PO (17:40)
[2025-03-04 21:22] LABS: Glucose - Point of Care 178 mg/dl (70-99)
--- NOTE | 2025-03-04 21:51 | W.PN.UPDATE ---
Update Note
Progress Note Update
Pt seen this afternoon to discuss his response to valium. Agress that things are improved, agrees that he is calmer. Hoping to get to next step in his recovery. No issues with sedation from valium Continue at current dose.
[2025-03-04 23:33] VITALS: BP 163/79
[2025-03-04] MEDS: ZETIA 10 MG PO (23:49)
[2025-03-04] MEDS: COREG 6.25 MG PO (23:50)
[2025-03-05] MEDS: VALIUM 2 MG PO (05:29)
[2025-03-05 06:00] VITALS: BMI 29.4
[2025-03-05 07:00] VITALS: BP 153/64
--- NOTE | 2025-03-05 07:41 | PN.DE.MGMTRT ---
Insulin Management
- -
03/05/2025: Diabetes Management Follow up
Patient admitted 02/19 with L sided weakness/numbness similar to recent admission 02/02 to 02/07.
PMH: CAD s/p CABG, HTN, HCL, A-Fib, diabetes, ALINA. Prior to admission was taking 70/30 insulin 60 units BID. A1C 9.4% from 02/02 admission, Cr 0.7, eGFR > 60.
Patient states he follows with his primary doctor Brianna for diabetes care. He has a meter and test 3 to 4 times per day. His OP record indicates he was taking Jardiance and Metformin in the past, both were discontinued-unknown reason.
Patient is awake, alert and oriented, much calmer and pleasant. Nurse reports patient was confused about insulin and adamant he didnt take insulin and that his blood sugar has never been 225. Nurse reassured patient as did I. Able to discuss
diabetes care.
Patient for discharge to acute rehab when bed available. Glucose range yesterday 178 to 337, Fasting glucose this AM 225
Will increase 70/30 insulin 24 units BID, with low corrective insulin.
Will closely monitor glucose trend and adjust 70/30 dose if necessary.
Discussed with nurse. Will cont to follow.
Diabetes History
- -
Type of Diabetes: 2 requiring insulin
Pre-Admission Diabetes Regimen
03/04/25
07:18
Creatinine 1.1
Insulin Pump Settings
IP Diabetes Regimen
03/04/25 03/04/25 03/04/25
07:18 08:02 11:47
Glucose 232 H
POC Glucose 209 H 293 H
03/04/25 03/04/25
16:49 21:21
Glucose
POC Glucose 337 H 178 H
Patient Education
[2025-03-05 08:01] LABS: Glucose - Point of Care 225 mg/dl (70-99)
--- NOTE | 2025-03-05 08:20 | W.PN.UPDATE ---
Update Note
Progress Note Update
I saw and evaluated the patient. I reviewed the resident�s note and agree with findings and plan as documented in the resident�s note.
79-year-old man with a PMH notable for metabolic syndrome, ALINA, paroxysmal A-fib, CAD s/p CABG x 4, who presented with worsening stroke symptoms that is thought to be due to continuation/completion of his stroke 1 week prior. This is his second
admission this month for stroke. He has residual symptoms of bilateral left hemianopsia, left dysmetria and and left hemisensory deficits. His left upper extremity is most affected by loss of proprioception. Hemiballismus of LUE demonstrated on
02/25/2025. Waxing waning of residual stroke symptoms. CT head repeats continue to demonstrate evolution/completion of stroke.
No new complaints today.
Gen: NAD
CV: remains RRR, +S1/S2, no m/r/g.
Resp: continues to remain CTAB, no rales, wheezes, or rhonchi.
Abd: +BS, soft, NT, ND
Psych: calm
02/03/25: Acute infarcts of the right occipital lobe and right temporal lobe. Smaller acute infarct in the right thalamus. Minimal petechial hemorrhage associated with one of the infarcts in the right occipital lobe.
MRI brain 02/19/25: Although there has been some improvement in previous acute infarcts in the medial right temporal and occipital lobe, there is a new focus of acute infarct measuring 7 mm involving the right splenium of the corpus callosum there
are new small infarcts involving the right posterior medial temporal and occipital regions.
CT brain 02/26/25: Evolving subacute infarct involving the right temporal and occipital lobes with slightly increased edema compared to the prior study. Small focus of mildly increased attenuation along the medial aspect of the occipital lobe,
stable. No new findings of hemorrhagic transformation.
L-sided numbness with L-homonomous hemianopsia due to subacute CVA:
-imaging above
-treated with TNK earlier this month
-pt had more symptoms on 02/21/2025, 02/22/2025, 02/24/2025, 02/25/2025. Mostly related to spatial recognition, proprioception and sensation loss.
-neuro saw in c/s
-Eliquis changed to Pradaxa
LUE Hemiballismus:
-Post-stroke sequela. Impeding progress in physical and occupational therapy.
-uncontrolled flinging of LUE into bed rails has led to pain and bruises
-valium started
Other problems:
Essential HTN with hypertensive urgency: cont Coreg/Valsartan/Norvasc/Hydralazine
PAF: cont BB/Pradaxa
Chronic HFpEF: cont Lasix/BB, daily wts, I/Os
CAD s/p CABG x 4 vessel and stent: cont BB
HLD: h/o statin intolerance, cont Zetia, consider PCSK9i outpt
DM2: cont 70/30 BID, SSI/accuchekcs
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
Subclinical hypothyroidism: Repeat TFTs outpt in 4 weeks
ALINA: cont BiPAP HS
Obesity due to excess calories
Prostate disease: cont finasteride
h/o nephrolithiasis
h/o Doyle's palsy
GERD: cont PPI
Atherosclerotic renal artery stenosis
FULL/Pradaxa
Remains medically cleared for d/c. Case management aware.
[2025-03-05] MEDS: LASIX 60 MG PO ×2 (09:12→15:37)
[2025-03-05] MEDS: VITAMIN B-12 1000 MCG PO (09:13)
[2025-03-05] MEDS: PROTONIX 40 MG PO (09:13)
[2025-03-05] MEDS: PRADAXA 150 MG PO ×2 (09:13→20:56)
[2025-03-05] MEDS: APRESOLINE 50 MG PO ×2 (09:13→21:29)
[2025-03-05] MEDS: NORVASC 10 MG PO (09:13)
[2025-03-05] MEDS: PROSCAR 5 MG PO (09:14)
[2025-03-05] MEDS: VITAMIN D3 (cholecalciferol) 25 MCG PO (09:14)
[2025-03-05] MEDS: COREG 6.25 MG PO ×2 (09:14→21:29)
[2025-03-05] MEDS: VALIUM PO (09:36)
--- NOTE | 2025-03-05 10:13 | CM ---
Addendum entered by Keri Ryan 03/05/25 14:24:
VM left for patients to discuss additional referrals as [facility]/ [facility].
Addendum entered by Keri Ryan 03/05/25 12:11:
Update from [facility], no expected discharges for the week at [facility] location, [facility] will contact . Reviewed with Hospitalist.
Addendum entered by Keri Ryan 03/05/25 11:40:
Patient seen bedside again with present. CM discussed additional options such [facility], additional [facility] locations. Patient and not agreeable. Patient and report they would like to speak to [facility] to call family.
Patient asking to get their scraper operator involved. CM discussed option of SNF if not interested in other Acute Rehabs, patient unwilling to speak to CM at this time until speaks with [facility].
Original Note:
CM reviewed chart, per Hospitalist, patent stable for discharge. Per [facility], no beds at [facility]. Referral previously sent to [facility], patient absolutely not agreeable to go, reports he has had several friends there who . CM
explained patient is medically stable and need to pursue discharge planing/referrals to additional acute rehabs that patient is agreeable too. Patient reports no one has discussed acute rehab with patient, he is only agreeable to talk to his PCP and
demanding CM call PCP to come see him. Patient also upset that CM is speaking to him early in the morning. Patient agreeable for CM to call . Phone call to , Mireya. CM explained therapy recommendation of acute rehab. reports patient
will absolutely not go to [facility], will speak to patient about additional acute rehabs (such as [facility]). inquiring why patient cannot stay in current room and go to [facility] for therapy each day. CM explained that is unfortunately
not an option. reports she is coming to visit patient shortly and will speak to patient. CM provided direct contact number for to contact CM for updates.
Plan; to discuss acute rehabs with patient
[2025-03-05] MEDS: NOVOLOG MIX 70/30 FLEXPEN 24 UNITS SC ×2 (10:36→17:42)
[2025-03-05] MEDS: NOVOLOG FLEXPEN-LOW RESISTANCE 2 UNITS SC (10:36)
--- NOTE | 2025-03-05 11:10 | W.PN.UPDATE ---
Update Note
Progress Note Update
patient seen chart reviewed. discussed with nursing and with cm. the patient is very upset with disposition issues. he had anticipated [facility] but there are no beds. [facility] was suggested but patient has very negative impressions
of [facility] where several of his friends . at this point the bed at [facility] has been given to someone else so there is no disposition at this point. cm is going to ask the rep from [facility] to talk to patient's and explain. on a + note
the movements of his arm were less notable. i did speak to dr casas. told him that she feels valium has helped with movements. he has had dosage inc since last week to 3 mg bid. he has had one prn on average daily. today had a prn early in the
am and nsg skipped the morning dose. while patient was engaged with me today he has been quite irritable with everyone else. he feels nothing is being done for him and lying in bed day after day is making him weaker. no changes made in meds. will
continue to follow and offer support.
[2025-03-05 11:42] LABS: Glucose - Point of Care 285 mg/dl (70-99)
--- NOTE | 2025-03-05 12:51 | W.PN.HOSP.TC ---
Today's Communication/Plan
-
Pending acute rehab availability.
Headache upon wakening improved without needing pain medication. No new deficits on neuro exam.
Assessment / Plan
Assessment / Plan
79-year-old man with a PMH notable for metabolic syndrome, ALINA, paroxysmal A-fib, CAD s/p CABG x 4, who presented with worsening stroke symptoms that is thought to be due to continuation/completion of his stroke. This is his second admission this
month for stroke. He has residual symptoms of bilateral left hemianopsia, left dysmetria and and left hemisensory deficits. His left upper extremity is most affected by loss of proprioception. Hemiballismus of LUE started on 02/25/2025 and improved
with Valium.
#Left-sided numbness with visual disturbance d/t new CVA
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
CT head appreciated infarcts corresponding to prior stroke treated with TNK earlier this month, no new acute infarction noted. Repeat CT heads have been demonstrating evolving infarctions in the right temporal and occipital lobes as well as splenium
of the corpus callosum. Minimal increased associated edema.
Brain MRI appreciated new infarcts
Patient had more symptoms on 02/21/2025, 02/22/2025, 02/24/2025, 02/25/2025. Mostly related to spatial recognition, proprioception and sensation loss. Strength 5 out of 5 bilaterally in all extremities. He does have numbness in the left leg also.
Possibly secondary to cerebral edema from the CVA
Neurology following
�Eliquis changed to Pradaxa
#Hemiballismus
Post-stroke sequela. Impeding progress in physical and occupational therapy.
Uncontrolled flinging of LUE into bed rails has led to pain and bruises
On 02/27/2025, patient stated he wanted to talk to his PCP Dr. Reed first before agreeing to taking Risperdal or Valium.
- Valium 2 mg twice daily started 02/28/2025 after patient agreed. May increase dose if patient agrees
03/01/2025: Patient's left arm seems more coordinated/controlled after 3 doses of Valium. He was able to hold his left arm for an abduction stably 10 seconds.
Psychiatry following. Informed of increased depressive symptoms on 03/03/2025
#HTN/hypertensive urgency
-Blood pressure has been mostly stable
-Coreg, Valsartan
-Amlodipine 5 mg daily added
-Hydralazine 50 mg twice daily. Increased on 02/19/2025 from 25 mg 3 times daily added
#Paroxysmal A-fib
- continue Pradaxa and Coreg
#Hx HFpEF and CAD/CABG x 4 vessel/cardiac stent
I/O, daily weights
� Pradaxa
- Coreg, valsartan
- Furosemide 60 mg p.o. twice daily held as creatinine and BUN have been slightly increasing
#HLD
Lipid panel reviewed in December, LDL above goal >70
hx statin intolerance
�Continue ezetimibe
May need to consider PCSK9 inhibitor as outpatient
# DM 2- oral meds temporarily on hold
Recent HgbA1c 9.4 pn 02/02/2025
-Accu-Cheks with SSI
-70/30 20U BID. Decreased insulin due to patient becoming hypoglycemic at night after skipping meals
# Polycythemia
�Hematology consulted for whether management of the patient's PV is indicated. Patient states that he requires phlebotomy when his hematocrit is above 46. His hematocrit is around 49
#Nausea
- pantoprazole 40 mg p.o. daily
- Ondansetron 4 mg IV every 6 hours as needed
# Abnormal TSH with normal T4. Repeat as outpatient
#ALINA- Continue BiPAP
- Needs outpatient apnea investigation per neurology
#Class II obesity/metabolic syndrome-weight loss counseled
# Prostate disease-continue finasteride
# History of nephrolithiasis
# History of Doyle's palsy
# GERD
# Erectile dysfunction
#Atherosclerotic renal artery stenosis
#DVT prophylaxis-Pradaxa
Continue physical therapy. Fall precautions
Dispo: Acute rehab
�Family is choosing [facility] at [facility]
�Case management states that [facility] is unlikely to have availability until Monday03/04/2025
Part of this note was created using voice recognition system. Occasional wrong word or��sound alike� substitutions may have inadvertently occurred due to the inherent limitations of voice recognition software. If noted kindly bring it to my
attention for correction.
Anticipated Discharge: Within 24 hours
Subjective/Interval History
-
Date of Service: March 05, 2025
No acute events overnight. Patient reported headache since waking up 15 minutes prior to our conversation. (No new neuro deficits.)
Objective Data
-
Labs:
Laboratory Results
03/05/25
12:37
WBC Pending
Hgb Pending
Hct Pending
Plt Count Pending
Sodium Pending
Potassium Pending
Chloride Pending
Carbon Dioxide Pending
BUN Pending
Creatinine Pending
Glucose Pending
Calcium Pending
Vital Signs:
Vital Signs
Temp Pulse Resp BP Pulse Ox
98.4 F 70 18 153/64 95
03/05/25 07:00 03/05/25 07:00 03/05/25 07:00 03/05/25 07:00 03/05/25 07:00
I&O
03/04/25 03/05/25 03/06/25
06:59 06:59 06:59
Intake Total 900 / 900 1200 / 1200
Output Total 400 / 400 200 / 200
Balance 500 / 500 1000 / 1000
Review of Systems
-
History Source: Patient
Constitutional: Reports No Symptoms
EENT: Reports No Symptoms Reported
Respiratory: Reports No Symptoms
Cardiac: Reports No Symptoms
Abdomen/GI: Reports No Symptoms
Genitourinary: Reports No Symptoms
Musculoskeletal: Reports Muscle Pain (Right shoulder and upper arm pain)
Skin: Reports No Symptoms
Neuro: Reports Headache
Psych: Reports Depressed
Physical Exam
-
General: Well Developed, Well Nourished, No Apparent Distress and Pain (Holding forehead due to headache; nurse close blinds to try to reduce headache)
HEENT: Normocephalic, Atraumatic and Moist Mucous Membranes
Respiratory: Clear to Auscultation
Cardiac: Regular Rhythm and S1/S2
GI: Soft, Nontender, Normal Bowel Sounds and Distended
Musculoskeletal: No Clubbing, No Cyanosis and No Edema
Skin: Warm, Dry and Rash (Unchanged ecchymoses on upper extremities)
Neuro: Awake, Alert and Oriented
Data Reviewed
-
Total Time Spent with Patient (in minutes): 35
Labs: Labs Reviewed by me
[2025-03-05 12:53] LABS: Hematocrit 45.9 % (39.0-52.0); Hemoglobin 15.2 g/dL (13.0-18.0); Mean Corp Hgb Conc. 33.1 g/dL (33.0-37.0); Mean Corpuscular Volume 80.0 fL (80.0-94.0); Platelet Count 195 10^3/uL (130-400); Red Cell Dist. Width 17.2 % (11.5-14.5)
[2025-03-05 13:33] LABS: Blood Urea Nitrogen 34 mg/dl (9-20); Calcium 9.1 mg/dl (8.4-10.2); Carbon Dioxide 25 mmol/L (22-30); Chloride 101 mmol/L (98-107); Estimated Creatinine Clearance 53 ml/min; Glucose 279 mg/dl (70-99); Potassium 4.2 mmol/L (3.5-5.1); Sodium 133 mmol/L (135-145); eGFR > 60.00
[2025-03-05] MEDS: NOVOLOG FLEXPEN-LOW RESISTANCE 3 UNITS SC (13:42)
[2025-03-05] MEDS: TUMS CHEWABLE TABLET 200 MG PO (14:41)
[2025-03-05 15:19] VITALS: BP 125/63
[2025-03-05] MEDS: TYLENOL 650 MG PO ×2 (15:36→21:31)
[2025-03-05 15:38] VITALS: BP 133/67; PULSE 67; O2SAT 91
[2025-03-05 15:43] VITALS: BP 133/67; PULSE 77; O2SAT 90
[2025-03-05 17:02] LABS: Glucose - Point of Care 181 mg/dl (70-99)
[2025-03-05] MEDS: FOLVITE 1 MG PO (17:41)
[2025-03-05] MEDS: NOVOLOG FLEXPEN-LOW RESISTANCE 1 UNITS SC (17:41)
[2025-03-05] MEDS: VALIUM 3 MG PO (20:55)
[2025-03-05] MEDS: ZETIA 10 MG PO (21:33)
[2025-03-05 21:49] LABS: Glucose - Point of Care 178 mg/dl (70-99)
[2025-03-05 23:35] VITALS: BP 131/60
[2025-03-06 06:00] VITALS: BMI 29.5
[2025-03-06 07:00] VITALS: BP 155/65
--- NOTE | 2025-03-06 07:20 | PN.DE.MGMTRT ---
Insulin Management
- -
03/06/2025: Diabetes Management Follow up
Patient admitted 02/19 with L sided weakness/numbness similar to recent admission 02/02 to 02/07.
PMH: CAD s/p CABG, HTN, HCL, A-Fib, diabetes, ALINA. Prior to admission was taking 70/30 insulin 60 units BID. A1C 9.4% from 02/02 admission, Cr 0.7, eGFR > 60.
Patient states he follows with his primary doctor Brianna for diabetes care. He has a meter and test 3 to 4 times per day. His OP record indicates he was taking Jardiance and Metformin in the past, both were discontinued-unknown reason.
Patient is awake, alert and oriented, much calmer and pleasant. Able to discuss diabetes care.
Patient for discharge to acute rehab when bed available. Glucose range yesterday 178 to 285, Fasting glucose this AM 224.
70/30 was increased from 20 to 24 units BID. Will increase AM dose to 26 units and continue 24 units 70/30 with dinner with low corrective
Will closely monitor glucose trend and adjust 70/30 dose if necessary.
Discussed with nurse. Will cont to follow.
Diabetes History
- -
Type of Diabetes: 2 requiring insulin
Pre-Admission Diabetes Regimen
03/05/25
12:37
Creatinine 1.2
Insulin Pump Settings
IP Diabetes Regimen
03/05/25 03/05/25 03/05/25
08:00 11:41 12:37
Glucose 279 H
POC Glucose 225 H 285 H
03/05/25 03/05/25
17:01 21:47
Glucose
POC Glucose 181 H 178 H
Meal type: Breakfast
Amount consumed: 10%
Patient Education
[2025-03-06 08:09] LABS: Glucose - Point of Care 209 mg/dl (70-99)
--- NOTE | 2025-03-06 08:15 | W.PN.UPDATE ---
Update Note
Progress Note Update
I saw and evaluated the patient. I reviewed the resident�s note and agree with findings and plan as documented in the resident�s note.
79-year-old man with a PMH notable for metabolic syndrome, ALINA, paroxysmal A-fib, CAD s/p CABG x 4, who presented with worsening stroke symptoms that is thought to be due to continuation/completion of his stroke 1 week prior. This is his second
admission this month for stroke. He has residual symptoms of bilateral left hemianopsia, left dysmetria and and left hemisensory deficits. His left upper extremity is most affected by loss of proprioception. Hemiballismus of LUE demonstrated on
02/25/2025. Waxing waning of residual stroke symptoms. CT head repeats continue to demonstrate evolution/completion of stroke.
No new complaints today.
Gen: NAD, Awake and alert
CV: continues to remain RRR, +S1/S2, no m/r/g.
Resp: CTAB, no rales, wheezes, or rhonchi.
Abd: remains +BS, soft, NT, ND
Psych: calm
02/03/25: Acute infarcts of the right occipital lobe and right temporal lobe. Smaller acute infarct in the right thalamus. Minimal petechial hemorrhage associated with one of the infarcts in the right occipital lobe.
MRI brain 02/19/25: Although there has been some improvement in previous acute infarcts in the medial right temporal and occipital lobe, there is a new focus of acute infarct measuring 7 mm involving the right splenium of the corpus callosum there
are new small infarcts involving the right posterior medial temporal and occipital regions.
CT brain 02/26/25: Evolving subacute infarct involving the right temporal and occipital lobes with slightly increased edema compared to the prior study. Small focus of mildly increased attenuation along the medial aspect of the occipital lobe,
stable. No new findings of hemorrhagic transformation.
L-sided numbness with L-homonomous hemianopsia due to subacute CVA:
-imaging above
-treated with TNK earlier this month
-pt had more symptoms on 02/21/2025, 02/22/2025, 02/24/2025, 02/25/2025. Mostly related to spatial recognition, proprioception and sensation loss.
-neuro saw in c/s
-Eliquis changed to Pradaxa
LUE Hemiballismus:
-Post-stroke sequela. Impeding progress in physical and occupational therapy.
-uncontrolled flinging of LUE into bed rails has led to pain and bruises
-valium started
Other problems:
Essential HTN with hypertensive urgency: cont Coreg/Valsartan/Norvasc/Hydralazine
PAF: cont BB/Pradaxa
Chronic HFpEF: cont Lasix/BB, daily wts, I/Os
CAD s/p CABG x 4 vessel and stent: cont BB
HLD: h/o statin intolerance, cont Zetia, consider PCSK9i outpt
DM2: cont 70/30 BID, SSI/accuchekcs
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
Subclinical hypothyroidism: Repeat TFTs outpt in 4 weeks
ALINA: cont BiPAP HS
Obesity due to excess calories
Prostate disease: cont finasteride
h/o nephrolithiasis
h/o Doyle's palsy
GERD: cont PPI
Atherosclerotic renal artery stenosis
FULL/Pradaxa
Remains medically cleared for d/c for many days now. Case management aware. At this time the patient has multiple options for acute rehab including [facility] and [facility]. The patient is being discharged today. He can appeal
the discharge if he like.
Total time spent on d/c = 34 min. This included today's physical exam, progress note, review of laboratory and diagnostic data, preparation of discharge documents and prescriptions, and discussions about the pt's hospital course and discharge plan
with the patient and other medical office specialist involved in the patient's care.
[2025-03-06] MEDS: VITAMIN B-12 1000 MCG PO (08:38)
[2025-03-06] MEDS: PRADAXA 150 MG PO (08:38)
[2025-03-06] MEDS: PROTONIX 40 MG PO (08:38)
[2025-03-06] MEDS: COREG 6.25 MG PO (08:38)
[2025-03-06] MEDS: VITAMIN D3 (cholecalciferol) 25 MCG PO (08:39)
[2025-03-06] MEDS: LASIX 60 MG PO (08:39)
[2025-03-06] MEDS: NORVASC 10 MG PO (08:39)
[2025-03-06] MEDS: APRESOLINE 50 MG PO (08:39)
[2025-03-06] MEDS: PROSCAR 5 MG PO (08:39)
[2025-03-06] MEDS: VALIUM PO (08:42)
[2025-03-06] MEDS: TYLENOL 650 MG PO (08:46)
[2025-03-06] MEDS: NOVOLOG MIX 70/30 FLEXPEN 26 UNITS SC (09:47)
[2025-03-06] MEDS: NOVOLOG FLEXPEN-LOW RESISTANCE 2 UNITS SC ×2 (09:48→13:11)
--- NOTE | 2025-03-06 10:03 | W.PN.HOSP.TC ---
Today's Communication/Plan
-
Patient was frustrated regarding lack of ability and his top choice of acute rehab. He has continued questioning some of his medications. Medically cleared for discharge.
Assessment / Plan
Assessment / Plan
79-year-old man with a PMH notable for metabolic syndrome, ALINA, paroxysmal A-fib, CAD s/p CABG x 4, who presented with worsening stroke symptoms that is thought to be due to continuation/completion of his stroke. This is his second admission this
month for stroke. He has residual symptoms of bilateral left hemianopsia, left dysmetria and and left hemisensory deficits. His left upper extremity is most affected by loss of proprioception. Hemiballismus of LUE started on 02/25/2025 and improved
with Valium.
#Left-sided numbness with visual disturbance d/t new CVA
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
CT head appreciated infarcts corresponding to prior stroke treated with TNK earlier this month, no new acute infarction noted. Repeat CT heads have been demonstrating evolving infarctions in the right temporal and occipital lobes as well as splenium
of the corpus callosum. Minimal increased associated edema.
Brain MRI appreciated new infarcts
Patient had more symptoms on 02/21/2025, 02/22/2025, 02/24/2025, 02/25/2025. Mostly related to spatial recognition, proprioception and sensation loss. Strength 5 out of 5 bilaterally in all extremities. He does have numbness in the left leg also.
Possibly secondary to cerebral edema from the CVA
Neurology following
�Eliquis changed to Pradaxa
#Hemiballismus
Post-stroke sequela. Impeding progress in physical and occupational therapy.
Uncontrolled flinging of LUE into bed rails has led to pain and bruises
On 02/27/2025, patient stated he wanted to talk to his PCP Dr. Reed first before agreeing to taking Risperdal or Valium.
- Valium 2 mg twice daily started 02/28/2025 after patient agreed. May increase dose if patient agrees
03/01/2025: Patient's left arm seems more coordinated/controlled after 3 doses of Valium. He was able to hold his left arm for an abduction stably 10 seconds.
Psychiatry following. Informed of increased depressive symptoms on 03/03/2025
#HTN
#Atherosclerotic renal artery stenosis
-Blood pressure has been mostly stable
-Coreg, Valsartan
-Amlodipine 5 mg daily added
-Hydralazine 50 mg twice daily. Increased on 02/19/2025 from 25 mg 3 times daily added
#Paroxysmal A-fib
- continue Pradaxa and Coreg
#Hx HFpEF and CAD/CABG x 4 vessel/cardiac stent
I/O, daily weights
� Pradaxa
- Coreg, valsartan
- Furosemide 60 mg p.o. twice daily held as creatinine and BUN have been slightly increasing
#HLD
Lipid panel reviewed in December, LDL above goal >70
hx statin intolerance
�Continue ezetimibe
May need to consider PCSK9 inhibitor as outpatient
# DM 2- oral meds temporarily on hold
Recent HgbA1c 9.4 pn 02/02/2025
-Accu-Cheks with SSI
-70/30 20U BID. Decreased insulin due to patient becoming hypoglycemic at night after skipping meals
# Polycythemia
�Hematology consulted for whether management of the patient's PV is indicated. Patient states that he requires phlebotomy when his hematocrit is above 46. His hematocrit is around 49
#Nausea
- pantoprazole 40 mg p.o. daily
- Ondansetron 4 mg IV every 6 hours as needed
# Abnormal TSH with normal T4. Repeat as outpatient
#ALINA- Continue BiPAP
- Needs outpatient apnea investigation per neurology
#Class II obesity/metabolic syndrome-weight loss counseled
#DVT prophylaxis-Pradaxa
Dispo: Acute rehab
Part of this note was created using voice recognition system. Occasional wrong word or��sound alike� substitutions may have inadvertently occurred due to the inherent limitations of voice recognition software. If noted kindly bring it to my
attention for correction.
Anticipated Discharge: Today
Subjective/Interval History
-
Date of Service: March 06, 2025
No acute events overnight. Patient continues to question taking some medications. For example, today he was complaining about taking furosemide, because he has had a few episodes of incontinence. In a more negative mood than yesterday
Objective Data
-
Labs:
Laboratory Results
03/06/25
06:00
WBC Pending
Hgb Pending
Hct Pending
Plt Count Pending
Sodium Pending
Potassium Pending
Chloride Pending
Carbon Dioxide Pending
BUN Pending
Creatinine Pending
Glucose Pending
Calcium Pending
Vital Signs:
Vital Signs
Temp Pulse Resp BP Pulse Ox
98.2 F 61 16 155/65 94
03/06/25 07:00 03/06/25 07:00 03/06/25 07:00 03/06/25 07:00 03/06/25 07:00
I&O
03/05/25 03/06/25 03/07/25
06:59 06:59 06:59
Intake Total 1200 / 1200 320 / 320 480 / 480
Output Total 200 / 200 300 / 300
Balance 1000 / 1000 320 / 320 180 / 180
Review of Systems
-
History Source: Patient
Constitutional: Reports No Symptoms
EENT: Reports No Symptoms Reported
Respiratory: Reports No Symptoms
Cardiac: Reports No Symptoms
Abdomen/GI: Reports No Symptoms
Genitourinary: Reports Incontinence
Musculoskeletal: Reports No Symptoms
Skin: Reports Other (Ecchymosis in upper extremities)
Neuro: Reports Ataxia (LUE)
Hematologic / Lymphatic: Reports Bruising
Psych: Reports Other (Frustrated)
Physical Exam
-
General: Well Developed, Well Nourished, No Apparent Distress and Comfortable
HEENT: Normocephalic, Atraumatic, Moist Mucous Membranes, Anicteric, PERRLA (Continued left homonymous hemianopsia), Nose Appears Normal and Ears Appear Normal
Respiratory: Clear to Auscultation
Cardiac: Regular Rhythm and S1/S2
GI: Soft, Nontender, Normal Bowel Sounds and Distended
Musculoskeletal: No Clubbing, No Cyanosis and No Edema
Neuro: Awake, Alert, Oriented, Nonfocal/Grossly Intact, No Sensory Deficits (Left hemisensory loss) and Other (Left upper extremity with improved strength 4 out of 5 to elbow flexion and extension and shoulder abduction and adduction. No
hemiballismus observed in L UE. Continued ataxia on finger-nose, but less wild flinging)
Psych: Other (Frustrated regarding not be able to go to his top choice for acute rehab)
Data Reviewed
-
Total Time Spent with Patient (in minutes): 25
Labs: Labs Reviewed by me
--- NOTE | 2025-03-06 10:29 | W.DCSUMMARY ---
Discharge Summary
Discharge Data
Date of Admission: 02/23/25
Date of Discharge: 03/06/25
Total time spent discharging patient (in min): 55
-
Pending Results: No
Hospital Course
Primary:
Stroke
Hemiballismus
Delirium
Secondary:
Hypertension
Diabetes
Hyperlipidemia
ALINA
Paroxysmal A-fib
Coronary artery disease
79-year-old man with a PMH notable for metabolic syndrome, ALINA, paroxysmal A-fib, CAD s/p CABG x 4, who presented with worsening stroke symptoms that is thought to be due to continuation/completion of his stroke. This is his second admission this
month for stroke. He has residual symptoms of bilateral left hemianopsia, left dysmetria and and left hemisensory deficits. His left upper extremity is most affected by loss of proprioception. Hemiballismus of LUE started on 02/25/2025 and improved
with Valium.
#Left-sided numbness with visual disturbance d/t new CVA
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
CT head appreciated infarcts corresponding to prior stroke treated with TNK earlier this month, no new acute infarction noted. Repeat CT heads have been demonstrating evolving infarctions in the right temporal and occipital lobes as well as splenium
of the corpus callosum. Minimal increased associated edema.
Brain MRI appreciated new infarcts
Patient had more symptoms on 02/21/2025, 02/22/2025, 02/24/2025, 02/25/2025. Mostly related to spatial recognition, proprioception and sensation loss. Strength 5 out of 5 bilaterally in all extremities. He does have numbness in the left leg also.
Possibly secondary to cerebral edema from the CVA
Neurology following
�Eliquis changed to Pradaxa
#Hemiballismus
Post-stroke sequela. Impeding progress in physical and occupational therapy.
Uncontrolled flinging of LUE into bed rails has led to pain and bruises
On 02/27/2025, patient stated he wanted to talk to his PCP Dr. Reed first before agreeing to taking Risperdal or Valium.
- Valium 2 mg twice daily started 02/28/2025 after patient agreed. May increase dose if patient agrees
03/01/2025: Patient's left arm seems more coordinated/controlled after 3 doses of Valium. He was able to hold his left arm for an abduction stably 10 seconds.
Psychiatry following. Informed of increased depressive symptoms on 03/03/2025
#HTN/hypertensive urgency
-Blood pressure has been mostly stable
-Coreg, Valsartan
-Amlodipine 5 mg daily added
-Hydralazine 50 mg twice daily. Increased on 02/19/2025 from 25 mg 3 times daily added
#Paroxysmal A-fib
- continue Pradaxa and Coreg
#Hx HFpEF and CAD/CABG x 4 vessel/cardiac stent
I/O, daily weights
� Pradaxa
- Coreg, valsartan
- Furosemide 60 mg p.o. twice daily held as creatinine and BUN have been slightly increasing
#HLD
Lipid panel reviewed in December, LDL above goal >70
hx statin intolerance
�Continue ezetimibe
May need to consider PCSK9 inhibitor as outpatient
# DM 2- oral meds temporarily on hold
Recent HgbA1c 9.4 pn 02/02/2025
-Accu-Cheks with SSI
-70/30 26/24U BID. Diabetes management following
# Polycythemia
�Hematology consulted for whether management of the patient's PV is indicated. Patient states that he requires phlebotomy when his hematocrit is above 46. His hematocrit is around 49
#Nausea
- pantoprazole 40 mg p.o. daily
- Ondansetron 4 mg IV every 6 hours as needed
# Abnormal TSH with normal T4. Repeat as outpatient
#ALINA- Continue BiPAP
- Needs outpatient apnea investigation per neurology
#Atherosclerotic renal artery stenosis
#DVT prophylaxis-Pradaxa
Part of this note was created using voice recognition system. Occasional wrong word or��sound alike� substitutions may have inadvertently occurred due to the inherent limitations of voice recognition software. If noted kindly bring it to my
attention for correction.
Discharge Plan
-
Patient Disposition: Acute Rehab Facility
Discharge Diagnosis/Procedures: Primary:
Stroke
Hemiballismus
Delirium
Secondary:
Hypertension
Diabetes
Hyperlipidemia
ALINA
Paroxysmal A-fib
Coronary artery disease
Condition: Fair
Diet: Diabetic, Carb Controlled
Activity: As tolerated
Driving Restrictions: No driving
Other Services: PT and OT
Referrals:
Santiago Chan MD [Active, Cardiology] - 04/22/25 9:00 am
Marquis Reed MD [Family Provider, Family Practice]
Prescriptions:
New
pantoprazole 40 mg Tablet,Delayed Release (Dr/Ec)
40 mg PO DAILY Qty: 0 0RF
hydralazine 50 mg Tablet
50 mg PO BID Qty: 0 0RF
insulin asp prt-insulin aspart 100 unit/mL (70-30) Insulin Pen
40 unit SC DAILY@1700 Qty: 0 0RF
insulin asp prt-insulin aspart 100 unit/mL (70-30) Insulin Pen
45 unit SC DAILY@0800 Qty: 0 0RF
dabigatran etexilate [Pradaxa] 150 mg Capsule
150 mg PO BID Qty: 0 0RF
carvedilol 6.25 mg Tablet
6.25 mg PO BID Qty: 60 0RF
amlodipine 10 mg Tablet
10 mg PO DAILY Qty: 30 0RF
diazepam 2 mg Tablet
3 mg PO BID Qty: 60 0RF
Continued
lutein 20 MG capsule
20 mg PO BID
cyanocobalamin (vitamin B-12) 1,000 MCG tablet
1,000 mcg PO DAILY
finasteride 5 MG tablet
5 mg PO DAILY
red yeast rice 600 MG tablet
1,600 mg PO BID
cholecalciferol (vitamin D3) 1,000 UNITS tablet
1,000 units PO DAILY
folic acid 1 mg Tablet
1 mg PO QPM
omega 2-sjv-fxi-fish oil [Fish Oil] 1,000 (120-180) mg Capsule
1 cap PO BID Qty: 0
furosemide [Lasix] 40 MG tablet
60 mg PO BID
valsartan 160 mg Tablet
160 mg PO DAILY
magnesium oxide 400 mg magnesium Tablet
400 mg PO HS Qty: 0
ezetimibe 10 mg Tablet
10 mg PO HS Qty: 30 0RF
acetaminophen 325 mg Capsule
650 mg PO Q6HPRN PRN (Reason: mild pain)
Discontinued
potassium chloride [Klor-Con M20] 20 MEQ tablet,ER particles/crystals
20 meq PO DAILY
carvedilol 3.125 mg Tablet
3.125 mg PO BID
Eliquis 5 mg Tablet
5 mg PO BID Qty: 60 0RF
insulin asp prt-insulin aspart [Novolog Mix 70-30FlexPen U-100] 100 unit/mL (70-30) insulin pen
60 unit SC BID
Discharge Date and Time
Print Language: AZERI
[2025-03-06 10:55] LABS: Hematocrit 46.1 % (39.0-52.0); Hemoglobin 14.9 g/dL (13.0-18.0); Mean Corp Hgb Conc. 32.3 g/dL (33.0-37.0); Mean Corpuscular Volume 79.8 fL (80.0-94.0); Nucleated Red Blood Cells % 0 % (-); Platelet Count 198 10^3/uL (130-400); Red Cell Dist. Width 17.3 % (11.5-14.5)
[2025-03-06 11:05] LABS: Blood Urea Nitrogen 41 mg/dl (9-20); Calcium 9.1 mg/dl (8.4-10.2); Carbon Dioxide 24 mmol/L (22-30); Chloride 102 mmol/L (98-107); Estimated Creatinine Clearance 45 ml/min; Glucose 261 mg/dl (70-99); Potassium 4.4 mmol/L (3.5-5.1); Sodium 135 mmol/L (135-145); eGFR 50.49
[2025-03-06] MEDS: VALIUM 3 MG PO (11:33)
--- NOTE | 2025-03-06 11:38 | W.PN.UPDATE ---
Update Note
Progress Note Update
patient seen chart reviewed. discussed with nursing and at bedside. mr roxana has been rather argumentative this am. he continues to be angry that he is not at [facility]. it has been explained to him repeatedly that rehab beds are nor always
available at the location of the patient's choice and this is not deliberate but rather just the way things happen. he has made comments about 'calling my print line inspector' and i did explain to him why that will not help and may actually hurt him in the long
run. he did not take meds this am bc said they make him tired. interjected that in her opinion he is much better with am valium. he reconsidered and will take it now. also asked nursing to get him oob to chair and then when he has back pain
he can ask them to return to bed. encouraged him to try to try to work with staff who are trying to help him. [facility] may be a prospect for rehab that he will accept. is certainly ok w these. psych will follow
--- NOTE | 2025-03-06 13:05 | CM ---
Addendum entered by Ivett Ramirez RN 03/06/25 15:30:
Janay from [facility] [address] /[place] , [place] [address] said she can accept him today. Janay informed Pt said he has not used his CPAP in years.He refused CPAP.LM with Mireya [phone]. Informed patient of acceptance at
[facility]. IMM copy given and explained. Pt said he did not want to sign IMM.IMM on chart.
Medical nec form completed.
[facility]
report [phone]
fax [phone]
PLAN To [facility] acute rehab today
Original Note:
MD entered order for discharge.
Spoke with patient in room. IMM copy given and explained to patient he did not want to sign till family member arrived.
Reviewed that [facility] did not have acute rehab bed today . [facility] ([address] [place], [place] [address] )and [facility] have beds.
Pt requested to check with [facility] ([address] /[place] , [place] [address] )bed availability . Referral placed and spoke with Janay she will call back if can accept.
spoke with and dgt on phone.
Ongoing discharge placement .
PLAN To acute rehab after locating
[2025-03-06 13:17] LABS: Glucose - Point of Care 210 mg/dl (70-99)
[2025-03-06 15:00] VITALS: BP 125/62
[2025-03-06 16:29] LABS: Glucose - Point of Care 189 mg/dl (70-99)
[2025-03-06] MEDS: LASIX PO (16:32)
[2025-03-06] MEDS: NOVOLOG MIX 70/30 FLEXPEN 24 UNITS SC (16:34)
[2025-03-06] MEDS: NOVOLOG FLEXPEN-LOW RESISTANCE 1 UNITS SC (16:34)
== END 2025-03-06 17:34 | DRG 64 ==
LOC: 3 WEST ACU 07:43
PROVIDERS: Clinical Nurse Specialist Family Health; Internal Medicine; Nurse Practitioner Family; ADMITTING PHYSICIAN Student in an Organized Health Care Education/Training Program; ATTENDING PHYSICIAN Internal Medicine; CONSULT PHYSICIAN Internal Medicine; CONSULT PHYSICIAN Physical Medicine & Rehabilitation; CONSULT PHYSICIAN Psychiatry & Neurology Neurology; CONSULT PHYSICIAN Psychiatry & Neurology Psychiatry; EMERGENCY PHYSICIAN Student in an Organized Health Care Education/Training Program; FAMILY PHYSICIAN Family Medicine; OTHER PHYSICIAN Internal Medicine Hematology & Oncology
DX: I63.9 Cerebral infarction, unspecified (principal); G93.6 Cerebral edema; D68.59 Other primary thrombophilia; G81.94 Hemiplegia, unspecified affecting left nondominant side; I50.32 Chronic diastolic (congestive) heart failure; F05 Delirium due to known physiological condition; I11.0 Hypertensive heart disease with heart failure; I48.0 Paroxysmal atrial fibrillation; E78.00 Pure hypercholesterolemia, unspecified; I25.10 Atherosclerotic heart disease of native coronary artery without angina pectoris; G47.33 Obstructive sleep apnea (adult) (pediatric); I16.0 Hypertensive urgency; K21.9 Gastro-esophageal reflux disease without esophagitis; E88.810 Metabolic syndrome; E66.812 Obesity, class 2; D45 Polycythemia vera; R94.6 Abnormal results of thyroid function studies; R09.02 Hypoxemia; H53.40 Unspecified visual field defects; R45.1 Restlessness and agitation; N40.0 Benign prostatic hyperplasia without lower urinary tract symptoms; R04.0 Epistaxis; I70.1 Atherosclerosis of renal artery; E11.649 Type 2 diabetes mellitus with hypoglycemia without coma; Z95.1 Presence of aortocoronary bypass graft; Z79.01 Long term (current) use of anticoagulants; Z68.29 Body mass index [BMI] 29.0-29.9, adult; Z87.891 Personal history of nicotine dependence; Z87.442 Personal history of urinary calculi; Z86.73 Personal history of transient ischemic attack (TIA), and cerebral infarction without residual deficits; Z95.5 Presence of coronary angioplasty implant and graft; Z88.1 Allergy status to other antibiotic agents; Z88.2 Allergy status to sulfonamides; Z88.8 Allergy status to other drugs, medicaments and biological substances; Z91.148 Patient's other noncompliance with medication regimen for other reason; Z91.81 History of falling; Z79.82 Long term (current) use of aspirin; Z78.1 Physical restraint status
CPT/HCPCS: 70450; 70551; 74022; 76700; 80048; 80053; 82607; 82728; 82746; 82962; 83690; 83735; 84100; 84439; 84443; 84484; 85025; 85027; 85610; 85652; 85730; 86140; 93005; 94762; 97110; 97112; 97116; 97163; 97164; 97167; 97530; 97535; 99285; J2358; J2916